=== PATIENT | male | born 1960 | race Caucasian/White ===

== ENCOUNTER 2019-01-24 00:03 | Inpatient (IN) | payer OTHER ==
[~2019-01-24] VITALS: Ht 177.8 cm; Wt 92.1 kg
[~2019-01-24 00:03] MED LIST: BENA10TA25 PO; CALC-598 PO; CARB200T1 PO; DEPER500 PO; DIL100I PO; FERR-21 PO; LEVE750T3 PO; LORA-476 PO; MULT1CAP28 PO; PHEN100C4 PO; SERT100T PO; [UNRECOGNIZED DRUG - CODE] PO
--- NOTE | 2019-01-24 00:03 | NUR ---
PT PLACED IN BED 10.
[2019-01-24] MEDS ORDERED: cefTRIAXone 1,000 MG in DEXT 5% MINI-BAG PLUS 50 ML IV ONE (00:05)
--- NOTE | 2019-01-24 00:05 | NUR ---
PT PRESENTS TO ED BIB AMBULANCE FROM NURSING FACILITY W C/O ABNORMAL LABS AND HYPERGLYCEMIA. PT IS NON-VERBAL AT BASELINE AND RESPOSNIVE TO PAIN. PT HAS TRACH TO 02 ON ARRIVAL AND IT IS WNL. PT ALSO PRESENTS WITH INDWELLING FOELY CATH AND G TUBE ON ARRIVAL. NO S/S OF INFECTION FROM EITHER SITE. PT PLACED INTO BED, PENDING MD MADDEN.
[2019-01-24 00:09] VITALS: BP 98/55
[2019-01-24] MEDS ORDERED: cefTRIAXone 1,000 MG VIAL ONE (00:19)
[2019-01-24] MEDS ORDERED: FAMO-90 GT (00:31)
[2019-01-24] MEDS ORDERED: LEVEMIR SUBQ (00:31)
[2019-01-24] MEDS ORDERED: HEPA500056 SUBQ (00:31)
[2019-01-24] MEDS ORDERED: ASCO500T45 GT (00:31)
[2019-01-24] MEDS ORDERED: METO25TA GT (00:31)
[2019-01-24] MEDS ORDERED: DOCU-299 GT (00:31)
[2019-01-24] MEDS ORDERED: CLOP75TA26 GT (00:31)
[2019-01-24] MEDS ORDERED: VANC125C11 GT (00:31)
[2019-01-24] MEDS ORDERED: SENN-74 GT (00:31)
[2019-01-24] MEDS ORDERED: MULT-1869 GT (00:31)
[2019-01-24] MEDS ORDERED: ATOR40TA GT (00:31)
[2019-01-24] MEDS ORDERED: ASPI-1718 GT (00:31)
[2019-01-24] MEDS ORDERED: PHEN100C3 GT (00:31)
[2019-01-24] MEDS ORDERED: LACT25CA GT (00:31)
--- NOTE | 2019-01-24 00:45 | NUR ---
# 14 FR Meeks catheter with 10 ml utilizing sterile technique. Immediate return of 20 ml CLOUDY/YELLOW urine noted. Bedside drainage bag placed below level of bladder. Urine sample collected and sent to lab. Pt tolerated procedure WELL.
--- NOTE | 2019-01-24 01:05 | NUR ---
Patient noted to have existing wounds upon arrival to ER. Photos taken of wound and placed in chart. Wound covered with dressing. Physician informed.
[2019-01-24 01:19] LABS: BASOPHILS % (AUTO) 0.2 % (0.0-2.0); EOSINOPHILS % (AUTO) 0.4 % (0.0-4.0); HEMATOCRIT 21.2 % (36-52); LYMPHOCYTES # (AUTO) 1.3 K/uL (2.0-11.5); LYMPHOCYTES % (AUTO) 11.4 % (20.5-51.1); MEAN CORPUSCULAR HEMOGLOBIN 27 pg (27-31); MEAN CORPUSCULAR HGB CONC 33 g/dL (33-37); MEAN CORPUSCULAR VOLUME 82.2 fL (80-94); MONOCYTES # (AUTO) 1.4 K/uL (0.8-1.0); MONOCYTES % (AUTO) 12.7 % (1.7-9.3); NEUTROPHILS # (AUTO) 8.5 K/uL (1.8-7.7); NEUTROPHILS % (AUTO) 75.3 % (42.2-75.2); PLATELET COUNT (AUTO) 168 K/uL (140-450); RED BLOOD CELL COUNT(AUTO) 2.58 MIL/uL (4.20-6.10); WHITE BLOOD COUNT (AUTO) 11.3 K/uL (4.8-10.8)
--- NOTE | 2019-01-24 01:22 | NUR ---
URINE WALKED DOWN TO LAB.
[2019-01-24 01:40] LABS: POTASSIUM 5.6 mmol/L (3.5-5.1)
[2019-01-24 01:41] LABS: ANION GAP 15.6 (8-16); CREATININE 3.5 mg/dL (0.7-1.3); TOTAL BILIRUBIN 0.9 mg/dL (0.0-1.0)
[2019-01-24 01:42] LABS: ALBUMIN 1.4 g/dL (3.4-5.0)
[2019-01-24 01:44] LABS: HEMOGLOBIN 6.9 g/dL (12.0-18.0)
[2019-01-24 01:45] LABS: RED CELL DISTRIBUTION WIDTH 20.3 % (11.6-13.7)
[2019-01-24] MEDS ORDERED: NACL 0.9% 1,000 ML IV ONE ×2 (01:45→02:20)
[2019-01-24] MEDS ORDERED: DOCUSATE SODIUM 100 MG GELCAP PO PRN (02:05)
[2019-01-24] MEDS ORDERED: MORPHINE SULFATE 2 MG/ML SYR IVP PRN (02:05)
[2019-01-24] MEDS ORDERED: HYDROcodone/APAP 7.5/325 MG 1 TAB PO PRN (02:05)
[2019-01-24] MEDS ORDERED: ONDANSETRON 4 MG/2 ML VIAL IM/IVP PRN (02:05)
[2019-01-24 02:06] LABS: APPEARANCE,URINE CLEAR (CLEAR); BILIRUBIN,URINE NEGATIVE (NEGATIVE); BLOOD, URINE 3+ (NEGATIVE); COLOR,URINE YELLOW (YELLOW); LEUKOCYTE ESTERASE ,URINE 3+ (NEGATIVE); NITRITE, URINE NEGATIVE (NEGATIVE); UGLUCOSE NEGATIVE (NEGATIVE)
--- NOTE | 2019-01-24 02:20 | NUR ---
Patient transported to unit via gurney, accompanied by two AIR LIAISON AND SPECIAL STAFF's; patient is A/Ox1, mentally disabled, unable to make needs known, bedbound. Introduced self, updated board, oriented patient to hospital environment and room. Patient on trach to t-piece, O2 at 10LPM, no distress noted. IV site on right subclavian, 22 gauge, intact and patent, running IVF at bolus rate. G-tube in place, Meeks catheter inserted in ER. Right lateral foot and heel noted with skin tear and sacrococcyx area has a pressure ulcer, all covered with Optifoam, no drainage noted. Bed in the lowest position, call light within reach. Initial assessment done. Will continue to monitor.
--- NOTE | 2019-01-24 02:20 | NUR ---
Patient will be admitted to care of DR POSADA. Admited to TELE. Will go to room 116-A. Belongings list completed. Report to JESÚS ALVARADO.
[2019-01-24 02:21] LABS: PROTHROMBIN TIME 9.2 secs (10.8-13.4)
--- NOTE | 2019-01-24 02:25 | NUR ---
SPOKE WITH GEE FROM [facility] TO INFORM OF PTS ADMISSION.
--- NOTE | 2019-01-24 02:53 | NUR ---
SPUTUM SAMPLE OBTAINED VIA TRACHEAL SUCTION, 6-7ML, BARBOUR, THICK. SENT TO LAB. PATIENT THEN PLACED ON COOL AEROSOL VIA T-PIECE AT 40% FIO2, 10LPM. SPO2 92% POST SUCTION.
[2019-01-24 03:00] VITALS: BP 110/58
[2019-01-24] MEDS ORDERED: NACL 0.9% 1,000 ML IV SCH (03:00)
[2019-01-24 03:20] LABS: FREE T4 (FREE THYROXINE) 1.3 ng/dL (0.76-1.46); MAGNESIUM 2.8 mg/dL (1.8-2.4); PHOSPHORUS 1.4 mg/dL (2.5-4.9); THYROID STIMULATING HORMONE 2.98 uIU/mL (0.34-3.74)
[2019-01-24 03:27] LABS: CHOL/HDL RATIO 19.8 (1-4.5)
[2019-01-24] MEDS ORDERED: DEXTROSE 50% 50 ML SYR IVP PRN (03:30)
[2019-01-24 04:01] LABS: RBC,URINE TOO NUMEROUS TO COUN /HPF (0-5); WBC,URINE TOO MANY TO COUNT /HPF (0-5)
--- NOTE | 2019-01-24 04:20 | NUR ---
RECEIVED CALL FROM LAB, SPOKE WITH SARAH BROOKS 2.4.
--- NOTE | 2019-01-24 04:23 | NUR ---
DR WHITE AWARE OF LACTIC ACID 2.4, NO CHANGE IN ORDERS
[2019-01-24] MEDS ORDERED: PIPERACILLIN/TAZOBACTAM 2.25 GM VIAL IV ONE (05:29)
[2019-01-24] MEDS ORDERED: SODIUM PHOSPHATE 15 MMOLE in NACL 0.9% 250 ML IV SCH ×2 (05:55→07:16)
[2019-01-24] MEDS ORDERED: PIPERACILLIN/TAZOBACTAM 2.25 GM in DEXTROSE 5% 50 ML IV SCH (06:00)
[2019-01-24] MEDS: BLOOD GLUCOSE MONITORING 1 DEV DEV FS SCH ×4 (06:42→21:23)
[2019-01-24] MEDS: INSULIN LISPRO SLIDING SCALE 100 UNITS/ML VIAL SUBQ PRN ×5 (06:45→21:27)
--- NOTE | 2019-01-24 07:10 | NUR ---
Endorsed patient to AM shift RN for continuity of care. Patient in stable condition.
--- NOTE | 2019-01-24 07:15 | NUR ---
RECEIVED HANDOFF REPORT FROM INSURANCE LOSS ADJUSTER NURSE. PT IS AWAKE IN BED. PT IS STABLE AND APPEARS IN NO APPARENT DISTRESS. ALL SAFETY MEASURES ARE IN PLACE AND WILL CONTINUE TO MONITOR. RT AT PT BEDSIDE.
[2019-01-24] MEDS: ALBUTEROL SULFATE/IPRATROPIU 3 ML SOL IH SCH ×3 (07:18→20:10)
[2019-01-24] MEDS ORDERED: VANCOMYCIN PER PHARMACY MC PRN (07:25)
[2019-01-24 08:00] VITALS: BP 105/69
--- NOTE | 2019-01-24 08:09 | NUR ---
PATIENT HAS BEEN SCREENED AND CATEGORIZED HIGH NUTRITION RISK. PATIENT WILL BE SEEN WITHIN 1-2 DAYS OF ADMISSION. 01/24/19-01/25/[address]
[2019-01-24] MEDS ORDERED: FAMOTIDINE 20 MG TAB GT SCH (09:00)
[2019-01-24] MEDS ORDERED: METOPROLOL 25 MG TAB GT SCH (09:00)
[2019-01-24] MEDS ORDERED: VANCOMYCIN 750 MG in DEXTROSE 5% 250 ML IV SCH (09:00)
[2019-01-24] MEDS ORDERED: LACTULOSE 20 GM/30 ML UDC PO SCH (09:00)
[2019-01-24] MEDS ORDERED: CLOPIDOGREL 75 MG TAB PO ONE (09:00)
[2019-01-24] MEDS ORDERED: DOCUSATE 100 MG/10 ML UDC GT SCH (09:00)
[2019-01-24] MEDS ORDERED: ASPIRIN 81 MG TAB.CHEW GT SCH (09:00)
[2019-01-24] MEDS ORDERED: PHENYTOIN 100 MG/4 ML UDC GT SCH (09:00)
[2019-01-24] MEDS: LACTOBACILLUS RHAMNOSUS GG 1 EACH CAP PO SCH (09:05)
[2019-01-24] MEDS: PHENYTOIN 100 MG/4 ML UDC GT SCH ×2 (09:07→21:01)
--- NOTE | 2019-01-24 09:30 | NUR ---
FINGER STICK GLUCOSE CHECK 310. ADMINISTERED 30 UNITS LANTUS AND 8 UNITS OF HUMALOG. PT IS AWAKE IN BED. PERFORMED SUCTION. SMALL AMOUNT OF SECRETIONS REMOVED. ALL MORNING MEDICATIONS ADMINISTERED VIA G TUBE. NO GTUBE RESIDUAL. ALL SAFETY MEASURES ARE IN PLACE WILL CONTINUE TO MONITOR.
[2019-01-24] MEDS: ASCORBIC ACID 500 MG/5 ML ORASYR GT SCH ×2 (09:40→21:10)
[2019-01-24] MEDS: INSULIN LANTUS 100 UNITS/ML 10 ML VIAL SUBQ SCH ×2 (09:43→21:28)
[2019-01-24] MEDS: NACL 0.9% 1,000 ML IV SCH ×2 (09:45→21:01)
[2019-01-24] MEDS: PHARMACY COMMENTS MC SCH (09:52)
[2019-01-24] MEDS: VANCOMYCIN 500 MG VIAL PO SCH (09:53)
[2019-01-24] MEDS ORDERED: SCOPOLAMINE 1.5 MG/72 HR PATCH TD SCH (10:26)
--- NOTE | 2019-01-24 10:30 | NUR ---
CHANGED PT LINENS. SMALL BOWEL MOVEMENT. CLEANED PERIANAL AND REPOSITIONED PATIENT.
--- NOTE | 2019-01-24 10:30 | NUR ---
ATTEMPTED TO CONTACT BOTH FAMILY MEMBERS IN PATIENT CONTACTS LEFT VOICEMAIL FOR CONSENT FOR BLOOD TRANSFUSION.
--- NOTE | 2019-01-24 10:38 | NUR ---
WOUND CARE EVALUATION NOTE: REASON FOR EVALUATION: LOW JESSICA SCALE AND LEFT BUTTOCK WOUND SKIN ASSESSMENT DONE WITH THIS 58 Y/O MALE PT ADMITTED FROM [facility] TO [facility] WITH INITIAL DX HYPERGLYCEMIA. PAST MEDICAL HX INCLUDES HTN, DM, TRACH, CHRONIC PRESSURE ULCER WOUNDS, G-TUBE. ALL ABOVE INFORMATION OBTAINED FROM ADMISSION H&P. PT IS AWAKE. SKIN IS WARM AND DRY, BLE HAIR GROWTH, NO EDEMA. DORSAL PEDAL PULSES PRESENT AND NORMAL. CAPILLARY REFILLED < 2 SEC. X 10 TOES. INCONTINENT OF BOWEL X1 DURING ASSESSMENT. F/C PATENT WITH SMALL AMOUNT YELLOW COLOR URINE OUT PUT OBSERVED.. PLAN OF CARE DISCUSSED WITH PRIMARY RN. INTEGUMENTARY: -TRACH SITE BRADLEY STOMA SKIN DRY AND CLEAN. SKIN INTACT. -GT SITE BRADLEY STOMA WITH SKIN INTACT. -ABDOMEN DISTENDED, SOFT WITH MULTIPLE PURPLE DISCOLORATION -INCONTINENT ASSOCIATE DERMATITIS (IAD) TO: B/L GROINS EXTENDED TO PERINEUM, SKIN REDNESS -PRESSURE ULCER INJURY STAGE 1, SACROCOCCYX 2X2CM, BRADLEY-WOUND SKIN MOIST (FROM [facility] H&P RECORD HX PI STAGE 3) - PRESSURE ULCER INJURY STAGE 3, LEFT BUTTOCK 4.5X4X0.2CM WOUND BED IS RED 100% GRANULATING TISSUE, MOIST NO ODOR, BRADLEY WOUND SKIN INTACT. -PRESSURE ULCER INJURY STAGE 2, RIGHT LATERAL MALLEOLUS 0.5X0.5X0.2 CM, WOUND BED IS RED, 100% GRANULATING TISSUE, MOIST NO ODOR, BRADLEY WOUND SKIN INTACT. -RIGHT HEEL RECENT RESOLVED PRESSURE ULCER INJURY (FROM [facility] RECORD) NON-BLANCHABLE SKIN INTACT WITH THIN SCAR 3X4CM RECOMMENDATIONS: -APPLY HYDRAGUARD TO R/L GROINS EXTENDED TO PERINEUM BID AND PRN IF SOILING - CLEANSE LEFT BUTTOCK AND RIGHT LATERAL MALLEOLUS WITH WOUND CLEANSING SOLUTION AND APPLY THERAHONEY GEL COVER WITH DRY DRESSING QD AND PRN IF SOILING -APPLY FORM DRESSING TO SACROCOCCYX AND RIGHT HEEL Q7 DAYS AND PRN IF SOILING PREVENTION -APPLY HEEL PROTECTORS TO BOTH HEELS AT ALL TIMES -OFFLOAD BILATERAL HEELS BY PLACING PILLOWS UNDER CALVES UNLESS OTHERWISE CONTRAINDICATED -PRESSURE REDISTRIBUTION SURFACE THERAPY -TURN AND REPOSITION Q2H, OFFLOAD SACRALCOCCYX AND BUTTOCKS BY TURNING RIGHT AND LEFT -CONTINUE TO FOLLOW RD RECOMMENDATIONS ALL ABOVE RECOMMENDATIONS DISCUSSED WITH PRIMARY RN. WILL FOLLOW UP PT Q7-10 DAYS. PLEASE CONTACT WOUND CARE NURSE FOR ANY QUESTION AND CHANGE OF WOUND CONDITION.
[2019-01-24 11:01] LABS: ANION GAP 10.8 (8-16); CREATININE 3.4 mg/dL (0.7-1.3); POTASSIUM 4.8 mmol/L (3.5-5.1)
[2019-01-24 11:04] LABS: MAGNESIUM 2.7 mg/dL (1.8-2.4); PHOSPHORUS 1.6 mg/dL (2.5-4.9)
--- NOTE | 2019-01-24 11:20 | NUR ---
STARTED BLOOD TRANSFUSION. PT VITALS ARE 137/65 TEMP 100.1 BEFORE BLOOD TRANSFUSION IS INITIATED. CALLED AND INFORMED HER. SAID TO ADMINISTER TYLENOL
[2019-01-24] MEDS: ACETAMINOPHEN 325 MG TAB PO PRN ×2 (11:25→21:01)
--- NOTE | 2019-01-24 11:25 | NUR ---
ADMINISTERED TYLENOL VIA GTUBE. NO GTUBE RESIDUAL. PT IS STABLE AND NO SIGNS OF DISTRESS.
--- NOTE | 2019-01-24 11:30 | NUR ---
IV SITE LEAKING STOPPED BLOOD TRANSFUSION AND WILL START A NEW IV SITE.
[2019-01-24 11:46] LABS: HEMATOCRIT 21.3 % (36-52); MEAN CORPUSCULAR HEMOGLOBIN 27 pg (27-31); MEAN CORPUSCULAR HGB CONC 33 g/dL (33-37); MEAN CORPUSCULAR VOLUME 83.4 fL (80-94); PLATELET COUNT (AUTO) 172 K/uL (140-450); RED BLOOD CELL COUNT(AUTO) 2.56 MIL/uL (4.20-6.10); RED CELL DISTRIBUTION WIDTH 20.1 % (11.6-13.7); WHITE BLOOD COUNT (AUTO) 8.6 K/uL (4.8-10.8)
[2019-01-24 12:00] VITALS: BP 125/62
[2019-01-24 12:04] LABS: EOSINOPHILS % (MANUAL) 2 % (0-4); MONOCYTES % (MANUAL) 9 % (5-12)
[2019-01-24 12:05] LABS: LYMPHOCYTES % (MANUAL) 10 % (20-46)
--- NOTE | 2019-01-24 12:30 | NUR ---
NEW IV SITE STARTED. IV BLOOD TRANSFUSION BACK RUNNING. PT IS STABLE AND HAS NO SIGNS OF DISTRESS. VITAL SIGNS ARE 131/60 HR 111 TEMP 99.8
[2019-01-24] MEDS: PIPER/TAZO 2.25GM/D5W PREMIX 50 ML IV SCH ×2 (13:00→21:16)
--- NOTE | 2019-01-24 13:32 | NUR ---
01/24/19 RD INITIAL ASSESSMENT COMPLETED PLEASE REFER TO NUTRITION ASSESSMENT UNDER CARE ACTIVITY FOR ESTIMATED NUTRITIONAL NEEDS. 1. RECOMMEND VITAL @ 65 ML/HR -THIS WILL PROVIDE 1560 ML OF VOLUME, 1872 KCAL, AND 117 GM OF PROTEIN, WHICH MEETS 100% OF ESTIMATED PROTEIN AND KCAL NEEDS 2. RECOMMEND FREE WATER FLUSH 100 ML Q4H 3. CONTINUE VITAMIN C FOR PRESSURE ULCERS 4. RD TO FOLLOW-UP 2-3 DAYS, HIGH RISK DEUCE KNIGHT RD
[2019-01-24] MEDS: HYDRAGUARD CREAM TP SCH (13:50)
[2019-01-24] MEDS: THERAHONEY GEL 42.5 GM TP SCH (13:50)
--- NOTE | 2019-01-24 14:18 | NUR ---
CONTACTED PICC LINE SERVICE, VOICEMAIL MESSAGE LEFT ([phone]). AWAITING FOR CALL BACK.
--- NOTE | 2019-01-24 14:30 | NUR ---
PICC LINE NURSE CONTACTED ME INFORMED ME THAT HE WILL BE HERE IN ABOUT AN HOUR TO PLACE THE PICC LINE.
--- NOTE | 2019-01-24 15:20 | NUR ---
BLOOD TRANSFUSION COMPLETE. PT IS STABLE AND SHOWS NO SIGNS OF TRANSFUSION REACTION. PT IS STABLE AND IN NO APPARENT DISTRESS. ALL SAFETY MEASURES ARE IN PLACE WILL CONTINUE TO MONITOR. CURRENT VITAL SIGNS ARE 132/72 100% O2 TRACH TO T PIECE.
--- NOTE | 2019-01-24 16:00 | NUR ---
PICC LINE PLACED. PT IS AWAKE IN BED, PT APPEARS STABLE AND IN NO APPARENT DISTRESS, ALL SAFETY MEASURES ARE IN PLACE. WILL CONTINUE TO MONITOR.
--- NOTE | 2019-01-24 16:30 | NUR ---
FINGERSTICK GLUCOSE. 271 WILL ADMINISTER 6 UNITS HUMALOG.
--- NOTE | 2019-01-24 17:30 | NUR ---
PT TRANSFERRED TO WOUND CARE BED. PER WOUND CARE NURSE ORDERS. PT IS STABLE PROVIDED SUCTIONING AND PT IS IN NO APPARENT DISTRESS. ALL SAFETY MEASURES ARE IN PLACE. WILL CONTINUE TO MONITOR.
[2019-01-24 18:00] VITALS: BP 146/62
[2019-01-24] MEDS ORDERED: FUROSEMIDE 20 MG/2 ML VIAL IVP SCH ×2 (18:10→19:00)
--- NOTE | 2019-01-24 18:40 | NUR ---
SUCTIONED PATIENT. FREQUENT ROUNDING ON PT. PT IS STABLE AND IN NO APPARENT DISTRESS.
--- NOTE | 2019-01-24 19:05 | NUR ---
ENDORSED PT TO CORPORATE COMMUNICATIONS ASSOCIATE NURSE PT IS STABLE AND IN NO APPARENT DISTRESS. ALL SAFETY MEASURES ARE IN PLACE.
--- NOTE | 2019-01-24 19:15 | NUR ---
Received endorsement from AM shift RN; patient is A/Ox1, unable to make needs known, bedbound. Introduced self, updated board. Patient is on Trach to t-piece, O2 at 10LPM at 60%, O2Sat between 90-93%. IV site left upper arm PICC line, double lumen running IVF, no swelling noted. G-tube in place, no feeding in place. Meeks catheter in place, yellow urine noted. Skin tears on right lateral foot and heel, sacrococcyx pressure ulcer noted. Bed in the lowest position, call light within reach. Initial assessment done. Will continue to monitor.
[2019-01-24 20:00] VITALS: BP 141/76
--- NOTE | 2019-01-24 20:10 | NUR ---
PATIENT FOUND ON COOL AEROSOL FIO2 OF 28%. SAO2 AT 81% (GOAL IS 88-92%). RR AT 36, DIAPHORETIC, BREATH SOUNDS DIMINISHED, AND PULSE AT 135. NURSE JENNY MADE AWARE. FIO2 INCREASED TO 60% TO ACHIEVE 90%. TX GIVEN WITH NO ADVERSE EFFECT. FREQUENT ROUNDINGS WILL BE MADE.
--- NOTE | 2019-01-24 20:15 | NUR ---
Vitals taken, O2Sat between 89-93%, respirations 25. Temperature 100.4 degrees F., administered PRN Tylenol as ordered for fever. Due meds given, tolerated well. Will continue to monitor.
[2019-01-24] MEDS: ATORVASTATIN 20 MG TAB GT SCH (21:02)
--- NOTE | 2019-01-24 22:05 | NUR ---
Frequent checks made. Patient O2Sat is between 90-93%, RR 22-25 BPM. Will continue to monitor.
--- NOTE | 2019-01-24 23:25 | NUR ---
Vitals taken, fever reduced to 98.9; O2Sat is between 89-95% on 10LPM at 60%. Patient is diaphoretic; Dr. Herbert made aware and went to bedside. Additional orders were made. Will continue to monitor.
--- NOTE | 2019-01-24 23:42 | NUR ---
PATIENT TITRATED FROM FIO2 OF 60% TO 40%. SPO2 AT 91 AFTER CHANGE. PT NO LONGER DIAPHORETIC OR TACHYPNEIC. RR AT 20.
[2019-01-25] VITALS (7 sets, daily range): BP systolic 90–163; BP diastolic 51–64
[2019-01-25] MEDS: HYDRAGUARD CREAM TP SCH ×2 (01:16→12:36)
--- NOTE | 2019-01-25 01:20 | NUR ---
Checks made, patient is resting. No distress noted. Patient O2Sat between 86-94%.
--- NOTE | 2019-01-25 03:30 | NUR ---
Patient had a BM, brown, semi soft. Patient given a sponge bath, linens and chux changed, repositioned right lateral side. O2Sat between 91-95%, RR 24-26 BPM. Will continue to monitor.
--- NOTE | 2019-01-25 03:55 | NUR ---
Vitals taken, no distress noted. Patient resting, eyes closed, visible chest rise and fall noted.
[2019-01-25] MEDS: PIPER/TAZO 2.25GM/D5W PREMIX 50 ML IV SCH ×3 (04:40→21:11)
[2019-01-25] MEDS: BLOOD GLUCOSE MONITORING 1 DEV DEV FS SCH ×4 (06:35→21:25)
[2019-01-25] MEDS: INSULIN LISPRO SLIDING SCALE 100 UNITS/ML VIAL SUBQ PRN ×4 (06:39→21:30)
--- NOTE | 2019-01-25 07:20 | NUR ---
Endorsed patient to AM shift RN for continuity of care; patient in stable condition.
[2019-01-25] MEDS: ALBUTEROL SULFATE/IPRATROPIU 3 ML SOL IH SCH ×3 (07:43→18:52)
--- NOTE | 2019-01-25 07:50 | NUR ---
PATIENT WAS AWAKE, RESPONSIVE TO TOUCH. RESPIRATION EVEN, UNLABOR ON TPIECE 40%. SKIN DRY AND WARM. IV PATENT AND INTACT. TUBE FEEDING WAS STOPPED. GTUBE DRY AND IN PLACE. FLACC 0. PLAN OF CARE WAS DISCUSSED WITH PATIENT, PATIENT WAS UNABLE TO COMPREHEND. BED AT LOW POSITION, SIDE RAILS UP. CALL LIGHT WITHIN REACH. RT WAS AT BEDSIDE
[2019-01-25 08:15] LABS: BASOPHILS % (AUTO) 0.4 % (0.0-2.0); EOSINOPHILS # (AUTO) 0.1 K/uL (0-0.4); EOSINOPHILS % (AUTO) 0.7 % (0.0-4.0); HEMATOCRIT 22.5 % (36-52); HEMOGLOBIN 7.4 g/dL (12.0-18.0); LYMPHOCYTES % (AUTO) 9.9 % (20.5-51.1); MEAN CORPUSCULAR HEMOGLOBIN 27 pg (27-31); MEAN CORPUSCULAR HGB CONC 33 g/dL (33-37); MEAN CORPUSCULAR VOLUME 81.9 fL (80-94); MONOCYTES # (AUTO) 1.1 K/uL (0.8-1.0); MONOCYTES % (AUTO) 10.7 % (1.7-9.3); NEUTROPHILS # (AUTO) 7.8 K/uL (1.8-7.7); NEUTROPHILS % (AUTO) 78.3 % (42.2-75.2); PLATELET COUNT (AUTO) 214 K/uL (140-450); RED BLOOD CELL COUNT(AUTO) 2.75 MIL/uL (4.20-6.10); RED CELL DISTRIBUTION WIDTH 19.3 % (11.6-13.7); WHITE BLOOD COUNT (AUTO) 9.9 K/uL (4.8-10.8)
[2019-01-25 08:37] LABS: FERRITIN 268 ng/mL (30-400); FOLIC ACID > 20.00 ng/mL (>3.0)
[2019-01-25] MEDS ORDERED: LACTULOSE 20 GM/30 ML UDC PO SCH (09:00)
[2019-01-25] MEDS: INSULIN LANTUS 100 UNITS/ML 10 ML VIAL SUBQ SCH (09:00)
[2019-01-25 09:10] LABS: CARBON DIOXIDE 26.5 mmol/L (21-32); POTASSIUM 4.5 mmol/L (3.5-5.1)
[2019-01-25] MEDS: PHENYTOIN 100 MG/4 ML UDC GT SCH ×2 (09:11→21:11)
[2019-01-25] MEDS: PANTOPRAZOLE 40 MG INJ VIAL IVP SCH (09:11)
[2019-01-25] MEDS: ASCORBIC ACID 500 MG/5 ML ORASYR GT SCH ×2 (09:11→21:10)
[2019-01-25 09:12] LABS: CREATININE 3.3 mg/dL (0.7-1.3)
[2019-01-25] MEDS: LACTOBACILLUS RHAMNOSUS GG 1 EACH CAP PO SCH (09:12)
--- NOTE | 2019-01-25 09:30 | NUR ---
PATIENT WAS AWAKE, RESPONSIVE TO TOUCH. RESPIRATION EVEN, UNLABOR ON T PIECE. PATIENT WAS REPOSITIONED, PERINEAL CARE WAS GIVEN. MEDS WERE GIVEN PER ORDER. NO DISTRESS NOTED AT THIS TIME
[2019-01-25] MEDS ORDERED: SODIUM PHOS / POTASSIUM PHOS 1 PKT PDR PO SCH (11:00)
[2019-01-25] MEDS: VANCOMYCIN 1GM/DEXT 5% PREMIX 200 ML IV SCH (11:08)
[2019-01-25 11:30] LABS: MAGNESIUM 2.4 mg/dL (1.8-2.4)
--- NOTE | 2019-01-25 12:00 | NUR ---
DR. CABRAL WAS MADE AWARE THAT PATIENT IS CURRENTLY NPO, WITH BLOOD SUGAR 343. OK TO GIVE 8 UNITS PER MD
[2019-01-25] MEDS: THERAHONEY GEL 42.5 GM TP SCH (12:36)
[2019-01-25] MEDS ORDERED: fentaNYL 0.05 MG/ML VIAL ONE (13:47)
[2019-01-25] MEDS ORDERED: MIDAZOLAM 2 MG/2 ML VIAL ONE ×2 (13:47)
[2019-01-25] MEDS ORDERED: diphenhydrAMINE 50 MG/ML VIAL ONE (13:48)
--- NOTE | 2019-01-25 13:48 | NUR ---
OPERATING ROOM (OR) TECH AT BEDSIDE TRANSPORT PATIENT TO OR FOR EGD BREATH SOUNDS COARSE RHONCHI BILATERAL DEEP TRACHEAL SUCTION FOR COPIOUS FROTHY TO SEMI THICK BARBOUR SECRETIONS SUPPLEMENTAL OXYGEN GIVEN VIA E-TANK TO INLINE SUCTION CATHETER/TRACHEOSTOMY TUBE AT 3 LPM ELEVATED GUARD TO ATTEMPT HHN THERAPY AND RESPIRATORY DRUG AT A LATER TIME
[2019-01-25] MEDS: MIDAZOLAM 2 MG/2 ML VIAL IVP ONE ×2 (14:11→14:55)
[2019-01-25] MEDS: fentaNYL 0.05 MG/ML VIAL IVP ONE ×2 (14:12→14:55)
--- NOTE | 2019-01-25 14:56 | NUR ---
PATIENT WAS TRANSFERRED BACK FROM OR. VS WAS TAKEN. PATIENT WAS AWAKE. PATIENT IS STABLE AT THIS TIME. US AT BEDSIDE
--- NOTE | 2019-01-25 15:15 | NUR ---
INTERIOR WIRER AT BEDSIDE FOR ULTRASOUND FO LEFT AND RIGH LOWER EXTREMITIES R/O DVT SPECIAL EDUCATION ASSOCIATE TO ATTEMPT HHN THERAPY AND RESPIRATORY DRUG AT A LATER TIME
--- NOTE | 2019-01-25 15:42 | NUR ---
PATIENT WITH INCREASED SOB AT 36 BPM BREATH SOUNDS COARSE RHONCHI BILATERAL DEEP TRACHEAL SUCTION FOR COPIOUS FROTHY BARBOUR SECRETIONS AIRWAY PATENT
--- NOTE | 2019-01-25 16:00 | NUR ---
PATIENT WAS AWAKE, RESPONSIVE TO TOUCH. RESPIRATION EVEN, UNLABOR ON TRACH TO TPIEACE. FLACC 0. NO DISTRESS NOTED AT THIS TIME
[2019-01-25] MEDS: NACL 0.9% 1,000 ML IV SCH (16:55)
--- NOTE | 2019-01-25 17:30 | NUR ---
PATIENT WAS REPOSITIONED, PERINEAL CARE WAS GIVEN. WOUND DRESSINGS WERE CHANGED. PATIENT TOLERATED WELL
--- NOTE | 2019-01-25 18:44 | NUR ---
PATIENT WAS SUCTIONED X 2. TUBE FEEDING WAS STARTED AT 10ML/HOUR PER ORDER. RESIDUAL FEEDING CHECK AT 0. PICC LINE PATENT AND INTACT. NO DISTRESS NOTED AT THIS TIME
--- NOTE | 2019-01-25 19:29 | NUR ---
ENDORSEMENT GIVEN TO ROUTE SALES DELIVERY DRIVERS SUPERVISOR NURSE. PATIENT IS STABLE AT THIS TIME
--- NOTE | 2019-01-25 19:40 | NUR ---
RECEIVED BEDSIDE REPORT FROM DAY SHIFT NURSE. PATIENT AWAKE AND APHASIC. AOX1 TO SELF AND BEDBOUND. RESPIRATION EVEN UNLABORED ON TRACH TO T-PIECE. SKIN IS WARM AND DRY. LEFT UPPER ARM PICC LINE NOTED PATENT AND INTACT. G-TUBE FEEDING NOTED AND OBTAINED 0CC RESIDUAL. ROSAS CATHETER NOTED DRAINING YELLOW URINE. RIGHT FOOT AND HEEL NOTED WITH SKIN TEAR. PRESSURE ULCER IN THE SACRAL AREA NOTED AND COVERED WITH OPTIFOAM. PLAN OF CARE WAS DISCUSSED. ALL SAFETY MEASURES IN PLACE. BED IS AT LOW POSITION. CALL LIGHT WITHIN REACH. WILL CONTINUE TO MONITOR
--- NOTE | 2019-01-25 20:00 | NUR ---
INITIAL ASSESSMENT DONE. VITALS WERE TAKEN. PATIENT CONDITION STABLE. NO DISTRESS NOTED WILL CONTINUE TO MONITOR
[2019-01-25] MEDS ORDERED: INSULIN LANTUS 100 UNITS/ML 10 ML VIAL SUBQ SCH (21:00)
--- NOTE | 2019-01-25 21:00 | NUR ---
ALL SCHEDULED MEDS WERE GIVEN PER ORDER. NO ASE NOTED. WILL CONTINUE TO MONITOR
[2019-01-25] MEDS: METOPROLOL 50 MG TAB PO SCH (21:10)
[2019-01-25] MEDS: ATORVASTATIN 20 MG TAB GT SCH (21:10)
--- NOTE | 2019-01-25 22:00 | NUR ---
SUCTIONED PATIENT OBTAINED SMALL AMOUNT OF WHITE SECRETION. WILL CONTINUE TO MONITOR
--- NOTE | 2019-01-25 22:40 | NUR ---
SUCTIONED COPIOUS AMOUNT OF THICK, WHITE FROTHY SECRETIONS. WILL CONTINUE TO MONITOR.
--- NOTE | 2019-01-25 23:00 | NUR ---
PATIENT SLEEPING RESPIRATION EVEN UNLABORED ON TRACH TO T-PIECE. NO DISTRESS NOTED. WILL CONTINUE TO MONITOR
[2019-01-26] VITALS: BP 115/69
--- NOTE | 2019-01-26 01:00 | NUR ---
PATIENT WENT TO RADIOLOGY IN STABLE CONDITION. WILL CONTINUE TO MONITOR
--- NOTE | 2019-01-26 01:30 | NUR ---
PATIENT IS BACK TO THE UNIT. CONDITION STABLE NO DISTRESS NOTED. WILL CONTINUE TO MONITOR
[2019-01-26] MEDS: HYDRAGUARD CREAM TP SCH ×2 (02:10→13:30)
--- NOTE | 2019-01-26 02:51 | NUR ---
CHECKED PATIENT. PATIENT SLEEPING RESPIRATION EVEN UNLABORED ON TRACH TO T-PIECE. NO DISTRESS NOTED. WILL CONTINUE TO MONITOR
[2019-01-26 04:00] VITALS: BP 142/68
[2019-01-26] MEDS: PIPER/TAZO 2.25GM/D5W PREMIX 50 ML IV SCH ×3 (04:34→20:59)
[2019-01-26] MEDS: ALBUTEROL SULFATE/IPRATROPIU 3 ML SOL IH PRN ×2 (05:07→05:20)
[2019-01-26] MEDS ORDERED: MORPHINE SULFATE 2 MG/ML SYR IVP PRN (05:15)
[2019-01-26] MEDS ORDERED: NACL 0.9% 500 ML IV ONE (05:20)
--- NOTE | 2019-01-26 05:30 | NUR ---
PT DEMONSTRATING INCREASED WOB B/S ARE COURSE WITH EXP WHEEZE, SXN COPIOUS AMOUNTS OF CLEAR FROTHY SEC AND ADMINISTERED 2 DUONEB TX. POST TX EXP WHEEZE STILL PRESENT. PT FIO2 INCREASED TO 0.60 DUE TO SPO2 DROPPING.
[2019-01-26] MEDS: LORazepam 2 MG/ML VIAL IM/IVP PRN (05:34)
--- NOTE | 2019-01-26 05:35 | NUR ---
PATIENT DEMONSTRATING INCREASED WOB AND RESTLESSNESS. PRN ATIVAN GIVEN PER ORDER. WILL CONTINUE TO MONITOR
[2019-01-26] MEDS: NACL 0.9% 1,000 ML IV SCH ×3 (06:09→22:05)
[2019-01-26] MEDS: BLOOD GLUCOSE MONITORING 1 DEV DEV FS SCH ×4 (06:30→21:08)
[2019-01-26] MEDS: INSULIN LISPRO SLIDING SCALE 100 UNITS/ML VIAL SUBQ PRN ×4 (06:31→21:08)
[2019-01-26] MEDS ORDERED: methylPREDNISolone SS 125 MG/2 ML VIAL IVP SCH (07:00)
[2019-01-26] MEDS: ALBUTEROL SULFATE/IPRATROPIU 3 ML SOL IH SCH ×3 (07:27→20:43)
[2019-01-26] MEDS: BUDESONIDE 0.5 MG/2 ML NEBU INH SCH ×2 (07:30→20:43)
--- NOTE | 2019-01-26 07:30 | NUR ---
ENDORSED PATIENT TO DAY SHIFT NURSE FOR CONTINUITY OF CARE. PATIENT IS STABLE.
--- NOTE | 2019-01-26 07:31 | NUR ---
RECEIVED REPORT FROM WALL ATTENDANT NURSE. PATIENT LYING DOWN IN BED COMFORTABLY. NO DISTRESS NOTED. FLACC 0. TRACH WITH T-TUBE WITH O2 AT 40%, O2 SAT 94%. AAOX1, APHASIC, CALM, SKIN COLOR APPROPRIATE TO ETHNICITY, WARM TO TOUCH. HAS RIGHT FOOT SKIN TEAR AND BACK WOUND, DRESSINGS DRY AND INTACT. RESPIRATIONS, EVEN, COARSE LUNG SOUNDS. LEFT UPPER ARM PICC LINE NOTED, RUNNING IVF PER MD ORDERS. GTUBE SITE INTACT, PATENT, AND INFUSING CONTINUOUS FEEDING PER MD ORDERS. REVIEWED PLAN OF CARE WITH PATIENT. UNABLE TO COMPREHEND. SAFETY MEASURES IN PLACE, CALL LIGHT WITHIN REACH. WILL CONTINUE TO MONITOR.
[2019-01-26 08:00] VITALS: BP 143/72
[2019-01-26 08:21] LABS: ANION GAP 15.6 (8-16); CARBON DIOXIDE 24.1 mmol/L (21-32); CREATININE 3.1 mg/dL (0.7-1.3); POTASSIUM 3.7 mmol/L (3.5-5.1)
[2019-01-26 08:27] LABS: MAGNESIUM 2.3 mg/dL (1.8-2.4); PHOSPHORUS 3.7 mg/dL (2.5-4.9)
[2019-01-26 08:40] LABS: BASOPHILS % (AUTO) 0.4 % (0.0-2.0); EOSINOPHILS # (AUTO) 0.1 K/uL (0-0.4); EOSINOPHILS % (AUTO) 1.3 % (0.0-4.0); HEMATOCRIT 22.1 % (36-52); HEMOGLOBIN 7.2 g/dL (12.0-18.0); LYMPHOCYTES # (AUTO) 1.1 K/uL (2.0-11.5); LYMPHOCYTES % (AUTO) 11.5 % (20.5-51.1); MEAN CORPUSCULAR HEMOGLOBIN 27 pg (27-31); MEAN CORPUSCULAR HGB CONC 33 g/dL (33-37); MEAN CORPUSCULAR VOLUME 83.3 fL (80-94); MONOCYTES # (AUTO) 0.6 K/uL (0.8-1.0); MONOCYTES % (AUTO) 6.6 % (1.7-9.3); NEUTROPHILS # (AUTO) 7.7 K/uL (1.8-7.7); NEUTROPHILS % (AUTO) 80.2 % (42.2-75.2); PLATELET COUNT (AUTO) 270 K/uL (140-450); RED BLOOD CELL COUNT(AUTO) 2.65 MIL/uL (4.20-6.10); RED CELL DISTRIBUTION WIDTH 19.4 % (11.6-13.7); WHITE BLOOD COUNT (AUTO) 9.7 K/uL (4.8-10.8)
[2019-01-26] MEDS: ASCORBIC ACID 500 MG/5 ML ORASYR GT SCH ×2 (09:47→20:59)
[2019-01-26] MEDS: VANCOMYCIN 500 MG VIAL PO SCH (09:47)
[2019-01-26] MEDS: PHENYTOIN 100 MG/4 ML UDC GT SCH ×2 (09:48→21:00)
[2019-01-26] MEDS: METOPROLOL 50 MG TAB PO SCH ×2 (09:49→20:59)
[2019-01-26] MEDS: PANTOPRAZOLE 40 MG INJ VIAL IVP SCH (09:49)
[2019-01-26] MEDS: LACTOBACILLUS RHAMNOSUS GG 1 EACH CAP PO SCH (09:49)
[2019-01-26] MEDS: PHARMACY COMMENTS MC SCH (09:50)
[2019-01-26] MEDS: INSULIN LANTUS 100 UNITS/ML 10 ML VIAL SUBQ SCH ×2 (09:59→21:06)
--- NOTE | 2019-01-26 10:08 | NUR ---
PATIENT RESTING IN BED. NO SIGN OF DISTRESS NOTED AT THIS TIME. SCHEDULED MEDS GIVEN. G-TUBE RESIDUAL 5ML, PATIENT TOLERATING FEEDING. WILL CONTINUE TO MONITOR.
--- NOTE | 2019-01-26 11:22 | NUR ---
MOTION PICTURE COMMENTATOR AT BEDSIDE PERFORMING EEG. WILL CONTINUE TO MONITOR.
[2019-01-26 12:00] VITALS: BP 146/74
--- NOTE | 2019-01-26 12:08 | NUR ---
01/26/19 RD FOLLOW UP COMPLETED PLEASE REFER TO NUTRITION ASSESSMENT UNDER CARE ACTIVITY FOR ESTIMATED NUTRITIONAL NEEDS. 1. CONTINUE GLUCERNA AT 40 ML/HR DIET TOLERATED -THIS PROVIDES 1152 KCAL AND 57 GM OF PROTEIN WHICH MEETS 60% OF ESTIMATED ENERGY NEEDS AND 100% OF ESTIMATED PROTEIN NEEDS 2. WHEN MEDICALLY APPROPRIATE INCREASE TUBE FEED RATE TO 65 ML/HR TOLERATED -THIS WILL PROVIDE 1872 KCAL AND 93 GM OF PROTEIN, MEETING 100% OF ESTIMATED ENERGY AND PROTEIN NEEDS 3. RD TO FOLLOW-UP 2-3 DAYS, HIGH RISK DEUCE KNIGHT RD
[2019-01-26] MEDS: VANCOMYCIN 1GM/DEXT 5% PREMIX 200 ML IV SCH (13:30)
[2019-01-26] MEDS: THERAHONEY GEL 42.5 GM TP SCH (13:31)
--- NOTE | 2019-01-26 13:38 | NUR ---
ASSISTED MINI BACCARAT DEALER IN CLEANING AND REPOSITIONING PATIENT. SCHEDULED MEDICATIONS DUE GIVEN. WILL CONTINUE TO MONITOR.
--- NOTE | 2019-01-26 14:15 | NUR ---
SATURATION 95% ON SUPPLEMENTAL OXYGEN AT 10 LPM VIA COOL AEROSOL POST NN THERAPY TITRATED FIO2 TO 35% TAVON/RN NOTIFIED
--- NOTE | 2019-01-26 15:24 | NUR ---
PATIENT SLEEPING COMFORTABLY AT THIS TIME. NO SIGNS OF DISTRESS NOTED. ADMINISTERED ORDERED MEDICATION. WILL CONTINUE TO MONITOR.
[2019-01-26 16:00] VITALS: BP 138/69
--- NOTE | 2019-01-26 17:52 | NUR ---
SCHEDULED MEDICATIONS DUE GIVEN. WILL CONTINUE TO MONITOR.
--- NOTE | 2019-01-26 17:58 | NUR ---
BREATH SOUNDS RHONCHI BILATERAL WITH GOOD EQUAL CHEST RISE DEEP TRACHEAL SUCTION FOR MODERATE THIN YELLOW SECRETIONS AIRWAY PATENT TRACHEOSTOMY CARE DONE NOTED COOL AEROSOL TO TRACHEOSTOMY TUBE ON AND FUNCTIONAL WELL
--- NOTE | 2019-01-26 19:14 | NUR ---
GAVE REPORT TO CHIEF MAINTENANCE SUPERVISOR NURSE FOR CONTINUITY OF CARE. PATIENT IN STABLE CONDITION.
--- NOTE | 2019-01-26 19:25 | NUR ---
RECEIVED BEDSIDE REPORT FROM DAY SHIFT NURSE. PT IN STABLE CONDITION. PATIENT AWAKE, RESPIRATION EVEN UNLABORED ON TRACH TO T-PIECE. NO S/S OF SOB OR ANY DISCOMFORT. SKIN IS WARM AND DRY. PICC LINE RAMÓN NOTED PATENT AND INTACT. ROSAS CATHETER DRAINING YELLOW URINE. G-TUBE FEEDING NOTED. PLAN OF CARE REVIEWED. ALL SAFETY MEASURES IN PLACE. BED IS IN LOW POSITION. CALL LIGHT WITHIN REACH. WILL CONTINUE TO MONITOR
[2019-01-26 20:00] VITALS: BP 148/64
[2019-01-26] MEDS: ATORVASTATIN 20 MG TAB GT SCH (20:59)
--- NOTE | 2019-01-26 21:00 | NUR ---
ALL SCHEDULED MEDS WERE GIVEN PER ORDER. NO ASE NOTED. OBTAINED 0CC G-TUBE RESIDUAL. WILL CONTINUE TO MONITOR
--- NOTE | 2019-01-26 21:06 | NUR ---
RECEIVED PATIENT TRACH PORTEX 7 TO COOL AEROSOL MIST AT 35%. AIRWAY SECURE AND PATENT. AMBU BAG AT BEDSIDE. SCHEDULED BREATHING TREATMENTS ADMINISTERED. TOLERATED TREATMENTS WELL, NO ADVERSE SIDE EFFECTS. SUCTIONED COPIOUS AMOUNT OF THICK, YELLOW SECRETIONS. ORAL CARE PROVIDED. TITRATED FIO2 TO 30%, PULSE OX SAT 93%. RN NOTIFIED. WILL CONTINUE TO MONITOR.
--- NOTE | 2019-01-26 22:00 | NUR ---
SUCTIONED PATIENT OBTAINED SMALL AMOUNT OF SECRETION. NO DISTRESS NOTED. WILL CONTINUE TO MONITOR
--- NOTE | 2019-01-26 23:00 | NUR ---
PATIENT SLEEPING RESPIRATION EVEN UNLABORED ON TRACH TO T-PIECE. NO DISTRESS NOTED. WILL CONTINUE TO MONITOR.
[2019-01-27] VITALS: BP 117/69
--- NOTE | 2019-01-27 | NUR ---
VITALS WERE TAKEN. PATIENT CONDITION STABLE. NO DISTRESS NOTED. WILL CONTINUE TO MONITOR
[2019-01-27] MEDS: HYDRAGUARD CREAM TP SCH ×2 (01:38→12:35)
--- NOTE | 2019-01-27 02:00 | NUR ---
CHECKED PATIENT. PATIENT SLEEPING RESPIRATION EVEN UNLABORED ON TRACH TO T-PIECE. NO DISTRESS NOTED WILL CONTINUE TO MONITOR
[2019-01-27 04:00] VITALS: BP 129/73
--- NOTE | 2019-01-27 04:00 | NUR ---
VITALS WERE TAKEN. PATIENT CONDITION STABLE. NO DISTRESS NOTED. WILL CONTINUE TO MONITOR
[2019-01-27] MEDS ORDERED: DICYCLOMINE HCL LIQUID 10 MG/5 ML UDC GT SCH (05:30)
--- NOTE | 2019-01-27 05:56 | NUR ---
TRACH CARE DONE WITHOUT INCIDENT. DRAIN BAG EMPTIED. STERILE AEROSOL WATER CHANGED. SUCTIONED MODERATE AMOUNT OF THICK, YELLOW SECRETIONS. NO DISTRESS NOTED AT THIS TIME. WILL CONTINUE TO MONITOR.
[2019-01-27] MEDS: BLOOD GLUCOSE MONITORING 1 DEV DEV FS SCH ×4 (06:32→21:00)
[2019-01-27] MEDS: INSULIN LISPRO SLIDING SCALE 100 UNITS/ML VIAL SUBQ PRN ×3 (06:34→22:58)
[2019-01-27] MEDS: ALBUTEROL SULFATE/IPRATROPIU 3 ML SOL IH SCH ×3 (06:56→18:53)
[2019-01-27] MEDS: BUDESONIDE 0.5 MG/2 ML NEBU INH SCH ×2 (07:04→18:53)
--- NOTE | 2019-01-27 07:25 | NUR ---
ENDORSED PATIENT TO DAY SHIFT NURSE. PATIENT CONDITION STABLE
--- NOTE | 2019-01-27 07:26 | NUR ---
RECEIVED REPORT FROM INSURANCE ACCOUNT REPRESENTATIVE NURSE. PATIENT IS RESTING IN BED. NO SIGNS OF DISTRESS NOTED. RESPIRATIONS ARE EVEN AND UNLABORED. FLACC 0. TRACH TO T-TUBE WITH 35% O2. RAMÓN PICC LINE INTACT, PATENT, AND INFUSING. G-TUBE INTACT, PATENT, AND ON CONTINOUS FEED PER MD ORDERS. SACRAL AND RIGHT FOOT WOUNDS NOTED. DRESSING DRY AND INTACT. REVIEWED PLAN OF CARE WITH PATIENT, UNABLE TO COMPREHEND. SAFETY MEASURES IN PLACE, CALL LIGHT WITHIN REACH. WILL CONTINUE TO MONITOR.
[2019-01-27 08:00] VITALS: BP 128/77
[2019-01-27] MEDS: LACTOBACILLUS RHAMNOSUS GG 1 EACH CAP PO SCH (08:50)
[2019-01-27] MEDS: METOPROLOL 50 MG TAB PO SCH ×2 (08:50→22:24)
[2019-01-27] MEDS: PHENYTOIN 100 MG/4 ML UDC GT SCH ×2 (08:51→22:22)
[2019-01-27] MEDS: PANTOPRAZOLE 40 MG INJ VIAL IVP SCH ×2 (08:51→22:25)
[2019-01-27] MEDS: LORazepam 2 MG/ML VIAL IM/IVP PRN (08:52)
[2019-01-27] MEDS: SCOPOLAMINE 1.5 MG/72 HR PATCH TD SCH (08:53)
[2019-01-27] MEDS: INSULIN LANTUS 100 UNITS/ML 10 ML VIAL SUBQ SCH ×2 (09:08→22:59)
[2019-01-27] MEDS: FOAM DRESSING TP SCH (09:10)
[2019-01-27] MEDS: MEROPENEM 500 MG in NACL 0.9% 50 ML IV SCH ×2 (09:10→22:40)
[2019-01-27] MEDS: ASCORBIC ACID 500 MG/5 ML ORASYR GT SCH ×2 (09:13→22:23)
--- NOTE | 2019-01-27 09:18 | NUR ---
PATIENT LYING DOWN IN BED, RESTLESS, HEART RATE ELEVATED. ATIVAN GIVEN AND OTHER SCHEDULED MEDICATIONS DUE AT THIS TIME. WILL CONTINUE TO MONITOR.
[2019-01-27] MEDS: NACL 0.9% 1,000 ML IV SCH (11:25)
[2019-01-27 11:47] VITALS: BP 130/70
[2019-01-27] MEDS: INSULIN NPH HUM/REG INSULIN HM 100 UNIT/ML 10 ML VIAL SUBQ SCH ×2 (12:31→22:58)
--- NOTE | 2019-01-27 12:34 | NUR ---
PATIENT SITTING IN BED SLEEPING, AROUSABLE BY VOICE. NO DISTRESS NOTED. FLACC 0. SCHEDULED MEDICATIONS DUE GIVEN. WILL CONTINUE TO MONITOR.
[2019-01-27] MEDS: THERAHONEY GEL 42.5 GM TP SCH (12:36)
--- NOTE | 2019-01-27 12:36 | NUR ---
BLOOD GLUCOSE AT 238. HUMULIN 70/30 15 UNITS GIVEN AT THIS TIME. HUMALOG COVERAGE WITHHELD AT THIS TIME DUE TO DECREASING GLUCOSE AND 60 UNITS LANTUS GIVEN EARLIER. WILL CONTINUE TO MONITOR.
[2019-01-27 14:12] LABS: BASOPHILS % (AUTO) 0.3 % (0.0-2.0); EOSINOPHILS # (AUTO) 0.1 K/uL (0-0.4); EOSINOPHILS % (AUTO) 0.7 % (0.0-4.0); HEMATOCRIT 24.1 % (36-52); HEMOGLOBIN 7.7 g/dL (12.0-18.0); LYMPHOCYTES # (AUTO) 1.4 K/uL (2.0-11.5); LYMPHOCYTES % (AUTO) 12.7 % (20.5-51.1); MEAN CORPUSCULAR HEMOGLOBIN 27 pg (27-31); MEAN CORPUSCULAR HGB CONC 32 g/dL (33-37); MONOCYTES # (AUTO) 0.7 K/uL (0.8-1.0); MONOCYTES % (AUTO) 6.1 % (1.7-9.3); NEUTROPHILS # (AUTO) 8.8 K/uL (1.8-7.7); NEUTROPHILS % (AUTO) 80.2 % (42.2-75.2); PLATELET COUNT (AUTO) 341 K/uL (140-450); RED BLOOD CELL COUNT(AUTO) 2.87 MIL/uL (4.20-6.10); RED CELL DISTRIBUTION WIDTH 19.7 % (11.6-13.7)
[2019-01-27 14:47] LABS: ANION GAP 16.8 (8-16); CARBON DIOXIDE 22.8 mmol/L (21-32); CREATININE 2.6 mg/dL (0.7-1.3); POTASSIUM 3.6 mmol/L (3.5-5.1)
[2019-01-27] MEDS: VANCOMYCIN 500 MG VIAL GT SCH (16:41)
[2019-01-27 17:36] VITALS: BP 135/77
[2019-01-27] MEDS: NACL 0.45% 1,000 ML IV SCH (17:52)
--- NOTE | 2019-01-27 19:26 | NUR ---
RECEIVED REPORT AT BEDSIDE FORM TAVON RN DAYSHIFT NURSE AND ANYI RN DAYSHIFT NURSE AT BEDSIDE FOR CONTINUITY OF CARE, PT IN STABLE CONDITION.
--- NOTE | 2019-01-27 19:26 | NUR ---
GAVE REPORT TO NIGHT NURSE. PATIENT IS IN STABLE CONDITION.
[2019-01-27 20:00] VITALS: BP 142/89
--- NOTE | 2019-01-27 20:00 | NUR ---
PT IN BED WITH ALL FALLS, ASPIRATIONS, SEIZURE AND CONTACT PRECAUTIONS IN PLACE. V/S FOLLOWS T 99.0 P 94 R 18 B/P 142/89 02 95% WITH 8 LITERS TRACH TO PIECE. PT RUNNING 1/2 NS AT 75MLS/HR. VITAL AF FEEDING RUNNING AT 40MLS/HR NO RESIDUAL NOTED. ROSAS CATHETER IN PLACE AND DRAINING YELLOW LIGHT ROB URINE. F/S IS 155.
--- NOTE | 2019-01-27 21:00 | NUR ---
PT IN BED ALL FALLS , SEIZURE, ASPIRATION AND CONTACT PRECAUTION IN PLACE. PT GIVEN ALL DUE MEDS PLUS HUMALOG COVERAGE OF 2 UNITS. PT REPOSITIONED NO BM NOTED. DRESSINGS INTACT.
--- NOTE | 2019-01-27 22:00 | NUR ---
RN HERE TO DO VQ SCAN, HOWEVER, PT NEEDS PORTABLE MACHINE DUE TO PT UNABLE TO LAY FLAT ON A SMALL STRETCHER. RESIDENTS MADE AWARE, AND ORDERED PORTABLE VQ SCAN.
[2019-01-27] MEDS: ATORVASTATIN 20 MG TAB GT SCH (22:23)
--- NOTE | 2019-01-27 23:50 | NUR ---
RN HERE FROM I TO DO VQ SCAN WITH PORTABLE MACHINE.
[2019-01-28] VITALS (16 sets, daily range): BP systolic 70–161; BP diastolic 19–105
--- NOTE | 2019-01-28 00:30 | NUR ---
VQ SCAN COMPLETED. PT TURNED AND REPOSITIONED, ORAL CARE PROVIDED AND PT SUCTIONED X2. V/S FOLLOWS T 98.9 P 92 R 18 B/P 161/79 02 99% ON ROOM AIR. ALL PRECAUTIONS OBSERVED , ROSAS CATHETER IN PLACE , HYPOGUARD APPLIED TO GROIN ORDERED.
[2019-01-28] MEDS: HYDRAGUARD CREAM TP SCH ×2 (01:09→11:39)
--- NOTE | 2019-01-28 04:00 | NUR ---
PT IN BED, HE WAS TURNED AND CHANGED V/S FOLLOWS T 98.9 P 102 R 18 B/P 152/85 02 91%.
[2019-01-28] MEDS: MORPHINE SULFATE 2 MG/ML SYR IVP PRN (05:37)
[2019-01-28] MEDS: NACL 0.45% 1,000 ML IV SCH (05:45)
[2019-01-28] MEDS: BLOOD GLUCOSE MONITORING 1 DEV DEV FS SCH ×4 (05:55→21:00)
--- NOTE | 2019-01-28 06:00 | NUR ---
PT NOTED BREATHING MORE LABORED SOME SWEATING AND FACIAL LOOK OF DISCOMFORT. PT GIVEN MORPHINE IVP WILL MONITOR PT
--- NOTE | 2019-01-28 07:25 | NUR ---
REPORT GIVEN TO CHAD RN DAYSHIFT NURSE AT BEDSIDE FOR CONTINUITY OF CARE, PT IN STABLE CONDITION.
--- NOTE | 2019-01-28 07:26 | NUR ---
Report received from pm nurse Abby. Pt asleep in bed, respirations even & nonlabored, trach intact with O2 @ 6L/min via t-piece. GT in place with ongoing Vital AF 1.2 @ 40ml/hr. Left upper arm 2-lumen PICC intact with ongoing 1/2 NS @ 75ml/hr. Meeks cath in place & draining clear yellow urine. HOB up @ 30degrees. Bilat upper siderail pads in place. Will cont to monitor.
[2019-01-28] MEDS: ALBUTEROL SULFATE/IPRATROPIU 3 ML SOL IH SCH ×3 (07:33→20:04)
[2019-01-28] MEDS: BUDESONIDE 0.5 MG/2 ML NEBU INH SCH ×2 (07:47→20:05)
[2019-01-28 08:04] LABS: BASOPHILS % (AUTO) 0.4 % (0.0-2.0); EOSINOPHILS # (AUTO) 0.2 K/uL (0-0.4); EOSINOPHILS % (AUTO) 1.9 % (0.0-4.0); HEMATOCRIT 22.1 % (36-52); LYMPHOCYTES # (AUTO) 1.5 K/uL (2.0-11.5); MEAN CORPUSCULAR HEMOGLOBIN 27 pg (27-31); MEAN CORPUSCULAR HGB CONC 32 g/dL (33-37); MEAN CORPUSCULAR VOLUME 85.1 fL (80-94); MONOCYTES # (AUTO) 0.8 K/uL (0.8-1.0); MONOCYTES % (AUTO) 7.2 % (1.7-9.3); NEUTROPHILS # (AUTO) 8.6 K/uL (1.8-7.7); PLATELET COUNT (AUTO) 310 K/uL (140-450); RED CELL DISTRIBUTION WIDTH 20.3 % (11.6-13.7); WHITE BLOOD COUNT (AUTO) 11.2 K/uL (4.8-10.8)
[2019-01-28 08:13] LABS: ANION GAP 14.8 (8-16); CARBON DIOXIDE 23.8 mmol/L (21-32); CREATININE 2.2 mg/dL (0.7-1.3); POTASSIUM 3.6 mmol/L (3.5-5.1)
[2019-01-28 08:52] LABS: LYMPHOCYTES % (AUTO) 13.7 % (20.5-51.1); NEUTROPHILS % (AUTO) 76.8 % (42.2-75.2)
[2019-01-28] MEDS: INSULIN NPH HUM/REG INSULIN HM 100 UNIT/ML 10 ML VIAL SUBQ SCH ×2 (09:00→21:00)
[2019-01-28] MEDS: INSULIN LANTUS 100 UNITS/ML 10 ML VIAL SUBQ SCH ×2 (09:00→21:00)
[2019-01-28] MEDS: LACTOBACILLUS RHAMNOSUS GG 1 EACH CAP PO SCH (10:44)
[2019-01-28] MEDS: PHENYTOIN 100 MG/4 ML UDC GT SCH ×2 (10:44→22:47)
[2019-01-28] MEDS: PANTOPRAZOLE 40 MG INJ VIAL IVP SCH ×2 (10:44→22:50)
[2019-01-28] MEDS: MEROPENEM 500 MG in NACL 0.9% 50 ML IV SCH ×2 (10:45→22:50)
[2019-01-28] MEDS: METOPROLOL 50 MG TAB PO SCH ×2 (10:45→21:00)
[2019-01-28] MEDS: THERAHONEY GEL 42.5 GM TP SCH (11:39)
[2019-01-28] MEDS: ASCORBIC ACID 500 MG/5 ML ORASYR GT SCH ×2 (13:03→23:17)
--- NOTE | 2019-01-28 16:54 | NUR ---
D50% given to Left upper arm PICC d/t fingerstick glucose = 54. Pt awake, eyes open spontaneously, responsive to auditory stimuli, unable to make needs known or follow directions. GT intact with ongoing Vital AF 1.2 @ 40ml/hr. HOB elevated at 30degrees. Will cont to monitor.
--- NOTE | 2019-01-28 17:20 | NUR ---
Current fingerstick glucose = 127. Pt resting in bed, responsive to auditory stimuli. HOB up at 30degrees. GT intact with ongoing Vital AF 1.2 @ 40ml/hr. Left upper arm PICC line intact with ongoing 1/2NS @ 75ml/hr. Trach intact with O2 @ 6Lpm via T-piece. Will cont to monitor.
--- NOTE | 2019-01-28 19:20 | NUR ---
RECEIVED REPORT FROM CHAD DAYSHIFT NURSE AT BEDSIDE FOR CONTINUITY OF CARE, PT IN STABLE CONDITION.
--- NOTE | 2019-01-28 19:20 | NUR ---
Report given to nurse Abby.
[2019-01-28] MEDS ORDERED: CODE BLUE PARTICIPANT 1 EA MISC MC ONE (21:10)
[2019-01-28] MEDS ORDERED: EPINEPHrine PFS 0.1 MG/ML SYR IVP ONE (21:10)
--- NOTE | 2019-01-28 21:10 | NUR ---
CAR DESIGNER CALLED PRIMARY RN PHONE TO SAY THAT PT HR IS V TACH AT 33NEATS. RAN INTO PT ROOM AND FOUND PT PALE . COOL CLAMMY SKIN AND UNRESPONSIVE. HEART RATE OR BREATHING NO DETECTED. CODE BLUE CALLED AND RAPID RESPONSE TEAM CAME QUICKLY. CPR STARTED AND RT TOOK OFF TRACH PIECE AND STARTED TO USE AMBU BAG TO VENTILATE PT. REPORT GIVEN TO DR. BALL, 1 DOSE OF EPINEPHRINE GIVEN IVP AND PT PUT ON AED PADS. HR 136 02 WAS 83% AND B/P WAS 99/45 T 97.3. FINGERSTICK IS 119. NEW TRACH PIECE ALISON 6 PLACED AT BEDSIDE. PT STABILIZED AND TRANSFERRED TO ICU.
[2019-01-28] MEDS ORDERED: NOREPINEPHRINE 16 MG in DEXTROSE 5% 250 ML IV PRN (21:30)
--- NOTE | 2019-01-28 21:30 | NUR ---
REPORT GIVEN TO SMITH ESPINOSA ICU NURSE AT BEDSIDE. NEXT OF CONTACT BROTHER JAVI HUMPHREY WAS CALLED AND UPDATED.
--- NOTE | 2019-01-28 21:33 | NUR ---
RECEIVED REPORT FROM JESÚS AMAYA. PT TRANSFERRED TO ICU FROM THE TELE UNIT. INITIAL ASSESSMENT COMPLETED. PT RESPONDS TO TACTILE STIMULI. ATTACHED TO DRIP MOLDER, PULSE OXIMETER. TRACH TO VENT. RT AT BEDSIDE FOR VENT SETTINGS. IVF ACCESS PICCLINE LEFT UPPER ARM, DOUBLE LUMEN, PATENT, INTACT. GT IN PLACE. ROSAS CATH IN PLACE. BED IN LOW POSITION. SAFETY MEASURE ENSURE. WILL CONTINUE TO MONITOR.
--- NOTE | 2019-01-28 21:45 | NUR ---
Responded to code blue, CPR performed, pulse regained, uncuffed portex 7.0 trach changed to cuffed Ashlyn 6 timothy to be able to place on ventilatory support, pt transferred to ICU 5 Addendum: 01/28/19 at 2237 by Chalino Carlton RT Assisted trach changed with Carson ARMENTA and Dr Clark
[2019-01-28 21:54] LABS: BASOPHILS # (AUTO) 0.1 K/uL (0.00-0.22); BASOPHILS % (AUTO) 0.4 % (0.0-2.0); EOSINOPHILS # (AUTO) 0.2 K/uL (0-0.4); EOSINOPHILS % (AUTO) 1.5 % (0.0-4.0); HEMATOCRIT 25.4 % (36-52); HEMOGLOBIN 7.7 g/dL (12.0-18.0); LYMPHOCYTES # (AUTO) 2.8 K/uL (2.0-11.5); LYMPHOCYTES % (AUTO) 18.1 % (20.5-51.1); MEAN CORPUSCULAR HEMOGLOBIN 27 pg (27-31); MEAN CORPUSCULAR HGB CONC 30 g/dL (33-37); MEAN CORPUSCULAR VOLUME 88.1 fL (80-94); MONOCYTES % (AUTO) 6.3 % (1.7-9.3); NEUTROPHILS # (AUTO) 11.6 K/uL (1.8-7.7); NEUTROPHILS % (AUTO) 73.7 % (42.2-75.2); PLATELET COUNT (AUTO) 397 K/uL (140-450); RED BLOOD CELL COUNT(AUTO) 2.89 MIL/uL (4.20-6.10); WHITE BLOOD COUNT (AUTO) 15.7 K/uL (4.8-10.8)
[2019-01-28] MEDS ORDERED: DEXT 5% / NACL 0.45% 1,000 ML IV SCH (22:00)
[2019-01-28 22:06] LABS: CARBON DIOXIDE 19.5 mmol/L (21-32); CREATININE 2.4 mg/dL (0.7-1.3); POTASSIUM 4.5 mmol/L (3.5-5.1)
[2019-01-28] MEDS ORDERED: NOREPINEPHRINE 4 MG/4 ML VIAL IV ONE (22:17)
--- NOTE | 2019-01-28 22:29 | NUR ---
DR. RIDER NOTIFIED OF PATIENT'S BLOOD SUGAR LEVEL 175 MG/DL AND SAID OK TO GIVE INSULIN SLIDING SCALE AND HOLD SCHEDULED LANTUS AND HUMULIN 70-30 . PT IS ON NPO EXCEPT MEDS AND IVF D5 1/2NS 70 ML/HR PER HER ORDER. WILL CONTINUE TO MONITOR.
[2019-01-28] MEDS: ATORVASTATIN 20 MG TAB GT SCH (22:47)
[2019-01-28] MEDS: INSULIN LISPRO SLIDING SCALE 100 UNITS/ML VIAL SUBQ PRN (22:56)
[2019-01-28] MEDS ORDERED: VANCOMYCIN PER PHARMACY MC PRN (23:00)
--- NOTE | 2019-01-28 23:30 | NUR ---
DR. ZAVALA AT BEDSIDE, UPDATED OF PATIENT'S CONDITION.
[2019-01-28] MEDS ORDERED: PROPOFOL 1000 MG/100 ML PREMIX 100 ML IV PRN (23:55)
[2019-01-29] VITALS (62 sets, daily range): BP systolic 88–162; BP diastolic 52–89
[2019-01-29] MEDS ORDERED: VANCOMYCIN 1,000 MG in DEXTROSE 5% 250 ML IV SCH ×2
[2019-01-29] MEDS ORDERED: VANCOMYCIN 1,000 MG VIAL ONE (00:04)
[2019-01-29] MEDS: DEXT 5% / NACL 0.45% 1,000 ML IV SCH ×2 (00:08→10:25)
[2019-01-29] MEDS ORDERED: SODIUM BICARBONATE 8.4% PFS 50 MEQ/50 ML SYR IVP ONE (00:13)
--- NOTE | 2019-01-29 01:05 | NUR ---
PROPOFOL DRIP STARTED AT 5MCG/KG/MIN TO ATTAIN RASS -3 ORDERED. DRY WEIGHT USED: 77.1 KG. WILL CONTINUE TO MONITOR.
[2019-01-29] MEDS: HYDRAGUARD CREAM TP SCH ×2 (01:08→13:07)
[2019-01-29] MEDS: ALBUTEROL SULFATE/IPRATROPIU 3 ML SOL IH PRN (02:21)
--- NOTE | 2019-01-29 05:36 | NUR ---
MORNING CARE DONE. NO SIGNS OF DISTRESS.
[2019-01-29 05:43] LABS: BASOPHILS % (AUTO) 0.1 % (0.0-2.0); EOSINOPHILS % (AUTO) 0.4 % (0.0-4.0); HEMATOCRIT 21.3 % (36-52); LYMPHOCYTES # (AUTO) 1.3 K/uL (2.0-11.5); LYMPHOCYTES % (AUTO) 11.6 % (20.5-51.1); MEAN CORPUSCULAR HEMOGLOBIN 27 pg (27-31); MEAN CORPUSCULAR HGB CONC 32 g/dL (33-37); MONOCYTES # (AUTO) 0.5 K/uL (0.8-1.0); MONOCYTES % (AUTO) 4.4 % (1.7-9.3); NEUTROPHILS # (AUTO) 9.6 K/uL (1.8-7.7); PLATELET COUNT (AUTO) 343 K/uL (140-450); RED BLOOD CELL COUNT(AUTO) 2.51 MIL/uL (4.20-6.10); RED CELL DISTRIBUTION WIDTH 20.4 % (11.6-13.7); WHITE BLOOD COUNT (AUTO) 11.5 K/uL (4.8-10.8)
[2019-01-29 05:45] LABS: ANION GAP 15.6 (8-16); CARBON DIOXIDE 22.8 mmol/L (21-32); CREATININE 2.2 mg/dL (0.7-1.3); POTASSIUM 4.4 mmol/L (3.5-5.1)
[2019-01-29 05:53] LABS: HEMOGLOBIN 6.8 g/dL (12.0-18.0)
[2019-01-29 05:54] LABS: NEUTROPHILS % (AUTO) 83.5 % (42.2-75.2)
[2019-01-29 06:37] LABS: PROTHROMBIN TIME 9.9 secs (10.8-13.4)
[2019-01-29] MEDS: ALBUTEROL SULFATE/IPRATROPIU 3 ML SOL IH SCH ×3 (06:38→19:02)
[2019-01-29] MEDS: BUDESONIDE 0.5 MG/2 ML NEBU INH SCH ×2 (06:48→19:03)
[2019-01-29] MEDS: BLOOD GLUCOSE MONITORING 1 DEV DEV FS SCH ×4 (06:58→20:17)
[2019-01-29] MEDS: INSULIN LISPRO SLIDING SCALE 100 UNITS/ML VIAL SUBQ PRN ×2 (06:58→11:55)
--- NOTE | 2019-01-29 07:15 | NUR ---
RECEIVED BEDSIDE REPORT FROM STNA RN, FOX, FOR CONTINUITY OF CARE. PATIENT OPENS EYES SPONTANEOUSLY IS UNABLE TO MAKE NEEDS KNOWN OR FOLLOWS COMMANDS. PATIENT SKIN IS WARM, DRY, NOT INTACT. HE HAS PICC LINE TO RAMÓN, ASYMPTOMATIC AND PATENT. PATIENT IS TRACH TO VENT, SETTINGS ARE AC 12, FIO2 30, TV 500, PEEP 5, BREATHING EVEN AND UNLABORED. PATIENT IS SR WITH BBB ON MONITOR, FLACC 0. PATIENT HAS GTUBE IN PLACE. ROSAS CATHETER IN PLACE TO CLEAR YELLOW URINE. HOB IS 30 DEGREES, SIDE RAILS UP, BED LOCKED. SAFETY PRECAUTIONS AND ALARMS ASSESSED AND ENFORCED. NO SIGNS OF DISTRESS AT THIS TIME. WILL CONTINUE TO MONITOR
--- NOTE | 2019-01-29 07:30 | NUR ---
FAMILY MEMBER CALLED ON 0620 JAVI, 0633 JAVI, 0635 NIC, 0713 JAVI, 0715 NIC AND LEFT MESSAGE, WAITING FOR CALL BACK.
--- NOTE | 2019-01-29 07:33 | NUR ---
REPORT GIVEN TO JESÚS CARRILLO FOR CONTINUITY OF CARE.
--- NOTE | 2019-01-29 08:10 | NUR ---
DR. POSADA AND RESIDENT PHYSICIANS AT BEDSIDE, UPDATED ON PATIENT'S CONDITION. WILL FOLLOW UP ON ANY ORDERS.
--- NOTE | 2019-01-29 09:00 | NUR ---
STARTED BLOOD TRANSFUSION 0850, NO SIGNS OF DISTRESS AT THIS TIME, WILL CONTINUE TO MONITOR.
[2019-01-29] MEDS: ASCORBIC ACID 500 MG/5 ML ORASYR GT SCH ×2 (09:11→20:18)
[2019-01-29] MEDS: LACTOBACILLUS RHAMNOSUS GG 1 EACH CAP PO SCH (09:11)
[2019-01-29] MEDS: PANTOPRAZOLE 40 MG INJ VIAL IVP SCH ×2 (09:12→20:18)
[2019-01-29] MEDS: PHENYTOIN 100 MG/4 ML UDC GT SCH ×2 (09:12→20:19)
[2019-01-29] MEDS: INSULIN LANTUS 100 UNITS/ML 10 ML VIAL SUBQ SCH ×2 (09:16→21:00)
[2019-01-29] MEDS: INSULIN NPH HUM/REG INSULIN HM 100 UNIT/ML 10 ML VIAL SUBQ SCH ×2 (09:19→21:00)
[2019-01-29] MEDS: MEROPENEM 500 MG in NACL 0.9% 50 ML IV SCH ×2 (10:25→20:19)
--- NOTE | 2019-01-29 11:00 | NUR ---
BLOOD TRANSFUSION COMPLETED. PATIENT TOLERATED WELL.
[2019-01-29] MEDS: FUROSEMIDE 20 MG TAB PO SCH ×2 (11:10→12:00)
--- NOTE | 2019-01-29 11:11 | NUR ---
DR. SKY AND DR. DOBBS AT BEDSIDE, UPDATED ON PATIENT'S CONDITION. WILL FOLLOW UP ON ANY ORDERS
--- NOTE | 2019-01-29 12:12 | NUR ---
IN TO SEE AND EXAMINE PATIENT, UPDATED ON PATIENT'S CONDITION. WILL FOLLOW UP ON ANY ORDERS
[2019-01-29] MEDS: THERAHONEY GEL 42.5 GM TP SCH (13:07)
--- NOTE | 2019-01-29 13:53 | NUR ---
ORAL CARE PROVIDED, PATIENT TOLERATED WELL. WILL CONTINUE TO MONITOR
--- NOTE | 2019-01-29 14:24 | NUR ---
PATIENT HAD 1 MODERATE BM, PATIENT WAS CLEANED AND REPOSITIONED FOR COMFORT.
--- NOTE | 2019-01-29 14:52 | NUR ---
PROVIDED WOUND CARE, PATIENT TOLERATED WELL. NO SIGNS OF DISTRESS NOTED.
[2019-01-29] MEDS: NACL 0.45% 1,000 ML IV SCH (16:04)
[2019-01-29] MEDS: VANCOMYCIN 500 MG VIAL GT SCH (16:04)
[2019-01-29] MEDS: ACETAMINOPHEN 325 MG TAB PO PRN (16:32)
--- NOTE | 2019-01-29 16:37 | NUR ---
PATIENT HAD A TEMP OF 100.4, ADMINISTERED PRN TYLENOL 650 MG, PATIENT TOLERATED WELL.
--- NOTE | 2019-01-29 16:45 | NUR ---
Patient was started on Glycerin tube feeding at 40 mL. Residual amount is 50 mL. Patient is tolerating well and no signs of distress.
--- NOTE | 2019-01-29 18:30 | NUR ---
PROVIDED ROSAS CATHETER CARE, PATIENT TOLERATED WELL
--- NOTE | 2019-01-29 19:15 | NUR ---
ENDORSED CONTINUITY OF CARE TO GRADUATE FELLOW RNMARSHAL, NO SIGNS OF DISTRESS AT THIS TIME.
--- NOTE | 2019-01-29 19:30 | NUR ---
RECEIVED BEDSIDE REPORT FROM MORNING SHIFT RNGERARDO. VSS, BP =128/76, TEMP 99.3, SATING 95%, HR=97, RR=21.PT IS AWAKE, DOES NOT TRACK MOVEMENT, OPENS EYES SPONTANEOUSLY. NONVERBAL. SR ON POURER BULL LADLE. TRACH TO VENT, AC VC MODE OF FIO2=30, FK=881, RR=12, FLOW=60L/MIN, PEEP=5. LUNG SOUNDS COARSE/RHONCHI ON BILATERAL UPPR LOWER LOBES. BOWEL SOUND ACTIVE X4, TUBE FEEDING GLUCERNA 1.2 AT 40CC/HR, NO RESIDUAL. RAMÓN PICC LINE INFUSING 1/2NS AT 70CC/HR. ROSAS CATH IN PLACE, URINE IS CLEAR/YELLOW. SKIN IS NORMAL IN COLOR/DRY/WARM TO TOUCH. SACRAL WOUND AND RIGHT TO DECUBITUS ULCER. HOB ABOVE 30 DEG, SIDE RAILS UP X2, CONTACT/ASPIRATION/FALL RISK PRECAUTIONS MAINTAINED.
[2019-01-29] MEDS: ATORVASTATIN 20 MG TAB GT SCH (20:18)
--- NOTE | 2019-01-29 23:15 | NUR ---
DR. CASTELLON IN TO SEE PATIENT NO NEW ORDERS AT THIS TIME.
[2019-01-30] VITALS (21 sets, daily range): BP systolic 113–148; BP diastolic 60–92
--- NOTE | 2019-01-30 00:28 | NUR ---
URINE SAMPLE COLLECTED PER CHARGE NURSE XIAO AND SENT TO LAB. PT REPOSIONED, TEMPERATURE OF 99.1, COOL TOWEL PLACED ON PT FOREHEAD. REPOSTIONED AND SUCTIONING PROVIDED X 2. NO SIGNS OF DISTRESS, OPENS EYES SPONTANEOUSLY.
[2019-01-30 01:05] LABS: BARBITURATE, URINE NEG. ng/ml (NEG <=200); BENZODIAZEPINE, URINE NEG. ng/mL (NEG <=200); CANNABINOID, URINE NEG. ng/mL (NEG <=50); COCAINE, URINE NEG. ng/mL (NEG <=300); OPIATE, URINE NEG. ng/mL (NEG <=2000); PHENCYCLIDINE SCREEN,URINE NEG. ng/mL (NEG <=25)
[2019-01-30] MEDS: HYDRAGUARD CREAM TP SCH ×2 (01:06→13:35)
--- NOTE | 2019-01-30 04:15 | NUR ---
URINE OUTPUT OF 500 CLEAR/YELLOW. REPOSITIONED, THICK SPUTUM ON SUCTIONING WHITE/YELLOW. LARGE PASTY-LOOSE BM, DARK BROWN. ROSAS CATH CARE PROVIDED. AM CARES COMPLETED.
[2019-01-30 05:59] LABS: ANION GAP 11.5 (8-16); CARBON DIOXIDE 24.4 mmol/L (21-32); POTASSIUM 3.9 mmol/L (3.5-5.1)
[2019-01-30] MEDS: NACL 0.45% 1,000 ML IV SCH ×2 (06:00→20:09)
[2019-01-30 06:04] LABS: BASOPHILS % (AUTO) 0.3 % (0.0-2.0); EOSINOPHILS # (AUTO) 0.2 K/uL (0-0.4); EOSINOPHILS % (AUTO) 2.2 % (0.0-4.0); HEMATOCRIT 23.6 % (36-52); HEMOGLOBIN 7.6 g/dL (12.0-18.0); LYMPHOCYTES # (AUTO) 1.4 K/uL (2.0-11.5); LYMPHOCYTES % (AUTO) 12.8 % (20.5-51.1); MEAN CORPUSCULAR HEMOGLOBIN 27 pg (27-31); MEAN CORPUSCULAR HGB CONC 32 g/dL (33-37); MEAN CORPUSCULAR VOLUME 85.6 fL (80-94); MONOCYTES # (AUTO) 0.6 K/uL (0.8-1.0); MONOCYTES % (AUTO) 5.4 % (1.7-9.3); NEUTROPHILS # (AUTO) 8.5 K/uL (1.8-7.7); NEUTROPHILS % (AUTO) 79.3 % (42.2-75.2); PLATELET COUNT (AUTO) 293 K/uL (140-450); RED BLOOD CELL COUNT(AUTO) 2.76 MIL/uL (4.20-6.10); RED CELL DISTRIBUTION WIDTH 20.3 % (11.6-13.7); WHITE BLOOD COUNT (AUTO) 10.7 K/uL (4.8-10.8)
--- NOTE | 2019-01-30 06:06 | NUR ---
DR. RANDOLPH AT BEDSIDE TO SEE PATIENT. UPDATED ON PT CONDITIONS.
[2019-01-30] MEDS: ALBUTEROL SULFATE/IPRATROPIU 3 ML SOL IH SCH ×3 (06:28→18:53)
--- NOTE | 2019-01-30 06:28 | NUR ---
REC'D PT ON CARESCAPE VENT SETTINGS AC 12 VT 500 PEEP 5 FIO2 30% ALARMS ON AND AUDIBLE AND AMBU BAG AT SIDE OF VENT AND VENT IS PLUGGED INTO RED OUTLET, I\L TXS WERER GIVEN WITH DUONEB 3ML AND PULMICORT 0.5MG WITH NO ADVERSE REACTION POST TX B\S ARE RHONCHI BILATERALLY, SXN PT MODERATE AMT OF THICK CREAM COLOR SECRETIONS, PT IS TRACH WITH SHILEY 6 AND SKIN INTEGRITY IS INTACT PT IS AWAKE WITH NO SIGNS OF DISTRESS NOTED AT THIS TIME
[2019-01-30] MEDS: BUDESONIDE 0.5 MG/2 ML NEBU INH SCH ×2 (06:37→18:53)
[2019-01-30] MEDS: BLOOD GLUCOSE MONITORING 1 DEV DEV FS SCH ×4 (06:49→20:08)
--- NOTE | 2019-01-30 07:20 | NUR ---
GAVE BEDSIDE REPORT FOR MORNING SHIFT SHARIF ESPINOSA.
--- NOTE | 2019-01-30 07:30 | NUR ---
RECEIVED BEDSIDE REPORT FROM PATIENT REGISTRATION REPRESENTATIVE RN. FLACC 0. TEMP 100.1. PATIENT OPENS EYES SPONTANEOUSLY, BUT DOES NOT FOLLOW COMMANDS OR MAKE NEEDS KNOWN. SINUS TACHY ON MONITOR. S1 +S2 HEARD. PT IS TRACH TO VENT W/ SETTINGS: AC 12, FIO2 30%, TV 500, PEEP 5. RHONCHI HEARD BILATERALLY. BREATHING EVEN AND UNLABORED. PICC LINE DOUBLE LUMEN TO LEFT UPPER ARM ASYMPTOMATIC, INTACT AND PATENT, RUNNING 1/2 NS AT 70 ML/HR. G-TUBE IN PLACE, RECEIVING TUBE FEEDING GLUCERNA 1.2 AT 40 ML/HR, 90 ML RESIDUALS NOTED. FEEDING RESUMED. ROSAS CATH IN PLACE DRAINING URINE TO GRAVITY DRAINAGE BAG. SKIN IS WARM, DRY AND NOT INTACT. DRESSING CLEAN, DRY AND INTACT TO RIGHT HEEL AND SACROCOCCYX AREA. HOB AT 30 DEGREES, BED IN LOWEST POSITION, LOCKED. CALL LIGHT WITHIN REACH. SAFETY PRECAUTIONS IN PLACE. NO SIGNS OF DISTRESS AT THIS TIME. WILL CONTINUE TO MONITOR.
[2019-01-30] MEDS ORDERED: SODIUM FERRIC GLUCONATE 125 MG in NACL 0.9% 100 ML IV ONE (08:00)
--- NOTE | 2019-01-30 08:12 | NUR ---
DR. POSADA AND RESIDENT GROUP IN TO SEE PT. DR. RANDOLPH MADE AWARE THAT PT'S BLOOD SUGAR WAS 113, VERIFIED INSULIN ORDERS. WILL FOLLOW UP.
[2019-01-30] MEDS: PHENYTOIN 100 MG/4 ML UDC GT SCH ×2 (08:20→20:08)
[2019-01-30] MEDS: PANTOPRAZOLE 40 MG INJ VIAL IVP SCH ×2 (08:20→20:08)
[2019-01-30] MEDS: FERROUS GLUCONATE 324 MG TAB PO SCH ×2 (08:20→17:21)
[2019-01-30] MEDS: DOCUSATE SODIUM 100 MG GELCAP PO SCH (08:20)
[2019-01-30] MEDS: ASCORBIC ACID 500 MG/5 ML ORASYR GT SCH ×2 (08:20→20:08)
[2019-01-30] MEDS: LACTOBACILLUS RHAMNOSUS GG 1 EACH CAP PO SCH (08:20)
[2019-01-30] MEDS: SCOPOLAMINE 1.5 MG/72 HR PATCH TD SCH ×2 (08:21→08:29)
[2019-01-30] MEDS: INSULIN LANTUS 100 UNITS/ML 10 ML VIAL SUBQ SCH ×2 (08:26→20:25)
[2019-01-30] MEDS: MEROPENEM 500 MG in NACL 0.9% 50 ML IV SCH ×2 (08:28→20:07)
[2019-01-30] MEDS: FOAM DRESSING TP SCH (08:28)
[2019-01-30] MEDS: POLYVINYL ALCOHOL 1.4% OP 15 ML SOL BOTH EYES SCH ×4 (08:29→17:21)
--- NOTE | 2019-01-30 08:45 | NUR ---
MORNING MEDICATIONS ADMINISTERED ORDERED. PT TOLERATED WELL.
--- NOTE | 2019-01-30 08:56 | NUR ---
UNABLE TO OBTAIN ABG AT THIS TIME
[2019-01-30] MEDS ORDERED: VANCOMYCIN 1GM/DEXT 5% PREMIX 200 ML IV SCH (10:00)
--- NOTE | 2019-01-30 10:30 | NUR ---
NO CHANGE IN CONDITION AT THIS TIME. VSS. TEMP 99.4. ALL SAFETY PRECAUTIONS IN PLACE. WILL CONTINUE TO MONITOR.
--- NOTE | 2019-01-30 10:50 | NUR ---
abg drawn on rb without incident and results given to delvin campbell no changes made to vent
[2019-01-30] MEDS: INSULIN LISPRO SLIDING SCALE 100 UNITS/ML VIAL SUBQ PRN (11:41)
--- NOTE | 2019-01-30 11:45 | NUR ---
DR. NELSON IN TO SEE PT. WILL FOLLOW UP ON ORDERS.
--- NOTE | 2019-01-30 13:10 | NUR ---
WOUND CARE AND TREATMENT GIVEN ORDERED USING ASEPTIC TECHNIQUE. PT TOLERATED WELL. NO SIGNS OF DISTRESS NOTED AT THIS TIME.
[2019-01-30 13:21] LABS: TRANSFERRIN 150 mg/dL (200-370)
--- NOTE | 2019-01-30 13:30 | NUR ---
PT HAD MODERATE AMOUNT OF BROWN PASTY BOWEL MOVEMENT. CLEANED AND REPOSITIONED. PT NOT IN ANY DISTRESS AT THIS TIME. WILL CONTINUE TO MONITOR.
[2019-01-30] MEDS: THERAHONEY GEL 42.5 GM TP SCH (13:35)
--- NOTE | 2019-01-30 14:30 | NUR ---
PT SEEN AND EXAMINED BY DR. SKY. WILL FOLLOW UP ON ORDERS.
--- NOTE | 2019-01-30 16:00 | NUR ---
VAP ORAL CARE GIVEN. TURNED AND REPOSITIONED FOR COMFORT AND OFF LOADING PRESSURE AREAS. PT TOLERATED WELL. NO SIGNS OF DISTRESS NOTED.
--- NOTE | 2019-01-30 18:00 | NUR ---
PT'S VITAL SIGNS STABLE. TEMP 99.4. COOLING MEASURES IN PLACE. TURNED AND REPOSITIONED. TOLERATED WELL. ALL SAFETY PRECAUTIONS IN PLACE. WILL CONTINUE TO MONITOR.
--- NOTE | 2019-01-30 19:03 | NUR ---
Received pt stable on vent support at documented settings, suctioned large amounts of thick white yellow secretions, hhn tx given, tolerated well, no resp distress or SOB noted at this time, Shiley 6 trach secured/patent/midline, alarms set and audible, ambu bag at bedside, vent plugged into red outlet, cont pulse ox on, will cont to monitor.
--- NOTE | 2019-01-30 19:06 | NUR ---
REPORT GIVEN TO BLEACHER [facility] RN FOR CONTINUITY OF CARE. PT IS IN STABLE CONDITION.
--- NOTE | 2019-01-30 19:24 | NUR ---
RECEIVED BEDSIDE REPORT FROM MORNING SHIFT RNSHARIF. PT IN STABLE CONDITION AT THIS TIME. AFEBRILE, TEMP 99.3, KT=887, SATING 94%, SA=403/81, RR=24. COOL COMPRESS APPLIED ON PT FOREHEAD. PT OPENS EYES SPONTANEOUSLY, DOES NOT APPEAR TO TRACK, UNABLE TO MAKE NEEDS KNOWN. SR ON CENTER LEAD CONSULTANT, ON TRACH TO VENT AC/VC MODE, FIO2=30, RF=296, RR=12, FLOW 65L/MIN, PEEP 5, PMAX 50. RT LUCIA ADMINISTERED BREATHING TREATMENT AT BEDSIDE. LUNG SOUNDS DIMINISHED ON UPPER BILATERAL LOBES, COARSE SOUNDS ON BILATERAL LOWER LOBES. GTUBE IN PLACE, TUBE FEEDING GLUCERNA 1.2 AT 40CC/HR, NO RESIDUAL NOTED. RAMÓN PICC LINE INFUSING 1/2NS AT 70CC/HR. ROSAS IN PLACE, URINE IS ROB IN COLOR. SKIN IS NONINTACT, DRESSING IS DRY/INTACT ON SACRAL COCCYX, NO DRAINAGE, REDNESS ON SURROUNDING AREA. DRESSING ON RIGHT LOWER LEG, DRY/INTACT, NO DRAINAGE. HEEL PROTECTORS ON BILATERAL HEELS, SKIN IS CLOSED WITH NOTABLE REDNESS ON HEEL, SCDS ON BILATERAL LEGS. CONTACT/FALL/ASPIRATION AND SEIZURE PRECAUTIONS MAINTAINED. HOB ELEVATED ABOVE 30 DEG, VAP ORAL CARE PROVIDED AT THIS TIME.
[2019-01-30] MEDS: ATORVASTATIN 20 MG TAB GT SCH (20:08)
--- NOTE | 2019-01-30 20:26 | NUR ---
CALLED DR. WHITE INFORMED OF CURRENT BLOOD GLUCOSE OF 119 AND PREVIOUS LOWER BG READINGS, STATED OK TO HOLD 60 UNITS OF LANTUS INSULIN AT THIS TIME. WILL CARRY OUT.
--- NOTE | 2019-01-30 21:28 | NUR ---
ORAL AND TRACH SUCTIONING PROVIDED TO PT AT BEDSIDE VIA CHARGE NURSE XIAO, THICK WHITE/CLEAR SECRETIONS NOTED.
--- NOTE | 2019-01-30 23:15 | NUR ---
DR CASTELLON IN TO SEE PATIENT, UPDATED ON CONDITIONS, NO NEW ORDERS AT THIS TIME.
--- NOTE | 2019-01-30 23:25 | NUR ---
PT REPOSITIONED MAXIMUM ASSIST X2, VAP KIT, ROSAS CATH KIT, AND PM CARES PROVIDED PT TOLERATED WELL. NO BM AT THIS TIME. TEMP 99.7, COOL BATH AND COOLING MEASURES APPLIED. VENT SETTINGS REMAIN THE SAME FIO2=30%. SATING 95%RR=21.
[2019-01-31] VITALS (19 sets, daily range): BP systolic 106–169; BP diastolic 66–98
[2019-01-31] MEDS: HYDRAGUARD CREAM TP SCH ×2 (01:17→13:00)
--- NOTE | 2019-01-31 02:25 | NUR ---
PT APPEARS TO BE WITHOUT DISTRESS, BUT HAS EPISODES OF INTERMITTENT COUGHING, COOL COMPRESS APPLIED ON FOREHEAD. PT REPOSITIONED.
--- NOTE | 2019-01-31 04:38 | NUR ---
TOBY FROM LAB AT BEDSIDE TO COLLECT SAMPLE, CHARGE NURSE XIAO AT BEDSIDE COLLECTING FROM RAMÓN PICC LINE.
[2019-01-31 05:17] LABS: ANION GAP 13.4 (8-16); CARBON DIOXIDE 20.9 mmol/L (21-32); CREATININE 1.8 mg/dL (0.7-1.3); POTASSIUM 4.3 mmol/L (3.5-5.1)
[2019-01-31 05:21] LABS: MAGNESIUM 1.7 mg/dL (1.8-2.4); PHOSPHORUS 4.1 mg/dL (2.5-4.9)
[2019-01-31 05:46] LABS: BASOPHILS # (AUTO) 0.1 K/uL (0.00-0.22); BASOPHILS % (AUTO) 1.1 % (0.0-2.0); EOSINOPHILS # (AUTO) 0.2 K/uL (0-0.4); EOSINOPHILS % (AUTO) 2.9 % (0.0-4.0); HEMATOCRIT 23.1 % (36-52); HEMOGLOBIN 7.4 g/dL (12.0-18.0); LYMPHOCYTES # (AUTO) 1.2 K/uL (2.0-11.5); LYMPHOCYTES % (AUTO) 15.2 % (20.5-51.1); MEAN CORPUSCULAR HEMOGLOBIN 27 pg (27-31); MEAN CORPUSCULAR HGB CONC 32 g/dL (33-37); MEAN CORPUSCULAR VOLUME 85.2 fL (80-94); MONOCYTES # (AUTO) 0.5 K/uL (0.8-1.0); MONOCYTES % (AUTO) 6.8 % (1.7-9.3); NEUTROPHILS # (AUTO) 5.8 K/uL (1.8-7.7); PLATELET COUNT (AUTO) 263 K/uL (140-450); RED BLOOD CELL COUNT(AUTO) 2.71 MIL/uL (4.20-6.10); RED CELL DISTRIBUTION WIDTH 20.7 % (11.6-13.7); WHITE BLOOD COUNT (AUTO) 7.8 K/uL (4.8-10.8)
--- NOTE | 2019-01-31 06:16 | NUR ---
DR. BLEVINS AND DR. RANDOLPH AT BEDSIDE TO SEE PATIENT.
[2019-01-31] MEDS: BLOOD GLUCOSE MONITORING 1 DEV DEV FS SCH ×4 (06:49→20:21)
[2019-01-31] MEDS ORDERED: MAG SULF 2000 MG/WATER PREMIX 50 ML IV SCH (07:00)
[2019-01-31] MEDS: BUDESONIDE 0.5 MG/2 ML NEBU INH SCH ×2 (07:20→19:05)
[2019-01-31] MEDS: ALBUTEROL SULFATE/IPRATROPIU 3 ML SOL IH SCH ×3 (07:20→19:05)
--- NOTE | 2019-01-31 07:20 | NUR ---
RECEIVED ON A [employer]ive [employer] R860 VENTILATOR PUGGED INTO RED OUTLET TOLERATING WELL WITHOUT INCIDENT TO A NAHUN BECKWITHEN #6 AIRWAY SECURED WITH A CHOLO TRACH TIE CUFF PRESSURE CHECKED NOTED AMBU BAG NOTED AT HOB LOC AWAKE STABLE BREATH SOUNDS COARSE RHONCHI BILATERAL WITH GOOD CHEST RISE DEEP TRACHEAL SUCTION FOR COPIOUS THIN TO FROTHY APLE WHITE SECRETIONS AIRWAY PATENT
--- NOTE | 2019-01-31 07:24 | NUR ---
BEDSIDE REPORT GIVEN TO MORNING SHIFT RN RAFY FOR CONTINUITY OF CARE.
--- NOTE | 2019-01-31 07:30 | NUR ---
RECEIVED REPORT FROM WEB CONTENT EDITOR NURSE MARSHAL. PT IN STABLE CONDITION AT THIS TIME. AFEBRILE, TEMP 99.2, OA=791, SATING 95%, PP=945/89, RR=23. PT OPENS EYES SPONTANEOUSLY, DOES NOT APPEAR TO TRACK, UNABLE TO MAKE NEEDS KNOWN. SR ON DIRECT SUPPORT WORKER, ON TRACH TO VENT AC/VC MODE, FIO2=30, ZI=193, RR=12, FLOW 65L/MIN, PEEP 5, PMAX 50. RT SHAWN AT BEDSIDE. LUNG SOUNDS DIMINISHED ON UPPER BILATERAL LOBES, COARSE SOUNDS ON BILATERAL LOWER LOBES. GTUBE IN PLACE, TUBE FEEDING GLUCERNA 1.2 AT 40CC/HR, NO RESIDUAL NOTED. RAMÓN PICC LINE INFUSING 1/2NS AT 70CC/HR. ROSAS IN PLACE, URINE IS ROB IN COLOR. SKIN IS NONINTACT, DRESSING IS DRY/INTACT ON SACRAL COCCYX, NO DRAINAGE, REDNESS ON SURROUNDING AREA. DRESSING ON RIGHT LOWER LEG, DRY/INTACT, NO DRAINAGE. HEEL PROTECTORS ON BILATERAL HEELS, SKIN IS CLOSED WITH NOTABLE REDNESS ON HEEL, SCDS ON BILATERAL LEGS. CONTACT/FALL/ASPIRATION AND SEIZURE PRECAUTIONS MAINTAINED. HOB ELEVATED ABOVE 30 DEG,
--- NOTE | 2019-01-31 08:05 | NUR ---
DR. POSADA AND RESIDENTS ARE AT BED SIDE FOR RESIDENT ROUNDS. WILL CONTINUE TO MONITOR.
[2019-01-31] MEDS: FERROUS GLUCONATE 324 MG TAB PO SCH ×2 (08:28→16:01)
[2019-01-31] MEDS: PHENYTOIN 100 MG/4 ML UDC GT SCH ×2 (08:29→20:21)
[2019-01-31] MEDS: POLYVINYL ALCOHOL 1.4% OP 15 ML SOL BOTH EYES SCH ×3 (08:29→16:01)
[2019-01-31] MEDS: ASCORBIC ACID 500 MG/5 ML ORASYR GT SCH ×2 (08:29→20:21)
[2019-01-31] MEDS: PANTOPRAZOLE 40 MG INJ VIAL IVP SCH ×2 (08:30→20:22)
[2019-01-31] MEDS: LACTOBACILLUS RHAMNOSUS GG 1 EACH CAP PO SCH (08:30)
[2019-01-31] MEDS: DOCUSATE SODIUM 100 MG GELCAP PO SCH (08:32)
[2019-01-31] MEDS: MEROPENEM 500 MG in NACL 0.9% 50 ML IV SCH ×2 (08:33→20:22)
[2019-01-31] MEDS: INSULIN LANTUS 100 UNITS/ML 10 ML VIAL SUBQ SCH ×2 (08:35→20:39)
[2019-01-31] MEDS: NACL 0.45% 1,000 ML IV SCH (08:44)
--- NOTE | 2019-01-31 09:23 | NUR ---
GOOD CHEST RISE DEEP TRACHEAL SUCTION FOR MODERATE THIN TO FROTHY PALE WHITE SECRETIONS AIRWAY PATENT
[2019-01-31] MEDS ORDERED: PUL.5N INH (09:24)
[2019-01-31] MEDS ORDERED: D50SYR IVP (09:24)
[2019-01-31] MEDS ORDERED: SCOP1PAT TD (09:24)
[2019-01-31] MEDS ORDERED: Foam Dressing TP (09:24)
[2019-01-31] MEDS ORDERED: ALBU3SOL83 IH (09:24)
[2019-01-31] MEDS ORDERED: GLUC-805 FS (09:24)
[2019-01-31] MEDS ORDERED: ARTOP BOTH EYES (09:24)
[2019-01-31] MEDS ORDERED: MERO500P7 IV (09:24)
[2019-01-31] MEDS ORDERED: HUMSLIDE SUBQ (09:24)
[2019-01-31] MEDS ORDERED: Therahoney Gel TP (09:24)
[2019-01-31] MEDS ORDERED: Hydraguard TP (09:24)
[2019-01-31] MEDS ORDERED: ACET-1182 PO (09:24)
[2019-01-31] MEDS ORDERED: Vancomycin Per Pharmacy MC (09:24)
[2019-01-31] MEDS ORDERED: FERR324T11 PO (09:24)
--- NOTE | 2019-01-31 10:35 | NUR ---
RN TELEPHONED PATIENT'S NEXT OF KIN -JAVI FROM TELEPHONE NUMBER FOUND IN PATIENT'S FACESHEET. RN INFORMED JAVI THAT PATIENT HAS DISCHARGE ORDER TO [facility] POSSIBLY TODAY IF [facility] ROOM WILL BE AVAILABLE AND JAVI GAVE HIS CONSENT FOR THE TRANSFER. ICU TANK ORDAZ ALSO GOT TO TALK AND VERIFY THE CONSENT FROM JAVI
--- NOTE | 2019-01-31 11:01 | NUR ---
CALLED [facility] [phone] SPOKE WITH HERMILA NURSING OFFAL ICER POULTRY REGARDING DISCHARGE BACK TO [facility] BUT PER HERMILA HAS NO ISOLATION BED TODAY ,SHE MAY ACCEPT PT TOMORROW.
--- NOTE | 2019-01-31 11:25 | NUR ---
PER NETWORK SUPPORT ENGINEER BENTON, [facility] DOES NOT HAVE AN ISOLATION BED TODAY. ACCORDING TO DR. BLEVINS, [facility] IS HOLDING PT'S BED FOR TWO MORE DAYS. BENTON MADE AWARE. WILL FOLLOW UP.
[2019-01-31] MEDS: INSULIN LISPRO SLIDING SCALE 100 UNITS/ML VIAL SUBQ PRN (11:51)
--- NOTE | 2019-01-31 11:53 | NUR ---
NO EVIDENCE OF PULMONARY DISTRESS NOTED GOOD CHEST RISE DEEP TRACHEAL SUCTION FOR MODERATE FROTHY PALE WHITE SECRETIONS AIRWAY PATENT
[2019-01-31] MEDS: THERAHONEY GEL 42.5 GM TP SCH (13:00)
--- NOTE | 2019-01-31 13:00 | NUR ---
PICTURES TAKEN OF PATIENT'S WOUNDS PATIENT IS FOR POSSIBLE DISCHARGE TODAY
--- NOTE | 2019-01-31 13:16 | NUR ---
NO DISTRESS NOTED AT THIS TIME GOOD CHEST RISE DEEP TRACHEAL SUCTION FOR LARGE THI PALE WHITES SECRETIONS AIRWAY PATENT
--- NOTE | 2019-01-31 14:55 | NUR ---
SPOKE WITH ROUGE MIXER ELLIE TO FOLLOW UP AVAILABILITY OF BED AT [facility] [place] FOR DISCHARGE. PER ELLIE, SHE WILL FOLLOW UP WITH FREE LANCE MODEL AND CALL BACK WITH UPDATES.
--- NOTE | 2019-01-31 15:40 | NUR ---
DR. BLEVINS SPEAKING WITH PT'S RESPONSIBLE LIBERTARIAN, JAVI HUMPHREY, REGARDING DISCHARGING PT TO A DIFFERENT FACILITY IN THE AREA DUE TO UNAVAILABILITY OF BED IN [facility].
--- NOTE | 2019-01-31 15:42 | NUR ---
RESTING WELL NO DISTRESS NOTED GOOD CHEST RISE DEEP TRACHEAL SUCTION FOR LARGE THIN "WATERY" TO FROTHY BARBOUR SECRETIONS AIRWAY PATENT REVIEWED INPUT AND OUTPUT WITH RN
[2019-01-31] MEDS: MORPHINE SULFATE 2 MG/ML SYR IVP PRN ×2 (15:45→15:51)
[2019-01-31] MEDS: VANCOMYCIN 500 MG VIAL GT SCH (15:55)
--- NOTE | 2019-01-31 16:16 | NUR ---
[facility] [phone] AND SPOKE WITH EDISON (ADMISSION). PER EDISON, NO SUB-ACUTE ISOLATION BED AVAILABLE AT [facility] AT THIS TIME.
--- NOTE | 2019-01-31 16:23 | NUR ---
CALLED [facility] [phone]. RAQUEL HAIR FROM [facility], SUBACUTE IS FULL AT THIS TIME.
--- NOTE | 2019-01-31 16:32 | NUR ---
CALLED [facility] ([phone]). PER ARELI FROM ADMITTING DEPARTMENT, ONLY ONE SUBACUTE FEMALE BED AVAILABLE AT THIS TIME.
--- NOTE | 2019-01-31 16:40 | NUR ---
SPOKE WITH REMI FROM [facility] ([phone]) REGARDING SUBACUTE ISOLATION BED AVAILABILITY. PER REMI, FAX THE REFERRAL TO [phone], AND WILL TAKE A LOOK AT IT. DR. BLEVINS MADE AWARE.
--- NOTE | 2019-01-31 16:50 | NUR ---
PER DR. BLEVINS, [facility]
--- NOTE | 2019-01-31 16:57 | NUR ---
FAXED SS REQUEST FOR SERVICE TO [facility] (FAX# [phone]).
[2019-01-31] MEDS: LORazepam 2 MG/ML VIAL IM/IVP PRN (17:39)
--- NOTE | 2019-01-31 18:01 | NUR ---
INFORMED DR. MCCULLOUGH OVER THE PHONE OF PATIENT'S SBP IN THE 160s AND NO PRN ANTIHYPERTENSIVES ORDERED, ALSO PATIENT IS + FLUID BALANCE AND STILL GETTING HALF NS 70ML/HR. PATIENT ALREADY MEDICATED FOR PAIN AND ANXIETY EARLIER DUE TO VITAL SIGNS CHANGES AND PATIENT FIDGETING, GRIMACING, HEART RATE UP TO 115. PER PHYSICIAN "I WILL COME AND DO MY PHYSICAL". URBAN AND REGIONAL PLANNER SHARIF ALSO AWARE
--- NOTE | 2019-01-31 18:09 | NUR ---
GOOD CHEST RISE DEEP TRACHEAL SUCTION FOR THIN BARBOUR SECRETIONS AIRWAY PATENT TOLERATING VENTILATORY SUPPORT WELL WITHOUT INCIDENT
--- NOTE | 2019-01-31 18:25 | NUR ---
182 Patient is examined by Dr. Barnes. Ordered to decrease fluids to 20 mL/hr. Will continue to monitor blood pressure.
--- NOTE | 2019-01-31 19:09 | NUR ---
Report was given to nighttime RN Katie for continuity of care.
--- NOTE | 2019-01-31 19:25 | NUR ---
RECEIVED PATIENT TRACH SHILEY 6 TO VENT ON SETTINGS: AC/VC 500, 12, +5, 30%. VENT CHECK DONE. VENT ALARMS ON AND AUDIBLE. VENT PLUGGED INTO RED OUTLET. AMBU BAG AT BEDSIDE. AIRWAY SECURE AND PATENT. SCHEDULED BREATHING TREATMENTS ADMINISTERED. TOLERATED TREATMENTS WELL, NO ADVERSE SIDE EFFECTS. SUCTIONED MODERATE AMOUNT OF THIN, FROTHY WHITE/CLEAR SECRETIONS. NO ACUTE DISTRESS NOTED AT THIS TIME. WILL CONTINUE TO MONITOR.
--- NOTE | 2019-01-31 19:32 | NUR ---
RECEIVED BEDSIDE REPORT FROM MORNING SHIFT JESÚS HILLMAN/MONA. BP 146/81, CB=141, RR=26, SATING 100%, TEMP 100.3. COOLING MEASURES APPLIED. PT IS AWAKE, SPONTANEOUS EYE OPENING, NONVERBAL. TRACH TO VETN, FIO2 20 VT 500, RR=12, FLOW 50L/MIN, PEEP 5, PMAX 45. RT TIANNA AT BEDSIDE ADMINISTERED BREATHING TREATMENT. LUNG SOUNDS CLEAR/UPPER BILATERAL LOBES, MINIMAL SECRETIONS ON SUCTIONING, PT HAS INTERMITTENT COUGHING. ST ON TIP STRETCHER. BOWEL SOUND ACTIVE X4 QUADRANTS, GLUCERNA 1.2 TUBE FEEDING AT 40CC/HR TO GTUBE IN LUQ, NO RESIDUAL AT THIS TIME. RAMÓN PICC LINE, INTACT, INFUSING 1/2 NS AT 20CC/HR. SALINE FLUSHED WITH ADEQUATE BLOOD RETURN. ROSAS CATH IN PLACE, URINE IS ORANGE/ROB IN COLOR. SKIN IS NONINTACT, DRESSING TO RIGHT ANKLE IS DRY/INTACT, OPEN WOUND ON SACRALCOCCYX COVERED WITH DRESSING/REMAINS DRY/INTACT. SCDS ON BILATERAL LEGS, HOB ELEVATED ABOVE 30 DEG. CONTACT/FALL/ASPIRATION PRECAUTIONS MAINTAINED.
[2019-01-31] MEDS: ATORVASTATIN 20 MG TAB GT SCH (20:22)
--- NOTE | 2019-01-31 21:11 | NUR ---
VENT CHECK DONE. VENT ALARMS ON AND AUDIBLE. AMBU BAG AT BEDSIDE. SUCTIONED MODERATE AMOUNT OF THICK WHITE/CLEAR SECRETIONS. WILL CONTINUE TO MONITOR.
[2019-01-31] MEDS: ACETAMINOPHEN 325 MG TAB PO PRN (21:59)
--- NOTE | 2019-01-31 22:03 | NUR ---
COOLING MEASURES INEFFECTIVE CURRENT TEMPERATURE OF 100.5 (TEMPORAL) 650MG TYLENOL GIVEN PER ORDER. BP 132/77, HR IS 115, SATING 95-100%, RR-12. PT AROUSES TO VOICE, DOES NOT TRACK. PT REPOSITIONED, HOB ELEVATED. TUBE FEEDINGS REMAINS AT 40CC/HR, NO RESIDUAL.
--- NOTE | 2019-01-31 23:25 | NUR ---
ORAL SUCTIONING X1, MINIMAL SECRETIONS NOTED. VAP KIT PROVIDED AND PATIENT TOLERATED WELL.
[2019-02-01] VITALS (18 sets, daily range): BP systolic 101–141; BP diastolic 53–96
[2019-02-01] MEDS: HYDRAGUARD CREAM TP SCH ×2 (01:05→13:00)
--- NOTE | 2019-02-01 01:05 | NUR ---
PT HAD SMALL BM, LOOSE/PASTY/BROWN IN COLOR. SACRALCOCCYX DRESSING REMAINS DRY/INTACT. HYDRAGUARD APPLIED. PT CURRENT TEMP 99.8, COOLING MEASURES STILL APPLIED PT IS WARM TO TOUCH.
--- NOTE | 2019-02-01 01:45 | NUR ---
VENT CHECK DONE. VENT ALARMS ON AND AUDIBLE. SUCTIONED LARGE AMOUNT OF THICK WHITE SECRETIONS. WILL CONTINUE TO MONITOR.
[2019-02-01] MEDS: LORazepam 2 MG/ML VIAL IM/IVP PRN ×3 (02:07→23:08)
--- NOTE | 2019-02-01 02:10 | NUR ---
PT AWAKE, ELEVATED WH=696-450 RR=25-27. REPOSITIONED, TENSE RIGID UPPER AND LOWER EXTREMITIS. ATIVAN ADMINISTERED. WILL CONTINUE TO MONITOR.
[2019-02-01] MEDS: MORPHINE SULFATE 2 MG/ML SYR IVP PRN (03:23)
--- NOTE | 2019-02-01 03:34 | NUR ---
AM CARES, VAP, AND ROSAS CATH CARE PROVIDED, CHANGED SACRALCOCCYX DRESSING. MINIMAL SEROUSANGUINOUS DRAINAGE NOTED. THERAHONEY APPLIED TO OPEN AREA AND HYDRAGUARD APPLIED TO PERINEAL AREAS SHOWING VISIBLE REDNESS/SKIN IRRITATION. PT TOLERATED WELL. ORAL AND TRACH SUCTIONING PROVIDED X2, INCREASED UUQ3=295% WHILE SUCTIONING. TEMPERATURE IS CURRENTLY 100.4, HR REMAINS ELEVATED AT 12-136BPM. COOLING MEASURES APPLIED AT THIS TIME W/ COLD BED BATH GIVEN. FRESH PAD/LINENS PROVIDED. MORPHINE ADMINISTERED, WILL REASSESS.
--- NOTE | 2019-02-01 03:50 | NUR ---
VENT CHECK DONE. VENT ALARMS ON AND AUDIBLE. NO DISTRESS NOTED AT THIS TIME. WILL CONTINUE TO MONITOR.
[2019-02-01] MEDS: ACETAMINOPHEN 325 MG TAB PO PRN ×3 (04:00→14:41)
--- NOTE | 2019-02-01 04:12 | NUR ---
TEMPERATURE INCREASED TO 100.6, TYLENOL ADMINISTERED AT THIS TIME. A
--- NOTE | 2019-02-01 04:48 | NUR ---
TOBY FROM LAB ARRIVED ON UNIT, BLOOD SAMPLE COLLECTED VIA RAMÓN PICC LINE FROM CHARGE NURSE GEE.
--- NOTE | 2019-02-01 04:57 | NUR ---
TYLENOL EFFECTIVE, TEMP 98.9 VIA TEMPORAL SCAN. HR DECREASED TO 105-106 SINUS TACHYCARDIA.
[2019-02-01 05:44] LABS: BASOPHILS % (AUTO) 0.3 % (0.0-2.0); EOSINOPHILS # (AUTO) 0.1 K/uL (0-0.4); EOSINOPHILS % (AUTO) 1.6 % (0.0-4.0); HEMATOCRIT 22.2 % (36-52); HEMOGLOBIN 7.3 g/dL (12.0-18.0); LYMPHOCYTES # (AUTO) 0.9 K/uL (2.0-11.5); LYMPHOCYTES % (AUTO) 12.9 % (20.5-51.1); MEAN CORPUSCULAR HEMOGLOBIN 28 pg (27-31); MEAN CORPUSCULAR HGB CONC 33 g/dL (33-37); MEAN CORPUSCULAR VOLUME 84.9 fL (80-94); MONOCYTES # (AUTO) 0.5 K/uL (0.8-1.0); MONOCYTES % (AUTO) 7.8 % (1.7-9.3); NEUTROPHILS # (AUTO) 5.4 K/uL (1.8-7.7); NEUTROPHILS % (AUTO) 77.4 % (42.2-75.2); PLATELET COUNT (AUTO) 228 K/uL (140-450); RED BLOOD CELL COUNT(AUTO) 2.62 MIL/uL (4.20-6.10); RED CELL DISTRIBUTION WIDTH 20.4 % (11.6-13.7); WHITE BLOOD COUNT (AUTO) 6.9 K/uL (4.8-10.8)
[2019-02-01 06:16] LABS: ANION GAP 13.3 (8-16); CREATININE 1.7 mg/dL (0.7-1.3); POTASSIUM 4.3 mmol/L (3.5-5.1)
[2019-02-01 06:18] LABS: PHOSPHORUS 3.6 mg/dL (2.5-4.9)
--- NOTE | 2019-02-01 06:39 | NUR ---
DR. BLEVINS AT BEDSIDE TO SEE PATIENT, STATED TO GIVE SCHEDULED DOSE LOPRESSOR 50 MG NOW. WILL CARRY OUT.
[2019-02-01] MEDS: METOPROLOL 50 MG TAB PO SCH ×2 (06:42→21:18)
[2019-02-01] MEDS: BLOOD GLUCOSE MONITORING 1 DEV DEV FS SCH ×4 (06:52→20:50)
[2019-02-01] MEDS: NACL 0.9% 1,000 ML IV SCH (07:00)
--- NOTE | 2019-02-01 07:00 | NUR ---
CHANGED IV FLUIDS AND TUBING TO NS AT 30ML/HR PER ORDER.
--- NOTE | 2019-02-01 07:19 | NUR ---
GAVE BEDSIDE REPORT TO MORNING SHIFT RNEUGENIO.
--- NOTE | 2019-02-01 07:30 | NUR ---
RECEIVED REPORT FROM SPINNING FRAME FIXER NURSE MARSHAL. TEMP 100.9, HR=98, SpO2 94%, BY=749/66, RR=20. PT OPENS EYES SPONTANEOUSLY, DOES NOT APPEAR TO TRACK, PERRLA, 3MM LEFT PUPIL, 3MM RIGHT PUPIL. UNABLE TO MAKE NEEDS KNOWN, RESPONSIVE TO PAIN. SR ON ROLLER LEVELER OPERATOR. PALPABLE BILATERAL RADIALS. DOPPLER BILATERAL POSTERIOR TIBIAL AND DORSALIS PEDIS PULSES. ON TRACH TO VENT AC/VC MODE, FIO2=30, XX=555, RR=12, FLOW 65L/MIN, PEEP 5, PMAX 50. LUNG SOUNDS COARSE ON UPPER BILATERAL LOBES, DIMINISHED SOUNDS ON BILATERAL LOWER LOBES. GTUBE IN PLACE, ACTIVE BOWEL SOUNDS. TUBE FEEDING GLUCERNA 1.2 AT 40CC/HR WITH 200ML H20 FLUSH Q6H, NO RESIDUAL NOTED. RAMÓN PICC LINE INFUSING NS AT 30CC/HR. ROSAS IN PLACE, URINE IS ROB IN COLOR. SKIN IS PALE, HOT TO TOUCH, AND DIAPHORETIC. SKIN NON-INTACT, DRESSING IS DRY/INTACT ON SACRAL COCCYX, NO DRAINAGE, REDNESS ON SURROUNDING AREA. DRESSING ON RIGHT HEEL, DRY/INTACT, NO DRAINAGE. REDNESS TO SCROTAL AND BILATERAL INNER THIGHS. LIGHT BROWN BM NOTED. HEEL PROTECTORS ON BILATERAL HEELS, SCDS ON BILATERAL LEGS. PT UPPER AND LOWER BILATERAL EXTREMITIES SLIGHTLY RIGID. BILATERAL UPPERS POSTURED SLIGHTLY. PT MISSING UPPER TEETH. CONTACT/FALL/ASPIRATION AND SEIZURE PRECAUTIONS MAINTAINED. HOB ELEVATED ABOVE 30 DEG. CALL LIGHT WITHIN REACH.
[2019-02-01] MEDS: ALBUTEROL SULFATE/IPRATROPIU 3 ML SOL IH SCH ×3 (07:47→19:12)
[2019-02-01] MEDS: BUDESONIDE 0.5 MG/2 ML NEBU INH SCH ×2 (07:48→19:12)
--- NOTE | 2019-02-01 07:55 | NUR ---
PT TEMP 100.9. UNABLE TO GIVE TYLENOL PRN Q6H (LAST ADMINISTRATION 0400). ICE PACKS APPLIED TO PATIENT'S AXILLARY AND GROIN.
--- NOTE | 2019-02-01 07:55 | NUR ---
DR. BLEVINS AT BEDSIDE EVALUATING PT.
--- NOTE | 2019-02-01 08:00 | NUR ---
VAP CARE COMPLETED.
--- NOTE | 2019-02-01 08:00 | NUR ---
ROSAS CARE COMPLETED. HYDRAGUARD APPLIED TO SCROTUM, GROIN AND INNER THIGHS.
[2019-02-01] MEDS: ASCORBIC ACID 500 MG/5 ML ORASYR GT SCH ×2 (08:25→21:16)
[2019-02-01] MEDS: PANTOPRAZOLE 40 MG INJ VIAL IVP SCH ×2 (08:25→21:17)
--- NOTE | 2019-02-01 08:25 | NUR ---
pt requested to go back on bipap because he c/o high flow nasal cannula being too warm. i advised him i can turn the heat down a bit but he said he would still rather go back on the bipap since he is done eating breakfast. Addendum: 02/01/19 at 1707 by Sallie Younger RT NOTE ABOVE ENTERED IN ERROR, PLEASE DISREGARD.
[2019-02-01] MEDS: PHENYTOIN 100 MG/4 ML UDC GT SCH ×3 (08:26→21:15)
[2019-02-01] MEDS: POLYVINYL ALCOHOL 1.4% OP 15 ML SOL BOTH EYES SCH ×3 (08:26→16:34)
[2019-02-01] MEDS: LACTOBACILLUS RHAMNOSUS GG 1 EACH CAP PO SCH (08:26)
[2019-02-01] MEDS: FERROUS GLUCONATE 324 MG TAB PO SCH ×2 (08:27→16:32)
[2019-02-01] MEDS: MEROPENEM 500 MG in NACL 0.9% 50 ML IV SCH ×2 (08:28→21:17)
[2019-02-01] MEDS: INSULIN LANTUS 100 UNITS/ML 10 ML VIAL SUBQ SCH ×2 (08:57→21:54)
[2019-02-01] MEDS: DOCUSATE SODIUM 100 MG GELCAP PO SCH (09:00)
--- NOTE | 2019-02-01 09:00 | NUR ---
ANUPAM HELD. PT HAD DIARRHEA X2. DR. BLEVINS AWARE.
--- NOTE | 2019-02-01 09:00 | NUR ---
SMALL SKIN TEAR MEASURING 2CM IN DIAMETER NOTED TO RIGHT UPPER EXTREMITY UNDERNEATH BLOOD PRESSURE CUFF. SKIN TEAR CLEANED AND COVERED WITH SKIN PREP. BP CUFF MOVED DISTAL ONTO PT'S RIGHT FOREARM.
--- NOTE | 2019-02-01 09:01 | NUR ---
PATIENT'S TEMP 101.0 TEMPORAL. ADMINISTERED 650MG TYLENOL. ICE PACKS TO AXILLARY AND GROIN STILL IN PLACE.
[2019-02-01] MEDS ORDERED: VANCOMYCIN 1GM/DEXT 5% PREMIX 200 ML IV SCH (10:00)
--- NOTE | 2019-02-01 10:01 | NUR ---
PT'S TEMPERATURE TRENDING DOWN AT 100.4 TEMPORAL ARTERY. ICE PACKS AT GROIN AND AXILLARY STILL IN PLACE.
--- NOTE | 2019-02-01 10:37 | NUR ---
DR. NELSON AT BEDSIDE EVALUATING PT, UPDATED ON CONDITION.
--- NOTE | 2019-02-01 10:43 | NUR ---
DR. BLEVINS AT BEDSIDE EVALUATING PT. UPDATED ON CONDITION. INPUTTING ORDERS, WILL FOLLOW UP.
[2019-02-01] MEDS ORDERED: FUROSEMIDE 20 MG/2 ML VIAL IVP SCH (11:15)
--- NOTE | 2019-02-01 13:45 | NUR ---
DR. BLEVINS AT BEDSIDE EVALUATING PT, ORDERS URINE AND BLOOD CULTURES. WILL FOLLOW UP.
--- NOTE | 2019-02-01 14:12 | NUR ---
RECEIVED ORDER FOR TUBE FEEDING ADJUSTMENT. RATE INCREASED TO 65ML/HR WITH 200ML H2O FLUSH Q6H.
[2019-02-01] MEDS: THERAHONEY GEL 42.5 GM TP SCH (14:19)
--- NOTE | 2019-02-01 14:35 | NUR ---
02/01/19 RD FOLLOW UP COMPLETED PLEASE REFER TO NUTRITION ASSESSMENT UNDER CARE ACTIVITY FOR ESTIMATED NUTRITIONAL NEEDS. 1. CONTINUE GLUCERNA AT 65 ML/HR THIS WILL PROVIDE 1872 KCAL AND 93 GM OF PROTEIN, MEETING 100% OF ESTIMATED ENERGY AND PROTEIN NEEDS 2. CONTINUE 200 ML Q6H FREE WATER FLUSH 3. RD TO FOLLOW-UP 2-3 DAYS, HIGH RISK DEUCE KNIGHT, RD
--- NOTE | 2019-02-01 14:40 | NUR ---
PT TEMP 101.0, HR 116. TYLENOL ADMINISTERED PER ORDER. ICE PACKS APPLIED TO AXILLARY AND GROIN.
--- NOTE | 2019-02-01 14:58 | NUR ---
PT GROANING, APPEARS RESTLESS AND AGITATED. LORAZEPAM ADMINISTERED PER ORDER.
--- NOTE | 2019-02-01 15:35 | NUR ---
TYLENOL REASSESSMENT: PT TEMP 99.1, HR 106
[2019-02-01 15:39] LABS: APPEARANCE,URINE CLEAR (CLEAR); BILIRUBIN,URINE 1+ (NEGATIVE); BLOOD, URINE 1+ (NEGATIVE); COLOR,URINE YELLOW (YELLOW); LEUKOCYTE ESTERASE ,URINE 1+ (NEGATIVE); NITRITE, URINE NEGATIVE (NEGATIVE); PH,URINE 6.5 (5.0-9.0); UGLUCOSE NEGATIVE (NEGATIVE)
[2019-02-01 15:47] LABS: FINE GRANULAR CASTS,URINE 0-10 /LPF (None Seen); WBC,URINE >25 (MANY) /HPF (0-5)
[2019-02-01] MEDS: FLUCONAZOLE 100 MG TAB GT SCH (16:32)
--- NOTE | 2019-02-01 17:44 | NUR ---
PT HR 88, NO S/S OF RESPIRATORY DISTRESS NOTED. OPENS EYES SPONTANEOUSLY BUT UNABLE TO FOLLOW COMMANDS.
--- NOTE | 2019-02-01 19:00 | NUR ---
RECEIVED REPORT FROM AM NURSE AT BEDSIDE. PATIENT AWAKE ON BED, RESTING, IV FLUIDS RUNNING, PT ON VENT, PEEP 5, TV 500 ML, RR 14, A/C VC, PERRLA 3MM, NOT TRACKING, GAZE RESPONDS TO NAME, SINUS TACH, S1 S2 PRESENT, PULSES +2 UPPER AND LOWER EXTREMITIES, FULL, REGULAR, +2 NON PITTING EDEMA NOTED ON LOWER AND UPPER EXTREMITIES BILATERALLY, CAP REFILL <3S, BOWEL SOUNDS ACTIVE ON ALL QUADRANTS, ABDOMEN SOFT, ROUND, NONDISTENDED, SKIN WARM, COLOR APPROPRIATE FOR ETHNICITY, DISCOLORATION ON ABDOMEN NOTED, 4X5 DRESSING NOTED ON SACRAL AREA, RIGHT UPPER ARM SKIN TEAR NOTED, RIGHT HEAL WOUND NOTED, UNABLE TO ASSESS STRENGTH, PT DOES NOT FOLLOW COMMANDS, LUNG SOUNDS CRACKLES THROUGHOUT, PT ON VENT. PT ON ROSAS, DRAINING YELLOW CLEAR URINE. WILL CONTINUE TO MONITOR THE PT.
--- NOTE | 2019-02-01 19:39 | NUR ---
RECEIVED PATIENT TRACH SHILEY 6 TO VENT ON SETTINGS AC/VC 500, 12, +5, 30%. VENT CHECK DONE. VENT ALARMS ON AND AUDIBLE. VENT PLUGGED INTO RED OUTLET. AMBU BAG AT BEDSIDE. AIRWAY SECURE AND PATENT. SUCTIONED LARGE AMOUNT OF THICK/CREAMY, WHITE SECRETIONS. SCHEDULED BREATHING TREATMENTS ADMINISTERED. TOLERATED TREATMENTS WELL WITHOUT ANY ADVERSE SIDE EFFECTS. NO RESPIRATORY DISTRESS NOTED AT THIS TIME. WILL CONTINUE TO MONITOR.
--- NOTE | 2019-02-01 21:15 | NUR ---
MEDICATIONS GIVEN. ORAL CARE PERFORMED. SUCTIONED PT, CLEAR, SCANT MUCUS REMOVED, PT TOLERATED THE PROCEDURE WELL, NO SIGNS OF DISTRESS, WILL CONTINUE TO MONITOR PT.
[2019-02-01] MEDS: ATORVASTATIN 20 MG TAB GT SCH (21:16)
--- NOTE | 2019-02-01 22:50 | NUR ---
DR. FALCON AT BEDSIDE. UPDATED MD ABOUT PT CONDITION. NO NEW ORDERS. WILL CONTINUE TO MONITOR PT.
[2019-02-02] VITALS (19 sets, daily range): BP systolic 97–123; BP diastolic 42–72
[2019-02-02] MEDS: HYDRAGUARD CREAM TP SCH ×2 (01:00→12:29)
--- NOTE | 2019-02-02 01:00 | NUR ---
PT ON BED, EYES CLOSED, RESTING, BREATHING REGULARLY, IV FLUIDS RUNNING, VENT IN PLACE. WILL CONTINUE TO MONITOR.
[2019-02-02] MEDS: MORPHINE SULFATE 2 MG/ML SYR IVP PRN (03:36)
--- NOTE | 2019-02-02 04:10 | NUR ---
MORNING CARE, ORAL CARE PROVIDED, PT TOLERATED PROCEDURE WELL, TEMPERATURE AT 101.4, TYLENOL PRN ADMINISTERED, COLD TOWEL PLACED ON FOREHEAD. WILL CONTINUE TO MONITOR PT Addendum: 02/02/19 at 0518 by Chris Geiger RN DR GALLOWAY AT BEDSIDE, MADE AWARE OF INCREASE IN TEMPERATURE
[2019-02-02] MEDS: ACETAMINOPHEN 325 MG TAB PO PRN ×2 (04:20→16:21)
[2019-02-02] MEDS: PHENYTOIN 100 MG/4 ML UDC GT SCH ×3 (04:21→20:54)
--- NOTE | 2019-02-02 04:40 | NUR ---
PT RESTING ON BED, EYES CLOSED, TEMPERATURE 99.5 TEMPORAL, WILL CONTINUE TO MONITOR PT.
[2019-02-02 05:54] LABS: ANION GAP 15.6 (8-16); CARBON DIOXIDE 20.9 mmol/L (21-32); CREATININE 1.9 mg/dL (0.7-1.3); POTASSIUM 4.5 mmol/L (3.5-5.1)
[2019-02-02 05:56] LABS: MAGNESIUM 1.9 mg/dL (1.8-2.4)
[2019-02-02 06:09] LABS: PHOSPHORUS 4.5 mg/dL (2.5-4.9)
[2019-02-02 06:48] LABS: BASOPHILS # (AUTO) 0.1 K/uL (0.00-0.22); EOSINOPHILS # (AUTO) 0.1 K/uL (0-0.4); EOSINOPHILS % (AUTO) 1.9 % (0.0-4.0); HEMATOCRIT 21.8 % (36-52); HEMOGLOBIN 7.1 g/dL (12.0-18.0); LYMPHOCYTES # (AUTO) 0.7 K/uL (2.0-11.5); LYMPHOCYTES % (AUTO) 11.8 % (20.5-51.1); MEAN CORPUSCULAR HEMOGLOBIN 28 pg (27-31); MEAN CORPUSCULAR HGB CONC 33 g/dL (33-37); MEAN CORPUSCULAR VOLUME 85.5 fL (80-94); MONOCYTES # (AUTO) 0.5 K/uL (0.8-1.0); MONOCYTES % (AUTO) 9.1 % (1.7-9.3); NEUTROPHILS # (AUTO) 4.2 K/uL (1.8-7.7); NEUTROPHILS % (AUTO) 76.2 % (42.2-75.2); PLATELET COUNT (AUTO) 196 K/uL (140-450); RED BLOOD CELL COUNT(AUTO) 2.55 MIL/uL (4.20-6.10); RED CELL DISTRIBUTION WIDTH 20.4 % (11.6-13.7); WHITE BLOOD COUNT (AUTO) 5.6 K/uL (4.8-10.8)
[2019-02-02] MEDS: BLOOD GLUCOSE MONITORING 1 DEV DEV FS SCH ×4 (06:54→21:01)
[2019-02-02] MEDS ORDERED: NACL 0.9% 500 ML IV ONE (06:55)
--- NOTE | 2019-02-02 07:21 | NUR ---
PT RESTING AT BED EYES CLOSED, BREATHING REGULARLY, ENDORSED PT TO AM NURSE AT BED SIDE
[2019-02-02] MEDS: ALBUTEROL SULFATE/IPRATROPIU 3 ML SOL IH SCH ×3 (07:25→18:52)
[2019-02-02] MEDS: BUDESONIDE 0.5 MG/2 ML NEBU INH SCH ×2 (07:26→18:52)
--- NOTE | 2019-02-02 07:26 | NUR ---
RECEIVED ON A retsCloudSCAPE R860 VENTILATOR PLUGGED INTO RED OUTLET TOLERATING WELL WITHOUT INCIDENT TO A NAHUN SHRESTHA #6 AIRWAY SECURED WITH A CHOLO TRACH TIE CUFF PRESS CHECKED NOTED AMBU BAG AT HOB LOC QUIET RESTING COMFORTABLY GOOD CHEST RISE AIRWAY PATENT
--- NOTE | 2019-02-02 08:00 | NUR ---
PATIENT OPENS EYES TO LIGHT SHAKING, NO EYE CONTACT, DOES NOT OBEY COMMANDS, WITH TRACHEOSTOMY SIZE 6 ON VENTILATOR AC 12 FIO2 30% PEEP5 TIDAL VOLUME 500 SO2 95%, AUSCULTATED RONCHI ALL THROUGHOUT ANTERIOR LOBES, SINUS TACHYCARDIA 103BPM ON MONITOR, WITH PEG TUBE AND ON ENTERAL GLUCERNA 65 ML/HR., SOFT ABDOMEN, WITH ROSAS CATHETER FR.16, LIGHT ROB URINE NOTED, WITH LEFT UPPER ARM PICC 2 LUMEN-SITE ASYMPTOMATIC, NORMAL SALINE BOLUS OF 500 ML ONGOING, SKIN PEEL AT RIGHT ARM, MILD BLUISH DISCOLORATION FROM INJECTION SITES IN MID-LOWER ABDOMEN, SMALL BLISTER AT LEFT ARM, PRESSURE SORE RIGHT ANKLE, LEFT BUTTOCKS AND SACRAL AREA ALL WOUNDS WITH CLEAN DRY DRESSING, WITH BILATERAL HEEL PROTECTORS, SCDs ON
[2019-02-02] MEDS: METOPROLOL 50 MG TAB PO SCH ×2 (08:38→20:55)
[2019-02-02] MEDS: DOCUSATE SODIUM 100 MG GELCAP PO SCH (08:38)
[2019-02-02] MEDS: PANTOPRAZOLE 40 MG INJ VIAL IVP SCH ×2 (08:38→20:56)
[2019-02-02] MEDS: LACTOBACILLUS RHAMNOSUS GG 1 EACH CAP PO SCH (08:39)
[2019-02-02] MEDS: ASCORBIC ACID 500 MG/5 ML ORASYR GT SCH ×2 (08:39→20:55)
[2019-02-02] MEDS: FERROUS GLUCONATE 324 MG TAB PO SCH ×2 (08:39→16:12)
[2019-02-02] MEDS: SCOPOLAMINE 1.5 MG/72 HR PATCH TD SCH (08:40)
[2019-02-02] MEDS: POLYVINYL ALCOHOL 1.4% OP 15 ML SOL BOTH EYES SCH ×3 (08:40→16:20)
[2019-02-02] MEDS: MEROPENEM 500 MG in NACL 0.9% 50 ML IV SCH ×2 (08:41→21:35)
[2019-02-02] MEDS: FOAM DRESSING TP SCH (08:41)
[2019-02-02] MEDS: INSULIN LANTUS 100 UNITS/ML 10 ML VIAL SUBQ SCH ×2 (08:42→21:29)
[2019-02-02] MEDS: NACL 0.9% 1,000 ML IV SCH (08:46)
[2019-02-02] MEDS ORDERED: FLUCONAZOLE 100 MG TAB GT SCH (09:00)
--- NOTE | 2019-02-02 09:12 | NUR ---
RN ATTEMPTED TO START PERIPHERAL IV LINE AT LEFT HAND WITH BLOOD BACK FLOW AND NOTED SMALL BULGE WHEN SALINE WAS FLUSHED. REMOVED CATHETER AND PRESSURE DRESSING APPLIED. PATIENT VERY EDEMATOUS ON ALL EXTREMITIES. INFORMED ICU CN AND SHE INFORMED DR. BLEVINS
--- NOTE | 2019-02-02 09:26 | NUR ---
STABLE NO EVIDENCE OF PULMONARY DISTRESS NOTED GOOD CHEST RISE DEEP TRACHEAL SUCTION FOR SMALL THIN PALE YELLOW SECRETIONS AIRWAY PATENT CHANGED MODE TO CPAP NOTED FOR WEANING RAFY AND BRAGA/RN NOTIFIED
--- NOTE | 2019-02-02 11:23 | NUR ---
PT REMAINS ON CPAP AT THIS TIME TOLERATING WELL. WILL CONTINUE TO MONITOR.
--- NOTE | 2019-02-02 13:12 | NUR ---
NO RESPIRATORY DISTRESS NOTED TOLERATING WEANING NOTED BREATH SOUNDS CLEAR WITH GOOD AERATION THROUGHOUT RIGHT AND LEFT LUNG PAREKH CHEST RISE EQUAL BILATERAL AIRWAY PATENT
--- NOTE | 2019-02-02 13:48 | NUR ---
DR. CASTELLON AT BEDSIDE.
[2019-02-02] MEDS ORDERED: VANCOMYCIN 1GM/DEXT 5% PREMIX 200 ML IV ONE (13:50)
[2019-02-02] MEDS ORDERED: VANCOMYCIN PER PHARMACY MC PRN (13:50)
[2019-02-02] MEDS: THERAHONEY GEL 42.5 GM TP SCH (13:51)
--- NOTE | 2019-02-02 15:20 | NUR ---
NO SOB NOTED GOOD CHEST RISE AIRWAY PATENT
--- NOTE | 2019-02-02 16:03 | NUR ---
DR. SKY HERE FOR ROUNDS. NO NEW ORDERS RECEIVED
[2019-02-02] MEDS: FLUCONAZOLE 100 MG TAB GT SCH (16:12)
[2019-02-02] MEDS: VANCOMYCIN 500 MG VIAL GT SCH (16:19)
--- NOTE | 2019-02-02 17:19 | NUR ---
PM CARE RENDERED SPONGE BATH DONE, ORAL CARE AND REPOSITIONING PER PROTOCOL, PICTURE TAKEN FOR NEWLY DISCOVERED BLISTER IN LEFT UPPER QUADRANT ABDOMEN
--- NOTE | 2019-02-02 17:24 | NUR ---
TOLERATING WEANING MODE WITHOUT INCIDENT GOOD EQUAL CHEST RISE DEEP TRACHEAL SUCTION FOR LARGE SEMI THICK PALE YELLOWS SECRETIONS AIRWAY PATENT
--- NOTE | 2019-02-02 18:52 | NUR ---
PATIENT REMAINS TO BE ON CPAP SO2 95%, OPENS EYES SPONTANEOUSLY, DOES NOT OBEY COMMANDS. INVASIVE LINES PATENT AND IN SITU
--- NOTE | 2019-02-02 19:00 | NUR ---
RECEIVED REPORT FROM AM NURSE. PT LYING ON BED, EYES CLOSED, BREATHING REGULARLY, TRACH TO VENT, IV FLUIDS RUNNING ON LEFT UPPER ARM PICC LINE, ROSAS IN PLACE, PT OPENS EYES WHEN CALLED, DOES NOT FOLLOW COMMANDS, NON VERBAL, PERRLA 3MM, SLUGGISH, PUPILS NOT TRACKING, S1 S2 PRESENT, REGULAR, PULSES 2+ BILATERAL UPPER AND LOWER EXTREMITIES, CAP REFILL <3S, GENERALIZED WEAKNESS ON BILATERAL UPPER AND LOWER EXTREMITIES, RIGID, CRACKLES THROUGHOUT, REGULAR, UNLABORED, ABDOMEN SOFT ROUND, NONDISTENDED, BOWEL SOUNDS HYPOACTIVE ON ALL QUADRANTS, WOUND AT LEFT BUTTOCK, OPTIFORM DRESSING, DRY AND INTACT, RIGHT ANKLE WOUND, OPTIFORM DRESSING, DRY AND INTACT, RIGHT UPPER ARM WOUND, OPTIFORM DRESSING, DRY AND INTACT, LEFT LOWER ARM BLISTER, LEFT UPPER ABDOMEN BLISTER, SKIN DISCOLORATION ON ABDOMEN. WILL CONTINUE TO MONITOR PT.
--- NOTE | 2019-02-02 19:09 | NUR ---
REPORT GIVEN TO NIGHT RN
--- NOTE | 2019-02-02 19:20 | NUR ---
1851: RECEIVED PATIENT TRACH SHILEY 6 TO VENT ON CPAP SETTINGS: PEEP 5, PRESSURE SUPPORT 10. VENT CHECK DONE. VENT ALARMS ON AND AUDIBLE. VENT PLUGGED INTO RED OUTLET. AMBU BAG AT BEDSIDE. SCHEDULED DUONEB BREATHING TREATMENT ADMINISTERED. TOLERATED TREATMENT WELL WITHOUT ANY ADVERSE SIDE EFFECTS. 1904: PERIOD OF APNEA. BACK UP VENTILATOR SETTINGS INITIATED. PLACED PATIENT BACK ON AC/VC MODE AT PREVIOUS SETTINGS: AC/VC 500, 12, +5, 30%. RN NOTIFIED. VENT CHECK DONE. SCHEDULED PULMICORT BREATHING TREATMENT ADMINISTERED. TOLERATED TREATMENT WELL; NO ADVERSE SIDE EFFECTS. AIRWAY SECURE AND PATENT. SUCTIONED SMALL AMOUNT OF THICK, YELLOW SECRETIONS. WILL CONTINUE TO MONITOR.
[2019-02-02] MEDS: ATORVASTATIN 20 MG TAB GT SCH (20:55)
--- NOTE | 2019-02-02 21:00 | NUR ---
MEDICATIONS GIVEN. ORAL VAP CARE PERFORMED. PT TOLERATED THE PROCEDURE WELL. WILL CONTINUE TO MONITOR.
--- NOTE | 2019-02-02 23:00 | NUR ---
PT RESTING ON BED EYES CLOSED, IV FLUIDS RUNNING, PT BREATHING REGULARLY ON VENT. WILL CONTINUE TO MONITOR.
[2019-02-03] VITALS (11 sets, daily range): BP systolic 94–137; BP diastolic 49–79
--- NOTE | 2019-02-03 01:00 | NUR ---
PT RESTING ON BED EYES CLOSED, IV FLUIDS RUNNING, PT BREATHING REGULARLY ON VENT. TEMP 98.5 TEMPORAL. WILL CONTINUE TO MONITOR.
[2019-02-03] MEDS: HYDRAGUARD CREAM TP SCH ×2 (01:01→12:24)
--- NOTE | 2019-02-03 04:00 | NUR ---
T RESTING ON BED EYES CLOSED, IV FLUIDS RUNNING, PT BREATHING REGULARLY ON VENT. TEMP 98.5 TEMPORAL. AM CARE PROVIDED. WILL CONTINUE TO MONITOR.
[2019-02-03] MEDS: PHENYTOIN 100 MG/4 ML UDC GT SCH ×3 (05:49→20:49)
--- NOTE | 2019-02-03 06:00 | NUR ---
T RESTING ON BED EYES CLOSED, IV FLUIDS RUNNING, PT BREATHING REGULARLY ON VENT. WILL CONTINUE TO MONITOR.
[2019-02-03] MEDS: NACL 0.9% 1,000 ML IV SCH (06:55)
--- NOTE | 2019-02-03 07:00 | NUR ---
CHANGE OF SHIFT REPORT GIVEN TO AM NURSE
[2019-02-03] MEDS: BLOOD GLUCOSE MONITORING 1 DEV DEV FS SCH ×4 (07:01→21:03)
[2019-02-03] MEDS: ALBUTEROL SULFATE/IPRATROPIU 3 ML SOL IH SCH ×3 (07:10→19:42)
[2019-02-03] MEDS: BUDESONIDE 0.5 MG/2 ML NEBU INH SCH ×2 (07:11→19:42)
--- NOTE | 2019-02-03 07:11 | NUR ---
RECEIVED ON A TesttSCAPE R860 VENTILATOR PLUGGED INTO RED OUTLET TOLERATING WELL WITHOUT ANY ADVERSE REACTIONS NOTED TO A NAHUN DFEN #6 AIRWAY SECURED WITH A CHOLO TRACH TIE CUFF PRESSURE CHECKED NOTED AMBU BAG AT HOB LOC QUIET RESTING COMFORTABLY CHEST RISE EQUAL BILATERAL DEEP TRACHEAL SUCTION FOR MODERATE THICK YELLOW SECRETIONS AIRWAY PATENT
[2019-02-03 07:26] LABS: PHOSPHORUS 4.7 mg/dL (2.5-4.9)
--- NOTE | 2019-02-03 07:30 | NUR ---
RECEIVED REPORT FROM SPUDDER NURSE QUOC. TEMP 99.7, HR=89, SpO2 97%, AZ=066/70, RR=14. PT OPENS EYES SPONTANEOUSLY, DOES NOT APPEAR TO TRACK, PERRLA, 3MM LEFT PUPIL, 3MM RIGHT PUPIL. UNABLE TO MAKE NEEDS KNOWN, RESPONSIVE TO PAIN. SR ON CLOTH PAINTER. PALPABLE BILATERAL RADIALS. DOPPLER BILATERAL POSTERIOR TIBIAL AND DORSALIS PEDIS PULSES. ON TRACH TO VENT AC/VC MODE, FIO2=30, OP=095, RR=12, FLOW 65L/MIN, PEEP 5, PMAX 50. LUNG SOUNDS CLEAR ON UPPER BILATERAL LOBES, SLIGHTLY DIMINISHED LEFT UPPER, DIMINISHED SOUNDS ON BILATERAL LOWER LOBES. GTUBE IN PLACE, ACTIVE BOWEL SOUNDS. TUBE FEEDING GLUCERNA 1.2 AT 65CC/HR WITH 200ML H20 FLUSH Q6H, NO RESIDUAL NOTED. RAMÓN PICC LINE INFUSING NS AT 30CC/HR. ROSAS IN PLACE, URINE IS ROB/ORANGE IN COLOR. SKIN IS PALE, WARM, AND DIAPHORETIC. SKIN NON-INTACT, DRESSING IS DRY/INTACT ON SACRAL COCCYX, NO DRAINAGE, REDNESS ON SURROUNDING AREA. DRESSING ON RIGHT HEEL, DRY/INTACT, NO DRAINAGE. SKIN TEAR, RIGHT UPPER ARM UNDERNEATH BP CUFF, DRESSING DRY/INTACT. REDNESS TO SCROTAL AND BILATERAL INNER THIGHS. HEEL PROTECTORS ON BILATERAL HEELS, SCDS ON BILATERAL LEGS. PT UPPER AND LOWER BILATERAL EXTREMITIES SLIGHTLY RIGID. BILATERAL UPPERS POSTURED SLIGHTLY. PT MISSING UPPER TEETH. CONTACT/FALL/ASPIRATION AND SEIZURE PRECAUTIONS MAINTAINED. HOB ELEVATED ABOVE 30 DEG. CALL LIGHT WITHIN REACH.
[2019-02-03 07:31] LABS: BASOPHILS % (AUTO) 0.7 % (0.0-2.0); EOSINOPHILS # (AUTO) 0.1 K/uL (0-0.4); EOSINOPHILS % (AUTO) 2.2 % (0.0-4.0); HEMATOCRIT 21.4 % (36-52); LYMPHOCYTES # (AUTO) 0.8 K/uL (2.0-11.5); LYMPHOCYTES % (AUTO) 15.8 % (20.5-51.1); MEAN CORPUSCULAR HEMOGLOBIN 27 pg (27-31); MEAN CORPUSCULAR HGB CONC 32 g/dL (33-37); MEAN CORPUSCULAR VOLUME 85.7 fL (80-94); MONOCYTES # (AUTO) 0.6 K/uL (0.8-1.0); MONOCYTES % (AUTO) 11.3 % (1.7-9.3); NEUTROPHILS # (AUTO) 3.5 K/uL (1.8-7.7); PLATELET COUNT (AUTO) 181 K/uL (140-450); RED CELL DISTRIBUTION WIDTH 20.6 % (11.6-13.7); WHITE BLOOD COUNT (AUTO) 4.9 K/uL (4.8-10.8)
--- NOTE | 2019-02-03 07:50 | NUR ---
Pt evaluated by Dr. Galvez and resident group. Made aware of hb 7.1 and positive occult blood. Made aware of BS 70. Will F/U order.
[2019-02-03 07:58] LABS: HEMOGLOBIN 6.8 g/dL (12.0-18.0)
[2019-02-03] MEDS: FERROUS GLUCONATE 324 MG TAB PO SCH ×2 (08:07→16:05)
--- NOTE | 2019-02-03 08:35 | NUR ---
PATIENT TRANSFERRED TO [facility] 108-B REMOVED FROM VENTILATOR PLACED ON SUPPLEMENTAL OXYGEN VIA E-TANK AT 15 LPM TO AMBU BAG/TRACHEOSTOMY BAG DEPRESSION EVERY 6-8 SECONDS SATURATION 99% HR 91 TOLERATED TRANSFER WELL WITHOUT INCIDENT PLACED BACK ON VENTILATORY SUPPORT WITH SAME SETTINGS NOTED
--- NOTE | 2019-02-03 08:52 | NUR ---
NO DISTRESS NOTED GOOD CHEST RISE AIRWAY PATENT
[2019-02-03] MEDS: METOPROLOL 50 MG TAB PO SCH ×3 (09:00→21:00)
[2019-02-03] MEDS: INSULIN LANTUS 100 UNITS/ML 10 ML VIAL SUBQ SCH ×2 (09:00→20:52)
--- NOTE | 2019-02-03 09:00 | NUR ---
PT TRANSFERRED TO [facility] ROOM 108. REPORT GIVEN TO TUNG GOOD RN. PT'S VITAL SIGNS AT TRANSFER: HR 100, BP 106/63, RR 18, SpO2 94%. PT RESTING QUIETLY AND UNINJURED DURING TRANSFER. Addendum: 02/03/19 at 1124 by Ahsan Chavez RN PT TRANSFERRED AT 0835
--- NOTE | 2019-02-03 09:00 | NUR ---
RECEIVED BEDSIDE REPORT FROM PANTRY GOODS MAKERJESÚS HERRERA AND JESÚS COLLAZO. PT STABLE, SLEEPING, BUT EASILY AROUSABLE. NO SIGNS OF DISTRESS NOTED. TRACH TO VENT, FI02 30%, RATE 12, PEEP 5. NO REDNESS, SWELLING, OR INFLAMMATION NOTED ON IV SITE. CALL DORSEY WITHIN REACH. BED IN LOWEST POSITION. SAFETY MEASURES IN PLACE. PLAN OF CARE REVIEWED. Addendum: 02/03/19 at 0910 by Matthias Lao RN TUBE FEEDING RUNNING AT 65 ML/HR. ROSAS CATHETER IN PLACE.
[2019-02-03] MEDS: MEROPENEM 500 MG in NACL 0.9% 50 ML IV SCH ×2 (09:51→20:45)
[2019-02-03] MEDS: LACTOBACILLUS RHAMNOSUS GG 1 EACH CAP PO SCH (09:53)
[2019-02-03] MEDS: PANTOPRAZOLE 40 MG INJ VIAL IVP SCH ×2 (09:53→20:45)
[2019-02-03] MEDS: ASCORBIC ACID 500 MG/5 ML ORASYR GT SCH ×2 (09:53→20:46)
[2019-02-03] MEDS: DOCUSATE SODIUM 100 MG GELCAP PO SCH (09:53)
--- NOTE | 2019-02-03 09:55 | NUR ---
TUBE FEEDING RESIDUAL CHECKED, 560ML. TUBE FEEDING STOPPED AT THIS TIME. WILL RECHECK RESIDUAL IN 1 HR. ADMINISTERED SCHEDULED MEDICATIONS, PT TOLERATED WELL. HELD SCHEDULED METOPROLOL FOR BP 103/49.
[2019-02-03] MEDS: POLYVINYL ALCOHOL 1.4% OP 15 ML SOL BOTH EYES SCH ×3 (09:56→16:06)
--- NOTE | 2019-02-03 10:35 | NUR ---
PICC LINE CATHETER SITE CULTURE COLLECTED. Addendum: 02/03/19 at 1048 by Matthias Lao RN PICC LINE DISCONTINUED PER MD PEARSON. CATHETER TIP INTACT, BLEEDING CONTROLLED.
--- NOTE | 2019-02-03 11:15 | NUR ---
CHANGED MODE TO CPAP WITH PS 11eyM01 PEEP 5 cmH2O FOR WEANING TRIAL TUNG GOOD/RN NOTIFIED DEEP TRACHEAL SUCTION FOR LARGE THICK YELLOW SECRETIONS AIRWAY PATENT
--- NOTE | 2019-02-03 11:20 | NUR ---
URINE FOR UA AND UDS TAKEN TO THE LAB BY JESÚS. Addendum: 02/03/19 at 1121 by Carlyn Kaur RN WRONG PATIENT CHARTING
[2019-02-03 11:33] LABS: ANION GAP 12.1 (8-16); CARBON DIOXIDE 23.2 mmol/L (21-32); CREATININE 1.8 mg/dL (0.7-1.3); POTASSIUM 4.3 mmol/L (3.5-5.1)
--- NOTE | 2019-02-03 11:55 | NUR ---
BLOOD TRANSFUSION STARTED. VITAL SIGNS TAKEN, PT STABLE. VERIFIED BLOOD TRANSFUSION WITH JESÚS COLLIER.
--- NOTE | 2019-02-03 12:00 | NUR ---
TUBE FEEDING RESIDUAL CHECKED, 5ML. TUBE FEEDING RESUMED. PT TOLERATED WELL.
--- NOTE | 2019-02-03 12:10 | NUR ---
VITAL SIGNS TAKEN, PT STABLE. NO BLOOD TRANSFUSION REACTION NOTED. WILL CONTINUE TO MONITOR.
[2019-02-03] MEDS: THERAHONEY GEL 42.5 GM TP SCH (12:24)
--- NOTE | 2019-02-03 12:40 | NUR ---
ADMINISTERED SCHEDULED MEDICATIONS, PT TOLERATED WELL. ROSAS CATHETER CARE PROVIDED.
--- NOTE | 2019-02-03 13:45 | NUR ---
TOLERATING WEANING WITHOUT DISTRESS NOTED CHEST RISE EQUAL BILATERAL DEEP TRACHEAL SUCTION FOR MODERATE THIN YELLOW SECRETIONS AIRWAY PATENT
--- NOTE | 2019-02-03 14:15 | NUR ---
02/03/19 RD FOLLOW UP COMPLETED PLEASE REFER TO NUTRITION PROGRESS NOTE UNDER CARE ACTIVITY FOR ESTIMATED NUTRITION NEEDS. RD RECOMMENDATION 1. CONTINUE GLUCERNA AT 65 ML/HR THIS WILL PROVIDE 1872 KCAL AND 93 GM OF PROTEIN, MEETING 100% OF ESTIMATED ENERGY AND PROTEIN NEEDS 2. CONTINUE 200 ML Q6H FREE WATER FLUSH 3. RD TO FOLLOW-UP 2-3 DAYS, HIGH RISK MAYCOL MARIE, RD
--- NOTE | 2019-02-03 14:15 | NUR ---
PT REPOSITIONED, LINENS AND GOWN CHANGED. PT STABLE.
[2019-02-03] MEDS ORDERED: VANCOMYCIN 1GM/DEXT 5% PREMIX 200 ML IV SCH (15:00)
--- NOTE | 2019-02-03 15:10 | NUR ---
BLOOD TRANSFUSION DONE. VITAL SIGNS TAKEN, PT STABLE. NO BLOOD TRANSFUSION REACTION NOTED. Addendum: 02/03/19 at 1848 by Matthias Lao RN MADE DR LAWS AWARE OF BLOOD TRANSFUSION DONE. PER , DR LAWS WILL ORDER CBC AFTER TRANSFUSION.
[2019-02-03] MEDS: FLUCONAZOLE 100 MG TAB GT SCH (16:05)
--- NOTE | 2019-02-03 16:21 | NUR ---
VITAL SIGNS TAKEN, PT STABLE. TUBE FEEDING RESIDUAL CHECKED, 5ML. ADMINISTERED SCHEDULED MEDICATIONS, PT TOLERATED WELL. BLOOD GLUCOSE CHECKED, 149, NO COVERAGE NEEDED.
--- NOTE | 2019-02-03 17:25 | NUR ---
PT REPOSITIONED, LINENS CHANGED. PT HAD BOWEL MOVEMENT, SOFT FORMED BROWN STOOL NOTED. STOOL CULTURE COLLECTED PER MD ORDER. WOUND ASSESSMENT AND WOUND CARE PROVIDED, WOUND DRESSING CHANGED.
--- NOTE | 2019-02-03 19:18 | NUR ---
ENDORSED PT TO JESÚS MOTLEY FOR CONTINUITY OF CARE. PT STABLE.
--- NOTE | 2019-02-03 19:19 | NUR ---
RECEIVED REPORT FROM AM NURSE. PT LAYING IN BED, NO VISIBLE SIGNS OF DISTRESS. PT TRACH TO CPAP. ROSAS CATH IN PLACE. G-TUBE IN PLACE, CONNECTED TO TUBE FEEDING. IV 22G IN RT HAND IN PLACE AND INFUSING WELL. SAFETY PRECAUTIONS IN PLACE.
[2019-02-03 19:48] LABS: BASOPHILS % (AUTO) 0.7 % (0.0-2.0); EOSINOPHILS # (AUTO) 0.1 K/uL (0-0.4); EOSINOPHILS % (AUTO) 1.6 % (0.0-4.0); HEMATOCRIT 25.6 % (36-52); HEMOGLOBIN 8.2 g/dL (12.0-18.0); LYMPHOCYTES # (AUTO) 0.8 K/uL (2.0-11.5); LYMPHOCYTES % (AUTO) 14.5 % (20.5-51.1); MEAN CORPUSCULAR HEMOGLOBIN 27 pg (27-31); MEAN CORPUSCULAR HGB CONC 32 g/dL (33-37); MEAN CORPUSCULAR VOLUME 85.4 fL (80-94); MONOCYTES # (AUTO) 0.7 K/uL (0.8-1.0); MONOCYTES % (AUTO) 12.2 % (1.7-9.3); PLATELET COUNT (AUTO) 197 K/uL (140-450); RED CELL DISTRIBUTION WIDTH 19.3 % (11.6-13.7); WHITE BLOOD COUNT (AUTO) 5.6 K/uL (4.8-10.8)
[2019-02-03] MEDS ORDERED: MEROPENEM 500 MG VIAL IV ONE (20:36)
[2019-02-03] MEDS: ATORVASTATIN 20 MG TAB GT SCH (20:46)
[2019-02-03] MEDS: INSULIN LISPRO SLIDING SCALE 100 UNITS/ML VIAL SUBQ PRN (20:52)
[2019-02-03] MEDS: ACETAMINOPHEN 325 MG TAB PO PRN (20:58)
--- NOTE | 2019-02-03 20:58 | NUR ---
DUE MEDICATION ADMINISTERED, PT TEMPERATURE 100.5, MEDICATION PER DR ORDER ADMINISTERED, PT TOLERATED WELL, NO DISTRESS NOTED, CALL LIGHT WITHIN REACH, WILL CONTINUE TO MONITOR.
--- NOTE | 2019-02-03 21:28 | NUR ---
PLACED PT BACK ON A/C MODE ON VENTILATOR. PT NIF WAS -14. PT RESTING AT THIS TIME. PT TRACH SECURE AND INTACT. VENT PLUGGED INTO RED OUTLET. ALARMS AUDIBLE. AMBU BAG AT BEDSIDE. PT [place] WELL NO ADVERSE REACTIONS.
[2019-02-03] MEDS ORDERED: NACL 0.9% 500 ML IV SCH (22:30)
--- NOTE | 2019-02-03 23:00 | NUR ---
RECHECKED PT TEMPERATURE 100.3, NOTIFIED DR RAGLAND, STATED UNDERSTANDING, AND STATED ITS OK, NO CHANGES IN ORDER, TO JUST MONITOR PT. COLD COMPRESSES ADMINISTERED, WILL CONTINUE TO MONITOR.
[2019-02-04 00:05] VITALS: BP 118/72
[2019-02-04] MEDS: HYDRAGUARD CREAM TP SCH ×2 (00:31→12:09)
--- NOTE | 2019-02-04 00:31 | NUR ---
PT RESTING, NO DISTRESS NOTED, V/S TAKEN, WITHIN PT BASELINE, TEMPERATURE TAKEN 98.0, PT RESTING, NO DISTRESS NOTED, CALL LIGHT WITHIN REACH, WILL CONTINUE TO MONITOR.
[2019-02-04] MEDS: NACL 0.9% 1,000 ML IV SCH (01:14)
--- NOTE | 2019-02-04 01:14 | NUR ---
TUBE FEEDING CHANGED, PT TOLERATING FEEDING WELL, ROSAS CATH CARE DONE, PT TOLERATED WELL, NO DISTRESS NOTED, CALL LIGHT WITHIN REACH, WILL CONTINUE TO MONITOR.
--- NOTE | 2019-02-04 01:38 | NUR ---
PT SPO2 93-94% ON FIO2 30%, INCREASED FIO2 TO 35%, PT SPO2 95%. RN AWARE.
[2019-02-04] MEDS: MORPHINE SULFATE 2 MG/ML SYR IVP PRN (02:47)
[2019-02-04] MEDS: ACETAMINOPHEN 325 MG TAB PO PRN (03:48)
--- NOTE | 2019-02-04 03:48 | NUR ---
PT HR 121, PT SWEATING, CHECKED PT BP, WITHIN PT BASELINE, BLOOD SUGAR 191, TEMP 100.5, NOTIFIED DR. RAGLAND, DR. RAGLAND SAW PT, NO CHANGE IN ORDER, JUST TO GIVE PT TYLENOL AT THIS TIME, TYLENOL GIVEN, PT TOLERATED WELL, WILL CONTINUE TO MONITOR.
[2019-02-04 04:00] VITALS: BP 148/71
[2019-02-04] MEDS: PHENYTOIN 100 MG/4 ML UDC GT SCH ×3 (04:04→20:45)
[2019-02-04] MEDS: ALBUTEROL SULFATE/IPRATROPIU 3 ML SOL IH PRN (04:36)
--- NOTE | 2019-02-04 04:49 | NUR ---
Pt pressures increased, sxn pt, PRN given, and repositioned pt with RN. Pressures decreased after PRN and position change.
--- NOTE | 2019-02-04 05:10 | NUR ---
RECHECKED PT TEMP AFTER TYLENOL ADMINISTRATION TEMP 98.8, PT RESTING, NO DISTRESS NOTED, CALL LIGHT WITHIN REACH, WILL CONTINUE TO MONITOR.
[2019-02-04] MEDS: INSULIN LISPRO SLIDING SCALE 100 UNITS/ML VIAL SUBQ PRN ×2 (06:15→12:19)
[2019-02-04] MEDS: BLOOD GLUCOSE MONITORING 1 DEV DEV FS SCH ×4 (06:35→21:31)
[2019-02-04 06:54] LABS: BASOPHILS % (AUTO) 0.3 % (0.0-2.0); EOSINOPHILS % (AUTO) 0.5 % (0.0-4.0); HEMOGLOBIN 9.5 g/dL (12.0-18.0); LYMPHOCYTES # (AUTO) 0.5 K/uL (2.0-11.5); MEAN CORPUSCULAR HEMOGLOBIN 27 pg (27-31); MEAN CORPUSCULAR HGB CONC 32 g/dL (33-37); MEAN CORPUSCULAR VOLUME 85.6 fL (80-94); MONOCYTES # (AUTO) 0.6 K/uL (0.8-1.0); NEUTROPHILS # (AUTO) 6.5 K/uL (1.8-7.7); NEUTROPHILS % (AUTO) 84.2 % (42.2-75.2); PLATELET COUNT (AUTO) 201 K/uL (140-450); RED BLOOD CELL COUNT(AUTO) 3.51 MIL/uL (4.20-6.10); RED CELL DISTRIBUTION WIDTH 19.4 % (11.6-13.7); WHITE BLOOD COUNT (AUTO) 7.8 K/uL (4.8-10.8)
[2019-02-04 07:13] LABS: PHOSPHORUS 3.7 mg/dL (2.5-4.9)
--- NOTE | 2019-02-04 07:31 | NUR ---
ENDORSED PT TO DAY SHIFT NURSE TAVON RN, PT STABLE, NO DISTRESS NOTED, CALL LIGHT WITHIN REACH.
--- NOTE | 2019-02-04 07:32 | NUR ---
RECEIVED REPORT FROM VERIFICATION ENGINEER NURSE. PATIENT SITTING IN BED. NO DISTRESS NOTED. ON TRACH TO VENT WITH VENT SETTINGS: FI02:35%, VT:500, RATE:12, FLOW 50, PEEP:5, PMAX:40 WITH O2 SAT AT 96%. AAOX1, APHASIC, CALM AT THIS TIME. PER VERIFICATION ENGINEER RN, PATIENT HAD 2 FEVERS LAST NIGHT 100.5 HIGHEST. GTUBE SITE INTACT, PATENT, AND RUNNING CONTINUOUS FEEDING PER MD ORDERS. ROSAS CATHETER IN PLACE, DRAINING YELLOW URINE. RIGHT HAND IV SITE INTACT, PATENT AND ON TKO. HAS BUE +1 PITTING EDEMA NOTED. LUNG SOUNDS COURSE THROUGHOUT ALL LOBES. HAS SACRAL, BUTTOCK AND RIGHT FOOT ULCERS. DRESSING DRY AND INTACT. REVIEWED PLAN OF CARE WITH PATIENT. UNABLE TO COMPREHEND. SAFETY MEASURES IN PLACE, CALL LIGHT WITHIN REACH. WILL CONTINUE TO MONITOR.
[2019-02-04 08:00] VITALS: BP 96/59
[2019-02-04] MEDS: ALBUTEROL SULFATE/IPRATROPIU 3 ML SOL IH SCH ×3 (08:07→19:57)
[2019-02-04] MEDS: BUDESONIDE 0.5 MG/2 ML NEBU INH SCH ×2 (08:07→19:57)
[2019-02-04] MEDS: LACTOBACILLUS RHAMNOSUS GG 1 EACH CAP PO SCH (08:55)
[2019-02-04] MEDS: ASCORBIC ACID 500 MG/5 ML ORASYR GT SCH ×2 (08:55→20:46)
[2019-02-04] MEDS: POLYVINYL ALCOHOL 1.4% OP 15 ML SOL BOTH EYES SCH ×3 (08:55→16:32)
[2019-02-04] MEDS: PANTOPRAZOLE 40 MG INJ VIAL IVP SCH ×2 (08:55→20:46)
[2019-02-04] MEDS: FERROUS GLUCONATE 324 MG TAB PO SCH ×2 (08:55→16:31)
[2019-02-04] MEDS: METOPROLOL 50 MG TAB PO SCH ×2 (08:56→21:00)
[2019-02-04] MEDS: INSULIN LANTUS 100 UNITS/ML 10 ML VIAL SUBQ SCH ×2 (09:23→21:24)
[2019-02-04] MEDS: DOCUSATE 100 MG/10 ML UDC PO SCH (09:23)
--- NOTE | 2019-02-04 09:27 | NUR ---
PATIENT LYING DOWN IN BED. NO DISTRESS NOTED. GTUBE RESIDUAL CHECKED AT 500 ML, GTUBE FEEDING HELD AT THIS TIME. SCHEDULED MEDICATIONS DUE GIVEN. WILL CONTINUE TO MONITOR.
--- NOTE | 2019-02-04 09:36 | NUR ---
RESTING WELL NO EVIDENCE OF PULMONARY DISTRESS NOTED GOOD EQUAL CHEST RISE DEEP TRACHEAL SUCTION FOR SMALL THICK YELLOW SECRETIONS AIRWAY PATENT CHANGED MODE TO CPAP WITH PS 10 cmH2O AND PEEP 5 cmH2O FOR WEANING TOLERATED SATURATION 98% ON FIO2 OF 35% TITRATED FIO2 TO 30& TAVON/JESÚS NOTIFIED Addendum: 02/04/19 at 0957 by Ariel Cooley RT RECEIVED ON A [employer] R860 VENTILATOR PLUGGED INTO RED OUTLET TOLERATING WELL WITHOUT ADVERSE REACTIONS NOTED TO A NAHUN DFEN #6 AIRWAY SECURED WITH A CHOLO TRACH TIE CUFF PRESSURE CHECKED NOTED AMBU BAG NOTED AT [facility] LOC QUIET GOOD EQUAL CHEST RISE AIRWAY PATENT
[2019-02-04 09:56] LABS: ANION GAP 16.7 (8-16); CARBON DIOXIDE 18.7 mmol/L (21-32); CREATININE 1.8 mg/dL (0.7-1.3); POTASSIUM 4.4 mmol/L (3.5-5.1)
--- NOTE | 2019-02-04 10:37 | NUR ---
ASSISTED CUSTODIAL SUPERVISOR IN CLEANING AND REPOSITIONING PATIENT. NO DISTRESS NOTED. CONDITION UNCHANGED. WILL CONTINUE TO MONITOR.
--- NOTE | 2019-02-04 11:55 | NUR ---
TOLERATING WEANING WITHOUT DISTRESS NOTED EQUAL CHEST RISE DEEP TRACHEAL SUCTION FOR SMALL THICK YELLOW SECRETINS AIRWAY PATENT Addendum: 02/04/19 at 1218 by Ariel Cooley RT KAIDEN ANDRE PULSE OXIMETER AT BEDSIDE ON AND FUNCTIONING WELL LOW SATURATION SET AT 92%
[2019-02-04 12:00] VITALS: BP 97/53
[2019-02-04] MEDS: THERAHONEY GEL 42.5 GM TP SCH (12:09)
--- NOTE | 2019-02-04 12:22 | NUR ---
PATIENT LYING DOWN IN BED. NO DISTRESS NOTED. FLACC 0. SCHEDULED MEDICATIONS DUE GIVEN. WILL CONTINUE TO MONITOR.
--- NOTE | 2019-02-04 15:00 | NUR ---
PATIENT LYING DOWN IN BED. NO DISTRESS NOTED. CONTINUES TO BE ON CPAP. CONDITION UNCHANGED. WILL CONTINUE TO MONITOR.
[2019-02-04] MEDS: FLUCONAZOLE 100 MG TAB GT SCH (16:31)
[2019-02-04] MEDS: VANCOMYCIN 500 MG VIAL GT SCH (16:33)
--- NOTE | 2019-02-04 16:49 | NUR ---
CALLED DR. TOBIN HERRERA [phone] TO REVIEW ABG SAMPLE REPORT SPOKE TO NENA/KISHA FOREMENTIONED TO INOCENCIA GUNN
--- NOTE | 2019-02-04 17:05 | NUR ---
CALLED POOJA/SEWER PIPE SORTER [phone] INFORMED FOREMENTIONED OF [facility] AND CALL TO DR. TOBIN HERRERA [phone] SPOKE TO NENA/KISHA RN TO ALSO CALL
[2019-02-04 17:12] VITALS: BP 111/64
--- NOTE | 2019-02-04 19:26 | NUR ---
RECEIVED REPORT AT BEDSIDE FOR CONTINUITY OF CARE, PT INSTABLE CONDITION.
--- NOTE | 2019-02-04 19:26 | NUR ---
GAVE REPORT TO WORK AND FAMILY LIFE CONSULTANT NURSE FOR CONTINUITY OF CARE. PATIENT IN STABLE CONDITION.
[2019-02-04 20:00] VITALS: BP 110/56
--- NOTE | 2019-02-04 20:00 | NUR ---
PT IN BED ALL FALLS, ASPIRATION AND SEIZURE PRECAUTIONS IN PLACE. PT IS AOX1 ON VENT AND STATING AT 95% WITH ALL CURRENT VENT SETTINGS. PT HAS ROSAS CATHETER IN PLACE AND 200 OF DARK ROB URINE DRAINED. PT HAS 22G PERIPHERAL IV SITE RUNNING N/S AT 30 TO KVO. PT ALSO ON TUBE FEEDING. WHICH WAS STOPPED DUE TO HIGH RESIDUAL. CURRENTLY IT IS ZERO RESIDUAL AND FEEDING RESTARTED AT 20MLS/HR. PT ON WOUND BED AND IS TURNED TO THE SIDE. HOB UP AT 45%. PT SUCTIONED X2 DUE TO COUGHING. PT HAS NO S/S OF PAIN OR DISTRESS. PT RESPIRATIONS ARE 20 WITH MODERATE EFFORT. POST SUCTIONING 02 WENT UP TO 96%. OTHER V/S INCLUDE T 98.4 P 116 R 20 B/P 110/56. PT ALSO ON CONTACT PRECAUTIONS WELL.
[2019-02-04] MEDS: ATORVASTATIN 20 MG TAB GT SCH (20:46)
--- NOTE | 2019-02-04 21:00 | NUR ---
FOUND PT ON CPAP MODE OF PS 10, PEEP OF 5 & FIO2 OF 30%. PT WAS SANTOS WELL. NO DISTRESS NOTED. PT VENT CONNECTED TO RED PLUG OUT. AMBU BAG AT BEDSIDE OF PT. ALARMS ON VENT WERE SET & AUDIBLE. PT SANTOS TX WELL. MOD AMOUNTS OF FROTHY WHITE SECRETIONS ARE SUCTIONED EACH TIME.
--- NOTE | 2019-02-04 21:00 | NUR ---
PT GIVEN DUE MEDS OF PROTONIX IVP, DILANTIN WELL LIPITOR VIA GT TUBE. PT FINGERSTICK IS 126. PT GIVEN ORDERED COVERAGE FOR LANTUS AND ALSO 60Z OF JUICE TO PREVENT PT GLUCOSE FORM DROPPING TO LOW.
--- NOTE | 2019-02-04 21:30 | NUR ---
PT TURNED , CHANGED AND REPOSITIONED . ALL CONTACT, FALLS, ASPIRATION AND SEIZURE PRECAUTIONS IN PLACE. HOB UP 45% WITH GLUCERNA 1.2 CONTINUING TO RUN AT 20. WILL CONTINUE TO MONITOR PT CONDITION WITH FREQUENT ROUNDS.
[2019-02-05] VITALS: BP 137/81
--- NOTE | 2019-02-05 00:45 | NUR ---
PT TEMP RETAKEN AND IT IS 98.0 FINGERSTICK CHECKED AND IT IS 155. PT SUCTIONED X3 PT CONTINUES TO HAVE A LARGE AMOUNT OF WHITE FROTHY SALIVA. PT STATING AT 97% ON CURRENT VENT SETTINGS. NO RESIDUAL NOTED FOR FEEDING.
[2019-02-05] MEDS: LORazepam 2 MG/ML VIAL IM/IVP PRN (00:49)
--- NOTE | 2019-02-05 00:50 | NUR ---
V/S FOLLOWS T 100.1 P 115 R 20 B/P 137/81 02 96% ON ALL VENT SETTINGS CONTACT PRECAUTIONS OBSERVED WELL FALLS, ASPIRATION AND SEIZURE PRECAUTIONS.
[2019-02-05] MEDS: HYDRAGUARD CREAM TP SCH ×2 (01:00→12:34)
[2019-02-05 04:00] VITALS: BP 140/85
--- NOTE | 2019-02-05 04:00 | NUR ---
PT IN BED TURNED, CHANGED AND REPOSITIONED. PT SUCTIONED X2 PT NOTED WITH THICK WHITE SECRETIONS. V/S FOLLOWS T 97.7 P 115 B/P 134/85 02 96% WITH ALL CURRENT VENT SETTINGS. SACRAL DRESSING CHANGED.
--- NOTE | 2019-02-05 06:00 | NUR ---
PT DILANTIN GIVEN VIA GT, FINGERSTICK IS 161, GIVEN 2 UNITS OF COVERAGE. NEW GLUCERNIA HUNG NO RESIDUAL NOTED.
[2019-02-05] MEDS: INSULIN LISPRO SLIDING SCALE 100 UNITS/ML VIAL SUBQ PRN (06:32)
[2019-02-05] MEDS: NACL 0.9% 1,000 ML IV SCH (06:55)
--- NOTE | 2019-02-05 07:15 | NUR ---
REPORT GIVEN TO TAVON ESPINOSA DAYSHIFT NURSE AT BEDSIDE FOR CONTINUITY OF CARE, PT IN STABLE CONDITION.
--- NOTE | 2019-02-05 07:16 | NUR ---
RECEIVED ENDORSEMENT FROM FARM MACHINERY ERECTOR NURSE. PATIENT IS RESTING IN BED ON VENTILATOR VIA TRACH, THERE IS NO SIGN OF DISTRESS. PATIENT IS APHASIC. IV IS INTACT. GTUBE IS INTACT, PATENT, AND INFUSING CONTINOUS FEEDING. SACRAL AND RIGHT FOOT ULCERS NOTED. PLAN OF CARE WAS REVIEWED WITH PATIENT. PATIENT IS UNABLE TO VERBALIZE UNDERSTANDING. SAFETY MEASURES IN PLACE, BED IS IN THE LOWEST POSITION, SIDERAILS X2, CALL LIGHT IS WITHIN REACH. WILL CONTINUE TO MONITOR.
[2019-02-05] MEDS: BLOOD GLUCOSE MONITORING 1 DEV DEV FS SCH ×4 (07:34→20:23)
[2019-02-05] MEDS: PHENYTOIN 100 MG/4 ML UDC GT SCH ×3 (07:34→20:24)
[2019-02-05 08:00] VITALS: BP 147/69
[2019-02-05] MEDS: ALBUTEROL SULFATE/IPRATROPIU 3 ML SOL IH SCH ×3 (08:27→20:11)
[2019-02-05] MEDS: BUDESONIDE 0.5 MG/2 ML NEBU INH SCH ×2 (08:28→20:12)
--- NOTE | 2019-02-05 08:28 | NUR ---
RECEIVED ON A EtogasAPE R860 VENTILATOR PLUGGED INTO RED OUTLET TOLERATING WELL WITHOUT INCIDENT TO A SHILEY DFEN #6 AIRWAY SECURED WITH A CHOLO TRACH TIE CUFF PRESSURE CHECKED NOTED KAIDEN BAIRES;-Mickey CONTINUOS PULSE OXIMETER AT BEDSIDE ON AND FUNCTIONING WELL LOW SATURATION ALARM SET AT 92% AMBU BAG NOTED AT HOB RESTING COMFORTABLY WELL NO SOB NOTED GOOD EQUAL CHEST RISE DEEP TRACHEAL SUCTION FOR COPIOUS FROTHY BARBOUR TO PALE YELLOW SECRETIONS OROPHARYNGEAL SUCTION FOR LARGE FROTHY BARBOUR SECRETIONS AIRWAY PATENT ENROLLMENT PROCESSOR TO MONITOR SECRETIONS FOR POSSIBLE T-BAR/AEROSOL TO TRACHEOSTOMY TUBE
[2019-02-05] MEDS: SCOPOLAMINE 1.5 MG/72 HR PATCH TD SCH (09:29)
[2019-02-05] MEDS: ASCORBIC ACID 500 MG/5 ML ORASYR GT SCH ×2 (09:30→20:24)
[2019-02-05] MEDS: FERROUS GLUCONATE 324 MG TAB PO SCH ×2 (09:30→16:05)
[2019-02-05] MEDS: METOPROLOL 50 MG TAB PO SCH ×2 (09:30→20:24)
[2019-02-05] MEDS: DOCUSATE 100 MG/10 ML UDC PO SCH (09:30)
[2019-02-05] MEDS: LACTOBACILLUS RHAMNOSUS GG 1 EACH CAP PO SCH (09:30)
[2019-02-05] MEDS: POLYVINYL ALCOHOL 1.4% OP 15 ML SOL BOTH EYES SCH ×3 (09:31→16:05)
[2019-02-05] MEDS: PANTOPRAZOLE 40 MG INJ VIAL IVP SCH ×2 (09:31→20:25)
[2019-02-05] MEDS: INSULIN LANTUS 100 UNITS/ML 10 ML VIAL SUBQ SCH ×2 (09:45→20:25)
[2019-02-05] MEDS: FOAM DRESSING TP SCH (09:50)
--- NOTE | 2019-02-05 09:55 | NUR ---
ADMINISTERED SCHEDULED MEDICATIONS. SUCTIONED PATIENT. GTUBE RESIDUAL WAS 0. ADVANCED FEEDING TO 50 ML/HR. WILL CONTINUE TO MONITOR.
--- NOTE | 2019-02-05 10:04 | NUR ---
RESTING COMFORTABLY NO EVIDENCE OF PULMONARY DISTRESS NOTED CHEST RISE EQUAL BILATERAL DEEP SUCTION FOR SMALL THI YELLOW SECRETIONS AIRWAY PATENT CHANGED MODE TO CPAP WITH PS 10 cmH2O AND PEEP 5 cmH2O FOR WEANING TOLERATED MAIL HANDLER EQUIPMENT OPERATOR TO MONITOR SECRETIONS FOR POSSIBLE T-BAR/AEROSOL TO TRACHEOSTOMY TUBE
--- NOTE | 2019-02-05 11:04 | NUR ---
NO APPARENT RESPIRATORY DISTRESS EQUAL CHEST RISE BREATH SOUNDS CLEAR BILATERAL WITH GOOD AERATION THROUGHOUT BILATERAL LUNG PAREKH AIRWAY PATENT
--- NOTE | 2019-02-05 11:28 | NUR ---
APPROPRIATE FOR AEROSOL AT 30%/7 LPM TO T-BAR/TRACHEOSTOMY TUBE AT THIS TIME REMOVED FOR M VENTILATOR AND PLACED ON THE FOREMENTIONED DATA SME TO MONITOR SATURATION 99% RR24 98 BREATH SOUNDS CLEAR BILATERAL WITH GOOD AERATION THROUGHOUT BILATERAL LUNG PAREKH CHEST EQUAL BILATERAL AIRWAY PATENT Addendum: 02/05/19 at 1132 by Ariel Cooley RT TAVON/JESÚS NOTIFIED
[2019-02-05 12:00] VITALS: BP 124/53
--- NOTE | 2019-02-05 12:22 | NUR ---
PATIENT RESTING. FLACC 0. WILL CONTINUE TO MONITOR.
[2019-02-05] MEDS: THERAHONEY GEL 42.5 GM TP SCH (12:35)
--- NOTE | 2019-02-05 12:46 | NUR ---
GTUBE RESIDUAL 100 ML. ADMINISTERED SCHEDULED MEDICATIONS. WILL CONTINUE TO MONITOR.
[2019-02-05 16:00] VITALS: BP 126/65
--- NOTE | 2019-02-05 16:13 | NUR ---
ASSISTED DIRECTOR EAST [employer]AST SALES IN REPOSITIONING PATIENT. GTUBE RESIDUAL CHECKED AT 180 ML. GTUBE FEEDING HELD AT THIS TIME. SCHEDULED MEDICATIONS DUE GIVEN. WILL CONTINUE TO MONITOR.
--- NOTE | 2019-02-05 17:56 | NUR ---
SUCTIONED PATIENT. TOLERATED PROCEDURE WELL. WILL CONTINUE TO MONITOR.
--- NOTE | 2019-02-05 19:24 | NUR ---
GAVE ENDORSEMENT TO COLOR RECEIVER NURSE FOR CONTINUITY OF CARE. PATIENT IS STABLE.
--- NOTE | 2019-02-05 19:25 | NUR ---
RECEIVED REPORT AT PT BEDSIDE FROM JESÚS MONTES DE OCA. PT IS APHASIC ON TRACH TO T-PIECE AT 7L O2 WITH 30% FIO2. UNABLE TO FOLLOW COMMANDS, AND UNABLE TO MAKE NEEDS KNOWN. PT BEDBOUND WITH SOME WOUNDS, SEE WOUND ASSESSMENT. RESPIRATIONS EVEN AND UNLABORED. PT HAS 24G IV TO RIGHT HAND. NO SIGNS OF DISTRESS NOTED. DENIES PAIN. VITAL SIGNS STABLE. BED IN LOWEST POSITION, CALL LIGHT WITHIN REACH. WILL CONTINUE TO MONITOR.
[2019-02-05 20:00] VITALS: BP 150/77
--- NOTE | 2019-02-05 20:00 | NUR ---
RESTARTED TUBE FEEDING SINCE BLOOD SUGAR IS 67 AND THERE IS NO MORE RESIDUALS. SPOKE TO DR RIDER ABOUT HOLDING LANTUS INSULIN AND SHE AGREED. SHE ALSO SAID TO INCREASE TUBE FEEDING HOURLY UNTIL GOAL IS MET.
[2019-02-05] MEDS: ATORVASTATIN 20 MG TAB GT SCH (20:24)
--- NOTE | 2019-02-05 20:33 | NUR ---
ADMINISTERED SCHEDULED MEDICATIONS, PT TOLERATED WELL. FLUSHED GTUBE WITH 10ML WATER AFTER EACH MEDICATION. FLUSHED WITH JUICE AFTER LAST MEDICATION BECAUSE BLOOD SUGAR IS LOW (67) AND FLUSHED WITH 50ML WATER AFTER JUICE. HELD LANTUS INSULIN, DR RIDER AWARE.
--- NOTE | 2019-02-05 22:01 | NUR ---
CHECKED TEMP AND BLOOD SUGAR AGAIN BECAUSE PT IS DIAPHORETIC STILL. BLOOD SUGAR IS 92, AND TEMP 99.0. NO SIGNS OF DISTRESS NOTED. COOLING MEASURES IN PLACE. BED IN LOWEST POSITION, CALL LIGHT WITHIN REACH. WILL CONTINUE TO MONITOR.
[2019-02-06] VITALS: BP 147/81
--- NOTE | 2019-02-06 | NUR ---
VITAL SIGNS STABLE. NO SIGNS OF DISTRESS NOTED. FLACC 0. BED IN LOWEST POSITION, CALL LIGHT WITHIN REACH. WILL CONTINUE TO MONITOR.
[2019-02-06] MEDS: HYDRAGUARD CREAM TP SCH ×2 (01:55→13:33)
--- NOTE | 2019-02-06 02:24 | NUR ---
TUBE FEEDING IS STILL AT 30ML/HR, THERE IS ABOUT 120ML OF RESIDUAL. BED IN LOWEST POSITION, CALL LIGHT WITHIN REACH. WILL CONTINUE TO MONITOR.
[2019-02-06 04:00] VITALS: BP 141/93
--- NOTE | 2019-02-06 04:00 | NUR ---
VITAL SIGNS STABLE. FLACC 0. NO SIGNS OF DISTRESS NOTED. BED IN LOWEST POSITION, CALL LIGHT WITHIN REACH. WILL CONTINUE TO MONITOR.
[2019-02-06] MEDS: ACETAMINOPHEN 325 MG TAB PO PRN (04:33)
[2019-02-06] MEDS: PHENYTOIN 100 MG/4 ML UDC GT SCH ×3 (04:34→20:31)
--- NOTE | 2019-02-06 04:41 | NUR ---
ADMINISTERED SCHEDULED MEDICATION AND TYLENOL FOR FEVER, FLUSHED WITH WATER. PT TOLERATED WELL. TUBE FEEDING RATE AT 40ML/HR AND RESIDUAL IS AT 150, ASKED DR RIDER IF TUBE FEEDING CAN CONTINUE TO BE INCREASED TO GOAL RATE, SHE SAID YES HOLD ONLY WHEN RESIDUAL ABOVE 200.
--- NOTE | 2019-02-06 05:53 | NUR ---
PT TUBE FEEDING IS AT GOAL RATE NOW. RESIDUAL STILL 150ML
[2019-02-06] MEDS: NACL 0.9% 1,000 ML IV SCH (06:22)
[2019-02-06] MEDS: BLOOD GLUCOSE MONITORING 1 DEV DEV FS SCH ×4 (06:23→21:00)
[2019-02-06] MEDS: BUDESONIDE 0.5 MG/2 ML NEBU INH SCH ×2 (06:25→19:06)
[2019-02-06] MEDS: ALBUTEROL SULFATE/IPRATROPIU 3 ML SOL IH SCH ×3 (06:26→19:06)
[2019-02-06] MEDS: LORazepam 2 MG/ML VIAL IM/IVP PRN (06:43)
--- NOTE | 2019-02-06 07:25 | NUR ---
ENDORSED PT TO DAY SHIFT RN TAVON, AT BEDSIDE, FOR CONTINUITY OF CARE. PT IN STABLE CONDITION.
--- NOTE | 2019-02-06 07:26 | NUR ---
RECEIVED REPORT FROM WASHING MACHINE ASSEMBLER NURSE. PATIENT LYING DOWN IN BED SLEEPING, AROUSABLE BY VOICE. NO DISTRESS NOTED. AAOX1, APHASIC, SKIN COLOR APPROPRIATE TO ETHNICITY, WARM TO TOUCH. HAS SACRAL, RIGHT UPPER ARM, AND RIGHT FOOT WOUNDS. DRESSINGS ARE DRY AND INTACT. ON TRACH TO TO T-TUBE ON 30%. GTUBE SITE INTACT, PATENT, AND INFUSING CONTINUOUS FEEDING PER MD ORDERS. ROSAS CATHETER IN PLACE, DRAINING, YELLOW URINE. REVIEWED PLAN OF CARE WITH PATIENT. UNABLE TO COMPREHEND. SAFETY MEASURES IN PLACE, CALL LIGHT WITHIN REACH. WILL CONTINUE TO MONITOR.
[2019-02-06 08:00] VITALS: BP 116/74
[2019-02-06 08:08] LABS: BASOPHILS % (AUTO) 0.5 % (0.0-2.0); EOSINOPHILS # (AUTO) 0.1 K/uL (0-0.4); EOSINOPHILS % (AUTO) 0.8 % (0.0-4.0); HEMATOCRIT 27.5 % (36-52); HEMOGLOBIN 8.8 g/dL (12.0-18.0); LYMPHOCYTES # (AUTO) 1.3 K/uL (2.0-11.5); LYMPHOCYTES % (AUTO) 16.6 % (20.5-51.1); MEAN CORPUSCULAR HEMOGLOBIN 27 pg (27-31); MEAN CORPUSCULAR HGB CONC 32 g/dL (33-37); MEAN CORPUSCULAR VOLUME 84.9 fL (80-94); MONOCYTES # (AUTO) 1.2 K/uL (0.8-1.0); MONOCYTES % (AUTO) 14.9 % (1.7-9.3); NEUTROPHILS # (AUTO) 5.3 K/uL (1.8-7.7); NEUTROPHILS % (AUTO) 67.2 % (42.2-75.2); PLATELET COUNT (AUTO) 242 K/uL (140-450); RED BLOOD CELL COUNT(AUTO) 3.24 MIL/uL (4.20-6.10); RED CELL DISTRIBUTION WIDTH 19.5 % (11.6-13.7); WHITE BLOOD COUNT (AUTO) 7.9 K/uL (4.8-10.8)
[2019-02-06 09:31] LABS: MAGNESIUM 1.8 mg/dL (1.8-2.4)
[2019-02-06 09:37] LABS: ANION GAP 14.1 (8-16); CREATININE 1.5 mg/dL (0.7-1.3); POTASSIUM 4.1 mmol/L (3.5-5.1)
[2019-02-06] MEDS: METOPROLOL 50 MG TAB PO SCH ×2 (10:11→20:32)
[2019-02-06] MEDS: ASCORBIC ACID 500 MG/5 ML ORASYR GT SCH ×2 (10:12→21:00)
[2019-02-06] MEDS: LACTOBACILLUS RHAMNOSUS GG 1 EACH CAP PO SCH (10:12)
[2019-02-06] MEDS: DOCUSATE 100 MG/10 ML UDC PO SCH (10:13)
[2019-02-06] MEDS: FERROUS GLUCONATE 324 MG TAB PO SCH ×2 (10:13→17:31)
[2019-02-06] MEDS: POLYVINYL ALCOHOL 1.4% OP 15 ML SOL BOTH EYES SCH ×3 (10:20→17:31)
--- NOTE | 2019-02-06 10:34 | NUR ---
FAXED FACE SHEET AND MD'S ORDER TO [facility] [phone]. CALLED AND SPOKE TO HERMILO, NOTIFY HIM OF NEW ORDER. HERMILO STATED HE WILL COME SHORTLY TO EVALUATE PATIENT.PRIMARY NURSE TAVON BARBOUR RN AWARE.
--- NOTE | 2019-02-06 10:49 | NUR ---
PATIENT LYING DOWN IN BED. NO DISTRESS NOTED. CONDITION UNCHANGED. SCHEDULED MEDICATIONS DUE GIVEN. OLD ROSAS CATHETER REMOVED AND NEW ONE INSERTED USING SEPTIC TECHNIQUE PER MD ORDERS. PATIENT TOLERATED WELL. WILL CONTINUE TO MONITOR.
[2019-02-06] MEDS: INSULIN LANTUS 100 UNITS/ML 10 ML VIAL SUBQ SCH ×2 (10:54→20:34)
[2019-02-06] MEDS: PANTOPRAZOLE 40 MG INJ VIAL IVP SCH ×2 (10:55→20:32)
--- NOTE | 2019-02-06 11:45 | NUR ---
HERMILO CHENGRED HERE AND EVALUATED PATIENT. HE SAID HE WILL CALL LATER TO UPDATE WITH BED STATUS.
[2019-02-06 12:00] VITALS: BP 120/85
[2019-02-06] MEDS ORDERED: VANCOMYCIN 1,000 MG VIAL PO SCH (12:00)
--- NOTE | 2019-02-06 13:24 | NUR ---
HERMILO CALLED AND STATED THAT PATIENT EXHAUSTED HIS MEDICARE DAYS AND NEEDS TO CALL [facility].
[2019-02-06] MEDS: THERAHONEY GEL 42.5 GM TP SCH (13:33)
[2019-02-06] MEDS: INSULIN LISPRO SLIDING SCALE 100 UNITS/ML VIAL SUBQ PRN ×2 (13:44→20:41)
--- NOTE | 2019-02-06 13:44 | NUR ---
PATIENT LYING DOWN IN BED RECEIVING A BREATHING TREATMENT. NO DISTRESS NOTED. CONDITION UNCHANGED. SCHEDULED MEDICATIONS DUE GIVEN. WILL CONTINUE TO MONITOR.
--- NOTE | 2019-02-06 13:47 | NUR ---
FAXED FACESHEET AND PATIENT INFO TO [facility] [phone]
--- NOTE | 2019-02-06 13:50 | NUR ---
FAXED INFO TO [facility]IME FOR AUTHORIZATION.
--- NOTE | 2019-02-06 15:23 | NUR ---
CALLED AND SPOKE TO [facility] MCKNIGHT, TO GET AUTHORIZATION FOR TRANSFER TO [place], WILL FOLLOW UP AND CHECK.
--- NOTE | 2019-02-06 15:31 | NUR ---
VERIFIED WITH ADMITTING SPOKE TO [facility] AND VERIFIED THE MEDICARE DAYS LEFT FOR THIS PATIENT, PER [facility] PATIENT STILL HAVE 27 DAYS LEFT. CALLED HERMILO FROM [facility] AND MADE AWARE.
--- NOTE | 2019-02-06 15:48 | NUR ---
02/06/19 RD FOLLOW UP COMPLETED PLEASE REFER TO NUTRITION ASSESSMENT UNDER CARE ACTIVITY FOR ESTIMATED NUTRITIONAL NEEDS. 1. CONTINUE GLUCERNA 1.2 AT 65 ML/HR X 24 HOURS -THIS PROVIDES 1560 ML TOTAL VOLUME, 1872KCAL, 94GM PROTEIN, 1256 ML TOTAL FREE WATER. 2. CONTINUE 200ML FREE WATER FLUSH Q6H. 3. RD TO FOLLOW-UP 2-3 DAYS, HIGH RISK DEUCE KNIGHT RD
[2019-02-06 16:00] VITALS: BP 148/71
--- NOTE | 2019-02-06 17:32 | NUR ---
PATIENT LYING DOWN IN BED SLEEPING, AROUSABLE BY VOICE. NO DISTRESS NOTED. CONDITION UNCHANGED. WILL CONTINUE TO MONITOR.
--- NOTE | 2019-02-06 19:14 | NUR ---
GAVE REPORT TO SOLE PAINTER NURSE FOR CONTINUITY OF CARE. PATIENT IN STABLE CONDITION.
--- NOTE | 2019-02-06 19:38 | NUR ---
RECEIVED REPORT FROM DAY SHIFT RN, PATIENT STABLE AND AWAKE. SPO2 IS 100% ON 30% FIO2 TO TRACHEOSTOMY. NO SIGNS OF DISTRESS. SAFETY PRECAUTIONS IN PLACE. WILL CONTINUE TO MONITOR PATIENT.
[2019-02-06 20:00] VITALS: BP 133/70
[2019-02-06 20:30] LABS: APPEARANCE,URINE CLEAR (CLEAR); BILIRUBIN,URINE NEGATIVE (NEGATIVE); BLOOD, URINE 1+ (NEGATIVE); COLOR,URINE YELLOW (YELLOW); LEUKOCYTE ESTERASE ,URINE 2+ (NEGATIVE); NITRITE, URINE NEGATIVE (NEGATIVE); PH,URINE 5.5 (5.0-9.0); UGLUCOSE NEGATIVE (NEGATIVE)
[2019-02-06] MEDS: ATORVASTATIN 20 MG TAB GT SCH (20:32)
[2019-02-06 20:36] LABS: WBC,URINE 16-25 (MOD) /HPF (0-5)
--- NOTE | 2019-02-06 20:40 | NUR ---
ADMINISTERED SCHEDULED MEDICATIONS. PATIENT TOLERATED WELL. 10CC RESIDUAL PRIOR TO MEDICATION ADMIN. WILL RESUME FEEDING IN 30 MINUTES.
--- NOTE | 2019-02-06 22:30 | NUR ---
PATIENT HAS INCREASED WORK OF BREATHING. SUCTIONED PATIENT. PATIENT SEEMS MORE AT EASE. SPO2 97% ON 30% FIO2.
[2019-02-07] VITALS: BP 148/98
--- NOTE | 2019-02-07 00:15 | NUR ---
PATIENT RESPIRATIONS ARE INCREASED TO 34. SUCTIONED PATIENT, RATE REDUCED TO 30 WITH LESS LABOR FO BREATHING. TEMPERATURE OF 101.1, WILL NOTIFY DOCTOR.
[2019-02-07] MEDS: HYDRAGUARD CREAM TP SCH ×2 (01:00→12:08)
--- NOTE | 2019-02-07 01:30 | NUR ---
PATIENT HAD BOWEL MOVEMENT, ASSISTED CAR DETAILER WITH CLEANING AND REPOSITIONING. CHANGED SACRAL DRESSING.
--- NOTE | 2019-02-07 02:45 | NUR ---
PATIENT RESTING, ELEVATED RESPIRATORY RATE BUT SPO2 IS 97%. WILL CONTINUE TO MONITOR.
[2019-02-07 04:50] VITALS: BP 186/107
--- NOTE | 2019-02-07 04:50 | NUR ---
VITALS SIGNS ELEVATED. SPO2 AT 90 %, SUCTIONED PATIENT WITH NO IMPROVEMENT. WILL ADMINISTER PRN FEVER MEDICATION.
[2019-02-07] MEDS: PHENYTOIN 100 MG/4 ML UDC GT SCH ×2 (05:00→12:07)
[2019-02-07] MEDS: ACETAMINOPHEN 325 MG TAB PO PRN ×2 (05:22→16:54)
--- NOTE | 2019-02-07 05:22 | NUR ---
SPO2 DROPPED TO 66% CALLED A COMPUTER FORENSIC SPECIALIST. PATIENT IS SINUS TACHY.
--- NOTE | 2019-02-07 05:30 | NUR ---
Responded to COLLEGE ADMINISTRATOR, found patient desaturated to 65%, suctioned copious amounts of thick white secretions, bagged patient, spo2 came back up to 98%, placed back on ventilator support. tolerating well at this time, will cont to monitor and endorse to day shift.
--- NOTE | 2019-02-07 06:03 | NUR ---
PATIENT BREATHING BETTER. RR 22, SPO2 95%. PATIENT BACK ON VENTILATOR. WILL CONTINUE TO MONITOR.
[2019-02-07] MEDS: ALBUTEROL SULFATE/IPRATROPIU 3 ML SOL IH SCH ×3 (06:29→19:01)
--- NOTE | 2019-02-07 06:29 | NUR ---
RECEIVED PT ON CARESCAPE ON DOCUMENTED SETTINGS, ALARMS ARE ON AND AUDIBLE, PTS TRACH NAHUN 6 IS SECURE PT IN HF QUIET BS RHONCI, HHNS GIVEN I\L BMV HOB, VENT PLUGGED INTO RED OUTLET, CONT. POX IN PLACE, WILL CONTINUE TO MONITOR
[2019-02-07] MEDS: BUDESONIDE 0.5 MG/2 ML NEBU INH SCH ×2 (06:40→19:01)
--- NOTE | 2019-02-07 06:48 | NUR ---
DECREASED FIO2 TO 50 SPO2 96
--- NOTE | 2019-02-07 07:31 | NUR ---
GAVE BEDSIDE REPORT TO DAY SHIFT RN, PATIENT IS NOW STABLE ON VENT 49 % FIO2, PEEP 5%, TIDAL VOLUME 509, AND RR 19. ENDORSE TO DAY SHIFT FOR CONTINUITY OF CARE.
--- NOTE | 2019-02-07 07:32 | NUR ---
RECEIVED BED SIDE REPORT FROM DIRECTOR OF SOCIAL SERVICES RN, PT SLEEPING, 02 96% ON VENT WITH FIO2 49%, PEEP 5%, PEAK PRESSURE 33, TIDAL VOLUME 506 AND RR 19, 106 HR, IN NO RESPIRATORY DISTRESS, BREATHING SYMMETRICAL, NO ACCESSORY MUSCLE USE, SKIN PINK AND DRY, DOES NOT RESPOND TO NAME BECAUSE PT IS APHASIC, EYES OPEN SPONTANEOUSLY, HAS A ROSAS, IV FLUIDS HELD, BED ALARM ON, HEEL PROTECTOR AND SCD ON, G TUBE FEEDING HELD, CALL LIGHT WITHIN REACH, WILL CONTINUE TO MONITOR
[2019-02-07 07:56] LABS: BASOPHILS % (AUTO) 0.7 % (0.0-2.0); EOSINOPHILS # (AUTO) 0.1 K/uL (0-0.4); EOSINOPHILS % (AUTO) 1.6 % (0.0-4.0); HEMATOCRIT 25.8 % (36-52); HEMOGLOBIN 8.1 g/dL (12.0-18.0); LYMPHOCYTES # (AUTO) 1.1 K/uL (2.0-11.5); LYMPHOCYTES % (AUTO) 17.2 % (20.5-51.1); MEAN CORPUSCULAR HEMOGLOBIN 26 pg (27-31); MEAN CORPUSCULAR HGB CONC 31 g/dL (33-37); MEAN CORPUSCULAR VOLUME 84.3 fL (80-94); MONOCYTES # (AUTO) 0.8 K/uL (0.8-1.0); MONOCYTES % (AUTO) 12.9 % (1.7-9.3); NEUTROPHILS # (AUTO) 4.3 K/uL (1.8-7.7); NEUTROPHILS % (AUTO) 67.6 % (42.2-75.2); PLATELET COUNT (AUTO) 210 K/uL (140-450); RED BLOOD CELL COUNT(AUTO) 3.07 MIL/uL (4.20-6.10); RED CELL DISTRIBUTION WIDTH 19.5 % (11.6-13.7); WHITE BLOOD COUNT (AUTO) 6.4 K/uL (4.8-10.8)
[2019-02-07 08:00] VITALS: BP 102/71
[2019-02-07] MEDS: BLOOD GLUCOSE MONITORING 1 DEV DEV FS SCH ×3 (08:30→16:55)
[2019-02-07] MEDS: LACTOBACILLUS RHAMNOSUS GG 1 EACH CAP PO SCH (08:32)
[2019-02-07] MEDS: DOCUSATE 100 MG/10 ML UDC PO SCH (08:32)
[2019-02-07] MEDS: FERROUS GLUCONATE 324 MG TAB PO SCH ×2 (08:33→16:18)
[2019-02-07 08:35] LABS: ANION GAP 13.9 (8-16); CARBON DIOXIDE 20.2 mmol/L (21-32); CREATININE 1.4 mg/dL (0.7-1.3); POTASSIUM 4.1 mmol/L (3.5-5.1)
[2019-02-07 08:42] LABS: MAGNESIUM 1.7 mg/dL (1.8-2.4); PHOSPHORUS 3.5 mg/dL (2.5-4.9)
--- NOTE | 2019-02-07 08:45 | NUR ---
RESTARTED GLUCERNA 1.2 G TUBE FEEDING RUNNING AT 65ML/HR WITH FWF 200ML Q6H. G TUBE RESIDUAL 10CC. PT TOLERATING FEEDING WELL. HOB MAINTAINED AT 30 DEGREES
[2019-02-07] MEDS ORDERED: VANCOMYCIN 1,000 MG VIAL PO SCH (09:00)
[2019-02-07] MEDS: ASCORBIC ACID 500 MG/5 ML ORASYR GT SCH (09:00)
[2019-02-07] MEDS: METOPROLOL 50 MG TAB PO SCH (09:00)
[2019-02-07] MEDS: PANTOPRAZOLE 40 MG INJ VIAL IVP SCH (09:00)
[2019-02-07] MEDS: NACL 0.9% 1,000 ML IV SCH (09:00)
[2019-02-07] MEDS ORDERED: CIPROFLOXACIN 250 MG TAB GT SCH (09:00)
[2019-02-07] MEDS: POLYVINYL ALCOHOL 1.4% OP 15 ML SOL BOTH EYES SCH ×3 (09:18→16:18)
[2019-02-07] MEDS: INSULIN LANTUS 100 UNITS/ML 10 ML VIAL SUBQ SCH (09:30)
--- NOTE | 2019-02-07 09:30 | NUR ---
Right hand IV infiltrated. Unable to start new IV line to BUE after multiple attempts. Dr. Rubio notified. Per physician, will input order to change pantoprazole to GT & dc IVF. Addendum: 02/07/19 at 1248 by Nancy Fish RN Right hand IV discontinued, cannula intact. Site covered with dry dressing.
--- NOTE | 2019-02-07 11:54 | NUR ---
JAIME FROM [facility] CALLED BACK AND OK TO D/C PATIENT TO [facility] [place] , AUTH # FOR TRANSPORT [id number]
[2019-02-07 12:00] VITALS: BP 120/83
[2019-02-07] MEDS: PHARMACY COMMENTS MC SCH ×2 (12:00→17:32)
[2019-02-07] MEDS: THERAHONEY GEL 42.5 GM TP SCH (12:08)
--- NOTE | 2019-02-07 12:46 | NUR ---
SPOKE WITH HERMILO SOTO , STATED HE IS CONTACTING THE FAMILY MEMBER LEFT A MESSAGE AND ONCE HE TALK TO THE FAMILY WILL CALL US BACK FOR BED
--- NOTE | 2019-02-07 13:49 | NUR ---
PT IN STABLE CONDITION, GLUCERNA 1.2 G TUBE FEEDING STILL RUNNING AT 60ML/HR, FWF 200 Q6H, TRACH TO T PIECE CONTINUED, FIO2 30%, VT 502, RR 22, PEEP 5, PEAK PRESSURE 33, 100% SPO2, HR 112, ST, HEEL PROTECTORS AND SCDS IN PLACE, IV FLUIDS CANCELLED AT COMMUNITY CENTER WORKER DUE TO SWOLLEN HANDS, ROSAS CATH IN PLACE, NO IV ACCESS, BED ALARM ON, CALL LIGHT WITHIN REACH, WILL CONTINUE TO MONITOR
--- NOTE | 2019-02-07 15:16 | NUR ---
PT RESTING COMFORTABLY IN BED, RT IN ROOM DOING BREATHING TX
[2019-02-07] MEDS: MAG SULF 2000 MG/WATER PREMIX 50 ML IV ONE ×2 (15:45→16:19)
[2019-02-07 16:00] VITALS: BP 122/76
--- NOTE | 2019-02-07 16:12 | NUR ---
CALLED [facility] TO SET UP TRANSPORTATION, SPOKE TO RUPINDER AT FOR WILL CALL. PRIMARY RN JOSE LUIS MADE AWARE.
[2019-02-07] MEDS ORDERED: CIPR250T3 GT (16:13)
[2019-02-07] MEDS ORDERED: VAN1I PO (16:13)
--- NOTE | 2019-02-07 16:21 | NUR ---
HERMILO FROM [facility] CALL BACK , PT CAN GO TO ROOM 401F UNDER THE CARE OF DR FLOREZ. #TO GIVE REPORT [phone] . [facility] WILL RAMP SUPERVISOR PT AT 1900 . CHARGE NURSE VINOD BURRIS.
--- NOTE | 2019-02-07 16:30 | NUR ---
Magnesium rider not given d/t no IV access. Dr. Rubio notified & will input order for GT magnesium.
--- NOTE | 2019-02-07 16:31 | NUR ---
CALLED [facility], RADIATION CONTROL WORKER WILL BE AFTER 1900. PRIMARY RN JOSE LUIS MADE AWARE.
--- NOTE | 2019-02-07 16:43 | NUR ---
PER [facility] HELMET HAT PUNCHER WILL BE CLOSE TO 1999. PRIMARY RN CHAD MADE AWARE.
[2019-02-07] MEDS ORDERED: MAGNESIUM OXIDE 400 MG TAB GT SCH (16:45)
[2019-02-07] MEDS: INSULIN LISPRO SLIDING SCALE 100 UNITS/ML VIAL SUBQ PRN (16:47)
--- NOTE | 2019-02-07 16:54 | NUR ---
Current axillary temp = 101.0 F. Acetaminophen administered. Cooling measures applied: tepid sponge bath, room temp kept kept cool. Will cont to monitor. Addendum: 02/07/19 at 1907 by Nancy Fish RN Addendum: Pt resting in bed, trach to vent in place, respirations even & nonlabored. Meeks cath in place & draining clear ari urine.
--- NOTE | 2019-02-07 17:30 | NUR ---
Left voicemail to brother Joseluis re: discharge plan to [facility]. Spoke to [facility] (brother) on the phone, notified of discharge plans, agreed to plan of care.
--- NOTE | 2019-02-07 17:54 | NUR ---
Temp reassessment: Current axillary temp = 99.2 F. Pt asleep, trach to vent in place, respirations even & nonlabored.
--- NOTE | 2019-02-07 19:38 | NUR ---
PT ALREADY CHANGED TO DISCHARGE [place], PT IN STABLE CONDITION, STILL ON VENT, STILL ON G TUBE FEEDING, NO IV ACCESS, CALLED KERRIE ESPINOSA AT [facility] AND GAVE REPORT AT 1800, ENDORSED PT TO CONTROL CENTER OPERATOR RN, CALL LIGHT WITHIN REACH
--- NOTE | 2019-02-07 20:00 | NUR ---
[facility] TRANSPORT HERE, TUBE FEEDING STOPPED AND G-TUBE CLAMPED, PT AWAKE, NONVERBAL, FLACC-0, DISCHARGE TO [facility] IN STABLE CONDITION VIA [facility] TRANSPORT.
[2019-02-07] MEDS ORDERED: PIPER/TAZO 3.375GM/D5W PREMIX 50 ML IV SCH (21:00)
== END 2019-02-07 20:00 | DRG 870 ==
LOC: MED 00:03 → MTU 02:01 → MIC 01-28 22:03 → MTU 02-03 08:37
PROVIDERS: ADMIT General Practice; ATTEND General Practice
PROC: 30233N1 Transfusion of Nonautologous Red Blood Cells into Peripheral Vein, Percutaneous Approach (ICD-10-PCS; 2019-01-24)
PROC: 02HV33Z Insertion of Infusion Device into Superior Vena Cava, Percutaneous Approach (ICD-10-PCS; 2019-01-24)
PROC: B548ZZA Ultrasonography of Superior Vena Cava, Guidance (ICD-10-PCS; 2019-01-24)
PROC: 0W3P8ZZ Control Bleeding in Gastrointestinal Tract, Via Natural or Artificial Opening Endoscopic (ICD-10-PCS; 2019-01-25)
PROC: 4A10X4Z Monitoring of Central Nervous Electrical Activity, External Approach (ICD-10-PCS; 2019-01-27)
PROC: 5A12012 Performance of Cardiac Output, Single, Manual (ICD-10-PCS; 2019-01-28)
PROC: 5A1955Z Respiratory Ventilation, Greater than 96 Consecutive Hours (ICD-10-PCS; principal; 2019-01-30)
DX: A41.9 Sepsis, unspecified organism (principal); L89.323 Pressure ulcer of left buttock, stage 3; N17.0 Acute kidney failure with tubular necrosis; E43 Unspecified severe protein-calorie malnutrition; J69.0 Pneumonitis due to inhalation of food and vomit; J96.21 Acute and chronic respiratory failure with hypoxia; J96.22 Acute and chronic respiratory failure with hypercapnia; R65.21 Severe sepsis with septic shock; K55.21 Angiodysplasia of colon with hemorrhage; I46.9 Cardiac arrest, cause unspecified; N39.0 Urinary tract infection, site not specified; E87.1 Hypo-osmolality and hyponatremia; A04.72 Enterocolitis due to Clostridium difficile, not specified as recurrent; G93.1 Anoxic brain damage, not elsewhere classified; J44.0 Chronic obstructive pulmonary disease with (acute) lower respiratory infection; E87.0 Hyperosmolality and hypernatremia; Z68.24 Body mass index [BMI] 24.0-24.9, adult; L89.151 Pressure ulcer of sacral region, stage 1; D63.8 Anemia in other chronic diseases classified elsewhere; E11.22 Type 2 diabetes mellitus with diabetic chronic kidney disease; E78.5 Hyperlipidemia, unspecified; G40.909 Epilepsy, unspecified, not intractable, without status epilepticus; I12.9 Hypertensive chronic kidney disease with stage 1 through stage 4 chronic kidney disease, or unspecified chronic kidney disease; I25.10 Atherosclerotic heart disease of native coronary artery without angina pectoris; N18.9 Chronic kidney disease, unspecified; F03.90 Unspecified dementia, unspecified severity, without behavioral disturbance, psychotic disturbance, mood disturbance, and anxiety; K21.9 Gastro-esophageal reflux disease without esophagitis; E11.65 Type 2 diabetes mellitus with hyperglycemia; E87.5 Hyperkalemia; E83.39 Other disorders of phosphorus metabolism; R13.10 Dysphagia, unspecified; L89.612 Pressure ulcer of right heel, stage 2; L30.9 Dermatitis, unspecified; E83.41 Hypermagnesemia; E83.42 Hypomagnesemia; E78.1 Pure hyperglyceridemia; B96.1 Klebsiella pneumoniae [K. pneumoniae] as the cause of diseases classified elsewhere; K74.60 Unspecified cirrhosis of liver; Z86.73 Personal history of transient ischemic attack (TIA), and cerebral infarction without residual deficits; Z93.0 Tracheostomy status; Z93.1 Gastrostomy status; Z79.82 Long term (current) use of aspirin; Z79.02 Long term (current) use of antithrombotics/antiplatelets; Z79.899 Other long term (current) drug therapy
CPT/HCPCS: 36415; 36600; 71045; 71250; 76770; 78582; 80048; 80053; 80185; 80202; 80305; 81001; 82140; 82272; 82550; 82607; 82728; 82746; 82803; 82948; 83036; 83540; 83605; 83690; 83735; 83880; 84100; 84439; 84443; 84484; 85025; 85045; 85610; 85730; 86886; 86900; 86901; 86920; 87040; 87070; 87081; 87086; 87186; 87205; 89220; 93005; 93970; 94002; 94003; 94640; 95816; 96361; 96365; 99285; C1751; C9113; J0171; J0696; J1200; J1644; J1815; J1940; J2060; J2185; J2250; J2270; J2543; J2704; J2916; J2930; J3010; J3370; J3475; J3490; J7030; J7060; J7620; J7626; P9016; Q0092; Q0163

== ENCOUNTER 2019-03-08 22:55 | Inpatient (IN) | payer MEDICARE, OTHER ==
[~2019-03-08] VITALS: Ht 170.2 cm; Wt 79.4 kg
[2019-03-08 22:55] VITALS: BP_SYST 104; BP_SYST 126; BP_DIAS 70; BP_DIAS 73
[~2019-03-08 22:55] MED LIST changes: +ACET-1182 PO; +ALBU3SOL83 IH; +ARTOP BOTH EYES; +ASCO500T45 GT; +ATOR40TA GT; -BENA10TA25 PO; -CALC-598 PO; -CARB200T1 PO; +CIPR250T3 GT; +D50SYR IVP; -DEPER500 PO; -DIL100I PO; +DOCU-299 GT; +FAMO-90 GT; -FERR-21 PO; +FERR324T11 PO; +Foam Dressing TP; +GLUC-805 FS; +HUMSLIDE SUBQ; +Hydraguard TP; +LACT25CA GT; -LEVE750T3 PO; +LEVEMIR SUBQ; -LORA-476 PO; +MULT-1869 GT; -MULT1CAP28 PO; +PHEN100C3 GT; -PHEN100C4 PO; +PUL.5N INH; +SCOP1PAT TD; +SENN-74 GT; -SERT100T PO; +Therahoney Gel TP; +VAN1I PO; -[UNRECOGNIZED DRUG - CODE] PO
--- NOTE | 2019-03-08 22:55 | NUR ---
PATIENT BIB BLS TO ER BED 10.
--- NOTE | 2019-03-08 22:55 | NUR ---
58 Y/O MALE BIB EMS FROM [facility], PRESENTS TO ED WITH C/O INCREASED HR, FEVER, AND ABNORMAL LABS. PT IS NON-BERBAL AND VENT DEPENDANT. BASELINE MENTATION NOTED. HR 120. TEMP 100.0. RESPIRATORY AND NURSING AT BEDSIDE. ER MD AWARE. CONTINUE TO MONITOR.
[2019-03-08] MEDS ORDERED: PIPERACILLIN/TAZOBACTAM 4.5 GM in DEXTROSE 5% 100 ML IV ONE (23:00)
[2019-03-08] MEDS ORDERED: VANCOMYCIN 1,000 MG in DEXTROSE 5% 250 ML IV ONE (23:00)
--- NOTE | 2019-03-08 23:05 | NUR ---
X4 ATTEMPTS TO INSERT IV. ATTEMPTS FAILED. DR BRADY INFORMED. SET UP FOR CENTRAL LINE COMLETE. CONTINUE TO MONITOR.
[2019-03-08] MEDS ORDERED: BISA-213 RC (23:16)
[2019-03-08] MEDS ORDERED: NUTR30LI3 GT (23:16)
[2019-03-08] MEDS ORDERED: NA P133N1 RC (23:16)
[2019-03-08] MEDS ORDERED: MAGN400S60 GT (23:16)
--- NOTE | 2019-03-08 23:20 | NUR ---
ROSAS CATH INSERTED WITH 14FRENCH COUDE. NO URINE RETURN. PT TOLLERATED PROCEDURE WELL.
[2019-03-08] MEDS ORDERED: VANCOMYCIN 1,000 MG VIAL ONE (23:31)
[2019-03-08] MEDS ORDERED: PIPERACILLIN/TAZOBACTAM 2.25 GM VIAL IV ONE (23:43)
[2019-03-09] VITALS (9 sets, daily range): BP systolic 94–119; BP diastolic 53–78
[2019-03-09] MEDS ORDERED: NACL 0.9% 2,000 ML IV ONE
--- NOTE | 2019-03-09 00:30 | NUR ---
LEFT INGUINAL CENTRAL LINE PLACED. IV FLUIDS ESTABLISHED. HR 103. NO RESPIRATORY DISTRESS AT THIS TIME. CONTINUE TO MONITOR.
--- NOTE | 2019-03-09 00:57 | NUR ---
BP NOTED TO BE 73/44, ER MD NOTIFIED. PT AT BEDSIDE FOR EVALUATION.
[2019-03-09 00:59] LABS: BASOPHILS % (AUTO) 0.2 % (0.0-2.0); EOSINOPHILS # (AUTO) 0.1 K/uL (0-0.4); EOSINOPHILS % (AUTO) 0.7 % (0.0-4.0); HEMATOCRIT 28.4 % (36-52); HEMOGLOBIN 8.5 g/dL (12.0-18.0); LYMPHOCYTES # (AUTO) 1.7 K/uL (2.0-11.5); MEAN CORPUSCULAR HEMOGLOBIN 27 pg (27-31); MEAN CORPUSCULAR HGB CONC 30 g/dL (33-37); MEAN CORPUSCULAR VOLUME 89.6 fL (80-94); MONOCYTES # (AUTO) 1.1 K/uL (0.8-1.0); MONOCYTES % (AUTO) 5.4 % (1.7-9.3); NEUTROPHILS # (AUTO) 17.2 K/uL (1.8-7.7); NEUTROPHILS % (AUTO) 85.3 % (42.2-75.2); PLATELET COUNT (AUTO) 164 K/uL (140-450); RED BLOOD CELL COUNT(AUTO) 3.17 MIL/uL (4.20-6.10)
[2019-03-09 01:06] LABS: ALBUMIN 1.8 g/dL (3.4-5.0); ANION GAP 18.1 (8-16); CARBON DIOXIDE 26.7 mmol/L (21-32); CREATININE 3.6 mg/dL (0.7-1.3); POTASSIUM 4.8 mmol/L (3.5-5.1); TOTAL BILIRUBIN 0.7 mg/dL (0.0-1.0)
[2019-03-09 01:11] LABS: CREATINE KINASE MB 0.5 ng/mL (0-3.6)
--- NOTE | 2019-03-09 01:15 | NUR ---
BP 93/66. BP INCREASING. PT RESPONDING TO IV THERAPY. CONTINUE TO MONITOR.
[2019-03-09 01:17] LABS: LYMPHOCYTES % (AUTO) 8.4 % (20.5-51.1); RED CELL DISTRIBUTION WIDTH 23.4 % (11.6-13.7); WHITE BLOOD COUNT (AUTO) 20.2 K/uL (4.8-10.8)
[2019-03-09 01:37] LABS: PROTHROMBIN TIME 10.2 secs (10.8-13.4)
--- NOTE | 2019-03-09 02:00 | NUR ---
PT IN BED RESTING. VSS. NO RESPIRATORY DISTRESS NOTED. CONTINUE TO MONITOR.
[2019-03-09 02:31] LABS: APPEARANCE,URINE CLOUDY (CLEAR); BILIRUBIN,URINE NEGATIVE (NEGATIVE); BLOOD, URINE 2+ (NEGATIVE); COLOR,URINE YELLOW (YELLOW); LEUKOCYTE ESTERASE ,URINE 2+ (NEGATIVE); NITRITE, URINE NEGATIVE (NEGATIVE); PH,URINE 7.5 (5.0-9.0); UGLUCOSE 1+ (NEGATIVE)
[2019-03-09 02:59] LABS: RBC,URINE TOO NUMEROUS TO COUN /HPF (0-5); WBC,URINE TOO MANY TO COUNT /HPF (0-5)
[2019-03-09] MEDS ORDERED: DOCUSATE SODIUM 100 MG GELCAP PO PRN (03:10)
[2019-03-09] MEDS ORDERED: ONDANSETRON 4 MG/2 ML VIAL IM/IVP PRN (03:10)
[2019-03-09] MEDS ORDERED: DEXTROSE 50% 50 ML SYR IVP PRN (03:15)
[2019-03-09] MEDS ORDERED: NACL 0.9% 1,000 ML IV ONE (03:15)
[2019-03-09] MEDS ORDERED: INSULIN REGULAR, HUMAN 100 UNIT/ML VIAL IVP ONE (03:20)
[2019-03-09] MEDS ORDERED: NACL 0.45% 1,000 ML IV ONE (03:20)
[2019-03-09] MEDS ORDERED: SENNA 8.6 MG TAB GT PRN (03:40)
[2019-03-09] MEDS ORDERED: NON-FORMULARY ITEM (Acetaminophen 650 MG) PO PRN (03:40)
[2019-03-09] MEDS ORDERED: SODIUM PHOSPHATE 118 ML ENEM RC PRN (03:40)
[2019-03-09] MEDS ORDERED: MAGNESIUM HYDROXIDE 2400 MG/30 ML UDC GT PRN (03:40)
--- NOTE | 2019-03-09 03:40 | NUR ---
REPORT GIVEN AND CARE TRANSFERED TO ALLY RN ROOM ICU #8. TRANSFERED VIA RNEY. ACCOMPANIED BY DOUG RN, AYAD EMT, AND ZEV ARMENTA.
--- NOTE | 2019-03-09 03:40 | NUR ---
[facility]CE[facility] NO ACUTE DISTRESS NOTED
--- NOTE | 2019-03-09 03:45 | NUR ---
PT OPENS EYES SPONTANEOUSLY, UNABLE TO FOLLOW COMMANDS, GENERALIZED WEAKNESS NOTED. TRACH TO VENT SIZE 6 SHILEY, @50% FIO2. DIMINISHED BREATH SOUNDS. NSR 90S, NO EDEMA NOTED. ABD SOFT NON DISTENDED. ROSAS CATH DRAINING CLOUDY URINE NOTED. SKIN NON INTACT, THIRD Addendum: 03/09/19 at 0526 by Kane Joyner RN WOUNDS TO SACRAL AREA, AND R ANKLE AREA. TRIPLE LUMEN CENTRAL LINE IN PLACE TO L FEMORAL. IVF INFUSING. PEG TUBE IN PLACE, + PLACEMENT. WILL CONTINUE TO OBSERVE.
[2019-03-09] MEDS ORDERED: PIPERACILLIN/TAZOBACTAM 2.25 GM VIAL IV ONE (04:42)
[2019-03-09] MEDS ORDERED: LORazepam 2 MG/ML VIAL IVP PRN (04:50)
--- NOTE | 2019-03-09 05:49 | NUR ---
PATIENT TRACH SHILEY 6 TO VENT ON SETTINGS: AC/VC 500, 20, +5, 50%. VENT CHECK DONE. VENT PLUGGED INTO RED OUTLET. VENT ALARMS ON AND AUDIBLE. AMBU BAG AT [facility]. AIRWAY SECURE AND PATENT. SUCTIONED MODERATE AMOUNT OF THICK, YELLOW/GREEN SECRETIONS. TRACH CARE DONE WITHOUT INCIDENT. NO RESPIRATORY DISTRESS NOTED AT THIS TIME. WILL CONTINUE TO MONITOR.
[2019-03-09] MEDS ORDERED: PIPERACILLIN/TAZOBACTAM 2.25 GM in DEXTROSE 5% 100 ML IV SCH (06:00)
[2019-03-09 06:13] LABS: ANION GAP 15.6 (8-16); CARBON DIOXIDE 25.5 mmol/L (21-32); CREATININE 3.4 mg/dL (0.7-1.3); POTASSIUM 4.1 mmol/L (3.5-5.1)
--- NOTE | 2019-03-09 06:20 | NUR ---
MADE AWARE OF BLOOD GLUCOSE 470. STATED TO GIVE 6 UNITS HUMALOG AND 30 UNITS LANTUS NOW. WILL CARRY OUT. WILL CONTINUE TO OBSERVE
[2019-03-09] MEDS: INSULIN LANTUS 100 UNITS/ML 10 ML VIAL SUBQ SCH ×2 (06:30→20:59)
[2019-03-09] MEDS: BLOOD GLUCOSE MONITORING 1 DEV DEV FS SCH ×4 (06:34→21:13)
[2019-03-09] MEDS: INSULIN LISPRO SLIDING SCALE 100 UNITS/ML VIAL SUBQ PRN ×4 (06:35→20:58)
[2019-03-09] MEDS: ALBUTEROL SULFATE/IPRATROPIU 3 ML SOL IH SCH ×3 (07:18→19:38)
[2019-03-09] MEDS: BUDESONIDE 0.5 MG/2 ML NEBU INH SCH ×2 (07:19→20:02)
--- NOTE | 2019-03-09 07:23 | NUR ---
REPORT GIVEN TO DAY SHIFT FOR CONTINUITY OF CARE. NO ACUTE DISTRESS NOTED.
--- NOTE | 2019-03-09 07:24 | NUR ---
RECEIVED BEDSIDE REPORT FROM CLINICAL INFORMATION SYSTEMS DIRECTOR NURSE, PT IS APHASIC, OPEN EYES ONLY, PERRL, UNABLE TO FOLLOW COMMANDS, VSS, FLACC 0, NO S/S OF DISTRESS, ETT TO VENT WITH FIO2 50%, TV 500, R 20, PEEP 5, RHONCHI LUNG SOUNDS YOVANI. SR ON BRAZING MACHINE OPERATOR, NO PERIPHERAL EDEMA, SOFT ROUND ABDOMEN WITH ACTIVE BOWEL SOUNDS, GT IN PLACE FEEDING WITH GLUCERNA AT 20ML/HR, 0 ML OF RESIDUALS NOTED, F/C IN PLACE WITH CLEAR YELLOW URINE VIA GRAVITY, SEVERE WEAKNESS TO ALL EXTREMITIES, SKIN IS WARM AND DRY TO TOUCH, OPEN WOUND TO SACRAL (SEE WOUND ASSESSMENT), CENTRAL LINE TO LIJ, TLC, RUNNING 1/2 NS AT 100ML/HR. HOB ELEVATED 30 DEGREES, ORAL CARE PROVIDED, POSITION CHANGED FOR OFF LOAD PRESSURE, SAFETY MEASURES IN PLACE, WILL CONTINUE TO MONITOR. Addendum: 03/09/19 at 0915 by Sonia Lo RN CENTRAL LINE TO LEFT FEMORAL, NOT LIJ.
[2019-03-09 07:34] LABS: BASOPHILS % (AUTO) 0.3 % (0.0-2.0); EOSINOPHILS # (AUTO) 0.1 K/uL (0-0.4); EOSINOPHILS % (AUTO) 0.5 % (0.0-4.0); HEMOGLOBIN 7.5 g/dL (12.0-18.0); LYMPHOCYTES # (AUTO) 1.4 K/uL (2.0-11.5); LYMPHOCYTES % (AUTO) 9.5 % (20.5-51.1); MEAN CORPUSCULAR HEMOGLOBIN 28 pg (27-31); MEAN CORPUSCULAR HGB CONC 30 g/dL (33-37); MONOCYTES # (AUTO) 0.7 K/uL (0.8-1.0); MONOCYTES % (AUTO) 4.7 % (1.7-9.3); NEUTROPHILS # (AUTO) 12.9 K/uL (1.8-7.7); PLATELET COUNT (AUTO) 139 K/uL (140-450); RED BLOOD CELL COUNT(AUTO) 2.75 MIL/uL (4.20-6.10); RED CELL DISTRIBUTION WIDTH 23.5 % (11.6-13.7); WHITE BLOOD COUNT (AUTO) 15.2 K/uL (4.8-10.8)
--- NOTE | 2019-03-09 07:44 | NUR ---
PATIENT HAS BEEN SCREENED AND CATEGORIZED HIGH NUTRITION RISK. PATIENT WILL BE SEEN WITHIN 1-2 DAYS OF ADMISSION. 03/09/19-03/10/[address]
--- NOTE | 2019-03-09 08:40 | NUR ---
TRANSFERRED PT VIA BED TO ROOM 124A ACCOMPANIED WITH RT AND EMT, ALL BELONGINGS GOES WITH PT, VSS, FLACC 0. Addendum: 03/09/19 at 0939 by Sonia Lo RN REPORT GIVEN TO JESÚS OGDEN AT BEDSIDE.
--- NOTE | 2019-03-09 08:40 | NUR ---
RECEIVED REPORT FROM ICU NURSE. PT AWAKE, ORIENTED X1. PT ON VENT WITH SETTINGS FIO2 AT 50%, RESPIRATION RATE 22, O2 SAT 100%, EVEN AND UNLABORED. FLACC 0. PT STOMACH IS SOFT, FLAT, AND NONDISTENDED. G-TUBE IN PLACE PATENT AND INTACT, DRESSING IS I/C/D. GLUCERNA 1.2 FEEDING CONTINUED PER ORDER. F/C IN PLACE, NOTED YELLOW AND CLEAR URINE. TRIPLE LUMEN CATHETER ON LEFT FEMORAL, DRESSING IS I/C/D. IVF CONTINUED PER ORDER. SKIN COLOR IS APPROPRIATE TO ETHNICITY, WARM TO TOUCH. PRESSURE ULCER ON SACRUM, DRESSING CHANGED. NOTED PRESSURE ULCER ON RT ANKLE, DRESSING I/C/D, AND NOTED SCAB ON RT KNEE. FALL PRECAUTIONS, SAFETY MEASURES IN PLACE, BED IN LOW POSITION. CALL LIGHT WITHIN REACH.
[2019-03-09] MEDS ORDERED: NON-FORMULARY ITEM (Multivit-Min/Iron Fum/Folic AC (Multi-Vitamin-Minerals Tablet) 1 TAB) GT SCH (09:00)
[2019-03-09] MEDS ORDERED: NON-FORMULARY ITEM (Lactobacillus Acidophilus (Acidophilus) 1 CAP) GT SCH (09:00)
[2019-03-09] MEDS ORDERED: NON-FORMULARY ITEM (Amino Acids/Protein Hydrolys (Pro-Stat Sugar Free Liquid Pkt) 30 ML) GT SCH (09:00)
[2019-03-09] MEDS ORDERED: BISACODYL 10 MG SUPP RC PRN (09:00)
[2019-03-09] MEDS ORDERED: HYDRAGUARD CREAM TP PRN ×2 (09:00→11:40)
[2019-03-09] MEDS ORDERED: FOAM DRESSING TP SCH (09:00)
[2019-03-09] MEDS: FAMOTIDINE 20 MG TAB GT SCH (09:30)
[2019-03-09] MEDS: ASCORBIC ACID 500 MG TAB GT SCH ×2 (09:30→21:01)
[2019-03-09] MEDS: LACTOBACILLUS RHAMNOSUS GG 1 EACH CAP GT SCH (09:31)
[2019-03-09] MEDS: POLYVINYL ALCOHOL 1.4% OP 15 ML SOL BOTH EYES SCH ×3 (09:31→17:30)
[2019-03-09] MEDS: PHENYTOIN 100 MG/4 ML UDC GT SCH ×2 (09:31→21:01)
[2019-03-09] MEDS: SCOPOLAMINE 1.5 MG/72 HR PATCH TD SCH (09:32)
[2019-03-09] MEDS: FERROUS GLUCONATE 324 MG TAB GT SCH ×2 (09:32→17:29)
[2019-03-09] MEDS: DOCUSATE 100 MG/10 ML UDC GT SCH ×2 (09:33→21:00)
[2019-03-09] MEDS: NACL 0.9% 1,000 ML IV SCH ×2 (09:34→19:00)
--- NOTE | 2019-03-09 09:40 | NUR ---
FIO2 TITRATED TO 40% PT NOT IN ANY DISTRESS. WILL CONTINUE TO MONITOR.
--- NOTE | 2019-03-09 09:45 | NUR ---
TUBE FEEDING RESIDUAL WAS CHECKED AT 5ML. MEDS WERE GIVEN PER ORDER. ORAL CARE, PERINEAL CARE, AND ROSAS CARE WAS GIVEN. FIO2 WAS TITRATED DOWN TO 40% PER RT. WOUND CARE NURSE AT BEDSIDE. WOUND PICTURES WERE TAKEN.
[2019-03-09 09:51] LABS: CHOL/HDL RATIO 5.7 (1-4.5); MAGNESIUM 3.1 mg/dL (1.8-2.4); THYROID STIMULATING HORMONE 3.11 uIU/mL (0.34-3.74)
--- NOTE | 2019-03-09 10:29 | NUR ---
WOUND CARE EVALUATION NOTE: REASON FOR EVALUATION: LOW JESSICA SCALE AND SACRALCOCCYX WOUND SKIN ASSESSMENT DONE WITH THIS 58 Y/O MALE PT ADMITTED FROM [facility] TO [facility] WITH INITIAL DX ABNORMAL LAB. PAST MEDICAL HX INCLUDES HTN, DM, TRACH, CHRONIC PRESSURE ULCER WOUNDS, G-TUBE. ALL ABOVE INFORMATION OBTAINED FROM ADMISSION H&P. PT SKIN IS WARM AND DRY, BLE HAIR GROWTH, NO EDEMA. DORSAL PEDAL PULSES PRESENT AND NORMAL. CAPILLARY REFILLED < 2 SEC. X 10 TOES. F/C PATENT WITH SMALL AMOUNT YELLOW COLOR URINE OUT PUT OBSERVED. PLAN OF CARE DISCUSSED WITH PRIMARY RN. INTEGUMENTARY: -TRACH SITE BRADLEY STOMA SKIN DRY AND CLEAN. SKIN INTACT. -GT SITE BRADLEY STOMA WITH SKIN INTACT. -ABDOMEN DISTENDED, SOFT WITH MULTIPLE PURPLE DISCOLORATION -MOISTURE ASSOCIATE DERMATITIS (MAD) TO: B/L GROINS EXTENDED TO PERINEUM, SKIN REDNESS -PRESSURE ULCER INJURY UN-STAGEABLE TO SACROCOCCYX EXTENDED TO R/L BUTTOCKS WITH MEASUREMENT OF 8X9CM, BUTTERFLY SHAPE, 100% BROWN/ YELLOW SLOUGH TO WOUND BED, MOIST, NO ODOR, BRADLEY-WOUND SKIN REDNESS INDICATED FURTHER DAMAGE -PRESSURE ULCER INJURY STAGE 2, RIGHT LATERAL MALLEOLUS 1X1X0.1 CM, WOUND BED IS RED, 100% GRANULATING TISSUE, MOIST, NO ODOR, BRADLEY WOUND SKIN INTACT. -RIGHT HEEL BLANCHABLE REDNESS MUSHY, SKIN INTACT -RIGHT KNEE OLD HEALED SCAR WITH A BROWN SCAB 0.5X0.5CM, BRADLEY-WOUND SKIN INTACT RECOMMENDATIONS: -APPLY HYDRAGUARD TO R/L GROINS EXTENDED TO PERINEUM BID AND PRN IF SOILING -CLEANSE SACRALCOCCYX AND RIGHT LATERAL MALLEOLUS WITH WOUND CLEANSING SOLUTION AND APPLY THERAHONEY GEL COVER WITH DRY DRESSING QD AND PRN IF SOILING -APPLY HEEL PROTECTORS TO BOTH HEELS AT ALL TIMES -OFFLOAD BILATERAL HEELS BY PLACING PILLOWS UNDER CALVES UNLESS OTHERWISE CONTRAINDICATED -PRESSURE REDISTRIBUTION SURFACE THERAPY -TURN AND REPOSITION Q2H, OFFLOAD SACRALCOCCYX AND BUTTOCKS BY TURNING RIGHT AND LEFT -CONTINUE TO FOLLOW RD RECOMMENDATIONS ALL ABOVE RECOMMENDATIONS DISCUSSED WITH PRIMARY RN. WILL FOLLOW UP PT Q7-10 DAYS. PLEASE CONTACT WOUND CARE NURSE FOR ANY QUESTION AND CHANGE OF WOUND CONDITION.
[2019-03-09] MEDS ORDERED: VANCOMYCIN PER PHARMACY MC PRN (11:00)
[2019-03-09] MEDS ORDERED: THERAHONEY GEL 42.5 GM TP PRN (11:40)
[2019-03-09] MEDS: PIPER/TAZO 2.25GM/D5W PREMIX 50 ML IV SCH ×2 (12:18→17:28)
[2019-03-09] MEDS: THERAHONEY GEL 42.5 GM TP SCH (12:19)
[2019-03-09] MEDS: HYDRAGUARD CREAM TP SCH (12:19)
--- NOTE | 2019-03-09 12:20 | NUR ---
FEEDING TITRATED TO 30ML/HR. PT TOLERATED WELL. MEDICATIONS WERE GIVEN AT THIS TIME. WILL CONTINUE TO MONITOR.
[2019-03-09] MEDS ORDERED: HYDRAGUARD TP SCH (13:00)
[2019-03-09] MEDS ORDERED: THERAHONEY TP SCH (13:00)
--- NOTE | 2019-03-09 13:37 | NUR ---
Admission assessment done and plan for patient to return to [facility] when stable. Patient has 7 days bed hold. Trach to vent dependent.
--- NOTE | 2019-03-09 14:04 | NUR ---
PT IS RESTING IN BED. RESPIRATIONS ARE EVEN AND UNLABORED ON VENT. NO DISTRESS NOTED.
[2019-03-09 14:25] LABS: ANION GAP 16.8 (8-16); CARBON DIOXIDE 22.8 mmol/L (21-32); CREATININE 3.3 mg/dL (0.7-1.3); POTASSIUM 3.6 mmol/L (3.5-5.1)
--- NOTE | 2019-03-09 14:30 | NUR ---
WOUND CARE WAS GIVEN. WOUND CULTURE COLLECTED. PT WAS REPOSITIONED. PT TOLERATED WELL.
--- NOTE | 2019-03-09 14:54 | NUR ---
03/09/19 RD INITIAL ASSESSMENT COMPLETED PLEASE REFER TO NUTRITION ASSESSMENT UNDER CARE ACTIVITY FOR ESTIMATED NUTRITIONAL NEEDS. RD RECOMMENDATIONS: 1.RECOMMEND INCREASING GLUCERNA 1.2 TO GOAL RATE OF 60 ML. � THIS WILL PROVIDE 1728 KCAL, 86 GM PROTEIN, 1159 M, WHICH WILL MEET 86% OF ESTIMATED ENERGY NEEDS AND 100% OF ESTIMATED PROTEIN NEEDS. 2. RD WILL F/U 2-3 DAYS; HIGH RISK. GIUSEPPE RAPHAEL, RD
--- NOTE | 2019-03-09 16:00 | NUR ---
PT RESTING IN BED. RESPIRATIONS EVEN AND UNLABORED ON TRACH TO VENT. FLACC 0. RESIDUAL CHECKED AT 1ML. PT TOLERATED FEEDING WELL. TITRATED FEEDING RATE UP TO 40ML/HR PER ORDER.
--- NOTE | 2019-03-09 17:50 | NUR ---
PT REMAINS ON DOCUMENTED VENT SETTINGS. PT IS APHASIC BUT NOT IN ANY DISTRESS. TRACH IS SECURE WITH A PATENT AIRWAY. VENT ALARMS ON AND FUNCTIONING.
--- NOTE | 2019-03-09 18:15 | NUR ---
PT RESTING COMFORTABLY. FLACC 0. RESPIRATIONS EVEN AND UNLABORED ON VENT. CENTRAL CATH IS PATENT AND INTACT. TUBE FEEDING IS RUNNING AT 40ML/HR. NO DISTRESS NOTED.
--- NOTE | 2019-03-09 19:20 | NUR ---
ENDORSED PT TO CONTACT LENS EDGE BUFFER NURSE FOR CONTINUITY OF CARE. PT IS STABLE AT THIS TIME.
--- NOTE | 2019-03-09 19:21 | NUR ---
RECEIVED REPORT FROM DAY SHIFT NURSE. PT AWAKE, TRACH TO VENT. APHASIC. NO S/S OF RESP DISTRESS NOTED. NO S/S OF PAIN. G-TUBE IN PLACE WITH FEEDING GLUCERNA 1.2 AT 40 ML/HR, INFUSING WELL. ROSAS CATH IN PLACE, DRAINING CLEAR YELLOW URINE. PT HAS CENTRAL LINE TO LEFT FEMORAL, TRIPLE LUMEN. DRESSING CLEAN, DRY AND INTACT. PT HAS PRESSURE ULCERS TO SACRUM AND RIGHT ANKLE, DRESSINGS CLEAN, DRY AND INTACT. SCAB ON RIGHT KNEE. FALL AND SEIZURES PRECAUTION I PLACE. CALL LIGHT WITHIN REACH.
--- NOTE | 2019-03-09 19:38 | NUR ---
FOUND PT ON MECH VENT SETTINGS OF A/C: RR20, TIDAL VOLUME 500, PEEP 5,FIO2 40%. PT TOLERATING WELL. ALARMS ON & AUDIBLE. VENT CONNECTED TO RED PLUG OUTLET. AMBU BAG AT BEDSIDE. WILL CONT TO MONITOR PT
--- NOTE | 2019-03-09 20:00 | NUR ---
PT TOLERATING FEEDING WELL. CHECKED GT RESIDUAL 10 ML. INCREASED FEEDING RATE TO 50 ML/HR. ASPIRATION PRECAUTION IN PLACE.
[2019-03-09] MEDS: ATORVASTATIN 20 MG TAB GT SCH (21:01)
--- NOTE | 2019-03-09 21:05 | NUR ---
PT'S BLOOD SUGAR 338. 8 UNITS OF HUMALOG GIVEN SUBQ. DUE MEDS GIVEN, PT TOLERATED WELL.
[2019-03-10] VITALS: BP 107/53
--- NOTE | 2019-03-10 | NUR ---
G-TUBE RESIDUAL 5 ML. PT TOLERATING FEEDING WELL. INCREASED RATE TO 60 ML/HR. ASPIRATION PRECAUTION IN PLACE.
[2019-03-10] MEDS: HYDRAGUARD CREAM TP SCH ×2 (00:12→13:40)
[2019-03-10] MEDS: PIPER/TAZO 2.25GM/D5W PREMIX 50 ML IV SCH ×4 (00:12→17:31)
--- NOTE | 2019-03-10 02:24 | NUR ---
PT SLEEPING. NO S/S OF RESP DISTRESS. NO S/S OF PAIN. PT KEPT DRY AND COMFORTABLE. PT TOLERATING FEEDING WELL.
[2019-03-10 04:00] VITALS: BP 111/51
--- NOTE | 2019-03-10 04:00 | NUR ---
PT SLEEPING. RESP EVEN AND UNLABORED. NO S/S OF PAIN. PT TOLERATING FEEDING WELL. ASPIRATION PRECAUTION IN PLACE.
[2019-03-10] MEDS: NACL 0.9% 1,000 ML IV SCH (04:57)
--- NOTE | 2019-03-10 05:30 | NUR ---
CHECKED GT RESIDUAL 10 ML. HUNG NEW BOTTLE OF GLUCERNA 1.2 AT 60 ML/HR. ASPIRATION PRECAUTION IN PLACE.
[2019-03-10] MEDS: INSULIN LISPRO SLIDING SCALE 100 UNITS/ML VIAL SUBQ PRN ×4 (06:17→20:18)
[2019-03-10] MEDS: BLOOD GLUCOSE MONITORING 1 DEV DEV FS SCH ×4 (06:19→20:18)
[2019-03-10] MEDS: BUDESONIDE 0.5 MG/2 ML NEBU INH SCH ×2 (06:25→19:53)
--- NOTE | 2019-03-10 06:25 | NUR ---
REC'D PT ON CARESCAPE VENT SETTINGS AC20 VT 500 PEEP 5 FIO2 30% ALARMS ON AND FUNCTIONING PROPERLY, AMBU BAG IS AT SIDE OF VENT AND VENT IS PLUGGED INTO RED OUTLET, I\L TX GIVEN WITH PULMICORT 0.5MG WITH NO ADVERSE REACTION POST TX B\S ARE RHONCHI BILATERALLY, SXN PT MODERATE AMT OF YELLOW SECRETIONS, PT IS TRACH WITH SHILEY 6 AND SKIN INTEGRITY IS INTACT
[2019-03-10] MEDS: ALBUTEROL SULFATE/IPRATROPIU 3 ML SOL IH SCH ×3 (06:28→19:53)
--- NOTE | 2019-03-10 06:30 | NUR ---
PT'S BLOOD SUGAR 354. 12 UNITS OF HUMALOG GIVEN SUBQ. PT TOLERATED WELL.
--- NOTE | 2019-03-10 07:10 | NUR ---
ENDORSED PT TO DAY SHIFT NURSE. PT IN STABLE CONDITION.
--- NOTE | 2019-03-10 07:15 | NUR ---
RECEIVED BEDSIDE REPORT FROM MACHINE STRIPER RN FOR CONTINUITY OF CARE. PT IN STABLE CONDITION. FLACC 0. TRACH TO VENT. PEEP 5, FiO2 30%, VT 500, RATE 20, FLOW 40 L/MIN. BEDBOUND AND INCONTINENT. ROSAS CATH IN PLACE, DRAINING URINE. INTERMITTENT COUGHING NOTED. LT FEMORAL CENTRAL LINE TRIPLE LUMEN PATENT AND ASYMPTOMATIC, INFUSING IVF PER MD ORDERS. G-TUBE INFUSING ORDERED FEEDING, AT GOAL RATE CURRENTLY. SKIN NON-INTACT--SEE WOUND ASSESSMENT. ALL DRESSINGS C/D/I AT THIS TIME. ALL SAFETY PRECAUTIONS IN PLACE, WILL CONTINUE TO MONITOR.
[2019-03-10 07:57] LABS: EOSINOPHILS # (AUTO) 0.3 K/uL (0-0.4); MONOCYTES # (AUTO) 0.4 K/uL (0.8-1.0); MONOCYTES % (AUTO) 5.2 % (1.7-9.3); RED BLOOD CELL COUNT(AUTO) 2.38 MIL/uL (4.20-6.10)
[2019-03-10 08:00] VITALS: BP 115/58
[2019-03-10 08:07] LABS: BASOPHILS % (AUTO) 0.2 % (0.0-2.0); EOSINOPHILS % (AUTO) 3.7 % (0.0-4.0); HEMATOCRIT 21.4 % (36-52); LYMPHOCYTES # (AUTO) 0.9 K/uL (2.0-11.5); MEAN CORPUSCULAR HEMOGLOBIN 29 pg (27-31); MEAN CORPUSCULAR HGB CONC 32 g/dL (33-37); MEAN CORPUSCULAR VOLUME 89.8 fL (80-94); NEUTROPHILS # (AUTO) 6.6 K/uL (1.8-7.7); PLATELET COUNT (AUTO) 102 K/uL (140-450); RED CELL DISTRIBUTION WIDTH 22.8 % (11.6-13.7); WHITE BLOOD COUNT (AUTO) 8.3 K/uL (4.8-10.8)
[2019-03-10 08:16] LABS: HEMOGLOBIN 6.8 g/dL (12.0-18.0)
[2019-03-10] MEDS: ASCORBIC ACID 500 MG TAB GT SCH ×2 (08:19→19:56)
[2019-03-10] MEDS: FAMOTIDINE 20 MG TAB GT SCH (08:19)
[2019-03-10] MEDS: LACTOBACILLUS RHAMNOSUS GG 1 EACH CAP GT SCH (08:19)
[2019-03-10] MEDS: DOCUSATE 100 MG/10 ML UDC GT SCH ×2 (08:19→19:55)
[2019-03-10] MEDS: POLYVINYL ALCOHOL 1.4% OP 15 ML SOL BOTH EYES SCH ×3 (08:20→17:31)
[2019-03-10] MEDS: PHENYTOIN 100 MG/4 ML UDC GT SCH ×2 (08:20→19:57)
[2019-03-10] MEDS: INSULIN LANTUS 100 UNITS/ML 10 ML VIAL SUBQ SCH (08:27)
[2019-03-10 08:28] LABS: T4 (THYROXINE) 7.1 ug/dL (4.5-12.0)
[2019-03-10] MEDS: FERROUS GLUCONATE 324 MG TAB GT SCH (08:28)
[2019-03-10] MEDS: ACETAMINOPHEN 325 MG TAB PO PRN (08:35)
--- NOTE | 2019-03-10 08:35 | NUR ---
ADMINISTERED APAP 650 MG FOR TEMP OF 100.6 F. PT IS SLIGHTLY DIAPHORETIC. REMOVED A BEDSHEET. HR 101 AT THIS TIME. WILL CONTINUE TO MONITOR.
[2019-03-10 08:37] LABS: MAGNESIUM 2.8 mg/dL (1.8-2.4); PHOSPHORUS 2.4 mg/dL (2.5-4.9)
[2019-03-10 08:38] LABS: ANION GAP 15.1 (8-16); CARBON DIOXIDE 23.4 mmol/L (21-32); POTASSIUM 3.5 mmol/L (3.5-5.1)
[2019-03-10 08:44] LABS: NEUTROPHILS % (AUTO) 79.9 % (42.2-75.2)
--- NOTE | 2019-03-10 08:55 | NUR ---
PAGED DR. JAMESON FOR PT C/O 04/11 LEFT DELTOID AREA, DENIES CP. STATES PAIN COMES AND GOES AND HAS BEEN A CHRONIC ISSUE FOR HER. RECEIVED TORAndie ORDER Addendum: 03/10/19 at 0907 by Geovanna Donovan Meng, RN DISREGARD, WRONG PATIENT
--- NOTE | 2019-03-10 08:59 | NUR ---
CONFIRMED WITH LAB THAT FOBT SAMPLE HAS BEEN RECEIVED.
[2019-03-10] MEDS ORDERED: KETOROLAC 30 MG/ML VIAL IVP PRN (09:00)
--- NOTE | 2019-03-10 09:31 | NUR ---
TEMP NOW IS 99.3 f
--- NOTE | 2019-03-10 10:08 | NUR ---
INFORMED DR. MIRANDA THAT NO TYPE AND SCREEN ORDERED. TO PLACE ORDERS. PER DR. MIRANDA, OKAY FOR NS@100 ML/HR TO BE INFUSING (AM LAB- SODIUM IS 160).
[2019-03-10] MEDS: VANCOMYCIN 500 MG in DEXTROSE 5% 100 ML IV SCH (11:31)
--- NOTE | 2019-03-10 11:57 | NUR ---
TEMP 98.9 AXILLARY NOW. ADMINISTERED SLIDING SCALE HUMALOG FOR POC BS OF 304 MG/DL.
[2019-03-10 12:00] VITALS: BP 108/51
[2019-03-10] MEDS ORDERED: NACL 0.45% 1,000 ML IV SCH (12:20)
--- NOTE | 2019-03-10 12:26 | NUR ---
CALLED LAB TO VERIFY THAT THEY RECEIVED ORDERS FOR TYPE&SCREEN AND PRBC. LAB CONFIRMED THEY ARE AWARE.
[2019-03-10] MEDS ORDERED: SODIUM PHOS / POTASSIUM PHOS 1 PKT PDR PO SCH (13:15)
[2019-03-10] MEDS: THERAHONEY GEL 42.5 GM TP SCH (13:41)
--- NOTE | 2019-03-10 13:48 | NUR ---
TYPE & SCREEN PENDING. PT IN STABLE CONDITION. NO S/S BLEEDING. VSS, WILL CONTINUE TO MONITOR.
[2019-03-10] MEDS: SODIUM FERRIC GLUCONATE 125 MG in NACL 0.9% 100 ML IV SCH (14:38)
--- NOTE | 2019-03-10 14:45 | NUR ---
TYPE & SCREEN STILL PENDING. SCHEDULED MEDICATIONS ADMINISTERED. FLACC 0, NO S/S DISTRESS. ALL SAFETY PRECAUTIONS IN PLACE, WILL CONTINUE TO MONITOR.
[2019-03-10 16:00] VITALS: BP 122/63
--- NOTE | 2019-03-10 16:23 | NUR ---
MADE DEVELOPER ARCHITECT AWARE THAT TYPE & SCREEN STILL PENDING.
--- NOTE | 2019-03-10 17:34 | NUR ---
PT RESTING IN BED. NO S/S DISTRESS. DR. MIRANDA AWARE OF HIGH BLOOD SUGARS.
--- NOTE | 2019-03-10 18:36 | NUR ---
PER LAB, THEY JUST RECEIVED THE COMPLETED RESULTS OF TYPE & SCREEN AND THEY WILL PREPARE THE PRBC NOW.
--- NOTE | 2019-03-10 18:50 | NUR ---
PER LAB, BLOOD IS READY FOR PICKUP.
--- NOTE | 2019-03-10 19:18 | NUR ---
ENDORSED POC TO CATASTROPHE CLAIMS SUPERVISOR RN. ENDORSED BLOOD TRANSFUSION. PT IN STABLE CONDITION.
--- NOTE | 2019-03-10 19:19 | NUR ---
RECEIVED BEDSIDE REPORT FROM EUGENIO ESPINOSA. PT IS APHASIC. TRACH TO VENT: ACVC FIO2 30 VT 500 RR 20 FLOW 40 PEEP 5. PT ON GTUBE FEEDING GLUCERNA 1.2 AT 60 FWF 150 Q4H. PT WITH ROSAS DRAINING CLEAR YELLOW URINE. PT WITH MX WOUNDS R ANKLE AND SACRAL DRESSING C/D/I DRESSING CHANGE Q DAY CHANGED TODAY BY RN. IV L FEMORAL TRIPLE LUMEN IVF PER ORDERS. PT ON SZ,FALL, ANS ASPIRATION PRECAUTION. PT IS ON CONTACT FOR HX OF ESBL AND VRO OF WOUND. PT HGB LOW 6.8 ONE UNIT OF BLOOD PENDING CONSENT HAS BEEN SIGN BY BROTHER. PLAN OF CARE DISCUSSED. WHITE BOARD UPDATED. WILL CONTINUE TO MONITOR.
[2019-03-10] MEDS: ATORVASTATIN 20 MG TAB GT SCH (19:56)
[2019-03-10] MEDS: ACETAMINOPHEN 325 MG TAB PO SCH ×2 (19:56→23:59)
[2019-03-10 20:00] VITALS: BP 125/64
--- NOTE | 2019-03-10 20:00 | NUR ---
VITAL SIGNS ARE WITHIN NORMAL LIMITS. SCHEDULED MEDICATIONS GIVEN TOLERATED WELL. NO RESIDUAL. ORAL CARE GIVEN PT TOLERATED WELL. RT IS AT BEDSIDE. BLOOD DRAWN. ALL SAFETY MEASURES ARE IN PLACE. WILL CONTINUE TO MONITOR.
--- NOTE | 2019-03-10 20:30 | NUR ---
BLOOD TRANSFUSION STARTED VS BASELINE ARE 101 RR 20 TEMP 97.4 126/84 WILL CONTINUE TO MONITOR.
[2019-03-10 20:38] LABS: ANION GAP 16.2 (8-16); CARBON DIOXIDE 23.2 mmol/L (21-32); CREATININE 2.9 mg/dL (0.7-1.3); POTASSIUM 3.4 mmol/L (3.5-5.1)
--- NOTE | 2019-03-10 20:45 | NUR ---
NO S/S OF REACTION. VITAL SIGNS REMAIN STABLE. WILL CONTINUE TO MONITOR.
[2019-03-10] MEDS ORDERED: INSULIN LANTUS 100 UNITS/ML 10 ML VIAL SUBQ SCH (21:00)
--- NOTE | 2019-03-10 22:30 | NUR ---
PT IS SLEEPING COMFORTABLY IN BED. BLOOD TRANSFUSION IS INFUSING. PT CLEANED AND REPOSITION FOR COMFORT. ALL SAFETY MEASURES ARE IN PLACE. WILL CONTINUE TO MONITOR.
--- NOTE | 2019-03-10 23:30 | NUR ---
BLOOD TRANSFUSION FINISHED PT HAD NO ADVERSE REACTION. DR BOO MADE AWARE WILL ORDER CBC. VITAL SIGNS ARE WITHIN NORMAL LIMITS. WILL CONTINUE TO MONITOR.
[2019-03-10] MEDS ORDERED: DEXTROSE 5% 1,000 ML IV SCH (23:55)
[2019-03-11] VITALS: BP 121/71
[2019-03-11] MEDS: ACETAMINOPHEN 325 MG TAB PO SCH
[2019-03-11] MEDS: PIPER/TAZO 2.25GM/D5W PREMIX 50 ML IV SCH ×3 (00:06→12:06)
[2019-03-11] MEDS: HYDRAGUARD CREAM TP SCH ×2 (00:08→12:08)
--- NOTE | 2019-03-11 01:15 | NUR ---
NEW FEEDING STARTED. PT WITH NO RESIDUAL TOLERATING FEEDING WELL. SAFETY MEASURES ARE IN PLACE. WILL CONTINUE TO MONITOR.
[2019-03-11 01:48] LABS: HEMATOCRIT 24.4 % (36-52); HEMOGLOBIN 7.7 g/dL (12.0-18.0); MEAN CORPUSCULAR HEMOGLOBIN 28 pg (27-31); MEAN CORPUSCULAR HGB CONC 32 g/dL (33-37); PLATELET COUNT (AUTO) 103 K/uL (140-450); RED BLOOD CELL COUNT(AUTO) 2.75 MIL/uL (4.20-6.10); RED CELL DISTRIBUTION WIDTH 20.8 % (11.6-13.7); WHITE BLOOD COUNT (AUTO) 9.3 K/uL (4.8-10.8)
[2019-03-11 02:04] LABS: EOSINOPHILS % (MANUAL) 3 % (0-4); LYMPHOCYTES % (MANUAL) 16 % (20-46); MONOCYTES % (MANUAL) 5 % (5-12)
[2019-03-11 04:00] VITALS: BP 129/74
--- NOTE | 2019-03-11 04:00 | NUR ---
VITAL SIGNS ARE WITHIN NORMAL LIMITS. NO S/S OF DISTRESS. PT WITH BM WAS CLEANED AND REPOSITION FOR COMFORT. SUCTION SMALL THICK WHITE SECRETIONS. WILL CONTINUE TO MONITOR
[2019-03-11] MEDS: INSULIN LISPRO SLIDING SCALE 100 UNITS/ML VIAL SUBQ PRN ×4 (05:44→20:52)
[2019-03-11] MEDS: BLOOD GLUCOSE MONITORING 1 DEV DEV FS SCH ×4 (05:45→20:38)
[2019-03-11] MEDS: ALBUTEROL SULFATE/IPRATROPIU 3 ML SOL IH SCH ×3 (06:53→19:07)
--- NOTE | 2019-03-11 06:53 | NUR ---
RECEIVED PT ON CARESCAPE ON DOCUMENTED SETTINGS, ALARMS ARE ON AND AUDIBLE, PTS TRACH NAHUN 6 IS SECURE, BS COARSE I\L SX LG AMTS YELLOW SECRETIONS, PT IN HF QUIET, HHN GIVEN I\L WITH 3 MG DUONEB, FOLLOWED BY 0.5 MG PULMICORT, BMV HOB, CONT. POX IN PLACE, VENT PLUGGED INTO RED OUTLET
[2019-03-11] MEDS: BUDESONIDE 0.5 MG/2 ML NEBU INH SCH ×2 (07:04→19:07)
--- NOTE | 2019-03-11 07:10 | NUR ---
ENDORSED PATIENT TO EUGENIO ESPINOSA. RT IS AT BEDSIDE. PATIENT ENDORSED IN STABLE CONDITION.
--- NOTE | 2019-03-11 07:13 | NUR ---
RECEIVED BEDSIDE REPORT FROM IN MOLD COATER RN FOR CONTINUITY OF CARE. PT IN STABLE CONDITION. APHASIC. FLACC 0. TRACH TO VENT. PEEP 5, FiO2 30%, VT 500, RATE 20, FLOW 50 L/MIN. BEDBOUND AND INCONTINENT. ROSAS CATH IN PLACE, DRAINING URINE. LT FEMORAL CENTRAL LINE TRIPLE LUMEN PATENT AND ASYMPTOMATIC, INFUSING IVF PER MD ORDERS. G-TUBE INFUSING ORDERED FEEDING, AT GOAL RATE CURRENTLY. SKIN NON-INTACT--SEE WOUND ASSESSMENT. ALL DRESSINGS C/D/I AT THIS TIME. ALL SAFETY PRECAUTIONS IN PLACE, WILL CONTINUE TO MONITOR.
[2019-03-11 08:00] VITALS: BP 127/68
[2019-03-11] MEDS: INSULIN LANTUS 100 UNITS/ML 10 ML VIAL SUBQ SCH ×2 (08:13→20:43)
[2019-03-11] MEDS: PHENYTOIN 100 MG/4 ML UDC GT SCH ×2 (08:14→20:38)
[2019-03-11] MEDS: DOCUSATE 100 MG/10 ML UDC GT SCH ×2 (08:14→20:37)
[2019-03-11] MEDS: ASCORBIC ACID 500 MG TAB GT SCH ×2 (08:15→20:37)
[2019-03-11] MEDS: FAMOTIDINE 20 MG TAB GT SCH (08:15)
[2019-03-11] MEDS: SODIUM PHOS / POTASSIUM PHOS 1 PKT PDR PO SCH (08:15)
[2019-03-11] MEDS: LACTOBACILLUS RHAMNOSUS GG 1 EACH CAP GT SCH (08:15)
[2019-03-11] MEDS: POLYVINYL ALCOHOL 1.4% OP 15 ML SOL BOTH EYES SCH ×3 (08:16→17:05)
[2019-03-11 08:30] LABS: HEMOGLOBIN 8.6 g/dL (12.0-18.0); MEAN CORPUSCULAR HEMOGLOBIN 28 pg (27-31); MEAN CORPUSCULAR HGB CONC 32 g/dL (33-37); MEAN CORPUSCULAR VOLUME 89.1 fL (80-94); PLATELET COUNT (AUTO) 109 K/uL (140-450); RED BLOOD CELL COUNT(AUTO) 3.03 MIL/uL (4.20-6.10); RED CELL DISTRIBUTION WIDTH 21.4 % (11.6-13.7); WHITE BLOOD COUNT (AUTO) 9.8 K/uL (4.8-10.8)
[2019-03-11] MEDS: ACETAMINOPHEN 325 MG TAB PO PRN ×2 (08:30→20:40)
--- NOTE | 2019-03-11 08:30 | NUR ---
ADMINISTERED TYLENOL FOR TEMP 101.0. REMOVED SHEETS. APPLIED ICE PACKS.
[2019-03-11 08:32] LABS: ANION GAP 16.6 (8-16); CARBON DIOXIDE 22.1 mmol/L (21-32); CREATININE 2.8 mg/dL (0.7-1.3); POTASSIUM 3.7 mmol/L (3.5-5.1)
[2019-03-11 08:37] LABS: MAGNESIUM 2.6 mg/dL (1.8-2.4); PHOSPHORUS 3.1 mg/dL (2.5-4.9)
[2019-03-11] MEDS: NACL 0.45% 1,000 ML IV SCH ×2 (09:47→13:25)
--- NOTE | 2019-03-11 09:48 | NUR ---
TEMP NOW 99.8
[2019-03-11 10:02] LABS: BASOPHILS % (MANUAL) 0 % (0-2); EOSINOPHILS % (MANUAL) 1 % (0-4); LYMPHOCYTES % (MANUAL) 15 % (20-46); MONOCYTES % (MANUAL) 4 % (5-12)
--- NOTE | 2019-03-11 10:03 | NUR ---
PT HAD MODERATE SIZE SOFT BM. SACROCOCCYX DRESSING CHANGED, WOUND CARE PERFORMED.
[2019-03-11] MEDS: VANCOMYCIN 500 MG in DEXTROSE 5% 100 ML IV SCH (11:20)
[2019-03-11 12:00] VITALS: BP 141/77
[2019-03-11] MEDS: THERAHONEY GEL 42.5 GM TP SCH (12:07)
[2019-03-11 12:30] LABS: FERRITIN 355 ng/mL (30-400); FOLIC ACID > 20.00 ng/mL (>3.0)
--- NOTE | 2019-03-11 12:46 | NUR ---
PT RESTING IN BED. AFEBRILE. NO S/S DISTRESS. WILL CONTINUE TO MONITOR.
--- NOTE | 2019-03-11 14:34 | NUR ---
TECH AT BEDSIDE FOR CXR
--- NOTE | 2019-03-11 15:06 | NUR ---
03/11/19 RD FOLLOW UP COMPLETED PLEASE REFER TO NUTRITION PROGRESS NOTE UNDER CARE ACTIVITY FOR ESTIMATED NUTRITION NEEDS. RD RECOMMENDATIONS: 1. RECOMMEND CONTINUE GLUCERNA 1.2 TO GOAL RATE OF 60 ML. THIS WILL PROVIDE 1728 KCAL, 86 GM PROTEIN, 1159 M, WHICH WILL MEET 86% OF ESTIMATED ENERGY NEEDS AND 100% OF ESTIMATED PROTEIN NEEDS. 2.RD WILL FOLLOW UP IN 2-3 DAYS HIGH RISK. MAYCOL MARIE, RD
[2019-03-11] MEDS: SODIUM FERRIC GLUCONATE 125 MG in NACL 0.9% 100 ML IV SCH (15:38)
[2019-03-11 16:00] VITALS: BP 125/72
--- NOTE | 2019-03-11 17:09 | NUR ---
PT RESTING IN BED. NO S/S DISTRESS. EYES OPEN SPONTANEOUSLY.
--- NOTE | 2019-03-11 17:58 | NUR ---
DR. BANEGAS AT BEDSIDE TO MARYANNE PATIENT. NOTIFIED THAT PATIENT HAS BEEN IN CONTROLLED/UNCONTROLLED AFIB, HR RANGING FROM 150S TO 40S, ADMINISTERED ONE TIME DOSE OF METOPROLOL 25 MG ER PO AT [address] BANEGAS, D/C HOME MED METOPROLOL SUCC ER 25 MG PO AND KEEP THE PRN CARDIZEM FOR HR>130. ALSO ORDERED FOR 3X TROPONIN DRAW. Addendum: 03/11/19 at 1923 by Geovanna Donovan Meng, RN DISREGARD, WRONG PATIENT
--- NOTE | 2019-03-11 19:09 | NUR ---
ENDORSED POC TO VOLUNTEER SPECIALIST RN. PT IN STABLE CONDITION.
--- NOTE | 2019-03-11 19:10 | NUR ---
RECEIVED BEDSIDE REPORT FROM EUGENIO ESPINOSA. PT IS APHASIC. TRACH TO VENT: ACVC FIO2 30 VT 500 RR 20 FLOW 40 PEEP 5. PT ON GTUBE FEEDING GLUCERNA 1.2 AT 60 FWF 200 Q4H. PT WITH ROSAS DRAINING CLEAR YELLOW URINE. PT WITH MX WOUNDS R ANKLE AND SACRAL DRESSING C/D/I DRESSING CHANGE Q DAY CHANGED TODAY BY RN. C0DIFF CULTURE PENDING. IV L FEMORAL TRIPLE LUMEN IVF PER ORDERS. PT ON SZ,FALL, ANS ASPIRATION PRECAUTION. PT IS ON CONTACT FOR HX OF ESBL AND VRO OF WOUND. RT IS AT BEDSIDE. PT SUCTION THROUGH TRACH AND ORAL BY RT. NO S/S OF DISTRESS. PLAN OF CARE DISCUSSED. WHITE BOARD UPDATED. WILL CONTINUE TO MONITOR.
--- NOTE | 2019-03-11 19:17 | NUR ---
Received pt stable on vent support at documented settings, suctioned moderate amounts of thick yellow secretions, hhn tx given, tolerated well, npo resp distress or SOB noted at this time, Shiley 6 trach secured/patent/midline, alarms set and audible, ambu bag at bedside, vent plugged into red outlet, cont pulse ox on, will cont to monitor.
[2019-03-11 19:45] VITALS: BP 133/72
[2019-03-11] MEDS: MEROPENEM 500 MG in NACL 0.9% 50 ML IV SCH (20:38)
[2019-03-11] MEDS: ATORVASTATIN 20 MG TAB GT SCH (20:38)
--- NOTE | 2019-03-11 20:38 | NUR ---
VITAL SIGNS ARE WITHIN NORMAL LIMITS EXCEPT TEMP IS 100.2 TYLENOL GIVEN. COLACE WAS HELD PT WITH 3 BM DURING DAY. PT HAD 65CC RESIDUAL. SCHEDULED MEDICATIONS GIVEN. ORAL CARE PROVIDED. SUCTION SMALL THICK WHITE SECRETIONS. HOB ELEVATED. NO S/S OF DISTRESS. WILL CONTINUE TO MONITOR.
--- NOTE | 2019-03-11 21:45 | NUR ---
PATIENT IS RESTING COMFORTABLY IN BED. NO S/S OF DISTRESS. WILL CONTINUE TO MONITOR.
--- NOTE | 2019-03-11 23:40 | NUR ---
NEW FEEDING STARTED. VITAL SIGNS ARE WITHIN NORMAL LIMITS TEMP DECREASE 98.6. NO S/S OF DISTRESS. WILL CONTINUE TO MONITOR.
[2019-03-12] VITALS: BP 108/61
[2019-03-12] MEDS: HYDRAGUARD CREAM TP SCH ×2 (01:08→13:00)
--- NOTE | 2019-03-12 02:00 | NUR ---
PT IS SLEEPING COMFORTABLY IN BED. RESPIRATIONS ARE EQUAL AND UNLABORED. SAFETY MEASURES ARE IN PLACE. HOB ELEVATED.
[2019-03-12] MEDS: NACL 0.45% 1,000 ML IV SCH ×2 (03:19→14:09)
[2019-03-12 04:00] VITALS: BP 131/61
--- NOTE | 2019-03-12 04:08 | NUR ---
VITAL SIGNS ARE WITHIN NORMAL LIMITS. NO S/S OF DISTRESS NOTED. SAFETY MEASURES ARE IN PLACE.
[2019-03-12] MEDS: BLOOD GLUCOSE MONITORING 1 DEV DEV FS SCH ×4 (05:42→20:15)
[2019-03-12] MEDS: INSULIN LISPRO SLIDING SCALE 100 UNITS/ML VIAL SUBQ PRN ×4 (05:46→20:41)
--- NOTE | 2019-03-12 05:46 | NUR ---
PATIENT WITH BM WAS CLEANED AND REPOSITION. BG 180 2U OF HUMALOG GIVEN. PT TOLERATED WELL. WILL CONTINUE TO MONITOR.
[2019-03-12] MEDS: ALBUTEROL SULFATE/IPRATROPIU 3 ML SOL IH SCH ×3 (06:17→19:17)
--- NOTE | 2019-03-12 06:17 | NUR ---
REC'D PT ON CARESCAPE VENT SETTINGS AC20 VT 500 PEEP 5 FIO2 30% ALARMS ON AND AUDIBLE AND AMBU BAG IS AT SIDE OF VENT AND VENT IS PLUGGED INTO RED OUTLET, I\L TXS GIVEN WITH DUONEB 3ML AND PULMICORT 0.5MG WITH NO ADVERSE REACTION POST TX B\S ARE COARSE BILATERALLY SXN LARGE AMT OF THICK YELLOW SECRETIONS PT IS TRACH WITH SHILEY 6 AND SKIN INTEGRITY IS INTACT
[2019-03-12] MEDS: BUDESONIDE 0.5 MG/2 ML NEBU INH SCH ×2 (06:26→19:17)
[2019-03-12 06:53] LABS: ANION GAP 14.3 (8-16); CARBON DIOXIDE 23.5 mmol/L (21-32); CREATININE 2.3 mg/dL (0.7-1.3); PHENYTOIN (DILANTIN) 4.9 ug/ml (10.0-20.0); POTASSIUM 3.8 mmol/L (3.5-5.1)
[2019-03-12 06:58] LABS: MAGNESIUM 2.4 mg/dL (1.8-2.4); PHOSPHORUS 3.5 mg/dL (2.5-4.9)
[2019-03-12 07:23] LABS: HEMATOCRIT 24.4 % (36-52); HEMOGLOBIN 7.7 g/dL (12.0-18.0); MEAN CORPUSCULAR HEMOGLOBIN 28 pg (27-31); MEAN CORPUSCULAR HGB CONC 32 g/dL (33-37); MEAN CORPUSCULAR VOLUME 87.7 fL (80-94); PLATELET COUNT (AUTO) 105 K/uL (140-450); RED BLOOD CELL COUNT(AUTO) 2.78 MIL/uL (4.20-6.10); RED CELL DISTRIBUTION WIDTH 20.6 % (11.6-13.7); WHITE BLOOD COUNT (AUTO) 9.1 K/uL (4.8-10.8)
--- NOTE | 2019-03-12 07:26 | NUR ---
GAVE BEDSIDE REPORT TO DAY SHIFT RN. PT ENDORSED IN STABLE CONDITION.
--- NOTE | 2019-03-12 07:30 | NUR ---
RECEIVED HAND OFF REPORT FROM ARRESTING GEAR OPERATOR NURSE PT IS ASLEEP IN BED PT IS STABLE AND IN NO APPARENT DISTRESS. ALL SAFETY MEASURES ARE IN PLACE WILL CONTINUE TO MONITOR.
--- NOTE | 2019-03-12 07:45 | NUR ---
SCANNED AND FAXED REQUEST FOR MEDICAL RECORDS TO [facility]. RECEIVED NOTICE IT DID NOT GO THROUGH. WILL CALL [facility] AND ASK FOR FAX NUMBER
[2019-03-12 08:00] VITALS: BP 159/49
--- NOTE | 2019-03-12 08:35 | NUR ---
REPOSITIONED PT WITH ASSISTANCE OF FILM PAINTER, CLEANED PATIENT PT TOLERATED REPOSITONING WELL. PLACED PT BED IN LOCKED AND LOWEST POSITION, ALL SAFETY MEASURES ARE IN PLACE. WILL CONTINUE TO MONITOR.
[2019-03-12] MEDS: DOCUSATE 100 MG/10 ML UDC GT SCH ×2 (09:00→20:22)
[2019-03-12] MEDS: POLYVINYL ALCOHOL 1.4% OP 15 ML SOL BOTH EYES SCH ×3 (09:51→17:56)
[2019-03-12] MEDS: LACTOBACILLUS RHAMNOSUS GG 1 EACH CAP GT SCH (09:53)
[2019-03-12] MEDS: SCOPOLAMINE 1.5 MG/72 HR PATCH TD SCH (09:53)
[2019-03-12] MEDS: FAMOTIDINE 20 MG TAB GT SCH (09:53)
[2019-03-12] MEDS: PHENYTOIN 100 MG/4 ML UDC GT SCH ×2 (09:53→20:17)
[2019-03-12] MEDS: SODIUM PHOS / POTASSIUM PHOS 1 PKT PDR PO SCH (09:53)
[2019-03-12] MEDS: MEROPENEM 500 MG in NACL 0.9% 50 ML IV SCH ×2 (09:54→20:16)
[2019-03-12] MEDS: ASCORBIC ACID 500 MG TAB GT SCH ×2 (09:54→20:17)
[2019-03-12] MEDS: INSULIN LANTUS 100 UNITS/ML 10 ML VIAL SUBQ SCH ×2 (09:55→20:21)
--- NOTE | 2019-03-12 10:18 | NUR ---
ADMINISTERED MORNING MEDICATIONS. CHECKED RESIDUAL FOR GTUBE. GTUBE RESIDUAL 50ML REPLACED RESIDUAL AND ADMINISTERED MORNING MEDICATIONS THROUGH GTUBE. ALL SAFETY MEASURES ARE IN PLACE WILL CONTINUE TO MONITOR.
[2019-03-12 12:00] VITALS: BP 148/64
--- NOTE | 2019-03-12 12:50 | NUR ---
RECEIVED 4 OF 24 PAGES OF THE PTS CHART FROM [facility]. THE COPY MACHINE IS DELAYED WILL RECHECK SOON. Addendum: 03/12/19 at 1303 by Brinda Ho RN wrong pt
--- NOTE | 2019-03-12 12:51 | NUR ---
FREQUENT ROUNDING ON PT PT IS STABLE AND IN NO APPARENT DISTRESS, IVF INFUSING INTO FEMORAL CENTRAL LINE. ROSAS CATH IS DRAINING. GTUBE IS INFUSING AT 60/HR PT HEAD OF BED IS ELEVATED ABOVE 30 DEGREES. TRACH TO VENT. PT IS ON O2 MONITORING. ALL SAFETY MEASURES ARE IN PLACE. WILL CONTINUE TO MONITOR,
[2019-03-12] MEDS: THERAHONEY GEL 42.5 GM TP SCH (13:00)
--- NOTE | 2019-03-12 13:25 | NUR ---
FREQUENT ROUNDING ON PT PT IS STABLE AND IN NO APPARENT DISTRESS. ALL SAFETY MEASURES ARE IN PLACE. WILL CONTINUE TO MONITOR.
--- NOTE | 2019-03-12 14:30 | NUR ---
CHANGED AND REPOSITIONED PT. PERFORMED PERICARE AND ROSAS CATH CARE. DRAINED ROSAS BAG. PROVIDED WOUND CARE AND REPOSITIONED PATIENT. SUCTIONED PT AND PROVIDED ORAL CARE, IV FLUIDS INFUSING. GTUBE INFUSING. TRACH TO VENT. O2 MONITOR ON PATIENT. PT IS STABLE AND IN NO APPARENT DISTRESS. ALL SAFETY MEASURES ARE IN PLACE WILL CONTINUE TO MONITOR.
--- NOTE | 2019-03-12 15:07 | NUR ---
FREQUENT ROUNDING PT IS ASLEEP IN BED PT APPEARS STABLE AND IN NO APPARENT DISTRESS. IVF INFUSING. ROSAS CATH DRAINING. GTUBE INFUSING. PT HEAD OF BED ABOVE 30 DEGREES. BED IN LOWEST AND LOCKED POSITION. ALL SAFETY MEASURES ARE IN PLACE. WILL CONTINUE TO MONITOR,
[2019-03-12 16:00] VITALS: BP 132/74
--- NOTE | 2019-03-12 16:45 | NUR ---
FINGERSTICK GLUCOSE 159 WILL ADMINISTER PER SLIDING SCALE. HUNG NEW GTUBE FEEDING PLACED NEW LINES. PT APPEARS STABLE AND IN NO APPARENT DISTRESS. ALL SAFETY MEASURES ARE IN PLACE WILL CONTINUE TO MONITOR.
--- NOTE | 2019-03-12 18:00 | NUR ---
FINGERSTICK GLUCOSE 159 GAVE 2 UNITS HUMALOG PER SLIDING SCALE ORDERS. ADMINISTERED EYE DROPS PER ORDER REPOSITIONED PT. PT IS STABLE AND IN NO APPARENT DISTRESS. TRACH TO VENT. IVF INFUSING. ROSAS CATH DRAINING BED IN LOWEST AND LOCKED POSITION. WILL CONTINUE TO MONITOR.
--- NOTE | 2019-03-12 19:31 | NUR ---
ENDORSED PT TO AIRLINE PILOT FLIGHT INSTRUCTOR NURSE.
--- NOTE | 2019-03-12 19:32 | NUR ---
RECEIVED BEDSIDE REPORT FROM DAY SHIFT NURSE. PT IS APHASIC. TRACH TO VENT. PT ON G-TUBE FEEDING GLUCERNA 1.2 AT 60 FWF 200 Q4H. PT ON ROSAS DRAINING CLEAR YELLOW URINE. WOUNDS ON R ANKLE AND SACRAL DRESSING. IV L FEMORAL TRIPLE LUMEN IVF PER ORDERS. PT ON SEIZURE, FALL, AND ASPIRATION PRECAUTION. PT IS ON CONTACT PRECAUTION. BED IN LOW POSITION. WHITE BOARD UPDATED. WILL CONTINUE TO MONITOR.
[2019-03-12 20:00] VITALS: BP 130/65
--- NOTE | 2019-03-12 20:00 | NUR ---
CHECKED VITAL SIGN, BT 101.5 NOTED. APPLIED 2 ICE PACK ON NECK AND FOREHEAD. WILL ADMINISTER ACETAMINOPHEN.
[2019-03-12] MEDS: ACETAMINOPHEN 325 MG TAB PO PRN (20:16)
[2019-03-12] MEDS: ATORVASTATIN 20 MG TAB GT SCH (20:16)
--- NOTE | 2019-03-12 20:21 | NUR ---
BS CHECKED, 173. GIVEN DILANTIN, LIPITOR, VITAMIN C, MERREM, HEPARIN, AND LANTUS INSULIN ORDERED. ANUPAM AIKEN D/T DIARRHEA REPORTED FROM DAY SHIFT NURSE. PT TOLERATED WELL. WILL CONTINUE TO MONITOR. Addendum: 03/12/19 at 2214 by Sammi Richard RN ADMINISTER ACETAMINOPHEN ORDERED. PT TOLERATED WELL.
--- NOTE | 2019-03-12 20:41 | NUR ---
GIVEN HUMALOG INSULIN DR ORDERED. PT TOLERATED WELL.
[2019-03-12] MEDS: cefTAZidime 500 MG in DEXTROSE 5% 50 ML IV SCH (21:52)
--- NOTE | 2019-03-12 21:52 | NUR ---
JAELYN NASCIMENTO. PT TOLERATED WELL. Addendum: 03/12/19 at 2216 by Sammi Richard RN BT 99.7 F NOTED. WILL CONTINUE TO MONITOR.
--- NOTE | 2019-03-12 23:55 | NUR ---
VS CHECKED. BT 99.7 NOTED. NO S/S OF SOB NOTED WITH TRACH. BED IN LOW POSITION. WILL CONTINUE TO MONITOR.
[2019-03-13] VITALS: BP 134/76
[2019-03-13] MEDS: HYDRAGUARD CREAM TP SCH ×2 (01:19→13:33)
--- NOTE | 2019-03-13 02:02 | NUR ---
PT IN BED. RESP EVEN UNLABORED. NO ACUTE DISTRESS NOTED. BED IN LOW POSITION. WILL CONTINUE TO MONITOR.
[2019-03-13] MEDS: NACL 0.45% 1,000 ML IV SCH ×2 (02:13→04:42)
[2019-03-13 04:00] VITALS: BP 138/78
--- NOTE | 2019-03-13 04:00 | NUR ---
VS CHECKED. BT 98.7 F NOTED. CHANGED PT WITH FUNERAL COUNSELOR. BM NOTED. RESP EVEN AND UNLABORED WITH VENTILATOR. WILL CONTINUE TO MONITOR.
[2019-03-13] MEDS: BLOOD GLUCOSE MONITORING 1 DEV DEV FS SCH ×3 (05:36→17:29)
[2019-03-13] MEDS: INSULIN LISPRO SLIDING SCALE 100 UNITS/ML VIAL SUBQ PRN ×3 (05:38→17:34)
--- NOTE | 2019-03-13 05:38 | NUR ---
BS CHECKED, 207, ADMINISTER INSULIN ORDERED. PT TOLERATED WELL.
[2019-03-13 06:07] LABS: ANION GAP 13.3 (8-16); CARBON DIOXIDE 23.1 mmol/L (21-32); CREATININE 2.2 mg/dL (0.7-1.3); POTASSIUM 4.4 mmol/L (3.5-5.1)
[2019-03-13 06:18] LABS: BASOPHILS % (AUTO) 0.3 % (0.0-2.0); EOSINOPHILS # (AUTO) 0.4 K/uL (0-0.4); EOSINOPHILS % (AUTO) 6.1 % (0.0-4.0); HEMATOCRIT 23.2 % (36-52); HEMOGLOBIN 7.4 g/dL (12.0-18.0); LYMPHOCYTES # (AUTO) 1.3 K/uL (2.0-11.5); LYMPHOCYTES % (AUTO) 18.6 % (20.5-51.1); MEAN CORPUSCULAR HEMOGLOBIN 28 pg (27-31); MEAN CORPUSCULAR HGB CONC 32 g/dL (33-37); MEAN CORPUSCULAR VOLUME 88.1 fL (80-94); MONOCYTES # (AUTO) 0.5 K/uL (0.8-1.0); NEUTROPHILS # (AUTO) 4.9 K/uL (1.8-7.7); PLATELET COUNT (AUTO) 95 K/uL (140-450); RED BLOOD CELL COUNT(AUTO) 2.64 MIL/uL (4.20-6.10); WHITE BLOOD COUNT (AUTO) 7.2 K/uL (4.8-10.8)
[2019-03-13 06:19] LABS: MAGNESIUM 2.2 mg/dL (1.8-2.4); PHOSPHORUS 3.8 mg/dL (2.5-4.9)
[2019-03-13] MEDS: ALBUTEROL SULFATE/IPRATROPIU 3 ML SOL IH SCH ×2 (06:39→13:03)
--- NOTE | 2019-03-13 06:39 | NUR ---
RECEIVED PT ON CARESCAPE ON DOCUMENTED SETTINGS, ALARMS ARE ON AND AUDIBLE, PTS TRACH SHILEY 6 IS SECURE, PT IN HF QUIET BS COARSE I\L SX COPIOUS YELLOW HHN GIVEN WITH 3 MG DUONEB, BMV HOB, VENT PLUGGGED INTO RED 0UTLET, CONT. POX IN PLACE
[2019-03-13] MEDS: BUDESONIDE 0.5 MG/2 ML NEBU INH SCH (06:53)
--- NOTE | 2019-03-13 07:17 | NUR ---
ENDORSED PT TO DAY SHIFT NURSE. PT IN STABLE CONDITION.
--- NOTE | 2019-03-13 07:37 | NUR ---
RECEIVED HANDOFF REPORT FROM CNC WOOD LATHE OPERATOR NURSE PT IS STABLE AND IN NO APPARENT DISTRESS. ALL SAFETY MEASURES ARE IN PLACE WILL CONTINUE TO MONITOR.
[2019-03-13 08:00] VITALS: BP 143/74
[2019-03-13] MEDS: DOCUSATE 100 MG/10 ML UDC GT SCH (09:00)
[2019-03-13] MEDS ORDERED: FERROUS SULFATE 300 MG/5 ML UDC GT SCH (09:00)
[2019-03-13] MEDS: POLYVINYL ALCOHOL 1.4% OP 15 ML SOL BOTH EYES SCH ×3 (09:08→17:29)
[2019-03-13] MEDS: SODIUM PHOS / POTASSIUM PHOS 1 PKT PDR PO SCH (09:09)
[2019-03-13] MEDS: ACETAMINOPHEN 325 MG TAB PO PRN (09:09)
[2019-03-13] MEDS: FAMOTIDINE 20 MG TAB GT SCH (09:09)
[2019-03-13] MEDS: cefTAZidime 500 MG in DEXTROSE 5% 50 ML IV SCH (09:10)
[2019-03-13] MEDS: PHENYTOIN 100 MG/4 ML UDC GT SCH (09:10)
[2019-03-13] MEDS: MEROPENEM 500 MG in NACL 0.9% 50 ML IV SCH (09:11)
[2019-03-13] MEDS: LACTOBACILLUS RHAMNOSUS GG 1 EACH CAP GT SCH (09:16)
[2019-03-13] MEDS: INSULIN LANTUS 100 UNITS/ML 10 ML VIAL SUBQ SCH (09:30)
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
[2019-03-13] MEDS: ASCORBIC ACID 500 MG TAB GT SCH (10:18)
[2019-03-13] MEDS ORDERED: MERO500P9 IV (10:22)
[2019-03-13] MEDS ORDERED: LEVEMIR SUBQ (10:22)
[2019-03-13] MEDS ORDERED: [UNRECOGNIZED DRUG - CODE] IV (10:22)
[2019-03-13] MEDS ORDERED: CEFT1PDS83 IV (10:23)
--- NOTE | 2019-03-13 11:15 | NUR ---
FREQUENT ROUNDING ON PT PT IS STABLE AND IN NO APPARENT DISTRESS. ALL SAFETY MEASURES ARE IN PLACE WILL CONTINUE TO MONITOR.
--- NOTE | 2019-03-13 11:30 | NUR ---
CALLED [facility] AND SPOKE TO LOUISE [phone], REGARDING TRANSFER AND BED. FAXED CLINICALS AT [phone]. LOUISE SAID SHE WILL CALL ME FOR BED ASSIGNMENT.
[2019-03-13 12:00] VITALS: BP 112/67
[2019-03-13] MEDS: THERAHONEY GEL 42.5 GM TP SCH (13:33)
--- NOTE | 2019-03-13 13:33 | NUR ---
PROVIDED PERICARE PT HAD BOWEL MOVEMENT CHANGED CHUCKS. CLEANED ROSAS CATH WITH ROSAS WIPES. REPOSITIONED PATIENT AND PROVIDED WOUND CARE. PT IS STABLE AND IN NO APPARENT DISTRESS. ALL SAFETY MEASURES ARE IN PLACE. WILL CONTINUE TO MONITOR.
--- NOTE | 2019-03-13 13:45 | NUR ---
LOUISE FROM [facility] [place] CALLED AND PATIENT WILL GO TO BED 27B UNDER DR VIZCARRA BUT BED WILL BE AVAILABLE AFTER 6 PM.
--- NOTE | 2019-03-13 14:11 | NUR ---
CALLED AND LEFT VOICEMAIL FOR PT CONTACT IN HIS CHART TO RECEIVED CONSENT FOR PICC LINE INSERTION.
--- NOTE | 2019-03-13 14:12 | NUR ---
DR. ALFARO AND DR. FERRELL SIGNED FOR EMERGENCY PLACEMENT OF PICC LINE
--- NOTE | 2019-03-13 14:13 | NUR ---
PICC LINE NURSE AT PT BEDSIDE WITH ULTRASOUND TO PLACE PICC LINE.
--- NOTE | 2019-03-13 14:44 | NUR ---
03/13/19 RD FOLLOW UP COMPLETED PLEASE REFER TO NUTRITION ASSESSMENT UNDER CARE ACTIVITY FOR ESTIMATED NUTRITIONAL NEEDS. 1. CONTINUE GLUCERNA 1.2 AT 60 ML/HR X 24 HOURS WITH 200ML FREE WATER FLUSH Q4H. -THIS PROVIDES 1140 ML TOTAL VOLUME, 1728KCAL, 86GM PROTEIN, 1200 ML TOTAL FREE WATER. IT MET 86% OF ESTIMATED ENERGY NEEDS AND 100% OF ESTIMATED PROTEIN NEEDS. 2. RD TO FOLLOW-UP 2-3 DAYS, HIGH RISK DEUCE KNIGHT RD
--- NOTE | 2019-03-13 15:04 | NUR ---
FREQUENT ROUNDING ON PT PT IS STABLE AND IN NO APPARENT DISTRESS. ALL SAFETY MEASURES ARE IN PLACE. WILL CONTINUE TO MONITOR.
--- NOTE | 2019-03-13 15:18 | NUR ---
NOTIFIED RN [facility] BLANK OF PATIENT TRANSFER AND BED ASSIGNMENT, BLANK RN SAID SHE WILL ARRANGE FOR TRANSPORTATION.
[2019-03-13 16:00] VITALS: BP 120/74
--- NOTE | 2019-03-13 16:38 | NUR ---
ENDORSED TO CHARGE NURSE BLANK ESPINOSA REGARDING TRANSFER AND TRANSPORTATION.
--- NOTE | 2019-03-13 17:30 | NUR ---
REPOSITIONED PT. TOOK DISCHARGE WOUND PHOTOS REMOVED CENTRAL LINE. PT IS STABLE AND IN NO APPARENT DISTRESS. USED STERILE TECHNIQUE TO REMOVE CENTRAL LINE. APPLIED PRESSURE. PLACED PT IN ORANGE GOWNS.
--- NOTE | 2019-03-13 18:00 | NUR ---
CALLED [facility] AND GAVE REPORT TO RK ESPINOSA. CALLED FAMILY CONTACT FOR PT AND LEFT VOICEMAIL TO INFORM HIM ABOUT THE TRANSFER TO [facility].
[2019-03-13 18:36] VITALS: BP 112/85
--- NOTE | 2019-03-13 18:45 | NUR ---
GAVE HAND OFF REPORT TO [facility] NURSE. PT IS STABLE AND IN NO APPARENT DISTRESS. ALL SAFETY MEASURES ARE IN PLACE. GTUBE IN PLACE AND REMOVED FROM TUBE FEEDING. TRACH TO VENT PT IS STABLE AND IN NO APPARENT DISTRESS. PT LEFT WITH MEDICAL HISTORY FORMS AND MEDICATION LIST. PT LEFT WITH ALL PERSONAL BELONGINGS.
== END 2019-03-13 18:45 | DRG 720 ==
LOC: MED 22:55 → MIC 03-09 03:07 → MTU 03-09 08:40
PROVIDERS: ADMIT General Practice; ATTEND General Practice
PROC: 5A1955Z Respiratory Ventilation, Greater than 96 Consecutive Hours (ICD-10-PCS; 2019-03-09)
PROC: 30233N1 Transfusion of Nonautologous Red Blood Cells into Peripheral Vein, Percutaneous Approach (ICD-10-PCS; principal; 2019-03-10)
PROC: 05HY33Z Insertion of Infusion Device into Upper Vein, Percutaneous Approach (ICD-10-PCS; 2019-03-13)
PROC: B54NZZA Ultrasonography of Left Upper Extremity Veins, Guidance (ICD-10-PCS; 2019-03-13)
DX: A41.9 Sepsis, unspecified organism (principal); N17.0 Acute kidney failure with tubular necrosis; J96.21 Acute and chronic respiratory failure with hypoxia; Z99.11 Dependence on respirator [ventilator] status; E43 Unspecified severe protein-calorie malnutrition; G93.1 Anoxic brain damage, not elsewhere classified; J18.9 Pneumonia, unspecified organism; L89.153 Pressure ulcer of sacral region, stage 3; B96.1 Klebsiella pneumoniae [K. pneumoniae] as the cause of diseases classified elsewhere; B95.2 Enterococcus as the cause of diseases classified elsewhere; B96.5 Pseudomonas (aeruginosa) (mallei) (pseudomallei) as the cause of diseases classified elsewhere; B96.4 Proteus (mirabilis) (morganii) as the cause of diseases classified elsewhere; L89.323 Pressure ulcer of left buttock, stage 3; G40.909 Epilepsy, unspecified, not intractable, without status epilepticus; R65.20 Severe sepsis without septic shock; K21.9 Gastro-esophageal reflux disease without esophagitis; Y95 Nosocomial condition; J44.0 Chronic obstructive pulmonary disease with (acute) lower respiratory infection; R53.2 Functional quadriplegia; Z93.0 Tracheostomy status; E11.22 Type 2 diabetes mellitus with diabetic chronic kidney disease; J44.9 Chronic obstructive pulmonary disease, unspecified; E11.9 Type 2 diabetes mellitus without complications; N18.9 Chronic kidney disease, unspecified; L30.9 Dermatitis, unspecified; R32 Unspecified urinary incontinence; H04.123 Dry eye syndrome of bilateral lacrimal glands; K59.09 Other constipation; I12.9 Hypertensive chronic kidney disease with stage 1 through stage 4 chronic kidney disease, or unspecified chronic kidney disease; R13.10 Dysphagia, unspecified; I25.10 Atherosclerotic heart disease of native coronary artery without angina pectoris; E78.5 Hyperlipidemia, unspecified; E87.0 Hyperosmolality and hypernatremia; N39.0 Urinary tract infection, site not specified; Z68.27 Body mass index [BMI] 27.0-27.9, adult; Z79.899 Other long term (current) drug therapy; Z86.74 Personal history of sudden cardiac arrest; Z86.73 Personal history of transient ischemic attack (TIA), and cerebral infarction without residual deficits; Z79.4 Long term (current) use of insulin
CPT/HCPCS: 36415; 36556; 36600; 51702; 71045; 80048; 80053; 80185; 80202; 81001; 82150; 82272; 82550; 82553; 82607; 82728; 82746; 82803; 82948; 83036; 83540; 83605; 83690; 83735; 83880; 84100; 84134; 84436; 84443; 84484; 85025; 85045; 85610; 85730; 86886; 86900; 86901; 86920; 87040; 87070; 87081; 87086; 87186; 87205; 89220; 93005; 94003; 94640; 96365; 96367; 99285; C1751; J0713; J1644; J1815; J2185; J2543; J2916; J3370; J7030; J7060; J7620; J7626; P9016; Q0092; Q0163

== ENCOUNTER 2019-05-03 19:20 | Inpatient (IN) | payer OTHER ==
[~2019-05-03] VITALS: Ht 165.1 cm; Wt 87.1 kg
[~2019-05-03 19:20] MED LIST changes: +BISA-213 RC; +CEFT1PDS83 IV; -CIPR250T3 GT; +MAGN400S60 GT; +MERO500P9 IV; +NA P133N1 RC; +NUTR30LI3 GT; -VAN1I PO
--- NOTE | 2019-05-03 19:20 | NUR ---
PT BIBA ALS. TAKEN TO BED 10. RT AT BEDSIDE.
--- NOTE | 2019-05-03 19:25 | NUR ---
Dr. López examining patient.
[2019-05-03 19:26] VITALS: BP 134/82
--- NOTE | 2019-05-03 19:30 | NUR ---
PT VOMITED X1 COFFEE GROUND EMESIS, PT SUCTIONED BY RT, PL CLEANED AND SITTING UP RIGHT, VSS.
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
[2019-05-03] MEDS ORDERED: PANTOPRAZOLE 40 MG INJ VIAL IVP ONE (19:35)
[2019-05-03] MEDS ORDERED: NACL 0.9% 500 ML IV SCH (19:35)
[2019-05-03 19:37] VITALS: BP 134/82
[2019-05-03] MEDS ORDERED: ZINC220C12 GT (19:38)
[2019-05-03] MEDS ORDERED: CRAN450C GT (19:38)
[2019-05-03] MEDS ORDERED: ASPI-1718 GT (19:38)
[2019-05-03] MEDS ORDERED: VANCOMYCIN 1,000 MG in DEXTROSE 5% 250 ML IV ONE (19:50)
[2019-05-03] MEDS ORDERED: PIPERACILLIN/TAZOBACTAM 2.25 GM in DEXTROSE 5% 50 ML IV ONE (19:50)
[2019-05-03 20:09] LABS: HEMATOCRIT 29.7 % (36-52); HEMOGLOBIN 9.4 g/dL (12.0-18.0); MEAN CORPUSCULAR HEMOGLOBIN 30 pg (27-31); MEAN CORPUSCULAR HGB CONC 32 g/dL (33-37); MEAN CORPUSCULAR VOLUME 94.4 fL (80-94); PLATELET COUNT (AUTO) 229 K/uL (140-450); RED BLOOD CELL COUNT(AUTO) 3.15 MIL/uL (4.20-6.10); RED CELL DISTRIBUTION WIDTH 17.3 % (11.6-13.7); WHITE BLOOD COUNT (AUTO) 20.8 K/uL (4.8-10.8)
--- NOTE | 2019-05-03 20:16 | NUR ---
X-Ray at bedside.
[2019-05-03 20:29] LABS: PROTHROMBIN TIME 9.5 secs (10.8-13.4)
[2019-05-03 20:31] LABS: ANION GAP 13.9 (8-16); CARBON DIOXIDE 27.3 mmol/L (21-32); CREATININE 2.9 mg/dL (0.7-1.3); POTASSIUM 5.2 mmol/L (3.5-5.1); TOTAL BILIRUBIN 0.8 mg/dL (0.0-1.0)
--- NOTE | 2019-05-03 20:40 | NUR ---
WITH IV CATHETER TO RIGHT UPPER ARM GAUGE 20, NS 500ML BOLUS INFUSING AT THIS TIME, PROTONIX GIVEN PER MD ORDERED, PT AWAKE, RR EVEN AND UNLABORED. NO FACIAL GRIMACING NOTED. WILL CONTINUE TO MONITOR CLOSELY.
--- NOTE | 2019-05-03 20:40 | NUR ---
Note tameka in EDM - 05/03/19 at 2131 by MEDAP WITH IV CATHETER TO RIGHT UPPER ARM GAUGE 20, NS 500ML BOLUS INFUSING AT THIS TIME, PROTONIX GIVEN PER MD ORDERED, PT AWAKE ALERT, RR EVEN AND UNLABORED. NO FACIAL GRIMACING NOTED. WILL CONTINUE TO MONITOR CLOSELY.
[2019-05-03] MEDS ORDERED: PIPERACILLIN/TAZOBACTAM 2.25 GM VIAL IV ONE (20:48)
[2019-05-03] MEDS ORDERED: VANCOMYCIN 1,000 MG VIAL ONE (20:48)
--- NOTE | 2019-05-03 20:50 | NUR ---
RIGHT UPPER ARM IV INFILTRATED, NS STOPPED. UNABLE TO INFUSE VANCOCIN ORDER AT THIS TIME, ATTEMPTED MULTIPLE IV INSERTION BUT UNSUCCESSFUL. ED MD DR. BOWENS MADE AWARE. WILL CONTINUE TO MONITOR AT THIS TIME.
--- NOTE | 2019-05-03 21:00 | NUR ---
DR BOWENS AT BEDSIDE, ATTEMPTED TO PUT IV LINE BUT UNSUCCESSFUL. MD ORDERED AND WILL PERFORM CENTRAL LINE INSERTION. CENTRAL LINE INSERTION TRAY PREPARED AT BEDSIDE. PT AWAKE, RR EVEN UNLABORED, VSS AT THIS TIME. WILL CONTINUE TO MONITOR CLOSELY.
--- NOTE | 2019-05-03 21:00 | NUR ---
Note tameka in EDM - 05/03/19 at [address] BOWENS AT BEDSIDE, ATTEMPTED TO PUT IV LINE BUT UNSUCCESSFUL. ORDERED AND WILL PERFORM CENTRAL LINE INSERTION. CENTRAL LINE INSERTION TRAY PREPARED. PT AWAKE AND ALERT, RR EVEN UNLABORED, VSS AT THIS TIME. WILL CONTINUE TO MONITOR CLOSELY.
[2019-05-03 21:33] LABS: EOSINOPHILS % (MANUAL) 1 % (0-4); LYMPHOCYTES % (MANUAL) 2 % (20-46); MONOCYTES % (MANUAL) 4 % (5-12)
[2019-05-03 21:42] VITALS: BP 85/52
--- NOTE | 2019-05-03 21:50 | NUR ---
DR. BOWENS AT BEDSIDE FOR CENTRAL LINE INSERTION, WITH 2RT'S ADA AND AG WYNN EMT AND TADEO RN ALSO AT BEDSIDE. MD TO INSERT AT RIGHT IJ. PT AWAKE, WITH VSS, RR EVEN UNLABORED, NO FACIAL GRIMACING
--- NOTE | 2019-05-03 22:00 | NUR ---
DR. BOWENS UNSUCCESFUL WITH IJ INSERTION. PT IN NO ACUTE RESPIRATORY DISTRESS. VSS, PT AWAKE. MD WILL INSERT FEMORAL CENTRAL LINE.
--- NOTE | 2019-05-03 22:20 | NUR ---
DR. BOWENS SUCCESSFULY PLACED LEFT FEMORAL CENTRAL LINE CATHETER WITH TRIPLE LUMEN. PT AWAKE, RR EVEN UNLABORED, NO RESPIRATORY DISTRESS AT THIS TIME. VS STABLE. WILL CONTINUE MONITOR CLOSELY.
[2019-05-03 22:22] LABS: APPEARANCE,URINE CLOUDY (CLEAR); BILIRUBIN,URINE NEGATIVE (NEGATIVE); BLOOD, URINE 3+ (NEGATIVE); COLOR,URINE RED (YELLOW); LEUKOCYTE ESTERASE ,URINE 3+ (NEGATIVE); NITRITE, URINE POSITIVE (NEGATIVE); PH,URINE 8.5 (5.0-9.0); UGLUCOSE NEGATIVE (NEGATIVE)
--- NOTE | 2019-05-03 22:40 | NUR ---
X-Ray at bedside.
[2019-05-03 22:45] LABS: HEMATOCRIT 27.4 % (36-52); HEMOGLOBIN 8.8 g/dL (12.0-18.0); MEAN CORPUSCULAR HEMOGLOBIN 30 pg (27-31); MEAN CORPUSCULAR HGB CONC 32 g/dL (33-37); MEAN CORPUSCULAR VOLUME 93.6 fL (80-94); PLATELET COUNT (AUTO) 226 K/uL (140-450); RED BLOOD CELL COUNT(AUTO) 2.93 MIL/uL (4.20-6.10)
[2019-05-03 22:53] LABS: RBC,URINE TOO NUMEROUS TO COUN /HPF (0-5); WBC,URINE TOO MANY TO COUNT /HPF (0-5)
[2019-05-03 22:58] LABS: WHITE BLOOD COUNT (AUTO) 20.6 K/uL (4.8-10.8)
[2019-05-03 22:59] LABS: LYMPHOCYTES % (MANUAL) 9 % (20-46); MONOCYTES % (MANUAL) 7 % (5-12)
--- NOTE | 2019-05-03 23:00 | NUR ---
REINSERTED NEW ROSAS CATHETER AT THIS TIME. PT TOLERATED PROCEDURE WELL, NO FACIAL GRIMACING NOTED, NO URINE OUTPUT AT THIS TIME. ED MD MADE AWARE WILL CONTINUE TO MONITOR CLOSELY.
[2019-05-03 23:05] VITALS: BP 90/60
--- NOTE | 2019-05-03 23:15 | NUR ---
PHOTOS OF THE SACRUM TAKEN AT THIS TIME.
[2019-05-03] MEDS ORDERED: HYDROcodone/APAP 7.5/325 MG 1 TAB PO PRN (23:20)
[2019-05-03] MEDS ORDERED: DOCUSATE SODIUM 100 MG GELCAP PO PRN (23:20)
[2019-05-03] MEDS ORDERED: ONDANSETRON 4 MG/2 ML VIAL IM/IVP PRN (23:20)
--- NOTE | 2019-05-03 23:40 | NUR ---
XRAY RESULT INFORMED DR. BOWENS FOR PLACEMENT VERIFICATION OF LEFT FEMORAL CENTRAL LINE.
[2019-05-03 23:42] LABS: BARBITURATE, URINE NEG. ng/ml (NEG <=200); BENZODIAZEPINE, URINE NEG. ng/mL (NEG <=200); CANNABINOID, URINE NEG. ng/mL (NEG <=50); COCAINE, URINE NEG. ng/mL (NEG <=300); OPIATE, URINE NEG. ng/mL (NEG <=2000); PHENCYCLIDINE SCREEN,URINE NEG. ng/mL (NEG <=25)
[2019-05-03] MEDS ORDERED: ALBUTEROL SULFATE/IPRATROPIU 3 ML SOL IH PRN (23:45)
--- NOTE | 2019-05-03 23:45 | NUR ---
MICHELLE PHILLIP MD ORDERED TO RESTART INFUSION AT THIS TIME PLACEMENT OF CENTRAL LINE VERIFIED BY MD. WILL CONTINUE TO MONITOR CLOSELY. VSS AT THIS TIME.
[2019-05-04] VITALS (20 sets, daily range): BP systolic 72–110; BP diastolic 33–77
[2019-05-04] MEDS ORDERED: NACL 0.9% 2,000 ML IV ONE (00:05)
[2019-05-04 00:06] LABS: FREE T4 (FREE THYROXINE) 0.94 ng/dL (0.76-1.46); MAGNESIUM 3.5 mg/dL (1.8-2.4); PHOSPHORUS 3.9 mg/dL (2.5-4.9); THYROID STIMULATING HORMONE 3.38 uIU/mL (0.34-3.74)
--- NOTE | 2019-05-04 00:10 | NUR ---
Elsy english in ED - 05/04/19 at 0052 by MEDAP MD ALINE MCGOVERN AT PATIENT BEDSIDE AND ED MD DR. BOWENS AWARE REGARDING PT LOW BLOOD PRESSURE.
--- NOTE | 2019-05-04 00:10 | NUR ---
MD RESIDENT DR MCGOVERN AND ED MD DR. BOWENS AT PT BEDSIDE ASSESSING THE PATIENT, INFORMED REGARDING PT LOW BP OF 76/64, OKAY TO TRANSFER TO ICU.
--- NOTE | 2019-05-04 00:20 | NUR ---
RECEIVED PT VIA GURNEY FROM ER. ACCOMPANIED BY RN TADEO, RT WYNN AND MD MCGOVERN. PT TRACH TO VENT WITH SETTINGS A/C VC FI02 50 VT 500 RATE 20 FLOW 50 PEEP 5. UNABLE TO MAKE NEEDS KNOWN. PUPILS SYMMETRICAL PERRL. LUNG SOUNDS CLEAR. SR RHYTHM ON MONITOR. PULSES PALPABLE IN ALL EXTREMITIES. BOWEL SOUNDS ACTIVE IN ALL 4 QUADS. FEMORAL LINE IN LEFT SIDE TRIPLE LUMEN. ROSAS CATHETER IN PLACE THAT HAS YELLOW CLOUDY URINE WITH SEDIMENT PRESENT PLACED BY ER. PT HAD BLACK STOOL FORMED AND SOFT THE SIZE OF CHRISTIAN. EXCORIATION NOTED ON SACRAL AREA. NO OPEN WOUNDS PRESENT. GTUBE INTACT. COLOR PINK AND WARM, DRY TO TOUCH. 01-100%-24-84/65-97.6.AFEBRILE .NURSE STATES SBP IS RUNNING IN THE 60S. ON NS BOLUS. WITHDRAWS TO PAIN. MRSA SWABS TAKEN TO LAB. HOB 30 DEGREES. SIDE RAILS UP. SAFETY PRECAUTIONS IN PLACE. PT SHOWING NO SIGNS OF DISTRESS AT THIS TIME. NO SOB NOTED. WILL CONTINUE TO MONITOR.
--- NOTE | 2019-05-04 00:20 | NUR ---
Note tameka in EDM - 05/04/19 at 0055 by RILEY Patient will be admitted to care of DR. POSADA. Admited to ICU. Will go to BED 5. Belongings list completed. Bedside report given to JESÚS Cheung .
--- NOTE | 2019-05-04 00:20 | NUR ---
Patient admitted and transferred to ICU under the care of DR. POSADA. Will go to ICU BED 5. Belongings list completed. Bedside report given to JESÚS Cheung .
[2019-05-04] MEDS ORDERED: NOREPINEPHRINE 8 MG in DEXTROSE 5% 250 ML IV PRN (00:30)
--- NOTE | 2019-05-04 01:27 | NUR ---
VENT CHECK DONE. VENT WHEELS LOCKED. VENT ALARMS ON AND AUDIBLE. AMBU BAG AT BEDSIDE. NO ACUTE RESPIRATORY DISTRESS AT THIS TIME. TITRATED FIO2 TO 50%, PULSE OX SAT 95%. RN NOTIFIED. WILL CONTINUE TO MONITOR.
[2019-05-04 02:39] LABS: HEMATOCRIT 22.7 % (36-52); MEAN CORPUSCULAR HEMOGLOBIN 30 pg (27-31); MEAN CORPUSCULAR HGB CONC 32 g/dL (33-37); MEAN CORPUSCULAR VOLUME 94.7 fL (80-94); PLATELET COUNT (AUTO) 153 K/uL (140-450); RED CELL DISTRIBUTION WIDTH 17.5 % (11.6-13.7)
[2019-05-04] MEDS: NACL 0.9% 1,000 ML IV SCH ×2 (02:51→11:51)
[2019-05-04] MEDS ORDERED: PHEN100C3 GT (03:25)
[2019-05-04] MEDS ORDERED: GLUCAGON 1 MG VIAL IVP PRN (03:30)
[2019-05-04] MEDS ORDERED: DEXTROSE 50% 50 ML SYR IVP PRN (03:30)
[2019-05-04] MEDS ORDERED: PIPERACILLIN/TAZOBACTAM 2.25 GM VIAL IV ONE (03:34)
--- NOTE | 2019-05-04 04:35 | NUR ---
CALLED AFTER HOURS PHARMACY, SPOKE WITH BESSIE. INFORMED HIM REGARDING THE PHENYTOIN LEVEL. PER PHARMACY, THEY WILL TAKE CARE OF IT. WILL ENDORSE TO THE NEXT SHIFT.
[2019-05-04 04:40] LABS: HEMOGLOBIN 7.3 g/dL (12.0-18.0); WHITE BLOOD COUNT (AUTO) 16.1 K/uL (4.8-10.8)
[2019-05-04 04:41] LABS: LYMPHOCYTES % (MANUAL) 7 % (20-46); MONOCYTES % (MANUAL) 4 % (5-12)
[2019-05-04] MEDS: methylPREDNISolone SS 125 MG/2 ML VIAL IVP SCH ×3 (05:17→21:13)
--- NOTE | 2019-05-04 05:35 | NUR ---
DR. JAMESON AND DR. MCGOVERN AT BEDSIDE TO ASSESS PT. STATUS UNDATED ON PATIENT TO .
--- NOTE | 2019-05-04 05:44 | NUR ---
DR. JAMESON AT BEDSIDE TO EXAMINE PT.
--- NOTE | 2019-05-04 05:45 | NUR ---
CALLED DR. MCGOVERN TO NOTIFY HIM THAT DR. JAMESON IS CURRENTLY IN THE UNIT TO SEE PT.
--- NOTE | 2019-05-04 05:50 | NUR ---
RT AT PT BEDSIDE
--- NOTE | 2019-05-04 05:50 | NUR ---
CALLED OIL PROSPECTING OBSERVER FOR OCREOTIDE SCHEDULED AT 0700
[2019-05-04] MEDS ORDERED: ALBUTEROL SULFATE/IPRATROPIU 3 ML SOL IH SCH (06:00)
[2019-05-04] MEDS ORDERED: PIPERACILLIN/TAZOBACTAM 2.25 GM in DEXTROSE 5% 50 ML IV SCH (06:00)
--- NOTE | 2019-05-04 06:04 | NUR ---
CALLED JAVI HUMPHREY, PT'S BROTHER, TO OBTAIN CONSENT FOR BLOOD TRANSFUSION. NO ONE ANSWERED. MESSAGED LEFT AND CALLBACK NUMBER LEFT.
--- NOTE | 2019-05-04 06:05 | NUR ---
CALLED [facility] HEARD MESSAGEJeffery LEFT. WILL ATTEMPT TO CALL AGAIN.
[2019-05-04] MEDS: BLOOD GLUCOSE MONITORING 1 DEV DEV FS SCH ×4 (06:53→21:12)
--- NOTE | 2019-05-04 07:11 | NUR ---
RECEIVED BEDSIDE REPORT FROM KNIFE SETTER GRINDER MACHINE RNMARLENE, FOR CONTINUITY OF CARE. PATIENT IS NONVERBAL, UNABLE TO MAKE NEEDS KNOWN OR FOLLOW COMMANDS. PATIENT SKIN IS WARM, DRY, AFEBRILE, NOT INTACT, HE HAS DTI TO LEFT BUTTOCKS. PATIENT HAS CENTRAL LINE TO LEFT FEMORAL, PATENT AND ASYMPTOMATIC. HE IS TRACT TO VENT, BREATHING IS EVEN AND UNLABORED. SR ON MONITOR, FLACC 0. HE HAS GT TO LUQ, 100ML RESIDUAL NOTED. PATIENT HAS ROSAS CATHETER IN PLACE TO CLOUDY BRIGHT YELLOW URINE. HOB IS 30 DEGREES, SIDE RAILS UP 3X, BED LOCKED IN LOW POSITION. SAFETY PRECAUTIONS AND ALARMS ASSESSED AND ENFORCED. NO SIGNS OF DISTRESS NOTED. WILL CONTINUE TO MONITOR
--- NOTE | 2019-05-04 07:56 | NUR ---
DR. POSADA AND RESIDENT PHYSICIANS AT BEDSIDE.
--- NOTE | 2019-05-04 08:06 | NUR ---
PATIENT HAS BEEN SCREENED AND CATEGORIZED HIGH NUTRITION RISK. PATIENT WILL BE SEEN WITHIN 1-2 DAYS OF ADMISSION. 05/04/19-05/05/[address]
[2019-05-04] MEDS: OCTREOTIDE ACETATE 1.25 MG in NACL 0.9% 250 ML IV SCH (08:11)
[2019-05-04] MEDS: POLYVINYL ALCOHOL 1.4% OP 15 ML SOL BOTH EYES SCH ×3 (08:11→17:00)
[2019-05-04] MEDS: PANTOPRAZOLE 40 MG INJ VIAL IVP SCH (08:11)
[2019-05-04] MEDS: LACTOBACILLUS RHAMNOSUS GG 1 EACH CAP GT SCH (08:12)
[2019-05-04] MEDS: ZINC SULF 220 MG CAP GT SCH (08:12)
[2019-05-04] MEDS: FAMOTIDINE 20 MG TAB GT SCH (08:12)
[2019-05-04] MEDS: MULTIVITAMIN/MINERALS 1 TAB GT SCH (08:12)
[2019-05-04] MEDS ORDERED: VANCOMYCIN PER PHARMACY MC PRN (08:15)
[2019-05-04] MEDS: Z-GUARD PASTE TP SCH ×3 (08:21→21:14)
[2019-05-04] MEDS: SCOPOLAMINE 1.5 MG/72 HR PATCH TD SCH (08:21)
[2019-05-04] MEDS ORDERED: PHENYTOIN 100 MG CAPER PO SCH ×3 (09:00)
[2019-05-04] MEDS ORDERED: NON-FORMULARY ITEM (Lactobacillus Acidophilus (Acidophilus) 1 CAP) GT SCH (09:00)
[2019-05-04] MEDS ORDERED: ASCORBIC ACID 500 MG TAB GT SCH (09:00)
[2019-05-04] MEDS ORDERED: NON-FORMULARY ITEM (Cranberry Fruit Concentrate (Cranberry) 450 MG) GT SCH (09:00)
[2019-05-04] MEDS ORDERED: ASPIRIN 81 MG TAB.CHEW GT SCH (09:00)
[2019-05-04] MEDS ORDERED: POLYVINYL ALCOHOL 1.4% OP 15 ML SOL OP SCH (09:00)
--- NOTE | 2019-05-04 10:20 | NUR ---
1 UNIT OF BLOOD TRANSFUSION STARTED. VITALS STABLE, WILL CONTINUE TO MONITOR
--- NOTE | 2019-05-04 11:51 | NUR ---
WOUND CARE EVALUATION NOTE: REASON FOR EVALUATION: LOW JESSICA SCALE AND SACRALCOCCYX WOUND SKIN ASSESSMENT DONE WITH THIS 58 Y/O MALE PT ADMITTED FROM [facility] TO [facility] WITH INITIAL DX ABNORMAL LAB. PAST MEDICAL HX INCLUDES HTN, DM, TRACH, CHRONIC PRESSURE ULCER WOUNDS, G-TUBE. ALL ABOVE INFORMATION OBTAINED FROM ADMISSION H&P. PT. HAS CHRONIC PRESSURE ULCER, RECENT RECORD FROM [facility] WITH STAGE SACRALCOCCYX STAGE 3 PRESSURE ULCER. PT ADMITTED WITH DEEP TISSUE INJURY TO LEFT BUTTOCK AND STAGE 1 TO RIGHT HEEL ON THIS ADMISSION PT SKIN IS WARM AND DRY, BLE HAIR GROWTH, NO EDEMA. DORSAL PEDAL PULSES PRESENT AND NORMAL. CAPILLARY REFILLED < 2 SEC. X 10 TOES. F/C PATENT WITH SMALL AMOUNT YELLOW COLOR URINE OUT PUT OBSERVED. PLAN OF CARE DISCUSSED WITH PRIMARY RN. AND DR. WONG. INTEGUMENTARY: -TRACH SITE BRADLEY STOMA SKIN DRY AND CLEAN. SKIN INTACT. -GT SITE BRADLEY STOMA WITH SKIN INTACT. -ABDOMEN DISTENDED, SOFT WITH MULTIPLE PURPLE DISCOLORATION -MOISTURE ASSOCIATE DERMATITIS (MAD) TO: RIGHT BUTTOCK AND B/L GROINS EXTENDED TO PERINEUM, SKIN REDNESS -PRESSURE ULCER INJURY PREVIOUS STAGE 3 TO SACROCOCCYX WITH PARTIAL THICKNESS SKIN LOSS 1X0.5 CM SUPERFICIAL DEPTH, WOUND BED 100% GRANULATING , MOIST, NO ODOR, BRADLEY-WOUND SKIN INTACT WITH SURROUNDING REDNESS EXTENDED TO LEFT BUTTOCK INDICATED FURTHER DAMAGE -DEEP TISSUE INJURY TO LEFT BUTTOCKS WITH MEASUREMENT OF 4X3CM, SKIN INTACT, 100% MAROON AND SURROUNDING REDNESS INDICATED WITH FURTHER DAMAGE -PRESSURE ULCER INJURY UN-STAGEABLE TO RIGHT LATERAL MALLEOLUS 1X1CM, BROWN SCAB, BRADLEY WOUND SKIN INTACT. -RIGHT HEEL PRESSURE ULCER INJURE STAGE 1 WITH 3X3CM NON-BLANCHABLE REDNESS MUSHY, SKIN INTACT -RIGHT KNEE OLD HEALED SCAR WITH A BROWN SCAB 0.5X0.5CM, BRADLEY-WOUND SKIN INTACT -LEFT HALLUX BROWN SCAB, BRADLEY WOUND SKIN INTACT. RECOMMENDATIONS: -CLEANSE WITH SOAP AND WATER, PAT DRY, APPLY Z GUARD TO RIGHT BUTTOCK AND R/L GROINS EXTENDED TO PERINEUM BID AND PRN IF SOILING -PAINT LEFT HALLUX AND RIGHT LATERAL MALLEOLUS WITH BETADINE SOLUTION BID AND STUDY DIRECTOR -CLEANSE SACRALCOCCYX WITH WOUND CLEANSING SOLUTION AND APPLY Z GUARD COVER WITH OPTIFOAM DRESSING QD AND PRN IF SOILING -CLEANSE LEFT BUTTOCK WITH WOUND CLEANSING SOLUTION AND PAT DRY, COVER WITH OPTIFOAM DRESSING QD AND PRN IF SOILING -APPLY HEEL PROTECTORS TO BOTH HEELS AT ALL TIMES -OFFLOAD BILATERAL HEELS BY PLACING PILLOWS UNDER CALVES UNLESS OTHERWISE CONTRAINDICATED -PRESSURE REDISTRIBUTION SURFACE THERAPY -TURN AND REPOSITION Q2H, OFFLOAD SACRALCOCCYX AND BUTTOCKS BY TURNING RIGHT AND LEFT -CONTINUE TO FOLLOW RD RECOMMENDATIONS ALL ABOVE RECOMMENDATIONS DISCUSSED WITH PRIMARY RN. WILL FOLLOW UP PT Q7-10 DAYS. PLEASE CONTACT WOUND CARE NURSE FOR ANY QUESTION AND CHANGE OF WOUND CONDITION.
--- NOTE | 2019-05-04 12:55 | NUR ---
FIRST UNIT OF BLOOD TRANSFUSION COMPLETE, PATIENT TOLERATED WELL.
--- NOTE | 2019-05-04 12:55 | NUR ---
STARTED 2ND UNIT OF BLOOD TRANSFUSION, PATIENT IS AFEBRILE, VITALS STABLE, WILL CONTINUE TO MONITOR.
[2019-05-04] MEDS: ALBUTEROL SULFATE/IPRATROPIU 3 ML SOL IH SCH ×2 (12:58→19:19)
[2019-05-04] MEDS: GAUZE TP SCH (13:22)
--- NOTE | 2019-05-04 13:28 | NUR ---
PROVIDED WOUND CARE, APPLIED BETADINE TO RIGHT MALLEOLUS AND LEFT AND RIGHT HALLUX. PATIENT TOLERATED WELL
--- NOTE | 2019-05-04 14:32 | NUR ---
05/04/19 RD INITIAL ASSESSMENT COMPLETED PLEASE REFER TO NUTRITION ASSESSMENT UNDER CARE ACTIVITY FOR ESTIMATED NUTRITIONAL NEEDS. 1. CONTINUE NPO MEDICALLY NECESSARY 2. WHEN PATIENT IS MEDICALLY STABLE CONSIDER INITIATING TUBE FEEDING WITH VITAL AF 1.2 @ 55 ML/HR GOAL RATE AND PROSOURCE BID. -START AT 10 ML/HR, ADVANCE BY 15 ML/HR Q6H. -THIS WILL PROVIDE 1320 ML OF VOLUME, 1704 KCAL, AND 129 GM OF PROTEIN, MEETING 100% OF ESTIMATED NEEDS. 3. CONTINUE VITAMIN C, MVI AND ZINC SULFATE FOR PRESSURE ULCERS 4. RD TO FOLLOW-UP 2-3 DAYS, HIGH RISK DEUCE KNIGHT RD
--- NOTE | 2019-05-04 15:52 | NUR ---
PT NOT IN ANY DISTRESS AT THIS TIME. PT SUCTIONED OBTAINED MODERATE AMOUNT OF THICK YELLOW SECRETIONS, AIRWAY IS PATENT AND TRACH IS SECURE. WILL CONTINUE TO MONITOR.
--- NOTE | 2019-05-04 16:05 | NUR ---
DR. NAPIER IN TO SEE PATIENT, UPDATED ON PATIENT'S CONDITION. STATES THAT THE NEED FOR SURGERY AT THIS TIME IS NOT URGENT.
[2019-05-04 17:50] LABS: BASOPHILS % (AUTO) 0.3 % (0.0-2.0); HEMOGLOBIN 8.4 g/dL (12.0-18.0); LYMPHOCYTES # (AUTO) 0.5 K/uL (2.0-11.5); LYMPHOCYTES % (AUTO) 4.9 % (20.5-51.1); MEAN CORPUSCULAR HEMOGLOBIN 30 pg (27-31); MEAN CORPUSCULAR HGB CONC 32 g/dL (33-37); MEAN CORPUSCULAR VOLUME 93.9 fL (80-94); MONOCYTES # (AUTO) 0.7 K/uL (0.8-1.0); MONOCYTES % (AUTO) 6.2 % (1.7-9.3); NEUTROPHILS # (AUTO) 9.8 K/uL (1.8-7.7); NEUTROPHILS % (AUTO) 88.6 % (42.2-75.2); PLATELET COUNT (AUTO) 112 K/uL (140-450); RED BLOOD CELL COUNT(AUTO) 2.76 MIL/uL (4.20-6.10); RED CELL DISTRIBUTION WIDTH 17.6 % (11.6-13.7); WHITE BLOOD COUNT (AUTO) 11.1 K/uL (4.8-10.8)
[2019-05-04] MEDS: DEXT 5% /NACL 0.9% 1,000 ML IV SCH (18:00)
[2019-05-04] MEDS: MEROPENEM 500 MG in NACL 0.9% 50 ML IV SCH (18:14)
--- NOTE | 2019-05-04 18:15 | NUR ---
PT NOT IN ANY DISTRESS AT THIS TIME. VENT ALARMS ON AND FUNCTIONING. TRACH IS SECURE WITH A PATENT AIRWAY.
--- NOTE | 2019-05-04 19:17 | NUR ---
ENDORSED CONTINUITY OF CARE TO LEAD PL SQL DEVELOPER RNMARLENE. NO SIGNS OF DISTRESS AT THIS TIME
--- NOTE | 2019-05-04 19:30 | NUR ---
RECEIVED REPORT FROM MORNING RN, GERARDO, FOR CONTINUITY OF CARE. VS STABLE AT THIS TIME. AFEBRILE. PERRL. FLACC 0. PT UNABLE TO MAKE NEEDS KNOWN. ALSO UNABLE TO FOLLOW COMMANDS. EYES OPEN SPONTANEOUSLY. TRACH TO VENT WITH SETTINGS A/C VC FIO2 40%, VT 500, RR20, AND PEEP 5. RESPIRATIONS ARE EVEN AND UNLABORED. CHEST RISE SYMMETRIC. LUNG SOUNDS COARSE HEARD ALL THROUGHOUT. OXYGEN SATURATION WNL. S1+S2 HEARD. PULSES ARE PALPABLE IN ALL EXTREMITIES. SR ON MONITOR. ABDOMEN ROUND, SOFT AND NONDISTENDED. GT IN PLACE. DRESSING CLEAN, DRY AND INTACT. NO RESIDUAL ASPIRATED AT THIS TIME. BS ACTIVE IN ALL QUADRANTS. PT CURRENTLY NPO EXCEPT MEDS. ROSAS CATHETER IN PLACE. CURRENTLY DRAINING CLOUDY AND YELLOW URINE. NO BLADDER DISTENTION NOTED. NO BM AT THIS TIME. SKIN IS WARM AND DRY TO TOUCH. DRESSINGS ARE CLEAN, DRY AND INTACT. PT HAS LEFT FEMORAL TRIPLE LUMEN CENTRAL LINE. ALL DRESSING CLEAN, DRY AND INTACT. PT CURRENTLY HAS D5NS AT 100ML/HR. HOB AT 30 DEGREES. ALL SAFETY PRECAUTIONS ARE IN PLACE. BED AT LOW POSSIBLE POSITION. ORAL CARE PROVIDED TO PT. CALL LIGHT WITHIN REACH AND WILL CONTINUE TO MONITOR PT.
--- NOTE | 2019-05-04 20:17 | NUR ---
DR. CASTELLON AT BEDSIDE TO EXAMINE PT. UPDATED HIM REGARDING PT'S CONDITION. PER DR. CASTELLON CONTINUE WITH CURRENT ABX THERAPY.
[2019-05-04] MEDS ORDERED: VANCOMYCIN 1GM/DEXT 5% PREMIX 200 ML IV SCH (20:45)
[2019-05-04] MEDS: LINEZOLID 600MG PREMIX 300 ML IV SCH (21:13)
--- NOTE | 2019-05-04 21:33 | NUR ---
2130 LOWERED FIO2 TO 30% ON VENT
--- NOTE | 2019-05-04 22:40 | NUR ---
VS REMAINS STABLE AT THIS TIME. SR ON MONITOR. NO BM NOTED AT THIS TIME. RESPIRATIONS ARE EVEN AND UNLABORED. NO EPISODE OF VOMITING AT THIS TIME. FLACC 0. PT DOES NOT APPEAR TO BE EXPERIENCING ANY DISCOMFORT AT THIS TIME. WILL CONTINUE TO MONITOR PT.
[2019-05-05] VITALS (22 sets, daily range): BP systolic 105–147; BP diastolic 62–90
--- NOTE | 2019-05-05 00:18 | NUR ---
AFEBRILE. SR ON MONITOR. VS REMAINS STABLE. PT TURNED AND REPOSITIONED. ORAL CARE PROVIDED. HOB KEPT AT 30 DEGREES. RESPIRATIONS EVEN AND UNLABORED. NO BM NOTED. ALL SAFETY PRECAUTIONS ARE IN PLACE. WILL CONTINUE TO MONITOR PT.
[2019-05-05] MEDS: DEXT 5% /NACL 0.9% 1,000 ML IV SCH ×2 (01:35→17:58)
--- NOTE | 2019-05-05 02:45 | NUR ---
NO CHANGE IN PT'S CONDITION AT THIS TIME. PT TURNED AND REPOSITIONED. RESPIRATIONS EVEN AND UNLABORED. CHEST RISE SYMMETRIC. FLACC 0. PT DOES NOT APPEAR TO BE EXPERIENCING ANY DISCOMFORT AT THIS TIME. ALL SAFETY PRECAUTIONS IN PLACE. WILL CONTINUE TO MONITOR PT.
--- NOTE | 2019-05-05 04:55 | NUR ---
MORNING CARE PROVIDED TO PT. TOLERATED BEING TURNED AND REPOSITIONED FAIRLY. PT HAD ONE BM THAT IS FORMED AND DARK GREEN IN COLOR. VAP ORAL CARE PROVIDED. ROSAS CATHETER CARE. PT HAD ADEQUATE URINE OUTPUT. LEFT FEMORAL CENTRAL LINE INTACT WITH CLEAN AND DRY DRESSING.
[2019-05-05] MEDS: MEROPENEM 500 MG in NACL 0.9% 50 ML IV SCH ×2 (05:50→17:57)
[2019-05-05] MEDS: methylPREDNISolone SS 125 MG/2 ML VIAL IVP SCH ×3 (05:50→20:22)
[2019-05-05] MEDS: BLOOD GLUCOSE MONITORING 1 DEV DEV FS SCH ×4 (06:39→20:22)
[2019-05-05] MEDS: ALBUTEROL SULFATE/IPRATROPIU 3 ML SOL IH SCH ×3 (07:03→18:37)
--- NOTE | 2019-05-05 07:05 | NUR ---
RECEIVED PT ON CARESCAPE ON DOCUMENTED SETTINGS, ALARMS ARE ON AND AUDIBLE, PTS TRACH SHILEY 6 IS SECURE, PT IN HF QUIET, BMV HOB, VENT PLUGGED INTO RED OUTLET
--- NOTE | 2019-05-05 08:00 | NUR ---
RECEIVED PATIENT WITH TRACHEOSTOMY CONNECTED TO VENTILATOR ON AC MODE FIO2 30% TIDAL VOLUME 500 RATE 20 PEEP 5, WITH PEG TUBE CLAMPED NPO EXCEPT MEDICATIONS, WITH FEMORAL CATHETER TRIPLE LUMEN CENTRAL LINE-SITE ASYMPTOMATIC, D5NS 100ML/HR. AND SANDOSTATIN 10ML/HR INFUSING ON SEPARATE PORTS
[2019-05-05] MEDS: ASCORBIC ACID 500 MG/5 ML ORASYR GT SCH (08:45)
[2019-05-05] MEDS: LACTOBACILLUS RHAMNOSUS GG 1 EACH CAP GT SCH (08:45)
[2019-05-05] MEDS: PANTOPRAZOLE 40 MG INJ VIAL IVP SCH (08:45)
[2019-05-05] MEDS: MULTIVITAMIN/MINERALS 1 TAB GT SCH (08:45)
[2019-05-05] MEDS: LINEZOLID 600MG PREMIX 300 ML IV SCH ×2 (08:46→20:22)
[2019-05-05] MEDS: ZINC SULF 220 MG CAP GT SCH (08:46)
[2019-05-05] MEDS: FAMOTIDINE 20 MG TAB GT SCH (08:46)
[2019-05-05] MEDS: OCTREOTIDE ACETATE 1.25 MG in NACL 0.9% 250 ML IV SCH ×2 (08:47→13:30)
[2019-05-05] MEDS: Z-GUARD PASTE TP SCH ×3 (08:47→20:22)
[2019-05-05] MEDS: POLYVINYL ALCOHOL 1.4% OP 15 ML SOL BOTH EYES SCH ×3 (09:00→17:58)
[2019-05-05 10:12] LABS: HEMATOCRIT 23.7 % (36-52); HEMOGLOBIN 7.9 g/dL (12.0-18.0); MEAN CORPUSCULAR HEMOGLOBIN 31 pg (27-31); MEAN CORPUSCULAR HGB CONC 33 g/dL (33-37); MEAN CORPUSCULAR VOLUME 92.8 fL (80-94); PLATELET COUNT (AUTO) 125 K/uL (140-450); RED BLOOD CELL COUNT(AUTO) 2.55 MIL/uL (4.20-6.10); RED CELL DISTRIBUTION WIDTH 17.4 % (11.6-13.7); WHITE BLOOD COUNT (AUTO) 7.9 K/uL (4.8-10.8)
[2019-05-05 10:29] LABS: BASOPHILS % (MANUAL) 0 % (0-2); EOSINOPHILS % (MANUAL) 0 % (0-4); LYMPHOCYTES % (MANUAL) 3 % (20-46); MONOCYTES % (MANUAL) 3 % (5-12)
[2019-05-05 10:33] LABS: ANION GAP 13.1 (8-16); CARBON DIOXIDE 22.1 mmol/L (21-32); CREATININE 2.7 mg/dL (0.7-1.3); POTASSIUM 4.2 mmol/L (3.5-5.1)
[2019-05-05] MEDS: GAUZE TP SCH (13:08)
--- NOTE | 2019-05-05 14:30 | NUR ---
DR. LOPEZ AT BEDSIDE
[2019-05-05] MEDS: INSULIN LISPRO SLIDING SCALE 100 UNITS/ML VIAL SUBQ PRN ×2 (16:42→21:45)
--- NOTE | 2019-05-05 19:02 | NUR ---
REPORT GIVEN TO NIGHT RN
--- NOTE | 2019-05-05 19:15 | NUR ---
RECEIVED REPORT FROM DAYSHIFT NURSE. WILL CONTINUE CLOSE MONITORING
--- NOTE | 2019-05-05 19:23 | NUR ---
PT FOUND ON CHARTED SETTINGS. TX GIVEN INLINE W/O ADVERSE EFFECT. VENTILATOR PLUGGED INTO RED OUTLET. ALARMS SET APPROPRIATELY AND AUDIBLE. AIRWAY PATENT AND SECURE. NO OTHER CHANGES MADE AT THIS TIME. PT RESTING AND IN NO DISTRESS. WILL MONITOR.
--- NOTE | 2019-05-05 20:05 | NUR ---
RECEIVED PT RESTING COMFORTABLY IN BED, EYES OPEN, CANNOT FOLLOW COMMANDS OR MAKE NEEDS KNOWN. NO EYE CONTACT OR TRACKING. PERRL BRISK 3MM. SKIN WARM AND DRY. TEMP-98.7, HR-96, M4OMW-14%, RR-26, BP-121/75. PT IS TRACH TO VENT, FI02 30%, TV-500, RATE 20, PEEP 5. PATIENT HAS A LEFT FEMORAL CENTRAL LINE TRIPLE LUMEN, CONNECTED TO SANDOSTATIN @ 10ML/HR AND D5NS 100ML. PEG TUBE IN PLACE, CLAMPED, NPO EXCEPT MEDS. ABDOMEN SOFT, NONTENDER, ACTIVE BOWEL SOUNDS. LUNG SOUNDS CLEAR IN UPPER LOBES, RHONCHI IN LOWER LOBES. S1S2. ROSAS CATHETER IN PLACE, CLEAR, DARK YELLOW URINE NOTED. SKIN NOT INTACT, RIGHT FOOT/ANKLE AND SACRUM/BUTTOCKS HAVE DEEP TISSUE INJURY. HOB ELEVATED 30 DEGREES, SIDERAILS UP, BED LOCKED AND IN LOW POSITION.
--- NOTE | 2019-05-05 20:35 | NUR ---
PATIENT TURNED AND REPOSITIONED, FLACC 0. NO CHANGES IN CONDITION. Addendum: 05/06/19 at 0654 by Elsy Sommer RN TIME ENTERED INCORRECT, CORRECT TIME IS 2234 NOT 2034
--- NOTE | 2019-05-05 20:35 | NUR ---
DR. CASTELLON AT BEDSIDE TO GET UPDATES AND TO ASSESS PATIENT.
--- NOTE | 2019-05-05 20:40 | NUR ---
VAP ORAL CARE PROVIDED, PATIENT REPOSITIONED, PRESSURE SITES OFFLOADED WITH PILLOWS, HEEL PROTECTORS IN PLACE.
[2019-05-06] VITALS (24 sets, daily range): BP systolic 135–179; BP diastolic 68–112
--- NOTE | 2019-05-06 00:16 | NUR ---
PT AT BED RESTING, EYES CLOSED, BREATHING REGULARLY. HOB AT 30 DEGREES, SIDE RAILS UP X2, CALL LIGHT WITHIN REACH.
--- NOTE | 2019-05-06 00:30 | NUR ---
VAP ORAL CARE PROVIDED, PATIENT SUCTIONED, SMALL AMOUNT OF CREAMY SECRETIONS NOTED. PATIENTS EYES OPEN SPONTANEOUSLY, CANNOT FOLLOW COMMANDS.
--- NOTE | 2019-05-06 02:40 | NUR ---
PATIENT HAS PRODUCTIVE COUGH, SUCTIONED ORALLY AND TRACHEALLY, WHITE CREAMY SECRETIONS NOTED, AWARE OF NOT INSERTING TRACH TOO FAR. PATIENT TURNED AND PROVIDED SKIN CARE, TOLERATED FAIRLY. BLOOD PRESSURE INCREASED BUT ONCE REPOSITIONED, BLOOD PRESSURE RETURNED WNL. NO CHANGES IN CONDITION.
--- NOTE | 2019-05-06 04:45 | NUR ---
SPONGE BATH GIVEN, BRADLEY CARE, ROSAS CATHETER CARE, VAP ORAL CARE PROVIDED, SMALL BM, SMEAR, SOFT, AND BROWN. AFEBRILE, VITAL SIGNS WNL. ROSAS EMPTIED WITH 1420 OUTPUT, SEDIMENT NOTED, YELLOW URINE.
[2019-05-06 06:14] LABS: BASOPHILS % (AUTO) 0.1 % (0.0-2.0); MONOCYTES # (AUTO) 0.7 K/uL (0.8-1.0); NEUTROPHILS # (AUTO) 6.1 K/uL (1.8-7.7)
[2019-05-06] MEDS: methylPREDNISolone SS 125 MG/2 ML VIAL IVP SCH (06:16)
[2019-05-06] MEDS: DEXT 5% /NACL 0.9% 1,000 ML IV SCH ×3 (06:17→19:05)
[2019-05-06] MEDS: MEROPENEM 500 MG in NACL 0.9% 50 ML IV SCH ×2 (06:17→17:13)
[2019-05-06 06:38] LABS: HEMOGLOBIN 8.4 g/dL (12.0-18.0); LYMPHOCYTES # (AUTO) 0.5 K/uL (2.0-11.5); MEAN CORPUSCULAR HEMOGLOBIN 31 pg (27-31); MEAN CORPUSCULAR HGB CONC 34 g/dL (33-37); MEAN CORPUSCULAR VOLUME 93.7 fL (80-94); PLATELET COUNT (AUTO) 142 K/uL (140-450); RED BLOOD CELL COUNT(AUTO) 2.66 MIL/uL (4.20-6.10); RED CELL DISTRIBUTION WIDTH 17.3 % (11.6-13.7); WHITE BLOOD COUNT (AUTO) 7.4 K/uL (4.8-10.8)
[2019-05-06 06:42] LABS: ANION GAP 14.4 (8-16); CARBON DIOXIDE 23.2 mmol/L (21-32); CREATININE 2.4 mg/dL (0.7-1.3); POTASSIUM 3.6 mmol/L (3.5-5.1)
[2019-05-06] MEDS: ALBUTEROL SULFATE/IPRATROPIU 3 ML SOL IH SCH ×3 (06:43→19:56)
--- NOTE | 2019-05-06 06:43 | NUR ---
REC'D PT ON CARESCAPE VENT SETTINGS AC20 VT 500 PEEP5 FIO2 30% ALARMS ON AND AUDIBLE AND AMBU BAG AT SIDE OF VENT AND VENT IS PLUGGED INTO RED OUTLET, I\L TX GIVEN WITH DUONEB 3ML WITH NO ADVERSE REACTION POST TX B\S ARE RHONCHI BILATERALLY, SXN PT MODERATE AMT OF YELLOW SECRETIONS, PT IS TRACH WITH SHILEY 6 AND SKIN INTEGRITY IS INTACT PT IS RESTING
--- NOTE | 2019-05-06 07:30 | NUR ---
RECEIVED BEDSIDE REPORT FROM FOREST PATHOLOGIST RN, PT AWAKE, OPEN EYES ONLY, APHASIC, UNABLE TO FOLLOW COMMANDS AND MAKE NEEDS KNOWN, VSS, FLACC 0, TRACH TO VENT WITH AC FIO2 30, TV 500, R 20, PEEP 5, COUGHING NOTED, SUCTION PROVIDED, RHONCHI LUNG SOUNDS YOVANI. SR ON BELT LOOP MAKER, CAP REFILL <3 S, SOFT ABDOMEN WITH ACTIVE BOWEL SOUNDS, GT IN PLACE, PATENT, NPO EXCEPT MEDS AT THIS TIME. NO RESIDUALS. ROSAS CATHETER IN PLACE, CLEAR YELLOW URINE VIA GRAVITY, SKIN IS WARM AND DRY TO TOUCH, OPEN WOUND PRESENT (SEE WOUND ASSESSMENT), CENTRAL LINE TO LEFT FEMORAL, TLC, PATENT, RUNNING SANDOSTATIN AT 10ML/HR AND D5 NS AT 100ML/HR. UNABLE TO MOVE ALL EXTREMITIES, BEDBOUND, HOB ELEVATED TO 30 DEGREES, SAFETY MEASURE IN PLACE, ORAL CARE PROVIDED, POSITION CHANGED FOR OFF LOAD PRESSURE, WILL CONTINUE TO MONITOR.
[2019-05-06 07:32] LABS: LYMPHOCYTES % (AUTO) 7.2 % (20.5-51.1); MONOCYTES % (AUTO) 10.2 % (1.7-9.3); NEUTROPHILS % (AUTO) 82.5 % (42.2-75.2)
[2019-05-06] MEDS: BLOOD GLUCOSE MONITORING 1 DEV DEV FS SCH ×4 (07:34→21:14)
[2019-05-06] MEDS: INSULIN LISPRO SLIDING SCALE 100 UNITS/ML VIAL SUBQ PRN ×3 (07:34→16:58)
--- NOTE | 2019-05-06 08:45 | NUR ---
SCHEDULED MEDICATION GIVEN VIA GT, PT TOLERATED WELL.
[2019-05-06] MEDS: LINEZOLID 600MG PREMIX 300 ML IV SCH ×2 (08:47→21:21)
[2019-05-06] MEDS: ZINC SULF 220 MG CAP GT SCH (08:47)
[2019-05-06] MEDS: MULTIVITAMIN/MINERALS 1 TAB GT SCH (08:47)
[2019-05-06] MEDS: ASCORBIC ACID 500 MG/5 ML ORASYR GT SCH (08:47)
[2019-05-06] MEDS: PANTOPRAZOLE 40 MG INJ VIAL IVP SCH (08:47)
[2019-05-06] MEDS: FAMOTIDINE 20 MG TAB GT SCH (08:48)
[2019-05-06] MEDS: LACTOBACILLUS RHAMNOSUS GG 1 EACH CAP GT SCH (08:48)
[2019-05-06] MEDS: Z-GUARD PASTE TP SCH ×3 (08:48→21:22)
[2019-05-06] MEDS: POLYVINYL ALCOHOL 1.4% OP 15 ML SOL BOTH EYES SCH ×3 (08:48→16:57)
--- NOTE | 2019-05-06 09:15 | NUR ---
DR. MATHIS CAME IN TO SEE PT AT BEDSIDE, UPDATED PT'S CONDITION, STATED KEEP PT IN ICU AT THIS TIME, RESUME TUBE FEEDING FROM [facility], WILL FOLLOW UP WITH NEW ORDERS.
--- NOTE | 2019-05-06 10:00 | NUR ---
NO S/S OF DISTRESS, COUGHING NOTED, SUCTION PROVIDED, VSS, FLACC 0, POSITION CHANGED FOR OFF LOAD PRESSURE.
--- NOTE | 2019-05-06 12:00 | NUR ---
NO S/S OF DISTRESS, VSS. FLACC 0, SUCTION PROVIDED, TUBE FEEDING STARTED AT 10ML/HR ORDERED, ORAL CARE PROVIDED, POSITION CHANGED FOR OFF LOAD PRESSURE.
--- NOTE | 2019-05-06 12:14 | NUR ---
DR. LOPEZ CAME IN TO SEE PT AT BEDSIDE, NO NEW ORDER AT THIS TIME.
[2019-05-06] MEDS: GAUZE TP SCH (12:25)
--- NOTE | 2019-05-06 13:00 | NUR ---
WOUND CARE PROVIDED, PT TOLERATED WELL.
--- NOTE | 2019-05-06 14:00 | NUR ---
NO CHANGE OF CONDITION, VSS. FLACC 0, POSITION CHANGED FOR OFF LOAD PRESSURE.
--- NOTE | 2019-05-06 16:00 | NUR ---
PM CARE AND F/C CARE PROVIDED, ORAL CARE PROVIDED WITH SUCTION, POSITION CHANGED FOR OFF LOAD PRESSURE.
--- NOTE | 2019-05-06 19:23 | NUR ---
REPORT GIVEN TO BRANDING SPECIALIST NURSE AT BEDSIDE FOR CONTINUE OF CARE, PT IS IN STABLE CONDITION AT THIS TIME.
--- NOTE | 2019-05-06 19:30 | NUR ---
RECEIVED REPORT FROM AM NURSE, PT AT BED EYES CLOSED, BREATHING REGULARLY, PERRL 3MM, HEART RATE REGULAR, S1S2 PRESENT, CAP REFILL <3S, LUNG SOUNDS CRACKLES ON BILATERAL UPPER LOBES, DIMINISHED AT BASES, PT ON TRACH TO VENT, AC/VC, FI02 30%, RR 20, TV 500, FLOW 50, PEEP 5, ABDOMEN, SOFT ROUND, NONDISTENDED, PEG TUBE IN PLACE, GLUCERNA 1.2 RUNNING AT 20 ML/HR, BLADDER SOFT, ROUND, NONTENDER, NONDISTENDED, ROSAS CATHETER IN PLACE, GENERALIZED WEAKNESS, LEFT FEMORAL CENTRAL LINE IN PLACE, TRIPLE LUMEN, D5 NS RUNNING AT 5 ML/HR. SKIN NON INTACT,SACRAL INCONTINENT DERMATITIS, OPTIFOAM DRESSING IN PLACE, HOB AT 30 DEGREES, SIDERAILS UP X2, CALL LIGHT WITHIN REACH.
--- NOTE | 2019-05-06 22:31 | NUR ---
PT AT BED RESTING, EYES CLOSED, BREATHING REGULARLY. HOB AT 30 DEGREES, SIDE RAILS UP X2, CALL LIGHT WITHIN REACH.
[2019-05-07] VITALS (24 sets, daily range): BP systolic 88–178; BP diastolic 60–106
--- NOTE | 2019-05-07 00:27 | NUR ---
VAP ORAL CARE PERFORMED. SUCTION MODERATE AMOUNT OF WHITE THICK SECRETIONS. PT TOLERATED PROCEDURE WELL.
--- NOTE | 2019-05-07 04:15 | NUR ---
SUCTIONED PATIENT, PERFORMED VAP ORAL CARE, SCANT WHITE MUCOUS SUCTIONED. PT TOLERATED PROCEDURE WELL.
[2019-05-07] MEDS: MEROPENEM 500 MG in NACL 0.9% 50 ML IV SCH ×2 (05:19→17:25)
[2019-05-07] MEDS: DEXT 5% /NACL 0.9% 1,000 ML IV SCH ×3 (05:19→17:35)
[2019-05-07] MEDS: ALBUTEROL SULFATE/IPRATROPIU 3 ML SOL IH SCH ×3 (06:25→18:43)
--- NOTE | 2019-05-07 06:25 | NUR ---
RECEIVED PT ON CARESCAPE ON DOCUMENTED SETTINGS, ALARMS ARE ON AND AUDIBLE, PTS TRACH PORTEX 7 IS SECURE, [PT IN HF QUIET, HHN GIVEN I\L WITH 3 MG DUONEB, BS CHANTE , HHN GVIEN I\L WITH 3 MG DUONEB, BMV HOB, VENT PLUGGED INTO RED OUTLET Addendum: 05/07/19 at 0737 by Bernadine Balderas RT PT HAS NAHUN Evangelista TRACH
--- NOTE | 2019-05-07 07:25 | NUR ---
CHANGE OF SHIFT REPORT GIVEN TO AM NURSE. PT AT STABLE CONDITION AT THIS TIME.
--- NOTE | 2019-05-07 07:30 | NUR ---
RECEIVED REPORT FROM JESÚS EPPS. PT. OPENS EYES BUT DOES NOT FOLLOW COMMANDS. TRACH TO VENT, TV 500, FI02 30%, AC 20/MIN, PEEP 5. FEW RHONCHI HEARD ON AUSCULTATION. SUCTIONED MOD AMT. CREAMY SECRETIONS VIA TRACH. LARGE AMT OF THICK YELLOWISH SECRETIONS ORALLY. TLC VIA LEFT FEMORAL AREA. SITE CARE DONE. DRESSINGS CHANGED. IV D5 0.9 NS INFUSING AT 100 ML/HR. ROSAS CATH INTACT AND PATENT DRAINING TO CLEAR YELLOW URINE.
--- NOTE | 2019-05-07 08:00 | NUR ---
TEMP 101.6 VIA TEMPORAL ARTERY AREA. TEPID SPONGE BATH GIVEN. COLD COMPRESS APPLIED TO FOREHEAD.
[2019-05-07] MEDS: BLOOD GLUCOSE MONITORING 1 DEV DEV FS SCH ×4 (08:30→21:08)
[2019-05-07] MEDS: PANTOPRAZOLE 40 MG INJ VIAL IVP SCH (08:41)
[2019-05-07] MEDS: POLYVINYL ALCOHOL 1.4% OP 15 ML SOL BOTH EYES SCH ×3 (08:42→16:33)
[2019-05-07] MEDS: ASCORBIC ACID 500 MG/5 ML ORASYR GT SCH (08:42)
[2019-05-07] MEDS: Z-GUARD PASTE TP SCH ×3 (08:42→21:09)
[2019-05-07] MEDS: ACETAMINOPHEN 325 MG TAB PO PRN ×2 (08:43→16:33)
[2019-05-07] MEDS: ZINC SULF 220 MG CAP GT SCH (08:43)
--- NOTE | 2019-05-07 08:43 | NUR ---
TYLENOL 650 MG. GIVEN VIA G TUBE FOR FEVER.
[2019-05-07] MEDS: MULTIVITAMIN/MINERALS 1 TAB GT SCH (08:44)
[2019-05-07] MEDS: LACTOBACILLUS RHAMNOSUS GG 1 EACH CAP GT SCH (08:44)
[2019-05-07] MEDS: SCOPOLAMINE 1.5 MG/72 HR PATCH TD SCH (08:46)
[2019-05-07] MEDS: INSULIN LISPRO SLIDING SCALE 100 UNITS/ML VIAL SUBQ PRN ×4 (08:48→21:28)
[2019-05-07] MEDS: LINEZOLID 600MG PREMIX 300 ML IV SCH ×2 (09:19→21:09)
[2019-05-07 10:21] LABS: BASOPHILS % (AUTO) 0.3 % (0.0-2.0); EOSINOPHILS % (AUTO) 0.4 % (0.0-4.0); HEMOGLOBIN 9.9 g/dL (12.0-18.0); LYMPHOCYTES # (AUTO) 0.8 K/uL (2.0-11.5); LYMPHOCYTES % (AUTO) 8.8 % (20.5-51.1); MEAN CORPUSCULAR HEMOGLOBIN 31 pg (27-31); MEAN CORPUSCULAR HGB CONC 33 g/dL (33-37); MEAN CORPUSCULAR VOLUME 92.6 fL (80-94); MONOCYTES % (AUTO) 11.1 % (1.7-9.3); NEUTROPHILS # (AUTO) 7.2 K/uL (1.8-7.7); NEUTROPHILS % (AUTO) 79.4 % (42.2-75.2); PLATELET COUNT (AUTO) 140 K/uL (140-450); RED BLOOD CELL COUNT(AUTO) 3.24 MIL/uL (4.20-6.10); RED CELL DISTRIBUTION WIDTH 17.1 % (11.6-13.7)
[2019-05-07 11:25] LABS: ANION GAP 11.1 (8-16); CARBON DIOXIDE 27.1 mmol/L (21-32); POTASSIUM 3.2 mmol/L (3.5-5.1)
[2019-05-07] MEDS: GAUZE TP SCH (13:11)
--- NOTE | 2019-05-07 13:15 | NUR ---
DR. MATHIS HERE TO SEE AND EXAMINE PT. MADE AWARE OF EARLIER ELEVATED TEMPERATURE. CANCELLED DC ORDER.
[2019-05-07] MEDS ORDERED: SENNA 8.6 MG TAB GT PRN (13:30)
[2019-05-07] MEDS ORDERED: DEXTROSE 50% 50 ML SYR IVP PRN (13:30)
[2019-05-07] MEDS ORDERED: MAGNESIUM HYDROXIDE 2400 MG/30 ML UDC GT PRN (13:30)
[2019-05-07] MEDS ORDERED: SODIUM PHOSPHATE 118 ML ENEM RC PRN (13:30)
[2019-05-07] MEDS ORDERED: POTASSIUM CHLORIDE 20% 40 MEQ/15 ML UDC GT SCH (14:00)
--- NOTE | 2019-05-07 14:49 | NUR ---
POTASSIUM 40 MEQ GIVEN THRU G TUBE FOR K+ 3.2.
--- NOTE | 2019-05-07 16:00 | NUR ---
TEMP 101.3 VIA TEMPORAL ARTERY THERMOMETER. COLD COMPRESS APPLIED TO FOREHEAD. TEPID SPONGE BATH GIVEN.
--- NOTE | 2019-05-07 16:33 | NUR ---
ACETAMINOPHEN 650 MG/GT GIVEN.
--- NOTE | 2019-05-07 16:39 | NUR ---
05/07/19 RD FOLLOW UP COMPLETED PLEASE REFER TO NUTRITION ASSESSMENT UNDER CARE ACTIVITY FOR ESTIMATED NUTRITIONAL NEEDS. 1. CONTINUE GLUCERNA 1.2 @ 60 ML/HR -THIS WILL PROVIDE 1440 ML, 1728 KCAL, 86.4 GM WHICH MEETS 100% OF ESTIMATED KCAL NEEDS AND 92% OF ESTIMATED PROTEIN NEEDS 2. CONTINUE FREE WATER FLUSH [address] TO FOLLOW-UP 2-3 DAYS, HIGH RISK DEUCE KNIGHT RD
[2019-05-07] MEDS: FERROUS GLUCONATE 324 MG TAB PO SCH (17:24)
--- NOTE | 2019-05-07 17:55 | NUR ---
TEMP RECHECKED 98.5.
[2019-05-07] MEDS: BUDESONIDE 0.5 MG/2 ML NEBU INH SCH (18:44)
[2019-05-07] MEDS ORDERED: ALBUTEROL SULFATE/IPRATROPIU 3 ML SOL IH SCH (19:00)
--- NOTE | 2019-05-07 19:08 | NUR ---
REPORT GIVEN TO JESÚS KUMARI.
--- NOTE | 2019-05-07 19:20 | NUR ---
RECEIVED REPORT FROM AM NURSE, PT AT BED EYES CLOSED, BREATHING REGULARLY, PERRL 3MM, BRISK, HEART RATE REGULAR, S1S2 PRESENT, CAP REFILL <3S, LUNG SOUNDS CLEAR THROUGHOUT, PT TRACH TO VENT SHILEY 6, AC/VC, FI02 30%, TV 500, PEEP 5, ABDOMEN SOFT ROUND, NONDISTENDED, NONTENDER, PEG TUBE IN PLACE, RUNNING GLUCERNA 1.2 AT 60 ML/HR, BLADDER NONTENDER, NONDISTENDED, SOFT, ROUND, FC IN PLACE, DRAINING CLEAR YELLOW URINE. PT HAS SEVERE WEAKNESS IN ALL EXTREMITIES, SKIN NON INTACT, SACROCOCCYX AREA HAS DTI, DRESSING IN PLACE, DRY AND INTACT, BILATERAL HEELS HAS BLANCHABLE REDNESS, SCD IN PLACE ON LEFT LOWER EXTREMITY, LEFT FEMORAL CENTRAL LINE TRIPLE LUMEN, D5 NS RUNNING AT 60 ML/HR. HOB AT 30 DEGREES, SIDE RAILS UP X2, BED AT LOWEST POSITION.
[2019-05-07] MEDS: DOCUSATE 100 MG/10 ML UDC GT SCH (21:09)
[2019-05-07] MEDS: ATORVASTATIN 20 MG TAB GT SCH (21:09)
--- NOTE | 2019-05-07 21:30 | NUR ---
MEDICATIONS GIVEN. VAP ORAL CARE PERFORMED. SUCTIONED MODERATE AMOUNT OF WHITE MUCUS. PT TOLERATED PROCEDURE WELL.
--- NOTE | 2019-05-07 23:25 | NUR ---
PT AT BED EYES CLOSED BREATHING REGULARLY. HOB 30 DEGREES, SIDE RAILS UP X2, CALL LIGHT WITHIN REACH, BED AT LOWEST POSITION.
[2019-05-08] VITALS (24 sets, daily range): BP systolic 98–193; BP diastolic 60–99
--- NOTE | 2019-05-08 00:47 | NUR ---
VAP ORAL CARE PERFORMED. SUCTIONED MODERATE AMOUNT OF WHITE MUCUS. PT TOLERATED PROCEDURE WELL.
--- NOTE | 2019-05-08 02:55 | NUR ---
PT COUGHING. SUCTIONED PT WITH WHITE, THICK, MODERATE AMOUNT OF MUCOUS. PT TOLERATED THE PROCEDURE WELL.
--- NOTE | 2019-05-08 05:15 | NUR ---
AM CARE PERFORMED, PT TOLERATED PROCEDURE WELL.
[2019-05-08] MEDS: MEROPENEM 500 MG in NACL 0.9% 50 ML IV SCH ×2 (05:48→17:09)
[2019-05-08] MEDS: ALBUTEROL SULFATE/IPRATROPIU 3 ML SOL IH SCH ×3 (06:32→18:39)
--- NOTE | 2019-05-08 06:32 | NUR ---
rec'd pt on carescape vent settings ac 30 vt 500 peep 5 fio2 30% alarms on and audible and ambu bag at side of vent and vent is plugged into red outlet, i\l txs given with duoneb 3ml and pulmicort 0.5mg with no adverse reaction post tx, b\s are rhonchi bilaterally sxn pt large amt of thick cream color secretions, pt is trach with shiley 6 and skin integrity is intact pt is resting
[2019-05-08] MEDS: BUDESONIDE 0.5 MG/2 ML NEBU INH SCH ×2 (06:40→18:39)
[2019-05-08 06:47] LABS: HEMATOCRIT 28.4 % (36-52); HEMOGLOBIN 9.2 g/dL (12.0-18.0); MEAN CORPUSCULAR HEMOGLOBIN 30 pg (27-31); MEAN CORPUSCULAR HGB CONC 32 g/dL (33-37); MEAN CORPUSCULAR VOLUME 92.9 fL (80-94); PLATELET COUNT (AUTO) 112 K/uL (140-450); RED BLOOD CELL COUNT(AUTO) 3.06 MIL/uL (4.20-6.10)
--- NOTE | 2019-05-08 07:07 | NUR ---
RECEIVED BEDSIDE REPORT FROM SPONGE FISHERMAN RNQUOC, FOR CONTINUITY OF CARE. PATIENT OPENS EYES SPONTANEOUSLY, UNABLE TO MAKE NEEDS KNOWN OR FOLLOW COMMANDS. PATIENT'S SKIN IS WARM, DIAPHORETIC, AFEBRILE. PATIENT HAS CENTRAL LINE TO LEFT FEMORAL, ASYMPTOMATIC AND PATENT. PATIENT IS TRACH TO VENT, BREATHING EVEN AND UNLABORED. ST ON MONITOR, FLACC 0. PATIENT IS HYPERTENSIVE. GT IN PLACE TO TUBE FEEDING GLUCERNA 1.2. ROSAS CATHETER IS IN PLACE. HOB IS 30 DEGREES, BED LOCKED IN LOW POSITION, SIDE RAILS UP 3X. NO SIGNS OF DISTRESS NOTED AT THIS TIME. WILL CONTINUE TO MONITOR.
[2019-05-08] MEDS: BLOOD GLUCOSE MONITORING 1 DEV DEV FS SCH ×4 (07:25→20:56)
[2019-05-08] MEDS: INSULIN LISPRO SLIDING SCALE 100 UNITS/ML VIAL SUBQ PRN ×4 (07:31→21:15)
--- NOTE | 2019-05-08 07:36 | NUR ---
CHANGE OF SHIFT REPORT GIVEN TO DARRIN ESPINOSA. PT AT STABLE CONDITION AT THIS TIME.
[2019-05-08 07:49] LABS: EOSINOPHILS % (MANUAL) 2 % (0-4); LYMPHOCYTES % (MANUAL) 13 % (20-46); MONOCYTES % (MANUAL) 8 % (5-12)
[2019-05-08] MEDS: PANTOPRAZOLE 40 MG INJ VIAL IVP SCH (08:30)
[2019-05-08] MEDS: ASCORBIC ACID 500 MG/5 ML ORASYR GT SCH (08:30)
[2019-05-08] MEDS: FERROUS GLUCONATE 324 MG TAB PO SCH ×2 (08:30→17:09)
[2019-05-08] MEDS: DOCUSATE 100 MG/10 ML UDC GT SCH ×2 (08:31→20:57)
[2019-05-08] MEDS: ZINC SULF 220 MG CAP GT SCH (08:31)
[2019-05-08] MEDS: POLYVINYL ALCOHOL 1.4% OP 15 ML SOL BOTH EYES SCH ×3 (08:31→17:09)
[2019-05-08] MEDS: LACTOBACILLUS RHAMNOSUS GG 1 EACH CAP GT SCH (08:31)
[2019-05-08] MEDS: Z-GUARD PASTE TP SCH ×3 (08:31→20:57)
[2019-05-08] MEDS: MULTIVITAMIN/MINERALS 1 TAB GT SCH (08:31)
[2019-05-08] MEDS: DEXT 5% /NACL 0.9% 1,000 ML IV SCH (11:24)
--- NOTE | 2019-05-08 11:57 | NUR ---
PATIENT HAD 1 MODERATE DARK GREEN BM, PATIENT CLEANED AND REPOSITIONED FOR COMFORT.
--- NOTE | 2019-05-08 13:50 | NUR ---
PATIENT HAD FEVER OF 100.3, ADMINISTERED PRN TYLENOL 650MG, PATIENT TOLERATED WELL.
[2019-05-08] MEDS: ACETAMINOPHEN 325 MG TAB PO PRN (13:51)
[2019-05-08] MEDS: GAUZE TP SCH (13:52)
--- NOTE | 2019-05-08 15:54 | NUR ---
DR. MATHIS IN TO SEE PATIENT, UPDATED ON PATIENT'S CONDITION. STATES HE WILL PUT IN ORDER FOR POTASSIUM AND DOWNGRADE PATIENT TO TELEMETRY.
[2019-05-08] MEDS: LORazepam 2 MG/ML VIAL IM/IVP PRN (18:27)
--- NOTE | 2019-05-08 18:30 | NUR ---
PATIENT IS TACHYCARDIC AND TACHYPNEIC, RT AT BEDSIDE TO SUCTION PATIENT. ADMINISTERED PRN ATIVAN 1 MG IVP. WILL CONTINUE TO MONITOR PATIENT.
--- NOTE | 2019-05-08 18:50 | NUR ---
Received pt on vent support at documented settings, suctioned copious amounts of thick yellow sputum, hhn tx given, tolerated well, resp distress improved upon suction and hhn tx, Shiley 6 trach secured/patent/midline, alarms set and audible, ambu bag at bedside, vent plugged into red outlet, cont pulse ox on, will cont to monitor.
--- NOTE | 2019-05-08 19:19 | NUR ---
ENDORSED CONTINUITY OF CARE TO MANUFACTURING EXECUTIVE RNROSA M. NO SIGNS OF DISTRESS AT THIS TIME
--- NOTE | 2019-05-08 19:20 | NUR ---
RECEIVED REPORT FROM DAYSHIFT NURSE AT PATIENT's BEDSIDE. WILL CONTINUE CARE.
[2019-05-08] MEDS ORDERED: POTASSIUM CHLORIDE 20% 40 MEQ/15 ML UDC GT ONE (19:30)
--- NOTE | 2019-05-08 19:30 | NUR ---
TURNED AND REPOSITIONED PATIENT, PATIENT HAD A VERY LARGE BLACK TARRY BOWEL MOVEMENT, AND CONTINUED WITH 2 MORE DURING CLEANING. LINENS AND GOWN REPLACED, WOUND ASSESSED ON SACRUM AND DRESSING REPLACED. PATIENT SINUS TACH ON MONITOR.
--- NOTE | 2019-05-08 19:45 | NUR ---
RECEIVED PATIENT ON TRACH TO VENT, SETTINGS ARE ACVC FI02 35%, TV 500, RATE 20, PEEP 5, SINUS TACH ON MONITOR. LEFT FEMORAL CENTRAL LINE INFUSING D5 NS @ 60 ML, DRESSING DRY AND INTACT, LINES ARE FLUSHED AND PATENT. PATIENT IS ANOx0, OPENS EYES SPONTANEOUSLY, SKIN DRY AND WARM, ORAL TEMP 99.8. HR-118, O2SAT -95%, RR 32, BP 143/82. S1S2 HEARD. LUNG SOUNDS RHONCHI IN UPPER LOBES. GTUBE IS IN PLACE CONNECTED TO GLUCERNA 1.2 FEEDING @60ML/HR WITH 300 FREE WATER FLUSH Q4H. NO RESIDUALS AT THIS TIME (<5ML), ACTIVE BOWEL SOUNDS, ABDOMEN SOFT AND NONTENDER. ROSAS CATHETER IN PLACE, CLEAR YELLOW URINE NOTED. SCD'S PLACED ON LEFT LEG ONLY, RIGHT LEG CONTRAINDICATED. HOB IS ELEVATED 30 DEGREES, SIDERAILS UP, BED LOCKED AND IN LOW POSITION. WILL CONTINUE TO MONITOR
--- NOTE | 2019-05-08 20:00 | NUR ---
PATIENTS ORAL TEMPERATURE 100.0, RECHECKED, 99.9. PLACED COLD COMPRESS ON HEAD, WILL CONTINUE TO MONITOR.
[2019-05-08] MEDS: ATORVASTATIN 20 MG TAB GT SCH (20:56)
--- NOTE | 2019-05-08 22:05 | NUR ---
ORAL TEMP 100.3, AXILLARY TEMP 99.8, REPLACED WITH NEW COLD COMPRESS TO HEAD AND REMOVED BLANKETS. WILL CONTINUE WITH FREQUENT ROUNDS
--- NOTE | 2019-05-08 23:22 | NUR ---
DR. CASTELLON IN TO ASSESS PATIENT AND GET UPDATES, MD AWARE OF TEMPERATURE AND INCREASED HEART RATE. CONFIRMED TO CONTINUE PATIENT ON IV ANTIBIOTICS-MERREM.
[2019-05-09] VITALS (20 sets, daily range): BP systolic 90–157; BP diastolic 51–107
--- NOTE | 2019-05-09 | NUR ---
PATIENTS ORAL TEMP 99.5 AND AXILLARY TEMP 99.7. PATIENT STABLE, SLIGHTLY [id number]. PATIENT SUCTIONED, WHITE CREAMY SECRETIONS ARE NOTED. VAP ORAL CARE PROVIDED. PATIENT TOLERATED WELL.
--- NOTE | 2019-05-09 02:15 | NUR ---
PATIENT TURNED AND REPOSITIONED, ASSURED PROPER BODY ALIGNMENT. HEELS ARE OFFLOADED TO PREVENT FURTHER PRESSURE INJURIES. NO CHANGES IN CONDITION. SIDERAILS UP, BED IN LOW POSITION, HOB 30 DEGREES.
--- NOTE | 2019-05-09 04:35 | NUR ---
SPONGE BATH, BRADLEY CARE, ROSAS CARE, SKIN CARE PROVIDED. VAP ORAL CARE PROVIDED. NO CHANGES IN STATUS. CONTINUE CLOSE MONITORING. TEMPERATURE WNL.
[2019-05-09] MEDS: MEROPENEM 500 MG in NACL 0.9% 50 ML IV SCH (06:09)
[2019-05-09] MEDS: DEXT 5% /NACL 0.9% 1,000 ML IV SCH ×3 (07:05→17:03)
--- NOTE | 2019-05-09 07:05 | NUR ---
RECEIVED BEDSIDE REPORT FROM ENGRAVER RUBBER RN, ROSA M, FOR CONTINUITY OF CARE. PATIENT OPENS EYES SPONTANEOUSLY, DOES NOT FOLLOW COMMANDS OR MAKE NEEDS KNOWN. PATIENT SKIN IS WARM, DRY, NOT INTACT, HE HAS PRESSURE INJURY TO SACROCOCCYX. PATIENT HAS A CENTRAL LINE TO LEFT FEMORAL, ASYMPTOMATIC AND PATENT. HE IS TRACH TO VENT, BREATHING EVEN AND UNLABORED. SR ON MONITOR, FLACC 0. PATIENT HAS GTUBE TO TUBE FEEDING. PATIENT HAS ROSAS CATHETER IN PLACE TO CLEAR YELLOW URINE. HOB IS 30 DEGREES, SIDE RAILS UP 3X, BED LOCKED IN LOW POSITION. NO SIGNS OF DISTRESS NOTED. WILL CONTINUE TO MONITOR
[2019-05-09] MEDS: BUDESONIDE 0.5 MG/2 ML NEBU INH SCH ×2 (07:31→19:04)
[2019-05-09] MEDS: ALBUTEROL SULFATE/IPRATROPIU 3 ML SOL IH SCH ×3 (07:31→19:04)
--- NOTE | 2019-05-09 07:31 | NUR ---
RCV'D PT ON MECHANICAL VENTILATOR WITH CHARTED SETTINGS. AIRWAY IS IN PLACE AND SECURED. PT IS TRACHED WITH SHILEY 6. VENT IS CONNECTED TO RED OUTLET. ALARMS AUDIBLE. AMBU BAG AT BEDSIDE. HHN TX GIVEN WITH NO ADVERSE REACTION. NO SOB OR DISTRESS NOTED. WILL CONTINUE TO MONITOR.
[2019-05-09] MEDS: BLOOD GLUCOSE MONITORING 1 DEV DEV FS SCH ×4 (07:41→20:31)
[2019-05-09] MEDS: INSULIN LISPRO SLIDING SCALE 100 UNITS/ML VIAL SUBQ PRN ×4 (07:44→20:43)
[2019-05-09] MEDS: FERROUS GLUCONATE 324 MG TAB PO SCH ×2 (08:08→17:02)
[2019-05-09] MEDS: PANTOPRAZOLE 40 MG INJ VIAL IVP SCH (08:08)
[2019-05-09] MEDS: ASCORBIC ACID 500 MG/5 ML ORASYR GT SCH (08:08)
[2019-05-09] MEDS: LACTOBACILLUS RHAMNOSUS GG 1 EACH CAP GT SCH (08:09)
[2019-05-09] MEDS: MULTIVITAMIN/MINERALS 1 TAB GT SCH (08:09)
[2019-05-09] MEDS: Z-GUARD PASTE TP SCH ×3 (08:09→20:31)
[2019-05-09] MEDS: POLYVINYL ALCOHOL 1.4% OP 15 ML SOL BOTH EYES SCH ×3 (08:09→17:03)
[2019-05-09] MEDS: ZINC SULF 220 MG CAP GT SCH (08:09)
[2019-05-09] MEDS: DOCUSATE 100 MG/10 ML UDC GT SCH ×2 (08:10→20:30)
--- NOTE | 2019-05-09 09:06 | NUR ---
RECEIVED CALL FROM DR. MATHIS, UPDATED ON PATIENT'S CONDITION. STATES TO ASK DR. CASTELLON WHAT HE RECOMMENDS FOR ANTIBIOTICS AND IF PATIENT CAN BE DISCHARGED BACK TO [facility] SINCE PATIENT HAD FEVER FOR PAST 2 DAYS.
[2019-05-09 09:08] LABS: BASOPHILS % (AUTO) 0.4 % (0.0-2.0); EOSINOPHILS # (AUTO) 0.2 K/uL (0-0.4); EOSINOPHILS % (AUTO) 3.7 % (0.0-4.0); HEMOGLOBIN 8.4 g/dL (12.0-18.0); LYMPHOCYTES # (AUTO) 1.3 K/uL (2.0-11.5); LYMPHOCYTES % (AUTO) 20.5 % (20.5-51.1); MEAN CORPUSCULAR HEMOGLOBIN 30 pg (27-31); MEAN CORPUSCULAR HGB CONC 32 g/dL (33-37); MEAN CORPUSCULAR VOLUME 92.9 fL (80-94); MONOCYTES # (AUTO) 0.7 K/uL (0.8-1.0); MONOCYTES % (AUTO) 11.6 % (1.7-9.3); NEUTROPHILS % (AUTO) 63.8 % (42.2-75.2); PLATELET COUNT (AUTO) 87 K/uL (140-450); RED CELL DISTRIBUTION WIDTH 16.6 % (11.6-13.7); WHITE BLOOD COUNT (AUTO) 6.3 K/uL (4.8-10.8)
[2019-05-09 09:42] LABS: ANION GAP 10.8 (8-16); CARBON DIOXIDE 24.9 mmol/L (21-32); CREATININE 1.7 mg/dL (0.7-1.3); POTASSIUM 3.7 mmol/L (3.5-5.1)
[2019-05-09] MEDS: GAUZE TP SCH (12:30)
[2019-05-09] MEDS: MEROPENEM 1,000 MG in NACL 0.9% 100 ML IV SCH (17:02)
--- NOTE | 2019-05-09 19:10 | NUR ---
RECEIVED REPORT FROM DAYSHIFT NURSE AT PATIENTS DOOR FOR CONTINUITY OF CARE. PATIENT RESTING COMFORTABLY, EYES OPEN FLACC 0. WILL FOLLOWUP CARE.
--- NOTE | 2019-05-09 20:00 | NUR ---
PATIENT OPENS EYES SPONTANEOUSLY, DOES NOT FOLLOW COMMANDS OR MAKE NEEDS KNOWN. PATIENT SKIN IS WARM AND DRY, AFEBRILE- 96.9 PER AXILLARY, SKIN NOT INTACT, HE HAS PRESSURE INJURY TO SACROCOCCYX. PATIENT HAS A CENTRAL LINE TO LEFT FEMORAL, ASYMPTOMATIC AND PATENT, RUNNING D5NS @ 100ML/HR. HE IS TRACH TO VENT, BREATHING EVEN AND UNLABORED. VENT SETTINGS ACVC FI02 FI02 28%, TV 500, RATE 20, PEEP 5. ST ON MONITOR,HR-103, FLACC 0. PATIENT HAS GTUBE TO TUBE FEEDING. GLUCERNA 1.2 @ 60ML/HR. PATIENT HAS ROSAS CATHETER IN PLACE TO CLEAR YELLOW URINE. HOB IS 30 DEGREES, SIDE RAILS UP 3X, BED LOCKED IN LOW POSITION. NO SIGNS OF DISTRESS NOTED. WILL CONTINUE TO MONITOR
[2019-05-09] MEDS: ATORVASTATIN 20 MG TAB GT SCH (20:30)
--- NOTE | 2019-05-09 21:05 | NUR ---
PATIENT TURNED AND REPOSITIONED, REMOVED HEEL PROTECTORS AND SOCKS TO ASSESS SKIN AND PRESSURE INJURIES. NO SIGNS OF FURTHER INJURY. PROVIDED VAP ORAL CARE, SUCTIONED ORALLY.
--- NOTE | 2019-05-09 21:50 | NUR ---
IN TO ASSESS PATIENT. MADE AWARE THAT DR. MATHIS ASKS FOR RECOMMENDATIONS FOR [place] [facility] CASTELLON CONFIRMS TO CONTINUE MERREM IV ANTIBIOTIC FOR 5DAYS.
--- NOTE | 2019-05-09 23:20 | NUR ---
PATIENT REPOSITIONED AND ADJUSTED HEAD AND NECK FOR PROPER BODY ALIGNMENT, VENT SETTINGS THE SAME START OF SHIFT. HOB ELEVATED 30 DEGREES. NO SIGNS OF DISTRESS. CONTINUE CLOSE MONITORING.
[2019-05-10] VITALS (12 sets, daily range): BP systolic 107–172; BP diastolic 79–97
--- NOTE | 2019-05-10 | NUR ---
CHECKED GTUBE FOR RESIDUALS, <5ML AT THIS TIME, CHECKED AXILLARY TEMPERATURE, 98.9, REAPPLIED BLANKETS FOR COMFORT. FLACC 0
--- NOTE | 2019-05-10 01:00 | NUR ---
VAP ORAL CARE PROVIDED, RT AT BEDSIDE, CONFIRMED WILL CHANGE TRACH TIES IN THE A.M DURING MORNING CARE, PATIENT SUCTIONED WITH WHITE CREAMY SECRETIONS IN COLLECTION TUBE. PATIENT REPOSITIONED AND ASSESSED BACK AND BEHIND LEGS FOR REDNESS/INJURIES. NO DISTRESS NOTED.
[2019-05-10] MEDS: DEXT 5% /NACL 0.9% 1,000 ML IV SCH ×3 (03:29→14:50)
[2019-05-10] MEDS: LORazepam 2 MG/ML VIAL IM/IVP PRN ×2 (03:30→16:34)
[2019-05-10] MEDS: MEROPENEM 1,000 MG in NACL 0.9% 100 ML IV SCH (05:21)
[2019-05-10] MEDS: INSULIN LISPRO SLIDING SCALE 100 UNITS/ML VIAL SUBQ PRN ×2 (07:36→11:55)
[2019-05-10] MEDS: BLOOD GLUCOSE MONITORING 1 DEV DEV FS SCH ×2 (07:42→11:48)
[2019-05-10] MEDS: BUDESONIDE 0.5 MG/2 ML NEBU INH SCH (07:55)
[2019-05-10] MEDS: ALBUTEROL SULFATE/IPRATROPIU 3 ML SOL IH SCH (07:55)
--- NOTE | 2019-05-10 08:00 | NUR ---
INITIAL SHIFT ASSESSMENT DONE (SEE ASSESSMENT PART). OPENING EYES SPONTANEOUSLY BUT NOT FOLLOWING COMMANDS. NO SIGNS OF PAIN OR AGITATION. ON VENTILATOR VIA TRACH, TOLERATING CURRENT SETTINGS WELL. O2 SAT 96-99%. ST ON MONITOR. SBP IN 140'S-160'S. NO ECTOPY NOTED. ON TUBE FEEDING VIA GT, TOLERATING WELL. NO RESIDUALS NOTED. HOB ELEVATED. UPDATED OF PLAN OF CARE. WILL CONTINUE TO MONITOR.
[2019-05-10] MEDS: FERROUS GLUCONATE 324 MG TAB PO SCH (08:22)
[2019-05-10] MEDS: DOCUSATE 100 MG/10 ML UDC GT SCH (09:00)
[2019-05-10] MEDS: POLYVINYL ALCOHOL 1.4% OP 15 ML SOL BOTH EYES SCH ×2 (09:17→13:46)
[2019-05-10] MEDS: LACTOBACILLUS RHAMNOSUS GG 1 EACH CAP GT SCH (09:18)
[2019-05-10] MEDS: ASCORBIC ACID 500 MG/5 ML ORASYR GT SCH (09:18)
[2019-05-10] MEDS: ZINC SULF 220 MG CAP GT SCH (09:18)
[2019-05-10] MEDS: MULTIVITAMIN/MINERALS 1 TAB GT SCH (09:18)
[2019-05-10] MEDS: PANTOPRAZOLE 40 MG INJ VIAL IVP SCH (09:19)
[2019-05-10] MEDS: Z-GUARD PASTE TP SCH ×2 (09:20→13:46)
[2019-05-10] MEDS: SCOPOLAMINE 1.5 MG/72 HR PATCH TD SCH (09:22)
[2019-05-10] MEDS ORDERED: LACT10CA GT (10:26)
[2019-05-10] MEDS ORDERED: MER1I IV (10:27)
--- NOTE | 2019-05-10 11:55 | NUR ---
PER [facility] [place] [facility] [place], [place]IENT WILL GO TO ROOM 20A UNDER DR. BRYSON RAGLAND. CHARGE NURSE MADE AWARE.
--- NOTE | 2019-05-10 12:00 | NUR ---
REASSESSMENT DONE. NEURO STATUS UNCHANGED. NO SIGNS OF PAIN OR AGITATION NOTED. TOLERATING CURRENT VENTILATOR SETTINGS WELL. O2 SAT 96-98%. ST ON MONITOR. SBP IN 130'S-150'S. NO ECTOPY NOTED. TOLERATING TUBE FEEDING WELL. NO RESIDUALS NOTED. HOB ELEVATED. UPDATED OF PLAN OF CARE. WILL CONTINUE TO MONITOR.
[2019-05-10] MEDS: GAUZE TP SCH (13:46)
--- NOTE | 2019-05-10 14:15 | NUR ---
PER [facility], TRANSPORT AUTH [id number]. PER [facility] OF [facility] , [facility] WILL BE AT 1600. PRIMARY RN MADE AWARE. PATIENT'S BROTHER JAVI HUMPHREY CONTACTED AT [phone], INFORMED HIM THAT THE [place] [facility] [place] ABLE TO VERBALIZE UNDERSTANDING.
--- NOTE | 2019-05-10 14:30 | NUR ---
HAS BM AT THIS TIME, MODERATE AMOUNT, LOOSE, AND DARK BLACKISH BROWN COLOR. GIVEN BATH AND LINENS ARE CHANGE. DRESSING ON THE COCCYX IS ALSO CHANGE. TOLERATED THE PROCEDURE WELL.
--- NOTE | 2019-05-10 15:00 | NUR ---
LEFT FEMORAL TLC SITE CARE DONE.
[2019-05-10] MEDS: ACETAMINOPHEN 325 MG TAB PO PRN (15:25)
--- NOTE | 2019-05-10 15:55 | NUR ---
[facility] IS HERE TO TRANSPORT THE PATIENT TO [facility] [place]. REPORT GIVEN TO [facility] RN QUOC.
--- NOTE | 2019-05-10 16:03 | NUR ---
REPORT GIVEN TO [facility] SUB[facility] RN, JESÚS LEYVA.
--- NOTE | 2019-05-10 16:30 | NUR ---
PT IS SL AGITATED BP 180/98 AFTER PT TRANSFERRED FROM BED TO [facility].
--- NOTE | 2019-05-10 16:33 | NUR ---
ATIVAN 1 MG IVP GIVEN.
--- NOTE | 2019-05-10 16:40 | NUR ---
OUT OF THE UNIT TO [facility] BY [facility].
--- NOTE | 2019-05-10 16:45 | NUR ---
BP 177/92. PT IS CALMER. DISCHARGED ON A VENT. TO VIA [facility] TO [facility] WITH [facility] WITH RESP. THERAPIST.
== END 2019-05-10 16:45 | DRG 720 ==
LOC: MED 19:20 → MIC 23:17
PROVIDERS: ADMIT Internal Medicine; ATTEND Internal Medicine
PROC: 5A1955Z Respiratory Ventilation, Greater than 96 Consecutive Hours (ICD-10-PCS; principal; 2019-05-03)
PROC: 06HY33Z Insertion of Infusion Device into Lower Vein, Percutaneous Approach (ICD-10-PCS; 2019-05-03)
PROC: B54CZZA Ultrasonography of Left Lower Extremity Veins, Guidance (ICD-10-PCS; 2019-05-03)
PROC: 30233N1 Transfusion of Nonautologous Red Blood Cells into Peripheral Vein, Percutaneous Approach (ICD-10-PCS; 2019-05-03)
DX: A41.9 Sepsis, unspecified organism (principal); J96.21 Acute and chronic respiratory failure with hypoxia; J69.0 Pneumonitis due to inhalation of food and vomit; G93.1 Anoxic brain damage, not elsewhere classified; N17.0 Acute kidney failure with tubular necrosis; R65.21 Severe sepsis with septic shock; E43 Unspecified severe protein-calorie malnutrition; I50.43 Acute on chronic combined systolic (congestive) and diastolic (congestive) heart failure; J15.6 Pneumonia due to other Gram-negative bacteria; K92.0 Hematemesis; Z93.0 Tracheostomy status; R13.10 Dysphagia, unspecified; J44.0 Chronic obstructive pulmonary disease with (acute) lower respiratory infection; B96.4 Proteus (mirabilis) (morganii) as the cause of diseases classified elsewhere; E11.22 Type 2 diabetes mellitus with diabetic chronic kidney disease; E11.51 Type 2 diabetes mellitus with diabetic peripheral angiopathy without gangrene; E78.5 Hyperlipidemia, unspecified; F03.90 Unspecified dementia, unspecified severity, without behavioral disturbance, psychotic disturbance, mood disturbance, and anxiety; G40.909 Epilepsy, unspecified, not intractable, without status epilepticus; I13.0 Hypertensive heart and chronic kidney disease with heart failure and stage 1 through stage 4 chronic kidney disease, or unspecified chronic kidney disease; I25.10 Atherosclerotic heart disease of native coronary artery without angina pectoris; B96.1 Klebsiella pneumoniae [K. pneumoniae] as the cause of diseases classified elsewhere; J44.1 Chronic obstructive pulmonary disease with (acute) exacerbation; K21.9 Gastro-esophageal reflux disease without esophagitis; L89.92 Pressure ulcer of unspecified site, stage 2; N18.4 Chronic kidney disease, stage 4 (severe); D62 Acute posthemorrhagic anemia; E87.0 Hyperosmolality and hypernatremia; D63.8 Anemia in other chronic diseases classified elsewhere; N39.0 Urinary tract infection, site not specified; Z86.19 Personal history of other infectious and parasitic diseases; Z93.1 Gastrostomy status; Z68.32 Body mass index [BMI] 32.0-32.9, adult
CPT/HCPCS: 36415; 36556; 36600; 71045; 74018; 80048; 80053; 80185; 80202; 80305; 81001; 82040; 82150; 82803; 82948; 83036; 83605; 83690; 83735; 83880; 84100; 84439; 84443; 85025; 85610; 85730; 86886; 86900; 86901; 86920; 87040; 87070; 87081; 87086; 87186; 87205; 89220; 93005; 93925; 94002; 94003; 94640; 96365; 96366; 96368; 99285; C9113; J1815; J2020; J2060; J2185; J2354; J2543; J2930; J3370; J7030; J7042; J7060; J7620; J7626; P9016; Q0092

== ENCOUNTER 2019-06-16 08:16 | Inpatient (IN) | payer OTHER, MEDICARE ==
[~2019-06-16] VITALS: Ht 180.3 cm; Wt 85.7 kg
[2019-06-16] VITALS (23 sets, daily range): BP systolic 78–116; BP diastolic 47–66
[~2019-06-16 08:16] MED LIST changes: -ARTOP BOTH EYES; +ASPI-1718 GT; +CRAN450C GT; +LACT10CA GT; +MER1I IV; +POLY15SO74 BOTH EYES; +ZINC220C12 GT
[2019-06-16] MEDS ORDERED: NACL 0.9% 500 ML IV ONE (09:45)
[2019-06-16 10:07] LABS: ALBUMIN 1.2 g/dL (3.4-5.0); ANION GAP 14.9 (8-16); CARBON DIOXIDE 24.8 mmol/L (21-32); CREATININE 2.3 mg/dL (0.7-1.3); POTASSIUM 3.7 mmol/L (3.5-5.1); TOTAL BILIRUBIN 0.6 mg/dL (0.0-1.0)
[2019-06-16] MEDS ORDERED: FERR220E24 GT (10:10)
[2019-06-16] MEDS ORDERED: BISA-213 RC (10:10)
[2019-06-16] MEDS ORDERED: LEVEMIR SUBQ (10:10)
[2019-06-16] MEDS ORDERED: DOCU-299 PO (10:14)
[2019-06-16] MEDS ORDERED: PIPERACILLIN/TAZOBACTAM 3.375 GM in DEXTROSE 5% 50 ML IV ONE (10:15)
[2019-06-16] MEDS ORDERED: PIPERACILLIN/TAZOBACTAM 3.375 GM VIAL IV ONE (10:19)
[2019-06-16 10:30] LABS: BASOPHILS % (AUTO) 0.2 % (0.0-2.0); EOSINOPHILS % (AUTO) 0.2 % (0.0-4.0); LYMPHOCYTES # (AUTO) 0.6 K/uL (2.0-11.5); LYMPHOCYTES % (AUTO) 4.8 % (20.5-51.1); MEAN CORPUSCULAR HEMOGLOBIN 29 pg (27-31); MEAN CORPUSCULAR HGB CONC 30 g/dL (33-37); MEAN CORPUSCULAR VOLUME 95.5 fL (80-94); MONOCYTES # (AUTO) 0.9 K/uL (0.8-1.0); NEUTROPHILS # (AUTO) 10.3 K/uL (1.8-7.7); NEUTROPHILS % (AUTO) 86.8 % (42.2-75.2); PLATELET COUNT (AUTO) 132 K/uL (140-450); RED BLOOD CELL COUNT(AUTO) 1.29 MIL/uL (4.20-6.10); RED CELL DISTRIBUTION WIDTH 19.3 % (11.6-13.7); WHITE BLOOD COUNT (AUTO) 11.9 K/uL (4.8-10.8)
[2019-06-16 10:35] LABS: HEMOGLOBIN 3.7 g/dL (12.0-18.0)
[2019-06-16 10:36] LABS: HEMATOCRIT 12.3 % (36-52)
[2019-06-16] MEDS ORDERED: VANCOMYCIN 1,000 MG in DEXTROSE 5% 250 ML IV ONE (10:40)
[2019-06-16] MEDS ORDERED: VANCOMYCIN 1,000 MG VIAL ONE ×2 (10:41→21:06)
[2019-06-16] MEDS ORDERED: MORPHINE SULFATE 2 MG/ML SYR IVP PRN (10:45)
[2019-06-16] MEDS ORDERED: DOCUSATE SODIUM 100 MG GELCAP PO PRN (10:45)
[2019-06-16] MEDS ORDERED: ACETAMINOPHEN 325 MG TAB PO PRN (10:45)
[2019-06-16] MEDS ORDERED: HYDROcodone/APAP 5/325 MG 1 TAB TAB PO PRN (10:45)
[2019-06-16 10:47] LABS: PROTHROMBIN TIME 10.5 secs (10.8-13.4)
[2019-06-16] MEDS ORDERED: NACL 0.9% 1,000 ML IV ONE (11:00)
[2019-06-16] MEDS ORDERED: DEXTROSE 50% 50 ML SYR IVP ONE ×2 (11:06→11:10)
[2019-06-16 12:18] LABS: PHOSPHORUS 6.5 mg/dL (2.5-4.9)
[2019-06-16 12:22] LABS: MAGNESIUM 4.2 mg/dL (1.8-2.4)
[2019-06-16] MEDS ORDERED: Z-GUARD PASTE TP PRN (12:50)
[2019-06-16] MEDS: PANTOPRAZOLE 80 MG in NACL 0.9% 100 ML IV SCH ×2 (13:05→21:28)
[2019-06-16] MEDS: Z-GUARD PASTE TP SCH (13:37)
[2019-06-16 14:17] LABS: APPEARANCE,URINE HAZY (CLEAR); BILIRUBIN,URINE 1+ (NEGATIVE); BLOOD, URINE 1+ (NEGATIVE); COLOR,URINE YELLOW (YELLOW); LEUKOCYTE ESTERASE ,URINE 3+ (NEGATIVE); NITRITE, URINE NEGATIVE (NEGATIVE); PH,URINE 6.5 (5.0-9.0); UGLUCOSE NEGATIVE (NEGATIVE)
[2019-06-16] MEDS ORDERED: DEXT 5% / NACL 0.45% 500 ML IV SCH (14:25)
[2019-06-16 14:29] LABS: WBC,URINE TOO MANY TO COUNT /HPF (0-5)
[2019-06-16] MEDS ORDERED: MAGNESIUM HYDROXIDE 2400 MG/30 ML UDC GT PRN (16:10)
[2019-06-16] MEDS ORDERED: BISACODYL 10 MG SUPP RC PRN (16:10)
[2019-06-16] MEDS ORDERED: SENNA 8.6 MG TAB GT PRN (16:10)
[2019-06-16] MEDS ORDERED: IRON SUCROSE COMPLEX 100 MG/5 ML VIAL IVP SCH (16:20)
[2019-06-16 16:34] LABS: BASOPHILS # (AUTO) 0.1 K/uL (0.00-0.22); BASOPHILS % (AUTO) 0.5 % (0.0-2.0); EOSINOPHILS # (AUTO) 0.1 K/uL (0-0.4); EOSINOPHILS % (AUTO) 0.7 % (0.0-4.0)
[2019-06-16 16:39] LABS: LYMPHOCYTES # (AUTO) 0.6 K/uL (2.0-11.5); LYMPHOCYTES % (AUTO) 5.4 % (20.5-51.1); MEAN CORPUSCULAR HEMOGLOBIN 30 pg (27-31); MEAN CORPUSCULAR HGB CONC 32 g/dL (33-37); MEAN CORPUSCULAR VOLUME 93.3 fL (80-94); MONOCYTES % (AUTO) 8.9 % (1.7-9.3); NEUTROPHILS # (AUTO) 9.3 K/uL (1.8-7.7); NEUTROPHILS % (AUTO) 84.5 % (42.2-75.2); PLATELET COUNT (AUTO) 122 K/uL (140-450); RED BLOOD CELL COUNT(AUTO) 1.83 MIL/uL (4.20-6.10); RED CELL DISTRIBUTION WIDTH 17.7 % (11.6-13.7)
[2019-06-16 16:50] LABS: HEMOGLOBIN 5.4 g/dL (12.0-18.0)
[2019-06-16] MEDS ORDERED: ALBUTEROL SULFATE/IPRATROPIU 3 ML SOL IH PRN (17:00)
[2019-06-16] MEDS: POLYVINYL ALCOHOL 1.4% OP 15 ML SOL BOTH EYES SCH (17:00)
[2019-06-16] MEDS: SODIUM FERRIC GLUCONATE 125 MG in NACL 0.9% 100 ML IV SCH (17:26)
[2019-06-16] MEDS: SCOPOLAMINE 1.5 MG/72 HR PATCH TD SCH (17:27)
[2019-06-16] MEDS ORDERED: CALCIUM ACETATE 667 MG TAB GT SCH (18:00)
[2019-06-16] MEDS ORDERED: VANCOMYCIN PER PHARMACY MC PRN (18:10)
[2019-06-16] MEDS ORDERED: PIPERACILLIN/TAZOBACTAM 2.25 GM VIAL IV ONE ×2 (18:58→21:07)
[2019-06-16] MEDS: ALBUTEROL SULFATE/IPRATROPIU 3 ML SOL IH SCH (19:35)
[2019-06-16] MEDS: PIPERACILLIN/TAZOBACTAM 2.25 GM in DEXTROSE 5% 50 ML IV SCH (19:45)
[2019-06-16] MEDS ORDERED: VANCOMYCIN 1GM/DEXT 5% PREMIX 200 ML IV ONE (20:00)
[2019-06-16] MEDS ORDERED: VANCOMYCIN 1GM/DEXT 5% PREMIX 200 ML IV SCH (20:00)
[2019-06-16] MEDS ORDERED: DOCUSATE SODIUM 100 MG GELCAP PO SCH (21:00)
[2019-06-16] MEDS ORDERED: PHENYTOIN 100 MG/4 ML UDC GT SCH (21:00)
[2019-06-16] MEDS: INSULIN LANTUS 100 UNITS/ML 10 ML VIAL SUBQ SCH (21:00)
[2019-06-16] MEDS: BLOOD GLUCOSE MONITORING 1 DEV DEV FS SCH (21:07)
[2019-06-16] MEDS: ATORVASTATIN 20 MG TAB GT SCH (21:08)
[2019-06-16] MEDS: PHENYTOIN 100 MG/4 ML UDC GT SCH (21:08)
[2019-06-17] VITALS (29 sets, daily range): BP systolic 90–126; BP diastolic 51–67
[2019-06-17] MEDS: PIPERACILLIN/TAZOBACTAM 2.25 GM in DEXTROSE 5% 50 ML IV SCH ×4 (00:23→17:01)
[2019-06-17] MEDS: Z-GUARD PASTE TP SCH ×2 (00:24→13:15)
[2019-06-17] MEDS ORDERED: PIPERACILLIN/TAZOBACTAM 2.25 GM VIAL IV ONE (05:23)
[2019-06-17] MEDS: ALBUTEROL SULFATE/IPRATROPIU 3 ML SOL IH SCH ×3 (06:23→19:18)
[2019-06-17] MEDS: BLOOD GLUCOSE MONITORING 1 DEV DEV FS SCH ×4 (07:02→21:00)
[2019-06-17 08:07] LABS: BASOPHILS % (AUTO) 0.4 % (0.0-2.0); EOSINOPHILS # (AUTO) 0.1 K/uL (0-0.4); EOSINOPHILS % (AUTO) 1.1 % (0.0-4.0); HEMATOCRIT 22.1 % (36-52); HEMOGLOBIN 7.5 g/dL (12.0-18.0); LYMPHOCYTES # (AUTO) 0.7 K/uL (2.0-11.5); MEAN CORPUSCULAR HEMOGLOBIN 31 pg (27-31); MEAN CORPUSCULAR HGB CONC 34 g/dL (33-37); MEAN CORPUSCULAR VOLUME 90.3 fL (80-94); MONOCYTES # (AUTO) 1.1 K/uL (0.8-1.0); NEUTROPHILS # (AUTO) 8.1 K/uL (1.8-7.7); PLATELET COUNT (AUTO) 125 K/uL (140-450); RED BLOOD CELL COUNT(AUTO) 2.45 MIL/uL (4.20-6.10); RED CELL DISTRIBUTION WIDTH 16.4 % (11.6-13.7)
[2019-06-17 08:27] LABS: LYMPHOCYTES % (AUTO) 6.9 % (20.5-51.1); MONOCYTES % (AUTO) 10.7 % (1.7-9.3); NEUTROPHILS % (AUTO) 80.9 % (42.2-75.2)
[2019-06-17 08:39] LABS: MAGNESIUM 3.7 mg/dL (1.8-2.4); PHOSPHORUS 5.4 mg/dL (2.5-4.9)
[2019-06-17 08:47] LABS: ANION GAP 14.4 (8-16); CARBON DIOXIDE 23.5 mmol/L (21-32); CREATININE 2.1 mg/dL (0.7-1.3)
[2019-06-17] MEDS: POLYVINYL ALCOHOL 1.4% OP 15 ML SOL BOTH EYES SCH (09:00)
[2019-06-17] MEDS: INSULIN LANTUS 100 UNITS/ML 10 ML VIAL SUBQ SCH ×2 (09:00→21:00)
[2019-06-17] MEDS: PANTOPRAZOLE 80 MG in NACL 0.9% 100 ML IV SCH (09:09)
[2019-06-17] MEDS: ZINC SULF 220 MG CAP GT SCH (09:10)
[2019-06-17] MEDS: DOCUSATE 100 MG/10 ML UDC GT SCH ×2 (09:10→20:29)
[2019-06-17] MEDS: PHENYTOIN 100 MG/4 ML UDC GT SCH ×2 (09:10→20:29)
[2019-06-17] MEDS: ASCORBIC ACID 500 MG TAB GT SCH (09:10)
[2019-06-17] MEDS: MULTIVITAMIN/MINERALS 15 ML UDBTL PO SCH (09:10)
[2019-06-17] MEDS: CALCIUM ACETATE 667 MG TAB GT SCH ×2 (09:10→16:05)
[2019-06-17] MEDS: LACTOBACILLUS RHAMNOSUS GG 1 EACH CAP GT SCH (09:11)
[2019-06-17 09:12] LABS: POTASSIUM 2.9 mmol/L (3.5-5.1)
[2019-06-17] MEDS ORDERED: POTASSIUM CHLORIDE 40 MEQ, LIDOCAINE MPF 1% 25 MG in NACL 0.9% 250 ML IV SCH (10:00)
[2019-06-17] MEDS: ARTIFICIAL TEARS OPHTH OINT 3.5 GM TUBE BOTH EYES SCH ×2 (13:40→16:06)
[2019-06-17] MEDS ORDERED: POTASSIUM CHLORIDE 10 MEQ TABER PO SCH (15:30)
[2019-06-17] MEDS: NACL 0.9% 1,000 ML IV SCH (16:05)
[2019-06-17] MEDS: SODIUM FERRIC GLUCONATE 125 MG in NACL 0.9% 100 ML IV SCH (16:07)
[2019-06-17] MEDS: ATORVASTATIN 20 MG TAB GT SCH (20:29)
[2019-06-17 20:56] LABS: ANION GAP 15.7 (8-16); CARBON DIOXIDE 22.7 mmol/L (21-32); CREATININE 2.1 mg/dL (0.7-1.3); POTASSIUM 3.4 mmol/L (3.5-5.1)
[2019-06-17] MEDS ORDERED: PANTOPRAZOLE 40 MG TABEC PO SCH (21:00)
[2019-06-17] MEDS: VANCOMYCIN 1,000 MG in DEXTROSE 5% 250 ML IV SCH (22:21)
[2019-06-17] MEDS: PANTOPRAZOLE 40 MG INJ VIAL IVP SCH (22:21)
[2019-06-17] MEDS ORDERED: POTASSIUM CHLORIDE 20% 40 MEQ/15 ML UDC GT ONE (22:45)
[2019-06-18] VITALS (23 sets, daily range): BP systolic 96–144; BP diastolic 55–81
[2019-06-18] MEDS: Z-GUARD PASTE TP SCH ×2 (00:07→12:16)
[2019-06-18] MEDS: PIPERACILLIN/TAZOBACTAM 2.25 GM in DEXTROSE 5% 50 ML IV SCH ×5 (00:50→23:00)
[2019-06-18] MEDS: ALBUTEROL SULFATE/IPRATROPIU 3 ML SOL IH SCH ×3 (06:31→19:52)
[2019-06-18 06:35] LABS: ANION GAP 15.4 (8-16); CREATININE 2.1 mg/dL (0.7-1.3); POTASSIUM 4.4 mmol/L (3.5-5.1)
[2019-06-18 06:36] LABS: BASOPHILS % (AUTO) 0.4 % (0.0-2.0); EOSINOPHILS # (AUTO) 0.1 K/uL (0-0.4); EOSINOPHILS % (AUTO) 1.5 % (0.0-4.0); HEMOGLOBIN 8.1 g/dL (12.0-18.0); LYMPHOCYTES # (AUTO) 0.9 K/uL (2.0-11.5); LYMPHOCYTES % (AUTO) 9.5 % (20.5-51.1); MEAN CORPUSCULAR HEMOGLOBIN 31 pg (27-31); MEAN CORPUSCULAR HGB CONC 34 g/dL (33-37); MEAN CORPUSCULAR VOLUME 91.5 fL (80-94); MONOCYTES # (AUTO) 1.2 K/uL (0.8-1.0); MONOCYTES % (AUTO) 12.6 % (1.7-9.3); NEUTROPHILS # (AUTO) 7.2 K/uL (1.8-7.7); PLATELET COUNT (AUTO) 163 K/uL (140-450); RED BLOOD CELL COUNT(AUTO) 2.62 MIL/uL (4.20-6.10); RED CELL DISTRIBUTION WIDTH 17.6 % (11.6-13.7); WHITE BLOOD COUNT (AUTO) 9.4 K/uL (4.8-10.8)
[2019-06-18 06:49] LABS: MAGNESIUM 3.3 mg/dL (1.8-2.4); PHOSPHORUS 4.1 mg/dL (2.5-4.9)
[2019-06-18] MEDS: BLOOD GLUCOSE MONITORING 1 DEV DEV FS SCH ×4 (07:51→21:43)
[2019-06-18] MEDS: PANTOPRAZOLE 40 MG INJ VIAL IVP SCH ×2 (08:35→21:55)
[2019-06-18] MEDS: LACTOBACILLUS RHAMNOSUS GG 1 EACH CAP GT SCH (08:35)
[2019-06-18] MEDS: MULTIVITAMIN/MINERALS 15 ML UDBTL PO SCH (08:35)
[2019-06-18] MEDS: CALCIUM ACETATE 667 MG TAB GT SCH ×2 (08:35→17:15)
[2019-06-18] MEDS: DOCUSATE 100 MG/10 ML UDC GT SCH ×2 (08:35→21:55)
[2019-06-18] MEDS: ZINC SULF 220 MG CAP GT SCH (08:35)
[2019-06-18] MEDS: ARTIFICIAL TEARS OPHTH OINT 3.5 GM TUBE BOTH EYES SCH ×3 (08:36→17:15)
[2019-06-18] MEDS: ASCORBIC ACID 500 MG TAB GT SCH (08:36)
[2019-06-18] MEDS: PHENYTOIN 100 MG/4 ML UDC GT SCH ×3 (08:36→21:00)
[2019-06-18] MEDS: INSULIN LANTUS 100 UNITS/ML 10 ML VIAL SUBQ SCH ×2 (08:38→21:56)
[2019-06-18] MEDS: INSULIN LISPRO SLIDING SCALE 100 UNITS/ML VIAL SUBQ PRN ×3 (08:39→20:52)
[2019-06-18] MEDS ORDERED: POTASSIUM CHLORIDE 10 MEQ TABER PO SCH (09:00)
[2019-06-18] MEDS ORDERED: POTASSIUM CHLORIDE 20% 40 MEQ/15 ML UDC GT SCH (09:13)
[2019-06-18] MEDS: HYDRAGUARD CREAM TP SCH (12:14)
[2019-06-18] MEDS: GAUZE TP SCH (12:15)
[2019-06-18] MEDS: NACL 0.9% 1,000 ML IV SCH (12:16)
[2019-06-18] MEDS: SODIUM FERRIC GLUCONATE 125 MG in NACL 0.9% 100 ML IV SCH (17:14)
[2019-06-18] MEDS: VANCOMYCIN 1,000 MG in DEXTROSE 5% 250 ML IV SCH (21:54)
[2019-06-18] MEDS: ATORVASTATIN 20 MG TAB GT SCH (21:55)
[2019-06-19] VITALS: BP 134/72
[2019-06-19] MEDS: GAUZE TP SCH ×2 (00:22→13:05)
[2019-06-19] MEDS: Z-GUARD PASTE TP SCH ×2 (00:22→13:04)
[2019-06-19] MEDS: HYDRAGUARD CREAM TP SCH ×2 (00:22→13:04)
[2019-06-19 04:00] VITALS: BP 125/71
[2019-06-19] MEDS: PIPERACILLIN/TAZOBACTAM 2.25 GM in DEXTROSE 5% 50 ML IV SCH ×4 (05:04→23:52)
[2019-06-19] MEDS: BLOOD GLUCOSE MONITORING 1 DEV DEV FS SCH ×4 (05:38→20:12)
[2019-06-19] MEDS: INSULIN LISPRO SLIDING SCALE 100 UNITS/ML VIAL SUBQ PRN ×2 (05:42→11:56)
[2019-06-19 06:07] LABS: FOLIC ACID 12.5 ng/mL (>3.0)
[2019-06-19] MEDS: NACL 0.9% 1,000 ML IV SCH (06:07)
[2019-06-19 06:22] LABS: ANION GAP 14.8 (8-16); CARBON DIOXIDE 21.3 mmol/L (21-32); POTASSIUM 4.1 mmol/L (3.5-5.1)
[2019-06-19] MEDS: ALBUTEROL SULFATE/IPRATROPIU 3 ML SOL IH SCH ×2 (06:34→19:16)
[2019-06-19 06:53] LABS: BASOPHILS % (AUTO) 0.6 % (0.0-2.0); EOSINOPHILS # (AUTO) 0.2 K/uL (0-0.4); EOSINOPHILS % (AUTO) 2.5 % (0.0-4.0); HEMOGLOBIN 7.5 g/dL (12.0-18.0); LYMPHOCYTES # (AUTO) 0.8 K/uL (2.0-11.5); LYMPHOCYTES % (AUTO) 11.5 % (20.5-51.1); MAGNESIUM 2.7 mg/dL (1.8-2.4); MEAN CORPUSCULAR HEMOGLOBIN 30 pg (27-31); MEAN CORPUSCULAR HGB CONC 32 g/dL (33-37); MEAN CORPUSCULAR VOLUME 92.9 fL (80-94); MONOCYTES # (AUTO) 0.9 K/uL (0.8-1.0); MONOCYTES % (AUTO) 12.5 % (1.7-9.3); NEUTROPHILS # (AUTO) 5.4 K/uL (1.8-7.7); NEUTROPHILS % (AUTO) 72.9 % (42.2-75.2); PHOSPHORUS 3.9 mg/dL (2.5-4.9); PLATELET COUNT (AUTO) 157 K/uL (140-450); RED BLOOD CELL COUNT(AUTO) 2.48 MIL/uL (4.20-6.10); RED CELL DISTRIBUTION WIDTH 17.4 % (11.6-13.7); WHITE BLOOD COUNT (AUTO) 7.4 K/uL (4.8-10.8)
[2019-06-19 08:00] VITALS: BP 136/62
[2019-06-19] MEDS: DOCUSATE 100 MG/10 ML UDC GT SCH ×2 (08:44→20:11)
[2019-06-19] MEDS: ASCORBIC ACID 500 MG/5 ML ORASYR GT SCH (08:45)
[2019-06-19] MEDS: POTASSIUM CHLORIDE 20% 40 MEQ/15 ML UDC GT SCH (08:45)
[2019-06-19] MEDS: LACTOBACILLUS RHAMNOSUS GG 1 EACH CAP GT SCH (08:45)
[2019-06-19] MEDS: PANTOPRAZOLE 40 MG INJ VIAL IVP SCH ×2 (08:45→20:12)
[2019-06-19] MEDS: CALCIUM ACETATE 667 MG TAB GT SCH ×2 (08:46→17:30)
[2019-06-19] MEDS: ZINC SULF 220 MG CAP GT SCH (08:46)
[2019-06-19] MEDS: INSULIN LANTUS 100 UNITS/ML 10 ML VIAL SUBQ SCH ×2 (08:47→20:14)
[2019-06-19] MEDS: MULTIVITAMIN/MINERALS 15 ML UDBTL PO SCH (08:48)
[2019-06-19] MEDS: ARTIFICIAL TEARS OPHTH OINT 3.5 GM TUBE BOTH EYES SCH ×3 (08:51→17:30)
[2019-06-19 12:00] VITALS: BP 134/74
[2019-06-19 16:00] VITALS: BP 137/70
[2019-06-19] MEDS: SODIUM FERRIC GLUCONATE 125 MG in NACL 0.9% 100 ML IV SCH (17:30)
[2019-06-19] MEDS: SCOPOLAMINE 1.5 MG/72 HR PATCH TD SCH (17:31)
[2019-06-19] MEDS: ACETYLCYSTEINE 10% (100 MG/ML) 100 MG/ML VIAL INH SCH (19:16)
[2019-06-19 20:00] VITALS: BP 135/70
[2019-06-19] MEDS: ATORVASTATIN 20 MG TAB GT SCH (20:11)
[2019-06-19] MEDS: VANCOMYCIN 1,000 MG in DEXTROSE 5% 250 ML IV SCH (20:57)
[2019-06-19] MEDS: ONDANSETRON 4 MG/2 ML VIAL IM/IVP PRN (23:33)
[2019-06-20] VITALS (7 sets, daily range): BP systolic 112–165; BP diastolic 59–92
[2019-06-20] MEDS: ACETYLCYSTEINE 10% (100 MG/ML) 100 MG/ML VIAL INH SCH ×4 (00:52→20:11)
[2019-06-20] MEDS: ALBUTEROL SULFATE/IPRATROPIU 3 ML SOL IH SCH ×4 (00:52→20:11)
[2019-06-20] MEDS: GAUZE TP SCH ×2 (01:04→13:08)
[2019-06-20] MEDS: Z-GUARD PASTE TP SCH ×2 (01:04→13:08)
[2019-06-20] MEDS: HYDRAGUARD CREAM TP SCH ×2 (01:04→13:08)
[2019-06-20] MEDS: NACL 0.9% 1,000 ML IV SCH ×2 (03:39→22:04)
[2019-06-20] MEDS: BLOOD GLUCOSE MONITORING 1 DEV DEV FS SCH ×4 (05:07→20:35)
[2019-06-20] MEDS: PIPERACILLIN/TAZOBACTAM 2.25 GM in DEXTROSE 5% 50 ML IV SCH (05:07)
[2019-06-20] MEDS ORDERED: AMIKACIN PER PHARMACY MC PRN (06:30)
[2019-06-20 06:45] LABS: BASOPHILS % (AUTO) 0.5 % (0.0-2.0); EOSINOPHILS # (AUTO) 0.2 K/uL (0-0.4); EOSINOPHILS % (AUTO) 2.3 % (0.0-4.0); HEMATOCRIT 25.7 % (36-52); HEMOGLOBIN 8.1 g/dL (12.0-18.0); LYMPHOCYTES # (AUTO) 1.1 K/uL (2.0-11.5); LYMPHOCYTES % (AUTO) 13.4 % (20.5-51.1); MEAN CORPUSCULAR HEMOGLOBIN 30 pg (27-31); MEAN CORPUSCULAR HGB CONC 32 g/dL (33-37); MONOCYTES # (AUTO) 1.1 K/uL (0.8-1.0); MONOCYTES % (AUTO) 14.3 % (1.7-9.3); NEUTROPHILS # (AUTO) 5.6 K/uL (1.8-7.7); NEUTROPHILS % (AUTO) 69.5 % (42.2-75.2); PLATELET COUNT (AUTO) 183 K/uL (140-450); RED BLOOD CELL COUNT(AUTO) 2.73 MIL/uL (4.20-6.10); RED CELL DISTRIBUTION WIDTH 17.9 % (11.6-13.7)
[2019-06-20] MEDS ORDERED: BISACODYL 10 MG SUPP RC SCH ×2 (07:00→18:15)
[2019-06-20 07:10] LABS: MAGNESIUM 2.4 mg/dL (1.8-2.4); PHOSPHORUS 4.2 mg/dL (2.5-4.9)
[2019-06-20 07:13] LABS: PHENYTOIN (DILANTIN) 22.2 ug/ml (10.0-20.0)
[2019-06-20] MEDS: ONDANSETRON 4 MG/2 ML VIAL IM/IVP PRN (07:35)
[2019-06-20] MEDS ORDERED: VANCOMYCIN PER PHARMACY MC PRN (08:25)
[2019-06-20 08:31] LABS: ANION GAP 16.4 (8-16); CARBON DIOXIDE 19.5 mmol/L (21-32); POTASSIUM 4.9 mmol/L (3.5-5.1)
[2019-06-20 08:32] LABS: CREATININE 1.9 mg/dL (0.7-1.3)
[2019-06-20] MEDS: ZINC SULF 220 MG CAP GT SCH (09:27)
[2019-06-20] MEDS: LACTOBACILLUS RHAMNOSUS GG 1 EACH CAP GT SCH (09:27)
[2019-06-20] MEDS: CALCIUM ACETATE 667 MG TAB GT SCH ×2 (09:27→17:59)
[2019-06-20] MEDS: POTASSIUM CHLORIDE 20% 40 MEQ/15 ML UDC GT SCH (09:28)
[2019-06-20] MEDS: DOCUSATE 100 MG/10 ML UDC GT SCH ×2 (09:28→20:38)
[2019-06-20] MEDS: PANTOPRAZOLE 40 MG INJ VIAL IVP SCH ×2 (09:28→20:38)
[2019-06-20] MEDS: MULTIVITAMIN/MINERALS 15 ML UDBTL PO SCH (09:38)
[2019-06-20] MEDS: ASCORBIC ACID 500 MG/5 ML ORASYR GT SCH (09:38)
[2019-06-20] MEDS: INSULIN LANTUS 100 UNITS/ML 10 ML VIAL SUBQ SCH ×3 (09:40→20:35)
[2019-06-20] MEDS: ARTIFICIAL TEARS OPHTH OINT 3.5 GM TUBE BOTH EYES SCH ×3 (09:41→18:00)
[2019-06-20] MEDS: AMIKACIN 400 MG in DEXTROSE 5% 100 ML IV SCH (12:04)
[2019-06-20] MEDS: SODIUM PHOSPHATE 118 ML ENEM RC PRN (13:06)
[2019-06-20] MEDS: GLYCOPYRROLATE 1 MG TAB PO SCH (18:00)
[2019-06-20] MEDS: DEXTROSE 50% 50 ML SYR IVP PRN (18:01)
[2019-06-20] MEDS: DEXT 5% / NACL 0.45% 1,000 ML IV SCH (18:16)
[2019-06-20] MEDS: ATORVASTATIN 20 MG TAB GT SCH (20:38)
[2019-06-21] VITALS: BP 126/74
[2019-06-21] MEDS: GAUZE TP SCH ×2 (00:43→13:00)
[2019-06-21] MEDS: Z-GUARD PASTE TP SCH ×2 (00:43→13:00)
[2019-06-21] MEDS: HYDRAGUARD CREAM TP SCH ×2 (00:43→13:00)
[2019-06-21] MEDS: ALBUTEROL SULFATE/IPRATROPIU 3 ML SOL IH SCH ×4 (01:40→19:27)
[2019-06-21] MEDS: ACETYLCYSTEINE 10% (100 MG/ML) 100 MG/ML VIAL INH SCH ×4 (01:40→19:29)
[2019-06-21] MEDS: SODIUM PHOSPHATE 118 ML ENEM RC PRN (02:33)
[2019-06-21 04:00] VITALS: BP 124/78
[2019-06-21] MEDS: DEXTROSE 50% 50 ML SYR IVP PRN (05:00)
[2019-06-21] MEDS: BLOOD GLUCOSE MONITORING 1 DEV DEV FS SCH ×4 (05:03→21:25)
[2019-06-21] MEDS: GLYCOPYRROLATE 1 MG TAB PO SCH ×2 (06:32→16:27)
[2019-06-21 06:45] LABS: ANION GAP 16.4 (8-16); CARBON DIOXIDE 19.9 mmol/L (21-32); CREATININE 1.9 mg/dL (0.7-1.3); POTASSIUM 4.3 mmol/L (3.5-5.1)
[2019-06-21 07:04] LABS: BASOPHILS # (AUTO) 0.1 K/uL (0.00-0.22); BASOPHILS % (AUTO) 0.8 % (0.0-2.0); EOSINOPHILS # (AUTO) 0.4 K/uL (0-0.4); EOSINOPHILS % (AUTO) 5.3 % (0.0-4.0); HEMATOCRIT 24.7 % (36-52); HEMOGLOBIN 7.8 g/dL (12.0-18.0); LYMPHOCYTES # (AUTO) 1.6 K/uL (2.0-11.5); LYMPHOCYTES % (AUTO) 23.3 % (20.5-51.1); MEAN CORPUSCULAR HEMOGLOBIN 30 pg (27-31); MEAN CORPUSCULAR HGB CONC 32 g/dL (33-37); MEAN CORPUSCULAR VOLUME 94.7 fL (80-94); MONOCYTES # (AUTO) 0.8 K/uL (0.8-1.0); MONOCYTES % (AUTO) 12.3 % (1.7-9.3); NEUTROPHILS # (AUTO) 3.9 K/uL (1.8-7.7); NEUTROPHILS % (AUTO) 58.3 % (42.2-75.2); PLATELET COUNT (AUTO) 203 K/uL (140-450); RED BLOOD CELL COUNT(AUTO) 2.61 MIL/uL (4.20-6.10); RED CELL DISTRIBUTION WIDTH 18.4 % (11.6-13.7); WHITE BLOOD COUNT (AUTO) 6.8 K/uL (4.8-10.8)
[2019-06-21 07:05] LABS: MAGNESIUM 2.1 mg/dL (1.8-2.4); PHOSPHORUS 4.3 mg/dL (2.5-4.9)
[2019-06-21 08:00] VITALS: BP 143/81
[2019-06-21] MEDS: INSULIN LANTUS 100 UNITS/ML 10 ML VIAL SUBQ SCH ×2 (09:00→21:17)
[2019-06-21] MEDS: POTASSIUM CHLORIDE 20% 40 MEQ/15 ML UDC GT SCH (09:58)
[2019-06-21] MEDS: PANTOPRAZOLE 40 MG INJ VIAL IVP SCH ×2 (09:58→21:03)
[2019-06-21] MEDS: DOCUSATE 100 MG/10 ML UDC GT SCH ×2 (09:58→21:04)
[2019-06-21] MEDS: CALCIUM ACETATE 667 MG TAB GT SCH ×2 (09:58→16:27)
[2019-06-21] MEDS: ZINC SULF 220 MG CAP GT SCH (09:58)
[2019-06-21] MEDS: LACTOBACILLUS RHAMNOSUS GG 1 EACH CAP GT SCH (09:58)
[2019-06-21] MEDS: MULTIVITAMIN/MINERALS 15 ML UDBTL PO SCH (10:02)
[2019-06-21] MEDS: ASCORBIC ACID 500 MG/5 ML ORASYR GT SCH (10:02)
[2019-06-21] MEDS: ARTIFICIAL TEARS OPHTH OINT 3.5 GM TUBE BOTH EYES SCH ×3 (10:05→16:27)
[2019-06-21 12:00] VITALS: BP 147/82
[2019-06-21] MEDS ORDERED: SODIUM PHOSPHATE 118 ML ENEM RC SCH (13:00)
[2019-06-21] MEDS: DEXT 5% / NACL 0.45% 1,000 ML IV SCH ×2 (14:05→22:43)
[2019-06-21] MEDS: AMIKACIN 400 MG in DEXTROSE 5% 100 ML IV SCH (15:20)
[2019-06-21 16:00] VITALS: BP 134/76
[2019-06-21] MEDS: NACL 0.9% 1,000 ML IV SCH (18:04)
[2019-06-21 20:00] VITALS: BP 157/84
[2019-06-21] MEDS: ATORVASTATIN 20 MG TAB GT SCH (21:04)
[2019-06-22] VITALS (7 sets, daily range): BP systolic 110–149; BP diastolic 59–84
[2019-06-22] MEDS: HYDRAGUARD CREAM TP SCH ×2 (00:17→12:51)
[2019-06-22] MEDS: Z-GUARD PASTE TP SCH ×2 (00:17→12:51)
[2019-06-22] MEDS: GAUZE TP SCH ×2 (00:17→12:51)
[2019-06-22] MEDS: ACETYLCYSTEINE 10% (100 MG/ML) 100 MG/ML VIAL INH SCH ×4 (01:34→19:14)
[2019-06-22] MEDS: ALBUTEROL SULFATE/IPRATROPIU 3 ML SOL IH SCH ×4 (01:34→19:13)
[2019-06-22] MEDS: DEXT 5% / NACL 0.9% 500 ML IV SCH ×2 (06:01→16:39)
[2019-06-22 06:45] LABS: BASOPHILS % (AUTO) 0.8 % (0.0-2.0); EOSINOPHILS # (AUTO) 0.3 K/uL (0-0.4); EOSINOPHILS % (AUTO) 5.1 % (0.0-4.0); HEMATOCRIT 25.6 % (36-52); HEMOGLOBIN 7.8 g/dL (12.0-18.0); LYMPHOCYTES # (AUTO) 1.3 K/uL (2.0-11.5); LYMPHOCYTES % (AUTO) 22.7 % (20.5-51.1); MEAN CORPUSCULAR HEMOGLOBIN 30 pg (27-31); MEAN CORPUSCULAR HGB CONC 31 g/dL (33-37); MONOCYTES # (AUTO) 0.9 K/uL (0.8-1.0); MONOCYTES % (AUTO) 15.4 % (1.7-9.3); NEUTROPHILS # (AUTO) 3.1 K/uL (1.8-7.7); PLATELET COUNT (AUTO) 242 K/uL (140-450); RED BLOOD CELL COUNT(AUTO) 2.61 MIL/uL (4.20-6.10); RED CELL DISTRIBUTION WIDTH 18.6 % (11.6-13.7); WHITE BLOOD COUNT (AUTO) 5.6 K/uL (4.8-10.8)
[2019-06-22] MEDS: GLYCOPYRROLATE 1 MG TAB PO SCH ×2 (06:55→16:45)
[2019-06-22] MEDS: BLOOD GLUCOSE MONITORING 1 DEV DEV FS SCH ×4 (07:00→21:28)
[2019-06-22 07:07] LABS: ANION GAP 15.7 (8-16); POTASSIUM 4.7 mmol/L (3.5-5.1)
[2019-06-22 07:19] LABS: MAGNESIUM 2.2 mg/dL (1.8-2.4); PHOSPHORUS 4.7 mg/dL (2.5-4.9)
[2019-06-22] MEDS: POTASSIUM CHLORIDE 20% 40 MEQ/15 ML UDC GT SCH (08:16)
[2019-06-22] MEDS: MULTIVITAMIN/MINERALS 15 ML UDBTL PO SCH (08:16)
[2019-06-22] MEDS: LACTOBACILLUS RHAMNOSUS GG 1 EACH CAP GT SCH (08:17)
[2019-06-22] MEDS: DOCUSATE 100 MG/10 ML UDC GT SCH ×2 (08:17→21:30)
[2019-06-22] MEDS: CALCIUM ACETATE 667 MG TAB GT SCH ×2 (08:17→16:45)
[2019-06-22] MEDS: ZINC SULF 220 MG CAP GT SCH (08:17)
[2019-06-22] MEDS: PANTOPRAZOLE 40 MG INJ VIAL IVP SCH ×2 (08:18→21:29)
[2019-06-22] MEDS: ARTIFICIAL TEARS OPHTH OINT 3.5 GM TUBE BOTH EYES SCH ×3 (08:18→16:47)
[2019-06-22] MEDS: INSULIN LANTUS 100 UNITS/ML 10 ML VIAL SUBQ SCH ×2 (08:20→21:00)
[2019-06-22] MEDS: ASCORBIC ACID 500 MG/5 ML ORASYR GT SCH (10:38)
[2019-06-22] MEDS ORDERED: diphenhydrAMINE 50 MG/ML VIAL ONE (15:10)
[2019-06-22] MEDS ORDERED: fentaNYL 0.05 MG/ML VIAL ONE (15:10)
[2019-06-22] MEDS ORDERED: MIDAZOLAM 2 MG/2 ML VIAL ONE (15:10)
[2019-06-22] MEDS ORDERED: MIDAZOLAM 2 MG/2 ML VIAL IVP ONE (15:26)
[2019-06-22] MEDS: AMIKACIN 400 MG in DEXTROSE 5% 100 ML IV SCH (15:56)
[2019-06-22] MEDS: DEXTROSE 50% 50 ML SYR IVP PRN ×2 (17:08→21:29)
[2019-06-22] MEDS: SCOPOLAMINE 1.5 MG/72 HR PATCH TD SCH (17:39)
[2019-06-22] MEDS: NACL 0.9% 1,000 ML IV SCH (21:20)
[2019-06-22] MEDS: ATORVASTATIN 20 MG TAB GT SCH (21:29)
[2019-06-23] VITALS (16 sets, daily range): BP systolic 114–136; BP diastolic 64–86
[2019-06-23] MEDS: HYDRAGUARD CREAM TP SCH ×2 (01:01→13:00)
[2019-06-23] MEDS: GAUZE TP SCH ×2 (01:01→13:00)
[2019-06-23] MEDS: Z-GUARD PASTE TP SCH ×2 (01:01→13:00)
[2019-06-23 05:34] LABS: ANION GAP 14.8 (8-16); CARBON DIOXIDE 21.1 mmol/L (21-32); POTASSIUM 4.9 mmol/L (3.5-5.1)
[2019-06-23 05:43] LABS: HEMATOCRIT 25.9 % (36-52); MEAN CORPUSCULAR HEMOGLOBIN 30 pg (27-31); MEAN CORPUSCULAR HGB CONC 31 g/dL (33-37); MEAN CORPUSCULAR VOLUME 96.9 fL (80-94); PLATELET COUNT (AUTO) 274 K/uL (140-450); RED BLOOD CELL COUNT(AUTO) 2.67 MIL/uL (4.20-6.10); RED CELL DISTRIBUTION WIDTH 18.7 % (11.6-13.7); WHITE BLOOD COUNT (AUTO) 5.8 K/uL (4.8-10.8)
[2019-06-23 05:45] LABS: MAGNESIUM 2.1 mg/dL (1.8-2.4); PHOSPHORUS 4.7 mg/dL (2.5-4.9)
[2019-06-23] MEDS: BLOOD GLUCOSE MONITORING 1 DEV DEV FS SCH ×4 (06:38→20:28)
[2019-06-23 06:53] LABS: EOSINOPHILS % (MANUAL) 10 % (0-4); LYMPHOCYTES % (MANUAL) 23 % (20-46); MONOCYTES % (MANUAL) 10 % (5-12)
[2019-06-23 06:54] LABS: BASOPHILS % (MANUAL) 0 % (0-2)
[2019-06-23] MEDS: ALBUTEROL SULFATE/IPRATROPIU 3 ML SOL IH SCH ×3 (08:15→19:18)
[2019-06-23] MEDS: ACETYLCYSTEINE 10% (100 MG/ML) 100 MG/ML VIAL INH SCH ×3 (08:15→19:19)
[2019-06-23] MEDS: INSULIN LANTUS 100 UNITS/ML 10 ML VIAL SUBQ SCH ×2 (09:00→20:31)
[2019-06-23] MEDS: MULTIVITAMIN/MINERALS 15 ML UDBTL PO SCH (09:02)
[2019-06-23] MEDS: ASCORBIC ACID 500 MG/5 ML ORASYR GT SCH (09:02)
[2019-06-23] MEDS: POTASSIUM CHLORIDE 20% 40 MEQ/15 ML UDC GT SCH (09:03)
[2019-06-23] MEDS: CALCIUM ACETATE 667 MG TAB GT SCH ×2 (09:03→16:57)
[2019-06-23] MEDS: ARTIFICIAL TEARS OPHTH OINT 3.5 GM TUBE BOTH EYES SCH ×3 (09:03→16:58)
[2019-06-23] MEDS: LACTOBACILLUS RHAMNOSUS GG 1 EACH CAP GT SCH (09:03)
[2019-06-23] MEDS: ZINC SULF 220 MG CAP GT SCH (09:03)
[2019-06-23] MEDS: DOCUSATE 100 MG/10 ML UDC GT SCH ×2 (09:03→20:30)
[2019-06-23] MEDS: PANTOPRAZOLE 40 MG INJ VIAL IVP SCH ×2 (09:05→20:42)
[2019-06-23] MEDS: GLYCOPYRROLATE 1 MG TAB PO SCH ×2 (09:18→16:58)
[2019-06-23] MEDS ORDERED: SODIUM PHOSPHATE 118 ML ENEM RC PRN (13:05)
[2019-06-23] MEDS: AMIKACIN 400 MG in DEXTROSE 5% 100 ML IV SCH (14:38)
[2019-06-23] MEDS: NACL 0.9% 1,000 ML IV SCH (14:40)
[2019-06-23] MEDS: ATORVASTATIN 20 MG TAB GT SCH (20:30)
[2019-06-24] VITALS (18 sets, daily range): BP systolic 109–139; BP diastolic 67–84
[2019-06-24] MEDS: ALBUTEROL SULFATE/IPRATROPIU 3 ML SOL IH SCH ×4 (01:05→19:02)
[2019-06-24] MEDS: ACETYLCYSTEINE 10% (100 MG/ML) 100 MG/ML VIAL INH SCH ×4 (01:06→19:03)
[2019-06-24] MEDS: Z-GUARD PASTE TP SCH ×2 (01:20→12:48)
[2019-06-24] MEDS: GAUZE TP SCH ×2 (01:20→12:48)
[2019-06-24] MEDS: HYDRAGUARD CREAM TP SCH ×2 (01:20→12:48)
[2019-06-24 04:38] LABS: BASOPHILS % (AUTO) 0.6 % (0.0-2.0); EOSINOPHILS # (AUTO) 0.3 K/uL (0-0.4); EOSINOPHILS % (AUTO) 3.7 % (0.0-4.0); HEMATOCRIT 24.2 % (36-52); HEMOGLOBIN 7.5 g/dL (12.0-18.0); LYMPHOCYTES # (AUTO) 1.5 K/uL (2.0-11.5); LYMPHOCYTES % (AUTO) 19.4 % (20.5-51.1); MEAN CORPUSCULAR HEMOGLOBIN 30 pg (27-31); MEAN CORPUSCULAR HGB CONC 31 g/dL (33-37); MEAN CORPUSCULAR VOLUME 97.4 fL (80-94); MONOCYTES # (AUTO) 0.7 K/uL (0.8-1.0); MONOCYTES % (AUTO) 8.8 % (1.7-9.3); NEUTROPHILS # (AUTO) 5.2 K/uL (1.8-7.7); NEUTROPHILS % (AUTO) 67.5 % (42.2-75.2); PLATELET COUNT (AUTO) 258 K/uL (140-450); RED BLOOD CELL COUNT(AUTO) 2.48 MIL/uL (4.20-6.10); RED CELL DISTRIBUTION WIDTH 18.9 % (11.6-13.7); WHITE BLOOD COUNT (AUTO) 7.7 K/uL (4.8-10.8)
[2019-06-24 06:38] LABS: ANION GAP 16.7 (8-16); CARBON DIOXIDE 18.6 mmol/L (21-32); CREATININE 2.1 mg/dL (0.7-1.3); POTASSIUM 5.3 mmol/L (3.5-5.1)
[2019-06-24 06:45] LABS: MAGNESIUM 1.9 mg/dL (1.8-2.4)
[2019-06-24] MEDS: GLYCOPYRROLATE 1 MG TAB PO SCH ×2 (07:20→16:47)
[2019-06-24] MEDS: BLOOD GLUCOSE MONITORING 1 DEV DEV FS SCH ×4 (07:20→20:30)
[2019-06-24] MEDS ORDERED: CALCIUM ACETATE 667 MG TAB GT SCH (08:15)
[2019-06-24] MEDS ORDERED: PATIROMER CALCIUM SORBITEX 8.4 GM PKT GT SCH (08:15)
[2019-06-24] MEDS: POTASSIUM CHLORIDE 20% 40 MEQ/15 ML UDC GT SCH ×2 (08:26→08:35)
[2019-06-24] MEDS: DOCUSATE 100 MG/10 ML UDC GT SCH ×2 (08:27→20:23)
[2019-06-24] MEDS: LACTOBACILLUS RHAMNOSUS GG 1 EACH CAP GT SCH (08:27)
[2019-06-24] MEDS: ARTIFICIAL TEARS OPHTH OINT 3.5 GM TUBE BOTH EYES SCH ×3 (08:28→16:47)
[2019-06-24] MEDS: CALCIUM ACETATE 667 MG TAB GT SCH ×2 (08:28→16:47)
[2019-06-24] MEDS: NACL 0.45% 1,000 ML IV SCH ×2 (08:28→22:46)
[2019-06-24] MEDS: PANTOPRAZOLE 40 MG INJ VIAL IVP SCH ×2 (08:29→20:23)
[2019-06-24] MEDS: ASCORBIC ACID 500 MG/5 ML ORASYR GT SCH (08:29)
[2019-06-24] MEDS: MULTIVITAMIN/MINERALS 15 ML UDBTL PO SCH (08:29)
[2019-06-24] MEDS: ZINC SULF 220 MG CAP GT SCH (08:29)
[2019-06-24] MEDS: INSULIN LANTUS 100 UNITS/ML 10 ML VIAL SUBQ SCH ×2 (08:36→20:29)
[2019-06-24] MEDS: AMIKACIN 400 MG in DEXTROSE 5% 100 ML IV SCH (14:36)
[2019-06-24] MEDS: ATORVASTATIN 20 MG TAB GT SCH (20:23)
[2019-06-25] VITALS (18 sets, daily range): BP systolic 115–145; BP diastolic 71–91
[2019-06-25] MEDS: ALBUTEROL SULFATE/IPRATROPIU 3 ML SOL IH SCH ×4 (01:06→19:25)
[2019-06-25] MEDS: ACETYLCYSTEINE 10% (100 MG/ML) 100 MG/ML VIAL INH SCH ×4 (01:06→19:00)
[2019-06-25] MEDS: HYDRAGUARD CREAM TP SCH ×2 (01:56→12:27)
[2019-06-25] MEDS: GAUZE TP SCH ×2 (01:56→12:27)
[2019-06-25] MEDS: Z-GUARD PASTE TP SCH ×2 (01:56→12:28)
[2019-06-25 06:45] LABS: BASOPHILS % (AUTO) 0.2 % (0.0-2.0); EOSINOPHILS # (AUTO) 0.2 K/uL (0-0.4); EOSINOPHILS % (AUTO) 3.3 % (0.0-4.0); HEMATOCRIT 22.8 % (36-52); LYMPHOCYTES # (AUTO) 1.4 K/uL (2.0-11.5); LYMPHOCYTES % (AUTO) 19.7 % (20.5-51.1); MEAN CORPUSCULAR HEMOGLOBIN 31 pg (27-31); MEAN CORPUSCULAR HGB CONC 31 g/dL (33-37); MONOCYTES # (AUTO) 0.7 K/uL (0.8-1.0); MONOCYTES % (AUTO) 9.2 % (1.7-9.3); NEUTROPHILS # (AUTO) 4.9 K/uL (1.8-7.7); NEUTROPHILS % (AUTO) 67.6 % (42.2-75.2); PLATELET COUNT (AUTO) 245 K/uL (140-450); RED BLOOD CELL COUNT(AUTO) 2.33 MIL/uL (4.20-6.10); RED CELL DISTRIBUTION WIDTH 18.3 % (11.6-13.7); WHITE BLOOD COUNT (AUTO) 7.2 K/uL (4.8-10.8)
[2019-06-25 06:53] LABS: MAGNESIUM 1.5 mg/dL (1.8-2.4); PHOSPHORUS 5.2 mg/dL (2.5-4.9)
[2019-06-25 07:33] LABS: ANION GAP 16.8 (8-16); CARBON DIOXIDE 18.1 mmol/L (21-32); CREATININE 2.1 mg/dL (0.7-1.3); POTASSIUM 4.9 mmol/L (3.5-5.1)
[2019-06-25 07:41] LABS: HEMOGLOBIN 7.1 g/dL (12.0-18.0)
[2019-06-25] MEDS: BLOOD GLUCOSE MONITORING 1 DEV DEV FS SCH ×4 (08:25→20:24)
[2019-06-25] MEDS: DOCUSATE 100 MG/10 ML UDC GT SCH ×2 (08:49→20:21)
[2019-06-25] MEDS: POTASSIUM CHLORIDE 20% 40 MEQ/15 ML UDC GT SCH (08:49)
[2019-06-25] MEDS: GLYCOPYRROLATE 1 MG TAB PO SCH ×2 (08:49→16:27)
[2019-06-25] MEDS: MULTIVITAMIN/MINERALS 15 ML UDBTL PO SCH (08:49)
[2019-06-25] MEDS: CALCIUM ACETATE 667 MG TAB GT SCH ×2 (08:50→16:27)
[2019-06-25] MEDS: LACTOBACILLUS RHAMNOSUS GG 1 EACH CAP GT SCH (08:50)
[2019-06-25] MEDS: ASCORBIC ACID 500 MG/5 ML ORASYR GT SCH (08:50)
[2019-06-25] MEDS: PANTOPRAZOLE 40 MG INJ VIAL IVP SCH ×2 (08:50→20:22)
[2019-06-25] MEDS: ZINC SULF 220 MG CAP GT SCH (08:50)
[2019-06-25] MEDS: INSULIN LANTUS 100 UNITS/ML 10 ML VIAL SUBQ SCH ×2 (08:53→20:24)
[2019-06-25] MEDS: ARTIFICIAL TEARS OPHTH OINT 3.5 GM TUBE BOTH EYES SCH ×3 (08:54→16:29)
[2019-06-25] MEDS ORDERED: MAG SULF 2000 MG/WATER PREMIX 50 ML IV SCH (10:00)
[2019-06-25] MEDS: NACL 0.45% 1,000 ML IV SCH (10:51)
[2019-06-25] MEDS: AMIKACIN 400 MG in DEXTROSE 5% 100 ML IV SCH (14:44)
[2019-06-25] MEDS: SCOPOLAMINE 1.5 MG/72 HR PATCH TD SCH (16:34)
[2019-06-25] MEDS: ATORVASTATIN 20 MG TAB GT SCH (20:21)
[2019-06-26] VITALS (18 sets, daily range): BP systolic 113–149; BP diastolic 61–96
[2019-06-26] MEDS: NACL 0.45% 1,000 ML IV SCH ×2 (00:25→13:27)
[2019-06-26] MEDS: GAUZE TP SCH ×2 (00:27→13:11)
[2019-06-26] MEDS: HYDRAGUARD CREAM TP SCH ×2 (00:28→13:09)
[2019-06-26] MEDS: Z-GUARD PASTE TP SCH ×2 (00:28→13:09)
[2019-06-26] MEDS: ALBUTEROL SULFATE/IPRATROPIU 3 ML SOL IH SCH ×4 (00:51→18:53)
[2019-06-26] MEDS: ACETYLCYSTEINE 10% (100 MG/ML) 100 MG/ML VIAL INH SCH ×4 (00:51→18:53)
[2019-06-26] MEDS: BLOOD GLUCOSE MONITORING 1 DEV DEV FS SCH ×4 (06:56→20:36)
[2019-06-26 07:10] LABS: ANION GAP 16.3 (8-16); CARBON DIOXIDE 17.4 mmol/L (21-32); CREATININE 1.9 mg/dL (0.7-1.3); POTASSIUM 4.7 mmol/L (3.5-5.1)
[2019-06-26 07:22] LABS: MAGNESIUM 1.9 mg/dL (1.8-2.4); PHOSPHORUS 5.2 mg/dL (2.5-4.9)
[2019-06-26 07:30] LABS: BASOPHILS % (AUTO) 0.5 % (0.0-2.0); EOSINOPHILS # (AUTO) 0.2 K/uL (0-0.4); EOSINOPHILS % (AUTO) 3.8 % (0.0-4.0); HEMATOCRIT 22.4 % (36-52); LYMPHOCYTES # (AUTO) 1.1 K/uL (2.0-11.5); LYMPHOCYTES % (AUTO) 19.7 % (20.5-51.1); MEAN CORPUSCULAR HEMOGLOBIN 30 pg (27-31); MEAN CORPUSCULAR HGB CONC 31 g/dL (33-37); MEAN CORPUSCULAR VOLUME 96.8 fL (80-94); MONOCYTES # (AUTO) 0.6 K/uL (0.8-1.0); NEUTROPHILS # (AUTO) 3.8 K/uL (1.8-7.7); PLATELET COUNT (AUTO) 229 K/uL (140-450); RED BLOOD CELL COUNT(AUTO) 2.32 MIL/uL (4.20-6.10); RED CELL DISTRIBUTION WIDTH 18.4 % (11.6-13.7); WHITE BLOOD COUNT (AUTO) 5.8 K/uL (4.8-10.8)
[2019-06-26] MEDS: GLYCOPYRROLATE 1 MG TAB PO SCH ×2 (07:55→16:38)
[2019-06-26] MEDS: CALCIUM ACETATE 667 MG TAB GT SCH ×2 (07:56→16:56)
[2019-06-26 07:59] LABS: HEMOGLOBIN 6.9 g/dL (12.0-18.0)
[2019-06-26] MEDS: ARTIFICIAL TEARS OPHTH OINT 3.5 GM TUBE BOTH EYES SCH ×3 (08:26→16:41)
[2019-06-26] MEDS: PANTOPRAZOLE 40 MG INJ VIAL IVP SCH ×2 (08:27→20:36)
[2019-06-26] MEDS: ASCORBIC ACID 500 MG/5 ML ORASYR GT SCH (08:27)
[2019-06-26] MEDS: LACTOBACILLUS RHAMNOSUS GG 1 EACH CAP GT SCH (08:27)
[2019-06-26] MEDS: DOCUSATE 100 MG/10 ML UDC GT SCH ×2 (08:27→20:35)
[2019-06-26] MEDS: ZINC SULF 220 MG CAP GT SCH (08:27)
[2019-06-26] MEDS: MULTIVITAMIN/MINERALS 15 ML UDBTL PO SCH (08:27)
[2019-06-26] MEDS: INSULIN LANTUS 100 UNITS/ML 10 ML VIAL SUBQ SCH ×2 (08:32→20:36)
[2019-06-26] MEDS: POTASSIUM CHLORIDE 20% 40 MEQ/15 ML UDC GT SCH (08:34)
[2019-06-26] MEDS: AMIKACIN 400 MG in DEXTROSE 5% 100 ML IV SCH (14:58)
[2019-06-26] MEDS: ATORVASTATIN 20 MG TAB GT SCH (20:36)
[2019-06-26] MEDS: INSULIN LISPRO SLIDING SCALE 100 UNITS/ML VIAL SUBQ PRN (20:53)
[2019-06-27] VITALS (17 sets, daily range): BP systolic 113–149; BP diastolic 69–96
[2019-06-27] MEDS: ALBUTEROL SULFATE/IPRATROPIU 3 ML SOL IH SCH ×4 (01:04→19:33)
[2019-06-27] MEDS: ACETYLCYSTEINE 10% (100 MG/ML) 100 MG/ML VIAL INH SCH ×4 (01:05→19:47)
[2019-06-27] MEDS: Z-GUARD PASTE TP SCH ×2 (01:28→12:03)
[2019-06-27] MEDS: GAUZE TP SCH ×2 (01:28→12:02)
[2019-06-27] MEDS: HYDRAGUARD CREAM TP SCH ×2 (01:28→12:02)
[2019-06-27 03:57] LABS: ANION GAP 13.9 (8-16); CARBON DIOXIDE 19.2 mmol/L (21-32); CREATININE 1.7 mg/dL (0.7-1.3); POTASSIUM 4.1 mmol/L (3.5-5.1)
[2019-06-27 04:01] LABS: BASOPHILS % (AUTO) 0.4 % (0.0-2.0); EOSINOPHILS # (AUTO) 0.1 K/uL (0-0.4); HEMATOCRIT 23.8 % (36-52); HEMOGLOBIN 7.5 g/dL (12.0-18.0); LYMPHOCYTES # (AUTO) 0.9 K/uL (2.0-11.5); LYMPHOCYTES % (AUTO) 17.9 % (20.5-51.1); MAGNESIUM 1.5 mg/dL (1.8-2.4); MEAN CORPUSCULAR HEMOGLOBIN 30 pg (27-31); MEAN CORPUSCULAR HGB CONC 32 g/dL (33-37); MEAN CORPUSCULAR VOLUME 93.9 fL (80-94); MONOCYTES # (AUTO) 0.6 K/uL (0.8-1.0); MONOCYTES % (AUTO) 11.7 % (1.7-9.3); NEUTROPHILS # (AUTO) 3.3 K/uL (1.8-7.7); PHOSPHORUS 4.4 mg/dL (2.5-4.9); PLATELET COUNT (AUTO) 217 K/uL (140-450); RED BLOOD CELL COUNT(AUTO) 2.53 MIL/uL (4.20-6.10); RED CELL DISTRIBUTION WIDTH 17.2 % (11.6-13.7); WHITE BLOOD COUNT (AUTO) 4.9 K/uL (4.8-10.8)
[2019-06-27] MEDS: ONDANSETRON 4 MG/2 ML VIAL IM/IVP PRN (06:04)
[2019-06-27] MEDS: BLOOD GLUCOSE MONITORING 1 DEV DEV FS SCH ×4 (07:25→21:15)
[2019-06-27] MEDS: MULTIVITAMIN/MINERALS 15 ML UDBTL PO SCH (08:29)
[2019-06-27] MEDS: ASCORBIC ACID 500 MG/5 ML ORASYR GT SCH (08:29)
[2019-06-27] MEDS: PANTOPRAZOLE 40 MG INJ VIAL IVP SCH ×2 (08:29→21:15)
[2019-06-27] MEDS: POTASSIUM CHLORIDE 20% 40 MEQ/15 ML UDC GT SCH (08:29)
[2019-06-27] MEDS: CALCIUM ACETATE 667 MG TAB GT SCH ×2 (08:30→17:09)
[2019-06-27] MEDS: ZINC SULF 220 MG CAP GT SCH (08:30)
[2019-06-27] MEDS: LACTOBACILLUS RHAMNOSUS GG 1 EACH CAP GT SCH (08:30)
[2019-06-27] MEDS: DOCUSATE 100 MG/10 ML UDC GT SCH ×2 (08:30→21:15)
[2019-06-27] MEDS: ARTIFICIAL TEARS OPHTH OINT 3.5 GM TUBE BOTH EYES SCH ×3 (08:30→17:10)
[2019-06-27] MEDS: GLYCOPYRROLATE 1 MG TAB PO SCH ×2 (08:30→17:09)
[2019-06-27] MEDS: INSULIN LANTUS 100 UNITS/ML 10 ML VIAL SUBQ SCH ×2 (08:34→21:15)
[2019-06-27] MEDS: MAG SULF 2000 MG/WATER PREMIX 100 ML IV SCH ×2 (08:34→10:34)
[2019-06-27] MEDS ORDERED: MAG SULF 2000 MG/WATER PREMIX 50 ML IV ONE ×2 (11:10→11:20)
[2019-06-27] MEDS: NACL 0.45% 1,000 ML IV SCH (13:50)
[2019-06-27] MEDS: AMIKACIN 400 MG in DEXTROSE 5% 100 ML IV SCH (14:45)
[2019-06-27] MEDS: ATORVASTATIN 20 MG TAB GT SCH (21:15)
[2019-06-28] VITALS (9 sets, daily range): BP systolic 132–154; BP diastolic 62–92
[2019-06-28] MEDS: HYDRAGUARD CREAM TP SCH (01:00)
[2019-06-28] MEDS: Z-GUARD PASTE TP SCH (01:00)
[2019-06-28] MEDS: ALBUTEROL SULFATE/IPRATROPIU 3 ML SOL IH SCH ×3 (01:17→13:00)
[2019-06-28] MEDS: ACETYLCYSTEINE 10% (100 MG/ML) 100 MG/ML VIAL INH SCH ×3 (01:18→13:00)
[2019-06-28] MEDS: GAUZE TP SCH (01:20)
[2019-06-28] MEDS: BLOOD GLUCOSE MONITORING 1 DEV DEV FS SCH ×2 (06:46→12:15)
[2019-06-28] MEDS: GLYCOPYRROLATE 1 MG TAB PO SCH (06:58)
[2019-06-28 07:45] LABS: CARBON DIOXIDE 18.7 mmol/L (21-32); CREATININE 1.7 mg/dL (0.7-1.3); POTASSIUM 4.7 mmol/L (3.5-5.1)
[2019-06-28] MEDS: PANTOPRAZOLE 40 MG INJ VIAL IVP SCH (09:06)
[2019-06-28] MEDS: CALCIUM ACETATE 667 MG TAB GT SCH (09:06)
[2019-06-28] MEDS: POTASSIUM CHLORIDE 20% 40 MEQ/15 ML UDC GT SCH (09:06)
[2019-06-28] MEDS: ASCORBIC ACID 500 MG/5 ML ORASYR GT SCH (09:06)
[2019-06-28] MEDS: LACTOBACILLUS RHAMNOSUS GG 1 EACH CAP GT SCH (09:06)
[2019-06-28] MEDS: DOCUSATE 100 MG/10 ML UDC GT SCH (09:07)
[2019-06-28] MEDS: ZINC SULF 220 MG CAP GT SCH (09:07)
[2019-06-28] MEDS: MULTIVITAMIN/MINERALS 15 ML UDBTL PO SCH (09:21)
[2019-06-28] MEDS: ARTIFICIAL TEARS OPHTH OINT 3.5 GM TUBE BOTH EYES SCH (09:36)
[2019-06-28] MEDS: INSULIN LANTUS 100 UNITS/ML 10 ML VIAL SUBQ SCH (09:38)
[2019-06-28] MEDS ORDERED: AMIK500I IV (10:46)
[2019-06-28] MEDS ORDERED: LANTUS SUBQ (10:47)
[2019-06-29] MEDS ORDERED: CHLO480L1 PO (10:48)
== END 2019-06-28 12:40 | DRG 207 ==
LOC: MED 08:16 → MIC 10:44 → MTU 06-18 21:00 → MIC 06-22 20:47
PROVIDERS: ADMIT General Practice; ATTEND General Practice
PROC: 02HV33Z Insertion of Infusion Device into Superior Vena Cava, Percutaneous Approach (ICD-10-PCS; principal; 2019-06-16)
PROC: 30233N1 Transfusion of Nonautologous Red Blood Cells into Peripheral Vein, Percutaneous Approach (ICD-10-PCS; 2019-06-16)
PROC: 5A1955Z Respiratory Ventilation, Greater than 96 Consecutive Hours (ICD-10-PCS; 2019-06-16)
PROC: B548ZZA Ultrasonography of Superior Vena Cava, Guidance (ICD-10-PCS; 2019-06-16)
PROC: 05HY33Z Insertion of Infusion Device into Upper Vein, Percutaneous Approach (ICD-10-PCS; 2019-06-21)
PROC: 0DJ08ZZ Inspection of Upper Intestinal Tract, Via Natural or Artificial Opening Endoscopic (ICD-10-PCS; 2019-06-22)
DX: J69.0 Pneumonitis due to inhalation of food and vomit (principal); I50.43 Acute on chronic combined systolic (congestive) and diastolic (congestive) heart failure; E43 Unspecified severe protein-calorie malnutrition; N17.0 Acute kidney failure with tubular necrosis; J96.21 Acute and chronic respiratory failure with hypoxia; K92.2 Gastrointestinal hemorrhage, unspecified; I13.0 Hypertensive heart and chronic kidney disease with heart failure and stage 1 through stage 4 chronic kidney disease, or unspecified chronic kidney disease; J96.11 Chronic respiratory failure with hypoxia; Z99.11 Dependence on respirator [ventilator] status; E87.1 Hypo-osmolality and hyponatremia; G93.1 Anoxic brain damage, not elsewhere classified; G93.40 Encephalopathy, unspecified; N39.0 Urinary tract infection, site not specified; D50.0 Iron deficiency anemia secondary to blood loss (chronic); Z93.0 Tracheostomy status; L89.152 Pressure ulcer of sacral region, stage 2; B96.4 Proteus (mirabilis) (morganii) as the cause of diseases classified elsewhere; D63.8 Anemia in other chronic diseases classified elsewhere; E11.22 Type 2 diabetes mellitus with diabetic chronic kidney disease; E11.649 Type 2 diabetes mellitus with hypoglycemia without coma; E78.5 Hyperlipidemia, unspecified; G40.909 Epilepsy, unspecified, not intractable, without status epilepticus; I25.10 Atherosclerotic heart disease of native coronary artery without angina pectoris; K21.9 Gastro-esophageal reflux disease without esophagitis; N18.9 Chronic kidney disease, unspecified; E78.00 Pure hypercholesterolemia, unspecified; Z79.82 Long term (current) use of aspirin; Z86.73 Personal history of transient ischemic attack (TIA), and cerebral infarction without residual deficits; Z87.01 Personal history of pneumonia (recurrent); Z93.1 Gastrostomy status; Z68.26 Body mass index [BMI] 26.0-26.9, adult; Z74.01 Bed confinement status; D69.6 Thrombocytopenia, unspecified; K59.00 Constipation, unspecified
CPT/HCPCS: 36415; 36430; 71045; 74018; 74022; 76770; 80048; 80053; 80150; 80185; 80202; 81001; 82271; 82272; 82607; 82728; 82746; 82948; 83036; 83540; 83605; 83690; 83735; 83880; 84100; 84484; 85025; 85045; 85610; 85730; 86886; 86900; 86901; 86920; 87040; 87070; 87075; 87081; 87086; 87186; 87205; 89220; 93005; 94002; 94003; 94640; 96365; 96367; 99291; C1751; C9113; J0278; J1200; J1642; J1644; J1815; J2001; J2250; J2405; J2543; J2916; J3010; J3370; J3475; J3480; J7030; J7042; J7060; J7620; P9016; Q0092

== ENCOUNTER 2019-06-29 06:43 | Inpatient (IN) | payer OTHER ==
[~2019-06-29] VITALS: Ht 177.8 cm; Wt 94.8 kg
[2019-06-29] VITALS (56 sets, daily range): BP systolic 68–123; BP diastolic 16–71
[~2019-06-29 06:43] MED LIST changes: -ALBU3SOL83 IH; +AMIK500I IV; -CEFT1PDS83 IV; -D50SYR IVP; -DOCU-299 GT; +DOCU-299 PO; +FERR220E24 GT; -FERR324T11 PO; -Foam Dressing TP; -GLUC-805 FS; -HUMSLIDE SUBQ; -Hydraguard TP; -LACT10CA GT; -LACT25CA GT; +LANTUS SUBQ; -LEVEMIR SUBQ; -MER1I IV; -MERO500P9 IV; -NUTR30LI3 GT; -PUL.5N INH; -Therahoney Gel TP
[2019-06-29] MEDS ORDERED: NACL 0.9% 1,000 ML IV ONE ×2 (06:45→09:00)
[2019-06-29] MEDS ORDERED: AMIKACIN PER PHARMACY MC PRN ×2 (07:15→10:40)
[2019-06-29] MEDS ORDERED: PIPERACILLIN/TAZOBACTAM 4.5 GM in DEXTROSE 5% 100 ML IV ONE (07:15)
[2019-06-29] MEDS ORDERED: ACETAMINOPHEN 650 MG SUPP RC ONE (07:15)
[2019-06-29] MEDS ORDERED: VANCOMYCIN 1,000 MG in DEXTROSE 5% 250 ML IV ONE (07:15)
[2019-06-29] MEDS ORDERED: AMIKACIN 500 MG in DEXTROSE 5% 100 ML IV SCH (07:15)
[2019-06-29] MEDS ORDERED: VANCOMYCIN 1,000 MG VIAL ONE (07:27)
[2019-06-29] MEDS ORDERED: AMIKACIN 500 MG/2 ML VIAL IV ONE (07:27)
[2019-06-29] MEDS ORDERED: PIPERACILLIN/TAZOBACTAM 2.25 GM VIAL IV ONE (07:27)
[2019-06-29 07:33] LABS: HEMOGLOBIN 7.9 g/dL (12.0-18.0); LYMPHOCYTES # (AUTO) 0.7 K/uL (2.0-11.5); MEAN CORPUSCULAR HEMOGLOBIN 30 pg (27-31); NEUTROPHILS # (AUTO) 2.1 K/uL (1.8-7.7); WHITE BLOOD COUNT (AUTO) 3.2 K/uL (4.8-10.8)
[2019-06-29 07:40] LABS: BASOPHILS % (AUTO) 0.5 % (0.0-2.0); EOSINOPHILS % (AUTO) 1.4 % (0.0-4.0); HEMATOCRIT 25.4 % (36-52); LYMPHOCYTES % (AUTO) 20.4 % (20.5-51.1); MEAN CORPUSCULAR HGB CONC 31 g/dL (33-37); MEAN CORPUSCULAR VOLUME 94.3 fL (80-94); MONOCYTES # (AUTO) 0.4 K/uL (0.8-1.0); MONOCYTES % (AUTO) 11.6 % (1.7-9.3); NEUTROPHILS % (AUTO) 66.1 % (42.2-75.2); PLATELET COUNT (AUTO) 400 K/uL (140-450); RED BLOOD CELL COUNT(AUTO) 2.69 MIL/uL (4.20-6.10); RED CELL DISTRIBUTION WIDTH 17.4 % (11.6-13.7)
[2019-06-29 07:52] LABS: ANION GAP 16.4 (8-16); CARBON DIOXIDE 20.9 mmol/L (21-32); CREATININE 2.1 mg/dL (0.7-1.3); POTASSIUM 5.3 mmol/L (3.5-5.1)
[2019-06-29 07:58] LABS: TOTAL BILIRUBIN 0.8 mg/dL (0.0-1.0)
[2019-06-29] MEDS ORDERED: NOREPINEPHRINE 4 MG in DEXTROSE 5% 250 ML IV ONE (09:40)
[2019-06-29] MEDS ORDERED: NOREPINEPHRINE 4 MG/4 ML VIAL IV ONE (09:42)
[2019-06-29 10:19] LABS: HEMATOCRIT 24.4 % (36-52); HEMOGLOBIN 7.5 g/dL (12.0-18.0)
[2019-06-29 10:27] LABS: APPEARANCE,URINE CLOUDY (CLEAR); BILIRUBIN,URINE 1+ (NEGATIVE); BLOOD, URINE 2+ (NEGATIVE); COLOR,URINE YELLOW (YELLOW); LEUKOCYTE ESTERASE ,URINE 2+ (NEGATIVE); NITRITE, URINE NEGATIVE (NEGATIVE); UGLUCOSE NEGATIVE (NEGATIVE)
[2019-06-29] MEDS ORDERED: ALBUTEROL SULFATE/IPRATROPIU 3 ML SOL IH PRN (10:40)
[2019-06-29] MEDS ORDERED: MORPHINE SULFATE 2 MG/ML SYR IVP PRN (10:40)
[2019-06-29] MEDS ORDERED: NOREPINEPHRINE 16 MG in DEXTROSE 5% 250 ML IV PRN (10:40)
[2019-06-29] MEDS ORDERED: ONDANSETRON 4 MG/2 ML VIAL IM/IVP PRN (10:40)
[2019-06-29] MEDS ORDERED: DOCUSATE SODIUM 100 MG GELCAP PO PRN (10:40)
[2019-06-29] MEDS ORDERED: HYDROcodone/APAP 5/325 MG 1 TAB TAB PO PRN (10:40)
[2019-06-29] MEDS ORDERED: NACL 0.9% 1,000 ML IV SCH (10:40)
[2019-06-29] MEDS ORDERED: CHLO480L1 PO (10:48)
[2019-06-29 11:21] LABS: MAGNESIUM 2.7 mg/dL (1.8-2.4); PHOSPHORUS 6.2 mg/dL (2.5-4.9)
[2019-06-29 11:24] LABS: PROTHROMBIN TIME 11.6 secs (10.8-13.4)
[2019-06-29 11:28] LABS: RBC,URINE 11-20 (MOD) /HPF (0-5)
[2019-06-29 11:30] LABS: WBC,URINE 80-100 /HPF (0-5); YEAST,URINE Many /HPF (None Seen)
[2019-06-29] MEDS ORDERED: SENNA 8.6 MG TAB GT PRN (11:40)
[2019-06-29] MEDS ORDERED: DEXTROSE 50% 50 ML SYR IVP PRN (12:10)
[2019-06-29] MEDS ORDERED: INSULIN LISPRO SLIDING SCALE 100 UNITS/ML VIAL SUBQ PRN (12:10)
[2019-06-29] MEDS ORDERED: CALCIUM ACETATE 667 MG TAB PO SCH (13:00)
[2019-06-29] MEDS ORDERED: FUROSEMIDE 40 MG/4 ML VIAL IVP SCH (13:00)
[2019-06-29] MEDS ORDERED: SCOPOLAMINE 1.5 MG/72 HR PATCH TD SCH (13:00)
[2019-06-29] MEDS ORDERED: SODIUM POLYSTYRENE 15 GM/60 ML UDBTL PR SCH (13:00)
[2019-06-29] MEDS: ALBUTEROL SULFATE/IPRATROPIU 3 ML SOL IH SCH ×2 (13:03→18:37)
[2019-06-29] MEDS: ACETYLCYSTEINE 10% (100 MG/ML) 100 MG/ML VIAL INH SCH ×2 (13:06→18:38)
[2019-06-29] MEDS ORDERED: FLUCONAZOLE 200 MG/NS PREMIX 100 ML IV SCH (14:00)
[2019-06-29] MEDS: ACETAMINOPHEN 325 MG TAB PO PRN (14:46)
[2019-06-29] MEDS ORDERED: fentaNYL 0.05 MG/ML VIAL ONE (16:52)
[2019-06-29] MEDS ORDERED: MIDAZOLAM 2 MG/2 ML VIAL ONE (16:52)
[2019-06-29] MEDS ORDERED: diphenhydrAMINE 50 MG/ML VIAL ONE (16:52)
[2019-06-29] MEDS ORDERED: MAGNESIUM CITRATE 300 ML BTL PO SCH (18:00)
[2019-06-29] MEDS ORDERED: SODIUM PHOSPHATE 118 ML ENEM RC SCH (18:00)
[2019-06-29] MEDS: GLYCOPYRROLATE 1 MG TAB GT SCH (19:35)
[2019-06-29] MEDS: METOCLOPRAMIDE 10 MG/2 ML INJ VIAL IVP SCH ×2 (19:35→23:50)
[2019-06-29] MEDS ORDERED: SIMETHICONE 40 MG/0.6 ML GT SCH (20:15)
[2019-06-29] MEDS: BLOOD GLUCOSE MONITORING 1 DEV DEV FS SCH ×2 (20:21→20:36)
[2019-06-29] MEDS: FERROUS SULFATE 300 MG/5 ML UDC GT SCH (20:28)
[2019-06-29] MEDS: PHENYTOIN 100 MG/4 ML UDC GT SCH (20:28)
[2019-06-29] MEDS ORDERED: PHENYLEPHRINE 10 MG/ML VIAL ONE (20:34)
[2019-06-29] MEDS: INSULIN LANTUS 100 UNITS/ML 10 ML VIAL SUBQ SCH (20:37)
[2019-06-29] MEDS: PHENYLEPHRINE 40 MG in NACL 0.9% 250 ML IV PRN (20:41)
[2019-06-29] MEDS ORDERED: NON-FORMULARY ITEM (Chlorhexidine Gluconate (Periogard 480 Ml) 15 ML) PO SCH (21:00)
[2019-06-29] MEDS ORDERED: FERROUS SULFATE 220 MG GT SCH (21:00)
[2019-06-29] MEDS ORDERED: ATORVASTATIN 20 MG TAB GT SCH (21:00)
[2019-06-29] MEDS ORDERED: PHENYTOIN 100 MG/4 ML UDC GT SCH (21:00)
[2019-06-29] MEDS ORDERED: PHENYTOIN 100 MG CAPER PO SCH (21:00)
[2019-06-29] MEDS ORDERED: VANCOMYCIN PER PHARMACY MC PRN (21:50)
[2019-06-29] MEDS ORDERED: DEXT 5% /NACL 0.9% 1,000 ML IV SCH (23:25)
[2019-06-30] VITALS (46 sets, daily range): BP systolic 52–168; BP diastolic 17–107
[2019-06-30] MEDS: ACETYLCYSTEINE 10% (100 MG/ML) 100 MG/ML VIAL INH SCH (01:00)
[2019-06-30] MEDS ORDERED: NOREPINEPHRINE 4 MG/4 ML VIAL IV ONE (01:35)
[2019-06-30] MEDS ORDERED: PHENYLEPHRINE 10 MG/ML VIAL ONE (01:47)
[2019-06-30] MEDS: PHENYLEPHRINE 40 MG in NACL 0.9% 250 ML IV PRN ×2 (01:54→07:48)
[2019-06-30] MEDS ORDERED: NACL 0.9% 1,000 ML IV ONE ×2 (02:50→05:35)
[2019-06-30] MEDS ORDERED: VASOPRESSIN 20 UNITS in NACL 0.9% 250 ML IV SCH (02:50)
[2019-06-30] MEDS ORDERED: VASOPRESSIN 20 UNITS/ML VIAL ONE (03:11)
[2019-06-30] MEDS ORDERED: MEROPENEM 500 MG VIAL IV ONE (04:54)
[2019-06-30] MEDS ORDERED: MEROPENEM 500 MG in NACL 0.9% 50 ML IV SCH ×2 (05:00→17:00)
[2019-06-30 05:37] LABS: ALBUMIN 0.8 g/dL (3.4-5.0); ANION GAP 22.3 (8-16); CARBON DIOXIDE 14.6 mmol/L (21-32); CREATININE 2.7 mg/dL (0.7-1.3)
[2019-06-30] MEDS ORDERED: DOPamine 400 MG/D5W PREMIX 250 ML IV SCH (05:40)
[2019-06-30] MEDS ORDERED: CALCIUM GLUCONATE 10% 1000 MG/10 ML VIAL ONE ×2 (05:43→07:18)
[2019-06-30] MEDS: METOCLOPRAMIDE 10 MG/2 ML INJ VIAL IVP SCH (05:54)
[2019-06-30] MEDS ORDERED: SODIUM BICARBONATE 8.4% PFS 50 MEQ/50 ML SYR IVP SCH (06:00)
[2019-06-30] MEDS ORDERED: ALBUTEROL SULFATE/IPRATROPIU 3 ML SOL IH SCH (06:00)
[2019-06-30] MEDS ORDERED: CALCIUM GLUCONATE 10% 1,000 MG in NACL 0.9% 50 ML IV SCH (06:00)
[2019-06-30] MEDS ORDERED: HYDROCORTISONE NA SUCC 100 MG/2 ML VIAL IV SCH (06:00)
[2019-06-30 06:01] LABS: HEMATOCRIT 23.6 % (36-52); HEMOGLOBIN 7.1 g/dL (12.0-18.0); MEAN CORPUSCULAR HEMOGLOBIN 30 pg (27-31); MEAN CORPUSCULAR HGB CONC 30 g/dL (33-37); MEAN CORPUSCULAR VOLUME 100.2 fL (80-94); PLATELET COUNT (AUTO) 467 K/uL (140-450); RED BLOOD CELL COUNT(AUTO) 2.35 MIL/uL (4.20-6.10); RED CELL DISTRIBUTION WIDTH 19.4 % (11.6-13.7); WHITE BLOOD COUNT (AUTO) 13.7 K/uL (4.8-10.8)
[2019-06-30 06:03] LABS: POTASSIUM 6.9 mmol/L (3.5-5.1)
[2019-06-30] MEDS: DEXTROSE 10% 500 ML IV SCH ×2 (06:05→06:38)
[2019-06-30] MEDS ORDERED: DEXTROSE 50% 50 ML SYR IVP PRN (06:05)
[2019-06-30 06:11] LABS: MONOCYTES % (MANUAL) 7 % (5-12)
[2019-06-30 06:12] LABS: LYMPHOCYTES % (MANUAL) 17 % (20-46)
[2019-06-30] MEDS ORDERED: PATIROMER CALCIUM SORBITEX 8.4 GM PKT GT SCH (06:30)
[2019-06-30] MEDS ORDERED: DEXTROSE 50% 50 ML SYR IVP SCH ×2 (06:30→09:00)
[2019-06-30] MEDS ORDERED: DEXTROSE 10% 1,000 ML IV ONE (06:36)
[2019-06-30 06:38] LABS: PROTHROMBIN TIME 14.2 secs (10.8-13.4)
[2019-06-30] MEDS ORDERED: VANCOMYCIN 1,250 MG in DEXTROSE 5% 250 ML IV SCH (07:00)
[2019-06-30] MEDS: GLYCOPYRROLATE 1 MG TAB GT SCH (07:30)
[2019-06-30] MEDS: BLOOD GLUCOSE MONITORING 1 DEV DEV FS SCH (07:54)
[2019-06-30] MEDS: INSULIN LANTUS 100 UNITS/ML 10 ML VIAL SUBQ SCH (08:38)
[2019-06-30] MEDS ORDERED: CALCIUM GLUCONATE 10% 1,000 MG in NACL 0.9% 50 ML IV ONE (08:55)
[2019-06-30] MEDS ORDERED: INSULIN REGULAR, HUMAN 100 UNIT/ML VIAL IVP SCH (08:59)
[2019-06-30] MEDS ORDERED: ALBUTEROL 0.083% 2.5 MG/3 ML NEBU INH ONE (08:59)
[2019-06-30] MEDS ORDERED: MULTIVITAMIN/MINERALS 1 TAB GT SCH (09:00)
[2019-06-30] MEDS ORDERED: LACTOBACILLUS RHAMNOSUS GG 1 EACH CAP GT SCH (09:00)
[2019-06-30] MEDS ORDERED: PANTOPRAZOLE 40 MG INJ VIAL IVP SCH (09:00)
[2019-06-30] MEDS ORDERED: ALBUMIN HUMAN 25% 50 ML IV SCH (09:00)
[2019-06-30] MEDS ORDERED: ZINC SULF 220 MG CAP GT SCH (09:00)
[2019-06-30] MEDS ORDERED: NON-FORMULARY ITEM (Multivit-Min/Iron Fum/Folic AC (Multi-Vitamin-Minerals Tablet) 1 TAB) GT SCH (09:00)
[2019-06-30] MEDS ORDERED: ALBUTEROL 0.083% 2.5 MG/3 ML NEBU INH SCH (09:00)
[2019-06-30] MEDS ORDERED: ASCORBIC ACID 500 MG TAB GT SCH (09:00)
[2019-06-30] MEDS ORDERED: SENNA 8.6 MG TAB PO SCH (09:00)
[2019-06-30] MEDS ORDERED: NON-FORMULARY ITEM (Cranberry Fruit Concentrate (Cranberry) 450 MG) GT SCH (09:00)
[2019-06-30] MEDS: PHENYTOIN 100 MG/4 ML UDC GT SCH (09:31)
[2019-06-30] MEDS: FERROUS SULFATE 300 MG/5 ML UDC GT SCH (09:31)
[2019-06-30] MEDS: ACETAMINOPHEN 325 MG TAB PO PRN (09:43)
[2019-06-30] MEDS ORDERED: AMIODARONE 150 MG in DEXTROSE 5% 100 ML IV SCH (10:15)
[2019-06-30] MEDS ORDERED: VANCOMYCIN 1,000 MG in DEXTROSE 5% 250 ML IV SCH (12:00)
== END 2019-06-30 18:00 | disposition expired | DRG 871 ==
LOC: MED 06:43 → MIC 10:40
PROVIDERS: ADMIT General Practice; ATTEND General Practice
PROC: 0DJ08ZZ Inspection of Upper Intestinal Tract, Via Natural or Artificial Opening Endoscopic (ICD-10-PCS; 2019-06-29)
PROC: 5A1945Z Respiratory Ventilation, 24-96 Consecutive Hours (ICD-10-PCS; principal; 2019-06-29 17:00)
PROC: 5A12012 Performance of Cardiac Output, Single, Manual (ICD-10-PCS; 2019-06-30)
DX: A41.9 Sepsis, unspecified organism (principal); J96.21 Acute and chronic respiratory failure with hypoxia; R53.2 Functional quadriplegia; R65.21 Severe sepsis with septic shock; J69.0 Pneumonitis due to inhalation of food and vomit; N17.0 Acute kidney failure with tubular necrosis; E43 Unspecified severe protein-calorie malnutrition; G93.40 Encephalopathy, unspecified; I13.0 Hypertensive heart and chronic kidney disease with heart failure and stage 1 through stage 4 chronic kidney disease, or unspecified chronic kidney disease; Z99.11 Dependence on respirator [ventilator] status; B37.49 Other urogenital candidiasis; K92.2 Gastrointestinal hemorrhage, unspecified; K56.0 Paralytic ileus; E11.22 Type 2 diabetes mellitus with diabetic chronic kidney disease; E11.43 Type 2 diabetes mellitus with diabetic autonomic (poly)neuropathy; E78.00 Pure hypercholesterolemia, unspecified; E78.5 Hyperlipidemia, unspecified; F03.90 Unspecified dementia, unspecified severity, without behavioral disturbance, psychotic disturbance, mood disturbance, and anxiety; G40.909 Epilepsy, unspecified, not intractable, without status epilepticus; I25.10 Atherosclerotic heart disease of native coronary artery without angina pectoris; K21.9 Gastro-esophageal reflux disease without esophagitis; K31.84 Gastroparesis; N18.9 Chronic kidney disease, unspecified; R13.10 Dysphagia, unspecified; Z96.642 Presence of left artificial hip joint; E11.649 Type 2 diabetes mellitus with hypoglycemia without coma; I50.9 Heart failure, unspecified; J44.9 Chronic obstructive pulmonary disease, unspecified; L89.152 Pressure ulcer of sacral region, stage 2; B96.5 Pseudomonas (aeruginosa) (mallei) (pseudomallei) as the cause of diseases classified elsewhere; B96.4 Proteus (mirabilis) (morganii) as the cause of diseases classified elsewhere; E87.5 Hyperkalemia; E87.8 Other disorders of electrolyte and fluid balance, not elsewhere classified; E83.39 Other disorders of phosphorus metabolism; E83.41 Hypermagnesemia; K59.09 Other constipation; I46.9 Cardiac arrest, cause unspecified; Z79.4 Long term (current) use of insulin; Z79.899 Other long term (current) drug therapy; Z93.0 Tracheostomy status; Z93.1 Gastrostomy status; Z86.73 Personal history of transient ischemic attack (TIA), and cerebral infarction without residual deficits; Z68.30 Body mass index [BMI] 30.0-30.9, adult
CPT/HCPCS: 36415; 36600; 51702; 71045; 74018; 80053; 80150; 80185; 80202; 81001; 82271; 82272; 82803; 82948; 83010; 83605; 83625; 83735; 83880; 84100; 84484; 85018; 85025; 85379; 85384; 85610; 85730; 86886; 86900; 86901; 86920; 87040; 87070; 87081; 87086; 87186; 87205; 92950; 93005; 94003; 94640; 96365; 96366; 96367; 96368; 99291; C9113; G0482; J0278; J0282; J0610; J1200; J1265; J1450; J1720; J1815; J1940; J2185; J2250; J2370; J2543; J2765; J3010; J3370; J3490; J7030; J7042; J7060; J7613; J7620; P9046; Q0092